=== PATIENT | male | born 1930 | race American Indian/Alaskan Native ===

== ENCOUNTER 2017-11-08 14:15 | Emergency (ER) | payer MEDICARE, OTHER ==
[2017-11-08 14:15] VITALS: PULSE 102
[2017-11-08 15:24] VITALS: RESP 18; TEMP 97.9; O2SAT 100
--- NOTE | 2017-11-08 15:30 | ED PDOC ---
Arrival/HPI - General Time Seen by Provider: 11/08/17 15:27 Historian: Patient - History of Present Illness Narrative History of Present Illness (Text): 11/08/17 15:31 87-year-old male presents to the emergency room after he fell while walking up his outside steps of his home injuring his right knee, sustaining a skin tear to the anterior right knee. Patient states that he injured the same knee 2 weeks ago when he was getting out of his vehicle and sustained a hematoma to the anterior aspect of the right knee. Otherwise the patient denies any head injury, LOC, neck pain, back pain or any other extremity injury. Denies feeling dizzy, chest pain, palpitations prior to the fall today. He has no additional complaints and fells well otherwise. Past Medical History - Provider Review Nursing Documentation Reviewed: Yes - Cardiac Hx Cardiac Disorders: Yes Hx Congestive Heart Failure: Yes Hx Hypertension: Yes - Pulmonary Hx Respiratory Disorders: No - Neurological Hx Paralysis: No - HEENT Hx HEENT Disorder: Yes Hx Cataracts: Yes (L EYE SX) Hx Glaucoma: Yes - Renal Hx Renal Disorder: No - Endocrine/Metabolic Hx Endocrine Disorders: No - Hematological/Oncological Hx Blood Transfusions: No - Integumentary Hx Dermatological Disorder: No - Musculoskeletal/Rheumatological Hx Falls: Yes (past) - Gastrointestinal Hx Gastrointestinal Disorders: No (bm x 4 days) - Genitourinary/Gynecological Hx Reproductive Disorders: No - Psychiatric Hx Emotional Abuse: No Hx Physical Abuse: No Hx Substance Use: No - Surgical History Other/Comment: CATARACTS - Anesthesia Hx Anesthesia Reactions: No Hx Malignant Hyperthermia: No - Suicidal Assessment Feels Threatened In Home Enviroment: No Family/Social History - Physician Review Nursing Documentation Reviewed: Yes Family/Social History: No Known Family HX Smoking Status: Never Smoked Hx Alcohol Use: No Hx Substance Use: No Allergies/Home Meds Allergies/Adverse Reactions: Allergies No Known Allergies Allergy (Verified 10/17/15 13:18) Home Medications: Home Meds Medication Instructions Recorded Confirmed Calcium Carbonate/Vitamin D3 1 tab PO DAILY 07/17/15 10/16/15 [Calcium 600-Vit D3 200 Tablet] Gabapentin [Neurontin] 600 mg PO HS 07/17/15 10/16/15 Multivitamin [Multivitamins] 1 each PO DAILY 07/17/15 10/16/15 Review of Systems - Review of Systems Constitutional: absent: Fatigue, Fevers Respiratory: absent: SOB, Cough Cardiovascular: absent: Chest Pain, Palpitations Musculoskeletal: Arthralgias. absent: Back Pain, Neck Pain, Joint Swelling Skin: Other (skin tear). absent: Rash, Pruritis Neurological: absent: Headache, Dizziness Physical Exam Vital Signs Temp Pulse Resp BP Pulse Ox 11/08/17 16:31 47 L 18 138/68 100 11/08/17 15:24 97.9 F 43 L 18 143/72 100 Temperature: Afebrile Blood Pressure: Normal Pulse: Tachycardic Respiratory Rate: Normal Appearance: Positive for: Well-Appearing, Non-Toxic, Comfortable Pain Distress: None Mental Status: Positive for: Alert and Oriented X 3 - Systems Exam Head: Present: Atraumatic Pupils: Present: PERRL Extroacular Muscles: Present: EOMI Conjunctiva: Present: Normal Mouth: Present: Moist Mucous Membranes Neck: Present: Normal Range of Motion. No: MIDLINE TENDERNESS Back: Present: Normal Inspection. No: Midline Tenderness Upper Extremity: Present: Normal Inspection, Normal ROM, NORMAL PULSES. No: Edema Lower Extremity: Present: NORMAL PULSES, Normal ROM, Swelling (+1 cm skin tear to the anterior lower R knee proximal to a hematoma 2x3 cm in size), Neurovascularly Intact, Capillary Refill < 2 s. No: Tenderness, Deformity, Temperature Abnormalties Neurological: Present: GCS=15, CN II-XII Intact, Speech Normal, Motor Func Grossly Intact, Normal Sensory Function Skin: Present: Warm, Dry, Normal Color. No: Rashes Psychiatric: Present: Alert, Oriented x 3, Normal Insight, Normal Concentration Medical Decision Making ED Course and Treatment: 11/08/17 15:28 Plan : - Tdap IM - XR R knee - Clean & dress wound XR R knee : +knee replacement, +DJD, no fracture, no dislocation, as read by CHANELLE Wound cleaned and dressed. XR results d/w the patient. Instructed on proper wound care and to apply warm compresses to hematoma. Advised to follow up with primary care physician in 1-2 days without fail. Advised to take [id number] Tylenol as needed for pain. Return to the emergency room at any time for any new or worsening symptoms. Patient states he fully agrees with and understands discharge instructions. States that he agrees with the plan and disposition. Verbalized and repeated discharge instructions and plan. I have given the patient opportunity to ask any additional questions. - RAD Interpretation Radiology Orders: 11/08/17 15:35 KNEE RIGHT 2 VIEWS (AP & LAT) [RAD] Stat - Medication Orders Current Medication Orders: Discontinued Medications Tetanus/Reduced Diphtheria/Acell Pertussis (Boostrix Vaccine Inj) 0.5 ml IM .ONCE ONE Stop: 11/08/17 15:36 Last Admin: 11/08/17 16:45 Dose: 0.5 ml Immunization Registry Document 11/08/17 16:45 JESÚS (Rec: 11/08/17 16:45 JESÚS [id number]) Immunization Registry Consent Date 11/08/17 - PA / G[employer] FORMER / Resident Statement MD/DO has reviewed & agrees with the documentation as recorded. - Scribe Statement The provider has reviewed the documentation as recorded by the Scribe (Christa Tam) All medical record entries made by the Scribe were at my direction and pers onally dictated by me. I have reviewed the chart and agree that the record accurately reflects my personal performance of the history, physical exam, medical decision making, and the department course for this patient. I have also personally directed, reviewed, and agree with the discharge instructions and disposition. Disposition/Present on Arrival - Present on Arrival Any Indicators Present on Arrival: No History of DVT/PE: No History of Uncontrolled Diabetes: No Urinary Catheter: No History of Decub. Ulcer: No History Surgical Site Infection Following: None - Disposition Have Diagnosis and Disposition been Completed?: Yes Diagnosis: Contusion of knee, right, Skin tear Disposition: HOME/ ROUTINE Disposition Time: 16:45 Patient Plan: Discharge Condition: STABLE Discharge Instructions (ExitCare): Wound Care (DC), Contusion (DC) Additional Instructions: Thank you for letting us take care of you today. You were treated for R knee contusion with skin tear. The emergency medical care you received today was directed at your acute symptoms. Elevate your knee, apply warm compresses to hematoma, clean skin tear regularly with soap and water. It may take several days for your symptoms to resolve. Return to the Emergency Department if your symptoms worsen, do not improve, or if you have any other problems. Please contact your doctor and orthopedist in 2 days for re-evaluation and follow up. Bring any paperwork you were given at discharge with you along with any medications you are taking to your follow up visit. Our treatment cannot replace ongoing medical care by a primary care provider (PCP) outside of the emergency department. Thank you for allowing the [facility] team to be part of your care today. If you had an X-Ray : A Radiologist will review the ED reading if any change in treatment is needed we will contact you. Forms: [employer] (Sinhala)
[2017-11-08 15:31] VITALS: BMI 27.4
[2017-11-08] MEDS ORDERED: TDAP Vaccine 0.5 mL Syr IM ONE (15:35)
[2017-11-08 16:32] VITALS: BP 138/68; PULSE 47
--- NOTE | 2017-11-08 17:40 | RAD ---
Date of service: 11/08/2017 PROCEDURE: Right Knee Radiographs. HISTORY: pain COMPARISON: None. FINDINGS: BONES: There is diffuse bone demineralization. No acute displaced fracture or bone destruction. Bone alignment is normal. No hardware complications. JOINTS: Status post total cemented knee arthroplasty. JOINT EFFUSION: Small suprapatellar joint effusion. OTHER FINDINGS: None. IMPRESSION: No acute displaced fracture or dislocation. Stat status post total cemented knee arthroplasty, no evidence for hardware complications. Small suprapatellar joint effusion.
== END 2017-11-08 17:20 | disposition home or self-care (01) ==
LOC: ED 14:15
DX: S80.01XA Contusion of right knee, initial encounter (principal); S81.011A Laceration without foreign body, right knee, initial encounter; W19.XXXA Unspecified fall, initial encounter; Y93.01 Activity, walking, marching and hiking; Y92.009 Unspecified place in unspecified non-institutional (private) residence as the place of occurrence of the external cause; I50.9 Heart failure, unspecified; I10 Essential (primary) hypertension; Z96.651 Presence of right artificial knee joint; Z23 Encounter for immunization

== ENCOUNTER 2017-11-18 13:58 | Inpatient (IN) | payer MEDICARE, OTHER ==
[2017-11-18 13:59] VITALS: PULSE 102
--- NOTE | 2017-11-18 15:09 | ED PDOC ---
Arrival/HPI <Daniel Ibarra - Last Filed: 11/18/17 15:39> - General Historian: Patient, Family - History of Present Illness Narrative History of Present Illness (Text): 11/18/17 14:59 87 yo M with PMHx of HTN, gout, dilated cardiomyopathy, chronic afib s/p failed cardioversion, s/p cardiac cath with non-occlusive coronaries presents to ED s/p fall in the setting of generalized LE weakness for the past "couple months". Of note, patient was recently seen on 11/08 for fall in the setting of weakness. Patient states he fell again this morning in his home, witnessed by his present at bedside. Denies any LOC or head trauma, states that his legs "gave out on him". Patient endorses numbness and tingling in his feet b/l for the past few months. No other acute complaints at this time. Denies fevers/chills, headaches, dizziness, chest pain, palpitations, sob, cough, abdominal pain, n/v/d/c. PMHx: HTN, dilated cardiomyopathy, chronic afib s/p failed cardioversion, gout PSHx: cardiac catheterization with nonocclusive arteries Allergies: NKDA Home Medications: as per chart FHx: non-contributory Social Hx: denies alcohol, tobacco, illicit drug use. Patient is a [place] PMD: Dr. Martin Pediatric Cardiologist: Dr. Rich Time/Duration: > month Symptom Onset: Gradual Symptom Course: Unchanged Quality: Dullness Activities at Onset: Light <Yaron Rizvi - Last Filed: 11/18/17 17:55> - General Chief Complaint: Weakness/Neurological Deficit Time Seen by Provider: 11/18/17 14:19 Past Medical History - Provider Review Nursing Documentation Reviewed: Yes - Cardiac Hx Cardiac Disorders: Yes Hx Congestive Heart Failure: Yes Hx Hypertension: Yes - Pulmonary Hx Respiratory Disorders: No - Neurological Hx Paralysis: No - HEENT Hx HEENT Disorder: Yes Hx Cataracts: Yes (L EYE SX) Hx Glaucoma: Yes - Renal Hx Renal Disorder: No - Endocrine/Metabolic Hx Endocrine Disorders: No - Hematological/Oncological Hx Blood Transfusions: No - Integumentary Hx Dermatological Disorder: No - Musculoskeletal/Rheumatological Hx Falls: Yes (past) - Gastrointestinal Hx Gastrointestinal Disorders: Yes Hx Constipation: Yes Other/Comment: RECENT GI INFECTION - Genitourinary/Gynecological Hx Reproductive Disorders: No - Psychiatric Hx Psychophysiologic Disorder: No Hx Substance Use: No - Surgical History Other/Comment: CATARACTS - Anesthesia Hx Anesthesia Reactions: No Hx Malignant Hyperthermia: No - Suicidal Assessment Feels Threatened In Home Enviroment: No <Yaron Rizvi - Last Filed: 11/18/17 17:55> Family/Social History - Physician Review Nursing Documentation Reviewed: Yes Family/Social History: Unknown Family HX Smoking Status: Never Smoked Hx Alcohol Use: No Hx Substance Use: No <Yaron Rizvi - Last Filed: 11/18/17 17:55> Allergies/Home Meds <Daniel Ibarra - Last Filed: 11/18/17 15:39> <Yaron Rizvi - Last Filed: 11/18/17 17:55> Allergies/Adverse Reactions: Allergies No Known Allergies Allergy (Verified 11/18/17 14:21) Home Medications: Home Meds Medication Instructions Recorded Confirmed Calcium Carbonate/Vitamin D3 1 tab PO DAILY 07/17/15 11/18/17 [Calcium 600-Vit D3 200 Tablet] Gabapentin [Neurontin] 600 mg PO HS 07/17/15 11/18/17 Multivitamin [Multivitamins] 1 each PO DAILY 07/17/15 11/18/17 Amoxicillin 1,000 mg PO BID 11/18/17 11/18/17 Clarithromycin [Clarithromycin ER] 1 tab PO DAILY 11/18/17 11/18/17 Omeprazole 40 mg PO DAILY 11/18/17 11/18/17 Review of Systems - Review of Systems Constitutional: Normal Eyes: Normal ENT: Normal Respiratory: Normal Cardiovascular: Normal Gastrointestinal: Normal Genitourinary Male: Normal Skin: Ulcer (chronic, dry diffusely b/l LE) Neurological: Normal Endocrine: Normal Hemo/Lymphatic: Normal Psychiatric: Normal <Yaron Rizvi - Last Filed: 11/18/17 17:55> Physical Exam Vital Signs Temp Pulse Resp BP Pulse Ox 11/18/17 14:11 98.1 F 51 L 19 97/60 L 97 <Daniel Ibarra - Last Filed: 11/18/17 15:39> Vital Signs Reviewed: Yes Vital Signs Temp Pulse Resp BP Pulse Ox 11/18/17 14:11 98.1 F 51 L 19 97/60 L 97 Temperature: Afebrile Blood Pressure: Hypotensive Pulse: Bradycardic Respiratory Rate: Normal Appearance: Positive for: Well-Appearing, Non-Toxic, Comfortable Pain Distress: None Mental Status: Positive for: Alert and Oriented X 3 - Systems Exam Head: Present: Atraumatic, Normocephalic Pupils: Present: PERRL Extroacular Muscles: Present: EOMI Conjunctiva: Present: Normal Ears: Present: Normal Mouth: Present: Moist Mucous Membranes Pharnyx: Present: Normal Neck: Present: Normal Range of Motion Respiratory/Chest: Present: Clear to Auscultation, Good Air Exchange. No: Respiratory Distress, Accessory Muscle Use, Wheezes, Rales, Rhonchi Cardiovascular: Present: Normal S1, S2, Bradycardic Abdomen: Present: Normal Bowel Sounds. No: Tenderness, Distention, Peritoneal Signs, Rebound, Guarding Back: Present: Normal Inspection Upper Extremity: Present: Normal Inspection, Normal ROM, NORMAL PULSES, Capillary Refill < 2s. No: Cyanosis, Edema, Tenderness, Swelling Lower Extremity: Present: Edema, NORMAL PULSES, Swelling, Capillary Refill < 2 s. No: CALF TENDERNESS, Cyanosis Neurological: Present: CN II-XII Intact, Speech Normal Skin: Present: Warm, Dry, Normal Color Psychiatric: Present: Alert, Oriented x 3, Normal Insight, Normal Concentration <Yaron Rizvi - Last Filed: 11/18/17 17:55> Medical Decision Making ED Course and Treatment: 11/18/17 15:39 87 year old male presents to the Emergency department for medical evaluation s/p fall secondary to lower extremity weakness. In agreement with resident note, which includes further HPI details. Patient was seen and evaluated with resident, came up with plan and treatment together. - Lab Interpretations Lab Results: 11/18/17 15:10 11/18/17 15:10 Lab Results 11/18/17 15:10: Sodium 143, Potassium 3.9, Chloride 107, Carbon Dioxide 27, Anion Gap 13, BUN 41 H, Creatinine 2.9 H, Est GFR ( Amer) 25, Est GFR (N on-Af Amer) 21, Random Glucose 126 H, Calcium 9.2, Magnesium 2.1, Total Bilirubin 1.7 H, AST 637 H, ALT 428 H, Alkaline Phosphatase 152 H, Lactate Dehydrogenase 1445 H, Total Creatine Kinase 633 H, CK-MB (CK-2) Pending, CK-MB (CK-2) % Pending, Troponin I Pending, Total Protein 6.5, Albumin 3.7, Globulin 2.9, Albumin/Globulin Ratio 1.3 11/18/17 15:10: PT 11.9, INR 1.04, APTT 30.8 11/18/17 15:10: WBC 4.9 D, RBC 3.86, Hgb 11.5 L, Hct 33.2 L, MCV 86.0, MCH 29.8, MCHC 34.6, RDW 15.0 H, Plt Count 73 L, Gran % 78.4 H, Lymph % (Auto) 11.5 L, [place] % (Auto) 9.9 H, Eos % (Auto) 0.0 L, Baso % (Auto) 0.2, Gran # 3.87, Lymph # (Auto) 0.6 L, [place] # (Auto) 0.5, Eos # (Auto) 0.0, Baso # (Auto) 0.01 - RAD Interpretation Radiology Orders: 11/18/17 14:45 CHEST PORTABLE [RAD] Stat - Medication Orders Current Medication Orders: Discontinued Medications Atropine Sulfate (Atropine) 0.5 mg IVP STAT STA Stop: 11/18/17 15:14 Last Admin: 11/18/17 15:19 Dose: 0.5 mg IVP Administration Document 11/18/17 15:19 OCS (Rec: 11/18/17 15:19 OCS [id number]) Charges for Administration # of IVP Administrations 1 <Daniel Ibarra - Last Filed: 11/18/17 15:39> ED Course and Treatment: 11/18/17 15:17 Impression: 87 yo M with PMHx HTN, gout, dilated cardiomyopathy, chronic Afib s/p failed cardioversion presenting to ED s/p fall in the setting of generalized LE weakness b/l Plan: --CBC, CMP --PT/PTT --trops --EKG --CXR --Atropine 0.5 mg IVP x1 --UA --monitor and disposition 11/18/17 17:[address] Rich at bedside, accepted to ICU. - RAD Interpretation Radiology Orders: 11/18/17 14:45 CHEST PORTABLE [RAD] Stat - EKG Interpretation EKG Interpretation (Text): 11/18/17 15:20 EKG 1 (14:16): Wide QRS rhythm, HR 49 bpm; L axis deviation, LVH with QRS widening and repolarization abnormality. Suspected 3rd degree block EKG 2 (14:57): Wide QRS rhythm, HR 43 bpm; LBBB EKG 3 (15:08): Wide QRS rhythm, HR 42 bpm; LBBB; suspected 3rd degree block Interpreted by ED Physician: Yes Type: 12 lead EKG <Yaron Rizvi - Last Filed: 11/18/17 17:55> - PA / [employer] / Resident Statement MD/DO has reviewed & agrees with the documentation as recorded. MD/DO has examined the patient and agrees with the treatment plan. - Scribe Statement The provider has reviewed the documentation as recorded by the Scribe Yanni Whitaker. Provider Scribe Attestation: All medical record entries made by the Scribe were at my direction and personally dictated by me. I have reviewed the chart and agree that the record accurately reflects my personal performance of the history, physical exam, medical decision making, and the department course for this patient. I have also personally directed, reviewed, and agree with the discharge instructions and disposition. <Daniel Ibarra - Last Filed: 11/18/17 15:39> Disposition/Present on Arrival <Daniel Ibarra - Last Filed: 11/18/17 15:39> - Present on Arrival Any Indicators Present on Arrival: No History of DVT/PE: No History of Uncontrolled Diabetes: No Urinary Catheter: No History of Decub. Ulcer: No History Surgical Site Infection Following: None - Disposition Have Diagnosis and Disposition been Completed?: Yes Disposition Time: 17:55 <Yaron Rizvi - Last Filed: 11/18/17 17:55> - Disposition Diagnosis: Heart block, Acute kidney injury, Transaminitis, Atrial fibrillation Disposition: HOSPITALIZED Condition: UNKNOWN
[2017-11-18 15:19] LABS: BASO # 0.01 K/mm3 (0.0-2.0); BASO % 0.2 % (0.0-3.0); GRAN # 3.87 (1.4-6.5); GRAN % 78.4 % (50.0-68.0); HEMOGLOBIN 11.5 g/dL (14.0-18.0); LYMPH # 0.6 (1.2-3.4); LYMPH % 11.5 % (22.0-35.0); MEAN CORPUSCULAR HEMOGLOBIN 29.8 pg (25.0-35.0); MEAN CORPUSCULAR HGB CONC 34.6 g/dl (31.0-37.0); MONO # 0.5 (0.1-0.6); MONO % 9.9 % (1.0-6.0); PLATELET COUNT 73 10^3/uL (120.0-450.0); RBC 3.86 10^6/uL (3.5-6.1); WHITE BLOOD COUNT 4.9 10^3/ul (4.5-11.0)
[2017-11-18 15:32] LABS: ALB/GLOB RATIO 1.3 (1.1-1.8); ALBUMIN 3.7 g/dL (3.0-4.8); CALCIUM 9.2 mg/dL (8.4-10.5); INR 1.04; PARTIAL THROMBOPLASTIN TIME 30.8 Seconds (25.1-36.5); PROTHROMBIN TIME 11.9 SECONDS (9.4-12.5)
[2017-11-18 15:44] LABS: TROPONIN I 0.08 ng/mL
--- NOTE | 2017-11-18 15:45 | RAD ---
Date of service: 11/18/2017 HISTORY: fall COMPARISON: 10/11/2015 FINDINGS: LUNGS: No active pulmonary disease. PLEURA: No significant pleural effusion identified, no pneumothorax apparent. CARDIOVASCULAR: Mild cardiomegaly OSSEOUS STRUCTURES: No significant abnormalities. VISUALIZED UPPER ABDOMEN: Normal. OTHER FINDINGS: None. IMPRESSION: No active disease.
[2017-11-18] MEDS ORDERED: DOPamine 400mg/250ml D5W 400 MG/250 ML BAG IV PRN (15:46)
[2017-11-18] MEDS ORDERED: Glucagon Recombinant 1 mg Inj IV STA (15:46)
[2017-11-18 16:02] LABS: CK MB% 0.9 % (2.5-3.0); CK-MB 5.5 ng/mL (0.0-3.6)
[2017-11-18 16:15] VITALS: BMI 24.2
[2017-11-18] MEDS ORDERED: Sodium Chloride 0.9% 1,000 ML IV STA (17:01)
[2017-11-18] MEDS ORDERED: Sodium Chloride 0.9% 1,000 ML IV SCH (17:15)
--- NOTE | 2017-11-18 17:53 | CON ---
DATE: 11/18/2017 HISTORY OF PRESENT ILLNESS: The patient is seen and examined at bedside. 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 Martin, however, fell before her office. The patient denies loss of consciousness, vertigo, lightheadedness, chest pain or shortness of breath. The patient had a little bit of nausea and vomiting couple days ago, which however was attributed to the medication that he used to treat H. pylori. PAST MEDICAL HISTORY: As above. SOCIAL HISTORY: The patient is a lifelong nonsmoker. No alcohol or illicit drug abuse. FAMILY HISTORY: Noncontributory. ALLERGIES: NKDA. HOME MEDICATIONS: Omeprazole, clarithromycin, amoxicillin, verapamil, Aldactone, ramipril, multivitamins, Neurontin, Lasix, digoxin, vitamin D, atenolol and Eliquis. REVIEW OF SYSTEMS: Review of 12-organ system other than mentioned in history of present illness is negative. PHYSICAL EXAMINATION: VITAL SIGNS: Temperature 98.1, heart rate 47, blood pressure 109/58, respiratory rate 18, oxygen saturation 95% on room air. ENT: Head and neck atraumatic. LUNGS: Clear to auscultation bilaterally. HEART: Regular rate and rhythm. S1 and S2 normal. ABDOMEN: Soft, nontender, nondistended. MUSCULOSKELETAL: Trace bilateral pedal and ankle edema. NEURO: The patient moves all extremities spontaneously. SKIN: Moist. PSYCH: The patient is alert, awake and oriented, not in respiratory distress. LABORATORY DATA AND IMAGING: WBC 4.9, hemoglobin 11.5, platelet count 73. Eosinophils 0. Sodium 143, potassium 3.9, chloride 107, carbon dioxide 27, BUN 41, creatinine 2.9, glucose 126, AST 637, ALT 428, total bilirubin 1.7, alkaline phosphatase 152. Troponin 0.08, lipase 71. INR 1.04, EKG showed what appears to be atrioventricular rhythm with retrograde conductance versus third degree AV block. Chest x-ray showed no acute pulmonary disease, questionable emphysema. ASSESSMENT AND PLAN: This is 87-year-old gentleman who presented with history of fall in the setting of significant bradycardia with episode of hypotension complicated by acute kidney injury and severe transaminitis. The patient is known to have some nausea and vomiting 2 days prior and possibility of hypovolemic shock with global hyperperfusion and end-organ dysfunction cannot be discarded as well. The patient received 1 liter of normal saline wide open as a bolus and normal saline at 100 mL/hour was started. The patient was also started on dopamine for pressor and ionotropic support in the setting of severe bradycardia. Cardiology service is on board. First troponin is negative and second troponin will be obtained soon. The patient does not have fever and does not have leukocytosis. Thus, my suspicion for severe sepsis or septic shock is fairly low, however, I cannot rule out acute cholecystitis or ascending cholangitis as the patient's bilirubin as well as LFTs are elevated. I will obtain CT of the abdomen and pelvis, venous blood gas with lactic acid and start the patient on empiric antibiotics after obtaining blood, urine culture, procalcitonin. I will also get U-tox screen, Tylenol level and we will get GI consult on board. Of note, the patient's abdomen is completely benign and nontender. We will continue to target euvolemia, euglycemia, normothermia and oxygen saturation more than 90%. We will continue with deep vein thrombosis, gastrointestinal prophylaxis. Of note, digoxin level is less than 0.4. ccm time 40 min Tim Nur MD MTDD
[2017-11-18 17:54] LABS: ACETAMINOPHEN < 10.0 ug/ml (10.0-20.0); SALICYLATE < 1 mg/dL (2.0-20.0)
[2017-11-18 18:50] LABS: PH,URINE 6.5 (4.7-8.0); URINE BILIRUBIN NEGATIVE (NEGATIVE); URINE BLOOD LARGE (NEGATIVE); URINE GLUCOSE (UA) NEGATIVE (NEGATIVE); URINE LEUKOCYTE ESTERASE NEGATIVE Leu/uL (NEGATIVE); URINE PROTEIN TRACE mg/dL (<30 mg/dL)
[2017-11-18 18:54] LABS: URINE APPEARANCE CLEAR (CLEAR); URINE COLOR YELLOW (YELLOW)
[2017-11-18 19:16] LABS: URINE BACTERIA FEW (NEG)
[2017-11-18 19:55] LABS: VENOUS BLOOD GAS BASE EXCESS 1.7 mmol/L (0.0-2.0); VENOUS BLOOD GAS PO2 49 mm/Hg (30-55); VENOUS BLOOD PH 7.35 (7.32-7.43)
[2017-11-18] MEDS: cefTRIAXone 1 gm 1 GM/100 ML BAG IVPB SCH (20:00)
[2017-11-18 21:34] LABS: BARBITURATES, UR NEGATIVE (NEGATIVE); BENZODIAZEPINES, UR NEGATIVE (NEGATIVE); OPIATES, UR NEGATIVE (NEGATIVE); PHENCYCLIDINE, UR NEGATIVE (NEGATIVE)
--- NOTE | 2017-11-19 05:41 | HP ---
HISTORY OF PRESENT ILLNESS: Patient is an 87-year-old, known to me from office practice. He was seen almost a month ago in his usual health. According to daughter, lately he has been feeling increasingly week, tired, lightheaded, and he had a fall on 11/08/2017. He was brought here, was checked and sent home, and he has same incidence of fall this morning and it was witnessed by his . There was no history of chest pain. No shortness of breath. Just generalized weakness. He did not lose consciousness. Did not hit his head. Did not lose his vision. Patient said when he got out, his legs gave out and he ended up falling. Complained of bilateral foot pain, bilateral ankle pain, and ankle swelling for last couple of weeks. Denies any recent nausea, vomiting, or diarrhea. Appetite is fair. PAST MEDICAL HISTORY: Significant for: 1. Hypertension. 2. Gouty arthritis. 3. Dilated cardiomyopathy. 4. Chronic AFib. 5. History of cardiac catheterization and was nonocclusive. 6. Status post aortic valve replacement, TAVR. ALLERGIES: HE IS NOT ALLERGIC TO ANY MEDICATIONS. SOCIAL HISTORY: He denies smoking, drinking, or alcohol use. MEDICATIONS AT HOME: He is on omeprazole 40 mg daily, Aldactone 25 twice a day, ramipril 1.25 daily, gabapentin 600 at bedtime, Lasix 40 mg twice a day, digoxin 0.125 daily, atenolol 25 twice a day, and Eliquis 5 mg twice a day. REVIEW OF SYSTEMS: Generalized weakness, difficulty walking, bilateral knee pain, bilateral leg pain, and bilateral ankle swelling. PHYSICAL EXAMINATION: GENERAL: He is lethargic. VITAL SIGNS: He is afebrile, pulse 47, respiration 18, blood pressure 109/58. LUNGS: Bilateral fair airflow. Decreased at bases. HEART: S1, S2 audible. ABDOMEN: Soft, nontender. No rebound, no guarding. NEUROLOGIC: He is awake and alert, sleepy, but arousable. EXTREMITIES: Bilateral ankle +1 edema. LABORATORY DATA: WBC 4.9, hemoglobin 11.5, hematocrit 33.2, platelets of 73, PT 11.9, INR 1.04. Chemistry: Sodium 143, potassium 3.9, chloride 107, CO2 of 27, BUN 41, creatinine 2.9, blood sugar 126, total bilirubin 1.7, AST 637, ALT 428, alkaline phosphatase 152. LDH 1448, CPK 633. Digoxin level is 0.4. His x-ray of chest is unremarkable. EKG, reportedly as per ED physician, is complete heart block. ASSESSMENT: 1. Status post multiple falls. 2. Heart block. 3. Cardiomyopathy. 4. Congestive heart failure. 5. Hypertension. 6. Hyperlipidemia. 7. History of gout. PLAN: Patient is going to be transferred to ICU. We will follow up CT scan of the abdomen and pelvis. Dr. Rich consulted. We will resume his medications. Follow up his electrolytes. He will have external pacemaker placed. Evaluated by office bookkeeper, will be admitted in ICU. Kendall Martin MD
--- NOTE | 2017-11-19 05:54 | CON ---
DATE: 11/18/2017 REASON FOR CONSULTATION AND FOLLOWUP: Complete heart block, CHF. BRIEF CLINICAL HISTORY: This is an 87-year-old male, brought to the emergency room by the family because the patient is feeling very weak and fell down. Denies any chest pain. Denies any shortness of breath. Denies any palpitation. EKG on admission shows AFib, junctional escape, then later on found to become heart block with possible ventricular escape rhythm. PAST MEDICAL HISTORY: Significant for [place] war , initially went to [facility], found to be in AFib with rapid rate, history of AFib - chronic, status post failed BRANDT cardioversion. Past history also significant for aortic stenosis, cardiomyopathy, hypertension. PREVIOUS CARDIAC WORKUP: As follows: The patient underwent cardiac catheterization on 08/12/2015 that shows normal coronary, severely decreased LV function, ejection fraction 15% to 20%, EDP in the range of 20, peak to peak gradient across the aortic valve was 40 mm - severe, status post TAVR in the past, history of chronic AFib in the past, failed BRANDT cardioversion, history of decreased LV function, offered AICD, but patient refused, does not want defibrillator. CURRENT MEDICATIONS: Omeprazole, clarithromycin, amoxicillin, verapamil, spironolactone, ramipril, digoxin, Eliquis and atenolol. REVIEW OF SYSTEMS: As per HPI. PHYSICAL EXAMINATION: VITAL SIGNS: As follows; temperature afebrile, heart rate of 57, blood pressure 168/71. HEENT: PERRLA. Extraocular muscles intact. NECK: Supple. No carotid bruit or thyromegaly. CHEST: Clear to auscultation. HEART: S1 and S2, regular. ABDOMEN: Soft. EXTREMITIES: Clubbing and cyanosis negative. LABORATORY DATA: Blood workup as follows; WBC 4.9, hemoglobin 11.5, hematocrit 33.2, platelet count 73. Chemistry shows sodium 140, potassium 3.9, chloride 107, carbon dioxide 27, anion gap of 13, BUN 41, creatinine 2.9. IMPRESSION: Acute kidney injury, history of cardiomyopathy, decreased left ventricular function, status post transcatheter aortic valve replacement, refused automatic implantable cardioverter-defibrillator, history of chronic atrial fibrillation on anticoagulation, probable history of bradycardia secondary to atrial fibrillation with slow response, doubt it is heart block, as patient has history of chronic atrial fibrillation. RECOMMENDATION: Start low dose of dopamine, hold beta-vivienne, and hold verapamil. Further recommendations depending on the hospital course. We will follow with you. Agree to give IV fluid, give IV hydralazine p.r.n. for blood pressure. We will get echo to assess LV function. Thank you, Dr. Martin, for providing us the opportunity in taking care of the patient, Isreal. Jet Rich MD
[2017-11-19 07:16] LABS: GRAN # 4.99 (1.4-6.5); GRAN % 73.6 % (50.0-68.0); HEMOGLOBIN 12.8 g/dL (14.0-18.0); LYMPH # 1.1 (1.2-3.4); LYMPH % 16.5 % (22.0-35.0); MEAN CELL VOLUME 85.9 fl (80.0-105.0); MEAN CORPUSCULAR HEMOGLOBIN 29.2 pg (25.0-35.0); MONO # 0.7 (0.1-0.6); MONO % 9.9 % (1.0-6.0); PLATELET COUNT 80 10^3/uL (120.0-450.0); RBC 4.39 10^6/uL (3.5-6.1); WHITE BLOOD COUNT 6.8 10^3/ul (4.5-11.0)
[2017-11-19 07:27] LABS: ALB/GLOB RATIO 1.2 (1.1-1.8); ALBUMIN 4.1 g/dL (3.0-4.8); CALCIUM 9.3 mg/dL (8.4-10.5)
[2017-11-19] MEDS: cefTRIAXone 1 gm 1 GM/100 ML BAG IVPB SCH (09:39)
--- NOTE | 2017-11-19 09:54 | CT ---
PROCEDURE: CT Abdomen and Pelvis without Oral or IV contrast. HISTORY: cholecystitis and ARTEMIO COMPARISON: None available. TECHNIQUE: Contiguous axial images of the abdomen and pelvis. No oral or IV contrast administered. Coronal and Sagittal reformats generated and reviewed. Radiation dose: Total exam DLP = 1032.30 mGy-cm. This CT exam was performed using one or more of the following dose reduction techniques: Automated exposure control, adjustment of the mA and/or kV according to patient size, and/or use of iterative reconstruction technique. FINDINGS: There is limited evaluation of the solid organs without the administration of IV contrast. Streak artifact further limits the study. LOWER THORAX: Bibasilar atelectasis/infiltrates. Mild venous congestion. There is no visible pleural effusion or pneumothorax. Moderate cardiomegaly. Cardiac valve replacement. LIVER: Mildly heterogeneous hepatic parenchyma. Contour lobulations. GALLBLADDER AND BILE DUCTS: Gallbladder distension. No calcified gallstones identified. PANCREAS: Pancreatic atrophy. SPLEEN: Thin linear calcification. ADRENALS: Bilateral adrenal gland hypertrophy. KIDNEYS AND URETERS: No hydronephrosis or obstructing renal calculus. Bilateral renal cysts. Complex large right upper pole cysts versus large multiloculated complex cyst containing thin peripheral calcifications. BLADDER: The urinary bladder appears unremarkable. REPRODUCTIVE: Moderate enlargement of the prostate gland. APPENDIX: No secondary signs of acute appendicitis. BOWEL: The stomach is nondistended. Lack of oral contrast limits evaluation for bowel pathology. The bowel loops appear within normal limits of caliber without evidence of intestinal obstruction. PERITONEUM: No significant free fluid. No definite free air. LYMPH NODES: No bulky lymphadenopathy identified. VASCULATURE: Atherosclerotic calcifications of the aorta. No aortic aneurysm. BONES: Right hip arthroplasty hardware with extensive resultant streak artifact limiting evaluation of the surrounding structures. Osseous demineralization. Extensive degenerative changes. OTHER FINDINGS: None. IMPRESSION: Gallbladder distension. Suggest right upper quadrant ultrasound for further evaluation. Multiple bilateral renal cysts.Complex large right upper pole cysts versus large multiloculated complex cyst containing thin peripheral calcifications. Enlarged prostate gland. Recommend correlation with PSA. Moderate cardiomegaly and valve replacement. Mild pulmonary venous congestion. Bibasilar atelectasis. Additional findings as above. Preliminary impression was provided by [employer].
[2017-11-19] MEDS ORDERED: CLARITHROMYCIN PO SCH ×2 (10:00)
[2017-11-19] MEDS ORDERED: AMOXICILLIN 1000 MG PO SCH (10:00)
--- NOTE | 2017-11-19 10:17 | US ---
Date of service: 11/19/2017 HISTORY: RUQ US, transaminitis COMPARISON: CT abdomen and pelvis without contrast performed 11/18/17 TECHNIQUE: Sonographic evaluation of the right upper quadrant of the abdomen. FINDINGS: LIVER: Measures 17.1 cm in length and appears unremarkable. No focal hepatic mass identified. The main portal vein appears patent with normal directional flow. No intrahepatic bile duct dilatation. GALLBLADDER: No gallstones. No gallbladder wall thickening or pericholecystic edema. Negative sonographic Yan's sign as assessed by the limousine and hearse upholsterer. COMMON BILE DUCT: Measures 6 mm. PANCREAS: Not well-visualized. RIGHT KIDNEY: Measures 10.7 x 5.4 x 5.9 cm. No obstructing calculus or hydronephrosis identified. Right renal cysts identified measuring approximately 6.1 x 5.0 x 5.1 cm, 4.1 x 4.8 x 3.7 cm, and 5.2 x 3.6 x 4.0 cm. These cysts appears complex and at least 1 contains evidence of internal debris. AORTA: Limited visualization appears grossly unremarkable. IVC: Limited visualization appears grossly unremarkable. OTHER FINDINGS: None . IMPRESSION: Right renal cysts measuring up to 6.1 cm. These cysts appear complex and at least 1 contains evidence of internal debris.
--- NOTE | 2017-11-19 10:34 | CP.PCM.CON ---
<Parish Bruce - Last Filed: 11/19/17 10:36> History of Present Illness - History of Present Illness History of Present Illness: CONSULT NOTE FOR GI SERVICE - DR. FUNEZ Consulted reason: Transaminitis HPI: 87 year old male with past medical history of CHF last known EF of 15-20%, dilated cardiomyopathy, chronic atrial fibrillation s/p failed cardioversion BRANDT @ [facility], s/p cardiac cath with non occlusive CAD, s/p TAVR presented to [facility] [place] [facility] ED s/p fall in the setting of a history of generalized weaknes and nausea/vomiting. Patient was evaluated in the ED and found to have AV retrograde conductance vs. 3rd degree block and end organ damage and was transferred to ICU for further monitoring. Patient indicates that he has been experiencing weakness for a few weeks to months. He indicates that he has had limited oral intake recently. He indicates recent treatment for h. pylori for which he was started on triple therapy. Patient was unable to finish his treatment course secondary to nausea, vomiting. Patient denies any GI medical problems in the past. He denies dysphagia, weight loss, abdominal discomfort, irregular bowel movements, blood per mouth or rectum, heavy history of drinking, recent travel, sick contacts. PMH:CHF last known EF of 15-20%, dilated cardiomyopathy, chronic atrial fibrillation s/p failed cardioversion BRANDT @ [facility], s/p cardiac cath with non occlusive CAD, s/p TAVR PSH: Heart cath, TAVR, FMH: Noncontributory SocHx: Tobacco: denies, ETOH: Denies, ID: Denies ALL: NKDA MEDS: Omeprazole, clarithromycin, amoxicillin, verapamil, aldactone, ramipril, MV, neurontin, Lasix, digoxin, Vitamin D, atenolol, eliquis Review of Systems - Review of Systems All systems: reviewed and no additional remarkable complaints except (as mentioned in HPI) Past Patient History - Past Medical History & Family History Past Medical History?: Yes - Past Social History Smoking Status: Never Smoked - CARDIAC Hx Cardiac Disorders: Yes Hx Cardia Arrhythmia: Yes Hx Congestive Heart Failure: Yes Hx Hypertension: Yes - PULMONARY Hx Respiratory Disorders: No - NEUROLOGICAL Hx Neurological Disorder: Yes (NEUROPATHY, pins and needles feet) - HEENT Hx HEENT Problems: Yes Hx Cataracts: Yes (L EYE SX) Hx Glaucoma: Yes - RENAL Hx Chronic Kidney Disease: No - ENDOCRINE/METABOLIC Hx Endocrine Disorders: No - HEMATOLOGICAL/ONCOLOGICAL Hx Blood Disorders: No - INTEGUMENTARY Hx Dermatological Problems: No - MUSCULOSKELETAL/RHEUMATOLOGICAL Hx Musculoskeletal Disorders: Yes Hx Falls: Yes - GASTROINTESTINAL Hx Gastrointestinal Disorders: Yes Other/Comment: RECENT GI INFECTION - GENITOURINARY/GYNECOLOGICAL Hx Genitourinary Disorders: No - PSYCHIATRIC Hx Psychophysiologic Disorder: No - SURGICAL HISTORY Hx Surgeries: Yes Hx Joint Replacement: Yes Other/Comment: CATARACTS - ANESTHESIA Hx Anesthesia Reactions: No Hx Malignant Hyperthermia: No Meds Allergies/Adverse Reactions: Allergies Allergy/AdvReac Type Severity Reaction Status Date / Time No Known Allergies Allergy Verified 11/18/17 14:21 - Medications Medications: Current Medications Amoxicillin (Amoxil 500 Mg Cap) 1,000 mg PO BID [facility] Last Admin: 11/19/17 09:38 Dose: 1,000 mg Dopamine HCl/Dextrose (Dopamine 400mg/250ml D5w) 400 mg in 250 mls @ 16.066 mls/hr IV .[id number] PRN; Protocol PRN Reason: TITRATE PER MD ORDER Last Admin: 11/19/17 06:45 Dose: 5 mcg/kg/min, 16.066 mls/hr Ceftriaxone Sodium (Rocephin 1 Gram Ivpb) 1 gm in 100 mls @ 100 mls/hr IVPB DAILY [facility]; Protocol Last Admin: 11/19/17 09:39 Dose: 100 mls/hr Sodium Chloride (Sodium Chloride 0.9%) 1,000 mls @ 75 mls/hr IV .[id number] [facility] Non-Formulary Medication (Clarithromycin [Clarithromycin Er]) 1 tab PO DAILY [facility] Pantoprazole Sodium (Protonix Inj) 40 mg IVP DAILY [facility] Last Admin: 11/19/17 09:40 Dose: 40 mg Physical Exam - Constitutional Appears: Non-toxic - Head Exam Head Exam: ATRAUMATIC, NORMAL INSPECTION, NORMOCEPHALIC - Eye Exam Eye Exam: EOMI, PERRL - ENT Exam ENT Exam: Mucous Membranes Dry - Neck Exam Neck exam: Positive for: Full Rom - Respiratory Exam Respiratory Exam: Clear to Auscultation Bilateral, NORMAL BREATHING PATTERN - Cardiovascular Exam Cardiovascular Exam: Bradycardia, Irregular Rhythm - GI/Abdominal Exam GI & Abdominal Exam: Normal Bowel Sounds, Soft, Tenderness (left sided to palpation ) - Extremities Exam Extremities exam: Negative for: calf tenderness, tenderness - Neurological Exam Neurological exam: Alert, Oriented x3 Additional comments: motor and sensory grossly normal - Psychiatric Exam Psychiatric exam: Normal Affect, Normal Mood - Skin Skin Exam: Dry, Intact Results - Vital Signs Recent Vital Signs: Last Vital Signs Temp 98.7 F 11/19/17 08:15 Pulse 58 L 11/19/17 07:50 Resp 20 11/19/17 07:50 BP 133/74 11/19/17 07:00 Pulse Ox 97 11/19/17 07:50 - Labs Result Diagrams: 11/19/17 06:50 11/19/17 06:50 Labs: Laboratory Results - last 24 hr 11/18/17 11/18/17 11/18/17 15:10 15:10 15:10 WBC 4.9 D RBC 3.86 Hgb 11.5 L Hct 33.2 L MCV 86.0 MCH 29.8 MCHC 34.6 RDW 15.0 H Plt Count 73 L Gran % 78.4 H Lymph % (Auto) 11.5 L [place] % (Auto) 9.9 H Eos % (Auto) 0.0 L Baso % (Auto) 0.2 Gran # 3.87 Lymph # (Auto) 0.6 L [place] # (Auto) 0.5 Eos # (Auto) 0.0 Baso # (Auto) 0.01 PT 11.9 INR 1.04 APTT 30.8 pO2 VBG pH VBG pCO2 VBG HCO3 VBG Total CO2 VBG O2 Sat (Calc) VBG Base Excess VBG Potassium Glucose Lactate FiO2 Sodium 143 Potassium 3.9 Chloride 107 Carbon Dioxide 27 Anion Gap 13 BUN 41 H Creatinine 2.9 H Est GFR ( Amer) 25 Est GFR (Non-Af Amer) 21 Random Glucose 126 H Calcium 9.2 Phosphorus Magnesium 2.1 Total Bilirubin 1.7 H AST 637 H ALT 428 H Alkaline Phosphatase 152 H Lactate Dehydrogenase 1445 H Total Creatine Kinase 633 H CK-MB (CK-2) 5.5 H CK-MB (CK-2) % 0.9 L Troponin I 0.08 D Total Protein 6.5 Albumin 3.7 Globulin 2.9 Albumin/Globulin Ratio 1.3 Triglycerides Cholesterol LDL Cholesterol Direct HDL Cholesterol Lipase TSH 3rd Generation Venous Blood Potassium Urine Color Urine Appearance Urine pH Ur Specific Hannah Urine Protein Urine Glucose (UA) Urine Ketones Urine Blood Urine Nitrate Urine Bilirubin Urine Urobilinogen Ur Leukocyte Esterase Urine RBC Urine WBC Ur Epithelial Cells Urine Bacteria Digoxin Salicylates Urine Opiates Screen Urine Methadone Screen Acetaminophen Ur Barbiturates Screen Ur Phencyclidine Scrn Ur Amphetamines Screen U Benzodiazepines Scrn U Oth Cocaine Metabols U Cannabinoids Screen 11/18/17 11/18/17 11/18/17 15:10 15:10 15:30 WBC RBC Hgb Hct MCV MCH MCHC RDW Plt Count Gran % Lymph % (Auto) [place] % (Auto) Eos % (Auto) Baso % (Auto) Gran # Lymph # (Auto) [place] # (Auto) Eos # (Auto) Baso # (Auto) PT INR APTT pO2 VBG pH VBG pCO2 VBG HCO3 VBG Total CO2 VBG O2 Sat (Calc) VBG Base Excess VBG Potassium Glucose Lactate FiO2 Sodium Potassium Chloride Carbon Dioxide Anion Gap BUN Creatinine Est GFR ( Amer) Est GFR (Non-Af Amer) Random Glucose Calcium Phosphorus Magnesium Total Bilirubin AST ALT Alkaline Phosphatase Lactate Dehydrogenase Total Creatine Kinase CK-MB (CK-2) CK-MB (CK-2) % Troponin I Total Protein Albumin Globulin Albumin/Globulin Ratio Triglycerides Cholesterol LDL Cholesterol Direct HDL Cholesterol Lipase 71 TSH 3rd Generation Venous Blood Potassium Urine Color Urine Appearance Urine pH Ur Specific Hannah Urine Protein Urine Glucose (UA) Urine Ketones Urine Blood Urine Nitrate Urine Bilirubin Urine Urobilinogen Ur Leukocyte Esterase Urine RBC Urine WBC Ur Epithelial Cells Urine Bacteria Digoxin < 0.4 L Salicylates < 1 L Urine Opiates Screen Urine Methadone Screen Acetaminophen < 10.0 L Ur Barbiturates Screen Ur Phencyclidine Scrn Ur Amphetamines Screen U Benzodiazepines Scrn U Oth Cocaine Metabols U Cannabinoids Screen 11/18/17 11/18/17 11/18/17 17:30 17:30 18:30 WBC RBC Hgb Hct MCV MCH MCHC RDW Plt Count Gran % Lymph % (Auto) [place] % (Auto) Eos % (Auto) Baso % (Auto) Gran # Lymph # (Auto) [place] # (Auto) Eos # (Auto) Baso # (Auto) PT INR APTT pO2 49 VBG pH 7.35 VBG pCO2 51.0 VBG HCO3 28.2 H VBG Total CO2 29.8 H VBG O2 Sat (Calc) 86.5 H VBG Base Excess 1.7 VBG Potassium 3.9 Glucose 122 H Lactate 1.4 FiO2 21.0 Sodium 143.0 Potassium Chloride 109.0 H Carbon Dioxide Anion Gap BUN Creatinine Est GFR ( Amer) Est GFR (Non-Af Amer) Random Glucose Calcium Phosphorus Magnesium Total Bilirubin AST ALT Alkaline Phosphatase Lactate Dehydrogenase Total Creatine Kinase CK-MB (CK-2) CK-MB (CK-2) % Troponin I Total Protein Albumin Globulin Albumin/Globulin Ratio Triglycerides Cholesterol LDL Cholesterol Direct HDL Cholesterol Lipase TSH 3rd Generation Venous Blood Potassium 3.9 Urine Color Yellow Urine Appearance Clear Urine pH 6.5 Ur Specific Hannah 1.015 Urine Protein Trace H Urine Glucose (UA) Negative Urine Ketones Negative Urine Blood Large H Urine Nitrate Negative Urine Bilirubin Negative Urine Urobilinogen 1.0 H Ur Leukocyte Esterase Negative Urine RBC 2 - 5 Urine WBC 2 - 5 Ur Epithelial Cells 1 - 3 Urine Bacteria Few Digoxin Salicylates Urine Opiates Screen Negative Urine Methadone Screen Negative Acetaminophen Ur Barbiturates Screen Negative Ur Phencyclidine Scrn Negative Ur Amphetamines Screen Negative U Benzodiazepines Scrn Negative U Oth Cocaine Metabols Negative U Cannabinoids Screen Negative 11/19/17 11/19/17 11/19/17 06:50 06:50 06:50 WBC 6.8 D RBC 4.39 Hgb 12.8 L Hct 37.7 L MCV 85.9 MCH 29.2 MCHC 34.0 RDW 15.0 H Plt Count 80 L Gran % 73.6 H Lymph % (Auto) 16.5 L [place] % (Auto) 9.9 H Eos % (Auto) 0.0 L Baso % (Auto) 0.0 Gran # 4.99 Lymph # (Auto) 1.1 L [place] # (Auto) 0.7 H Eos # (Auto) 0.0 Baso # (Auto) 0.00 PT INR APTT pO2 VBG pH VBG pCO2 VBG HCO3 VBG Total CO2 VBG O2 Sat (Calc) VBG Base Excess VBG Potassium Glucose Lactate FiO2 Sodium 144 Potassium 4.1 Chloride 108 H Carbon Dioxide 25 Anion Gap 15 BUN 32 H Creatinine 2.5 H Est GFR ( Amer) 30 Est GFR (Non-Af Amer) 24 Random Glucose 112 H Calcium 9.3 Phosphorus 3.5 Magnesium 2.0 Total Bilirubin 2.2 H AST 729 H ALT 513 H Alkaline Phosphatase 197 H D Lactate Dehydrogenase Total Creatine Kinase CK-MB (CK-2) CK-MB (CK-2) % Troponin I Total Protein 7.5 Albumin 4.1 Globulin 3.4 Albumin/Globulin Ratio 1.2 Triglycerides 86 Cholesterol 122 L LDL Cholesterol Direct 51 HDL Cholesterol 39 Lipase TSH 3rd Generation 0.02 L Venous Blood Potassium Urine Color Urine Appearance Urine pH Ur Specific Hannah Urine Protein Urine Glucose (UA) Urine Ketones Urine Blood Urine Nitrate Urine Bilirubin Urine Urobilinogen Ur Leukocyte Esterase Urine RBC Urine WBC Ur Epithelial Cells Urine Bacteria Digoxin Salicylates Urine Opiates Screen Urine Methadone Screen Acetaminophen Ur Barbiturates Screen Ur Phencyclidine Scrn Ur Amphetamines Screen U Benzodiazepines Scrn U Oth Cocaine Metabols U Cannabinoids Screen Assessment & Plan - Assessment and Plan (Free Text) Assessment: 87 year old male with past medical history of systolic CHF with last known EF of 10-15%, history of TAVR, dilated cardiomyopathy, chronic atrial fibrillation, s/p cardiac cath with evidence of non occlusive CAD admitted for cardiac arrthymia found to be in AV retrograde conductance vs. 3rd degree heart block. Plan: Transaminitis Hx H. Pylori Cholelithiasis Distended GB - Elevated liver enzymes likely secondary to hypovolemic state in setting of systolic CHF - Abd/Pelvis CT: cholelithiasis, distended gallbladder, multiple renal cysts b/l, prostate slightly enlarged with calcifications, moderately enlarged heart with evidence of TAVR - Abdominal US results pending - Continue H. Pylori treatment - Further recommendations per Dr. Funez - Date & Time Date: 11/19/17 Time: 10:34 <Gavin Funez V - Last Filed: 11/19/17 20:03> Meds - Medications Medications: Current Medications Apixaban (Eliquis) 2.5 mg PO BID [facility]; Protocol Last Admin: 11/19/17 17:17 Dose: 2.5 mg Dopamine HCl/Dextrose (Dopamine 400mg/250ml D5w) 400 mg in 250 mls @ 16.066 mls/hr IV .[id number] PRN; Protocol PRN Reason: TITRATE PER MD ORDER Last Admin: 11/19/17 17:18 Dose: 5 mcg/kg/min, 16.066 mls/hr Ceftriaxone Sodium (Rocephin 1 Gram Ivpb) 1 gm in 100 mls @ 100 mls/hr IVPB DAILY [facility]; Protocol Last Admin: 11/19/17 09:39 Dose: 100 mls/hr Sodium Chloride (Sodium Chloride 0.9%) 1,000 mls @ 75 mls/hr IV .[id number] [facility] Non-Formulary Medication (Clarithromycin [Clarithromycin Er]) 1 tab PO DAILY [facility] Pantoprazole Sodium (Protonix Inj) 40 mg IVP DAILY [facility] Last Admin: 11/19/17 09:40 Dose: 40 mg Results - Vital Signs Recent Vital Signs: Last Vital Signs Temp 98.7 F 11/19/17 08:15 Pulse 39 L 11/19/17 18:30 Resp 15 11/19/17 18:30 BP 167/87 H 11/19/17 18:00 Pulse Ox 97 11/19/17 18:30 - Labs Result Diagrams: 11/19/17 06:50 11/19/17 06:50 Labs: Laboratory Results - last 24 hr 11/18/17 11/18/17 11/19/17 17:30 17:30 06:50 WBC 6.8 D RBC 4.39 Hgb 12.8 L Hct 37.7 L MCV 85.9 MCH 29.2 MCHC 34.0 RDW 15.0 H Plt Count 80 L Gran % 73.6 H Lymph % (Auto) 16.5 L [place] % (Auto) 9.9 H Eos % (Auto) 0.0 L Baso % (Auto) 0.0 Gran # 4.99 Lymph # (Auto) 1.1 L [place] # (Auto) 0.7 H Eos # (Auto) 0.0 Baso # (Auto) 0.00 pO2 49 VBG pH 7.35 VBG pCO2 51.0 VBG HCO3 28.2 H VBG Total CO2 29.8 H VBG O2 Sat (Calc) 86.5 H VBG Base Excess 1.7 VBG Potassium 3.9 Sodium 143.0 Chloride 109.0 H Glucose 122 H Lactate 1.4 FiO2 21.0 Potassium Carbon Dioxide Anion Gap BUN Creatinine Est GFR ( Amer) Est GFR (Non-Af Amer) Random Glucose Hemoglobin A1c Calcium Phosphorus Magnesium Total Bilirubin AST ALT Alkaline Phosphatase Total Protein Albumin Globulin Albumin/Globulin Ratio Triglycerides Cholesterol LDL Cholesterol Direct HDL Cholesterol TSH 3rd Generation Venous Blood Potassium 3.9 Urine Opiates Screen Negative Urine Methadone Screen Negative Ur Barbiturates Screen Negative Ur Phencyclidine Scrn Negative Ur Amphetamines Screen Negative U Benzodiazepines Scrn Negative U Oth Cocaine Metabols Negative U Cannabinoids Screen Negative 11/19/17 11/19/17 11/19/17 06:50 06:50 06:50 WBC RBC Hgb Hct MCV MCH MCHC RDW Plt Count Gran % Lymph % (Auto) [place] % (Auto) Eos % (Auto) Baso % (Auto) Gran # Lymph # (Auto) [place] # (Auto) Eos # (Auto) Baso # (Auto) pO2 VBG pH VBG pCO2 VBG HCO3 VBG Total CO2 VBG O2 Sat (Calc) VBG Base Excess VBG Potassium Sodium 144 Chloride 108 H Glucose Lactate FiO2 Potassium 4.1 Carbon Dioxide 25 Anion Gap 15 BUN 32 H Creatinine 2.5 H Est GFR ( Amer) 30 Est GFR (Non-Af Amer) 24 Random Glucose 112 H Hemoglobin A1c 5.8 Calcium 9.3 Phosphorus 3.5 Magnesium 2.0 Total Bilirubin 2.2 H AST 729 H ALT 513 H Alkaline Phosphatase 197 H D Total Protein 7.5 Albumin 4.1 Globulin 3.4 Albumin/Globulin Ratio 1.2 Triglycerides 86 Cholesterol 122 L LDL Cholesterol Direct 51 HDL Cholesterol 39 TSH 3rd Generation 0.02 L Venous Blood Potassium Urine Opiates Screen Urine Methadone Screen Ur Barbiturates Screen Ur Phencyclidine Scrn Ur Amphetamines Screen U Benzodiazepines Scrn U Oth Cocaine Metabols U Cannabinoids Screen Attending/Attestation - Attestation I have personally seen and examined this patient.: Yes I have fully participated in the care of the patient.: Yes I have reviewed all pertinent clinical information: Yes Notes (Text): This is an addendum to GI consult report dictated by the Presentation Designer.The patient was seen and evaluated earlier. Medical records, lab studies, imagings were reviewed. Last 24 hours events reviewed. Agreed with the above treatment plan as outlined in Presentation Designer 's notes with the addition of the following This 87yr old patient with past medical history of dilated cardiomyopathy A.fib status TAVAR Admitted with weakness nausea vomiting Patient was found to have bradyarrhythmia AV retrograde conduction vs third degree heart block Patient daughter was at bedside at time of exam Patient has a history of weight loss Poor PO intake was found to have stool for h.pylori positive Was started on biaxin, amoxicillin regimen for HP treatment Patient was also at home on amiodarone,colchicine, allopurinol Patient was found to have elevated LFT GI consult was requested to evaluate this On examination abdomen soft mild tenderness in upper right quadrant area The most likely cause for elevated LFT is secondary to drug induced Other contributory factors include hepatic congestion Would recommend 1. Baseline hepatitis profile 2. Ultrasound scan reviewed showed no gallstones 3. Followup of LFT and INR 4. Avoid hepatotoxic medication Thank you very much for allowing us to participate in the care of the patient 11/19/17 19:48
--- NOTE | 2017-11-19 10:57 | CP.CCUPN ---
<Sheldon Pérez - Last Filed: 11/19/17 11:27> CCU Subjective - Physician Review Subjective (Free Text): Sheldon Pérez DO, PGY-1 ICU Progress Note for Dr. Choudhary Patient was seen and examined at bedside this AM. He reports feeling well and denies CP, SOB, LAZCANO, or blurred vision. HR was in the low 30s after dopamine infusion was slowed to 2.5, now in the mid 50s after increasing infusion to 5. CCU Objective - Vital Signs / Intake & Output Vital Signs (Last 4 hours): Vital Signs Temp Pulse Resp BP Pulse Ox 11/19/17 08:15 98.7 F 11/19/17 07:50 58 L 20 97 11/19/17 07:40 49 L 39 H 95 11/19/17 07:30 48 L 96 11/19/17 07:20 49 L 14 97 11/19/17 07:10 52 L 17 93 L 11/19/17 07:00 47 L 30 H 133/74 95 Intake and Output (Last 8hrs): Intake & Output 11/18/17 11/19/17 11/19/17 22:59 06:59 14:59 Intake Total 1194 Output Total 220 Balance 974 Weight 188 lb 14.4 oz 187 lb Intake: IV 1044 0.9ns 900 dopamine 144 Oral 150 Output: Urine 220 Urine, Voided 220 Other: Voiding Method Urinal - Physical Exam Head: Positive for: Atraumatic, Normocephalic Pupils: Positive for: PERRL Extroacular Muscles: Positive for: EOMI Conjunctiva: Positive for: Normal Ears: Positive for: Normal Mouth: Positive for: Moist Mucous Membranes Pharnyx: Positive for: Normal. Negative for: ERYTHEMA, EXUDATE Neck: Positive for: Normal Range of Motion. Negative for: JVD Respiratory/Chest: Positive for: Clear to Auscultation, Good Air Exchange. Negative for: Respiratory Distress, Accessory Muscle Use, Wheezes, Rales, Rhonchi Cardiovascular: Positive for: Normal S1, S2, Bradycardic. Negative for: Murmurs, Rub, Gallop Abdomen: Negative for: Tenderness, Distention, Rebound, Guarding Upper Extremity: Positive for: Normal Inspection, Normal ROM, NORMAL PULSES. Negative for: Cyanosis, Edema Lower Extremity: Positive for: Edema (trace pitting edema b/l), NORMAL PULSES, Capillary Refill < 2 s. Negative for: CALF TENDERNESS, Cyanosis Neurological: Positive for: GCS=15, CN II-XII Intact, Speech Normal, Motor Func Grossly Intact Skin: Positive for: Warm, Dry, Normal Color Psychiatric: Positive for: Alert, Oriented x 3 - Medications Active Medications: Active Medications Generic Name Dose Route Start Last Admin Trade Name Freq PRN Reason Stop Dose Admin Amoxicillin 1,000 mg 11/19/17 10:00 11/19/17 09:38 Amoxil 500 Mg Cap PO 1,000 mg BID HEATHER Administration Dopamine HCl/Dextrose 400 mg in 250 mls @ 16.066 mls/hr 11/18/17 16:16 11/19/17 06:45 Dopamine 400mg/250ml D5w IV 5 mcg/kg/min .[id number] PRN 16.066 mls/hr TITRATE PER MD ORDER Administration Protocol 5 MCG/KG/MIN Ceftriaxone Sodium 1 gm in 100 mls @ 100 mls/hr 11/18/17 17:15 11/19/17 09:39 Rocephin 1 Gram Ivpb IVPB 100 mls/hr DAILY HEATHER Administration Protocol Sodium Chloride 1,000 mls @ 75 mls/hr 11/19/17 09:15 Sodium Chloride 0.9% IV .[id number] HEATHER Non-Formulary Medication 1 tab 11/19/17 10:00 Clarithromycin [Clarithromycin Er] PO DAILY HEATHER Pantoprazole Sodium 40 mg 11/18/17 18:00 11/19/17 09:40 Protonix Inj IVP 40 mg DAILY HEATHER Administration - Patient Studies Lab Studies: Lab Studies 11/19/17 11/19/17 11/19/17 Range/Units 06:50 06:50 06:50 WBC 6.8 D (4.5-11.0) 10^3/ul RBC 4.39 (3.5-6.1) 10^6/uL Hgb 12.8 L (14.0-18.0) g/dL Hct 37.7 L (42.0-52.0) % MCV 85.9 (80.0-105.0) fl MCH 29.2 (25.0-35.0) pg MCHC 34.0 (31.0-37.0) g/dl RDW 15.0 H (11.5-14.5) % Plt Count 80 L (120.0-450.0) 10^3/uL Gran % 73.6 H (50.0-68.0) % Lymph % (Auto) 16.5 L (22.0-35.0) % [place] % (Auto) 9.9 H (1.0-6.0) % Eos % (Auto) 0.0 L (1.5-5.0) % Baso % (Auto) 0.0 (0.0-3.0) % Gran # 4.99 (1.4-6.5) Lymph # (Auto) 1.1 L (1.2-3.4) [place] # (Auto) 0.7 H (0.1-0.6) Eos # (Auto) 0.0 (0.0-0.7) Baso # (Auto) 0.00 (0.0-2.0) K/mm3 PT (9.4-12.5) SECONDS INR APTT (25.1-36.5) Seconds pO2 (30-55) mm/Hg VBG pH (7.32-7.43) VBG pCO2 (40-60) VBG HCO3 (21-28) mmol/l VBG Total CO2 (22-28) mmol.L VBG O2 Sat (Calc) (40-65) % VBG Base Excess (0.0-2.0) mmol/L VBG Potassium (3.6-5.2) mmol/L Glucose (75-110) mg/dl Lactate (0.7-2.1) mmol/L FiO2 % Sodium 144 (132-148) mmol/L Potassium 4.1 (3.6-5.0) mmol/L Chloride 108 H (98-107) mmol/L Carbon Dioxide 25 (21-33) mmol/L Anion Gap 15 (10-20) BUN 32 H (7-21) mg/dL Creatinine 2.5 H (0.8-1.5) mg/dl Est GFR ( Amer) 30 Est GFR (Non-Af Amer) 24 Random Glucose 112 H (70-110) mg/dL Calcium 9.3 (8.4-10.5) mg/dL Phosphorus 3.5 (2.5-4.5) mg/dL Magnesium 2.0 (1.7-2.2) mg/dL Total Bilirubin 2.2 H (0.2-1.3) mg/dL AST 729 H (17-59) U/L ALT 513 H (7-56) U/L Alkaline Phosphatase 197 H D (38-126) U/L Lactate Dehydrogenase (333-699) U/L Total Creatine Kinase (35-230) U/L CK-MB (CK-2) (0.0-3.6) ng/mL CK-MB (CK-2) % (2.5-3.0) % Troponin I ng/mL Total Protein 7.5 (5.8-8.3) g/dL Albumin 4.1 (3.0-4.8) g/dL Globulin 3.4 gm/dL Albumin/Globulin Ratio 1.2 (1.1-1.8) Triglycerides 86 (35-160) mg/dL Cholesterol 122 L (130-200) mg/dL LDL Cholesterol Direct 51 (0-129) mg/dL HDL Cholesterol 39 (29-60) mg/dL Lipase (23-300) U/L TSH 3rd Generation 0.02 L (0.46-4.68) mIU/mL Venous Blood Potassium (3.6-5.2) mmol/L Urine Color (YELLOW) Urine Appearance (CLEAR) Urine pH (4.7-8.0) Ur Specific [place] (1.005-1.035) Urine Protein (<30 mg/dL) mg/dL Urine Glucose (UA) (NEGATIVE) mg/dL Urine Ketones (NEGATIVE) mg/dL Urine Blood (NEGATIVE) Urine Nitrate (NEGATIVE) Urine Bilirubin (NEGATIVE) Urine Urobilinogen (<1 E.U./dL) E.U./dL Ur Leukocyte Esterase (NEGATIVE) Cici/uL Urine RBC (0-2) /hpf Urine WBC (0-6) /hpf Ur Epithelial Cells (0-5) /hpf Urine Bacteria (NEG) Digoxin (0.8-2.0) ng/mL Salicylates (2.0-20.0) mg/dL Urine Opiates Screen (NEGATIVE) Urine Methadone Screen (NEGATIVE) Acetaminophen (10.0-20.0) ug/ml Ur Barbiturates Screen (NEGATIVE) Ur Phencyclidine Scrn (NEGATIVE) Ur Amphetamines Screen (NEGATIVE) U Benzodiazepines Scrn (NEGATIVE) U Oth Cocaine Metabols (NEGATIVE) U Cannabinoids Screen (NEGATIVE) 11/18/17 11/18/17 11/18/17 Range/Units 18:30 17:30 17:30 WBC (4.5-11.0) 10^3/ul RBC (3.5-6.1) 10^6/uL Hgb (14.0-18.0) g/dL Hct (42.0-52.0) % MCV (80.0-105.0) fl MCH (25.0-35.0) pg MCHC (31.0-37.0) g/dl RDW (11.5-14.5) % Plt Count (120.0-450.0) 10^3/uL Gran % (50.0-68.0) % Lymph % (Auto) (22.0-35.0) % [place] % (Auto) (1.0-6.0) % Eos % (Auto) (1.5-5.0) % Baso % (Auto) (0.0-3.0) % Gran # (1.4-6.5) Lymph # (Auto) (1.2-3.4) [place] # (Auto) (0.1-0.6) Eos # (Auto) (0.0-0.7) Baso # (Auto) (0.0-2.0) K/mm3 PT (9.4-12.5) SECONDS INR APTT (25.1-36.5) Seconds pO2 49 (30-55) mm/Hg VBG pH 7.35 (7.32-7.43) VBG pCO2 51.0 (40-60) VBG HCO3 28.2 H (21-28) mmol/l VBG Total CO2 29.8 H (22-28) mmol.L VBG O2 Sat (Calc) 86.5 H (40-65) % VBG Base Excess 1.7 (0.0-2.0) mmol/L VBG Potassium 3.9 (3.6-5.2) mmol/L Glucose 122 H (75-110) mg/dl Lactate 1.4 (0.7-2.1) mmol/L FiO2 21.0 % Sodium 143.0 (132-148) mmol/L Potassium (3.6-5.0) mmol/L Chloride 109.0 H (98-107) mmol/L Carbon Dioxide (21-33) mmol/L Anion Gap (10-20) BUN (7-21) mg/dL Creatinine (0.8-1.5) mg/dl Est GFR ( Amer) Est GFR (Non-Af Amer) Random Glucose (70-110) mg/dL Calcium (8.4-10.5) mg/dL Phosphorus (2.5-4.5) mg/dL Magnesium (1.7-2.2) mg/dL Total Bilirubin (0.2-1.3) mg/dL AST (17-59) U/L ALT (7-56) U/L Alkaline Phosphatase (38-126) U/L Lactate Dehydrogenase (333-699) U/L Total Creatine Kinase (35-230) U/L CK-MB (CK-2) (0.0-3.6) ng/mL CK-MB (CK-2) % (2.5-3.0) % Troponin I ng/mL Total Protein (5.8-8.3) g/dL Albumin (3.0-4.8) g/dL Globulin gm/dL Albumin/Globulin Ratio (1.1-1.8) Triglycerides (35-160) mg/dL Cholesterol (130-200) mg/dL LDL Cholesterol Direct (0-129) mg/dL HDL Cholesterol (29-60) mg/dL Lipase (23-300) U/L TSH 3rd Generation (0.46-4.68) mIU/mL Venous Blood Potassium 3.9 (3.6-5.2) mmol/L Urine Color Yellow (YELLOW) Urine Appearance Clear (CLEAR) Urine pH 6.5 (4.7-8.0) Ur Specific [place] 1.015 (1.005-1.035) Urine Protein Trace H (<30 mg/dL) mg/dL Urine Glucose (UA) Negative (NEGATIVE) mg/dL Urine Ketones Negative (NEGATIVE) mg/dL Urine Blood Large H (NEGATIVE) Urine Nitrate Negative (NEGATIVE) Urine Bilirubin Negative (NEGATIVE) Urine Urobilinogen 1.0 H (<1 E.U./dL) E.U./dL Ur Leukocyte Esterase Negative (NEGATIVE) Cici/uL Urine RBC 2 - 5 (0-2) /hpf Urine WBC 2 - 5 (0-6) /hpf Ur Epithelial Cells 1 - 3 (0-5) /hpf Urine Bacteria Few (NEG) Digoxin (0.8-2.0) ng/mL Salicylates (2.0-20.0) mg/dL Urine Opiates Screen Negative (NEGATIVE) Urine Methadone Screen Negative (NEGATIVE) Acetaminophen (10.0-20.0) ug/ml Ur Barbiturates Screen Negative (NEGATIVE) Ur Phencyclidine Scrn Negative (NEGATIVE) Ur Amphetamines Screen Negative (NEGATIVE) U Benzodiazepines Scrn Negative (NEGATIVE) U Oth Cocaine Metabols Negative (NEGATIVE) U Cannabinoids Screen Negative (NEGATIVE) 11/18/17 11/18/17 11/18/17 Range/Units 15:30 15:10 15:10 WBC (4.5-11.0) 10^3/ul RBC (3.5-6.1) 10^6/uL Hgb (14.0-18.0) g/dL Hct (42.0-52.0) % MCV (80.0-105.0) fl MCH (25.0-35.0) pg MCHC (31.0-37.0) g/dl RDW (11.5-14.5) % Plt Count (120.0-450.0) 10^3/uL Gran % (50.0-68.0) % Lymph % (Auto) (22.0-35.0) % [place] % (Auto) (1.0-6.0) % Eos % (Auto) (1.5-5.0) % Baso % (Auto) (0.0-3.0) % Gran # (1.4-6.5) Lymph # (Auto) (1.2-3.4) [place] # (Auto) (0.1-0.6) Eos # (Auto) (0.0-0.7) Baso # (Auto) (0.0-2.0) K/mm3 PT (9.4-12.5) SECONDS INR APTT (25.1-36.5) Seconds pO2 (30-55) mm/Hg VBG pH (7.32-7.43) VBG pCO2 (40-60) VBG HCO3 (21-28) mmol/l VBG Total CO2 (22-28) mmol.L VBG O2 Sat (Calc) (40-65) % VBG Base Excess (0.0-2.0) mmol/L VBG Potassium (3.6-5.2) mmol/L Glucose (75-110) mg/dl Lactate (0.7-2.1) mmol/L FiO2 % Sodium (132-148) mmol/L Potassium (3.6-5.0) mmol/L Chloride (98-107) mmol/L Carbon Dioxide (21-33) mmol/L Anion Gap (10-20) BUN (7-21) mg/dL Creatinine (0.8-1.5) mg/dl Est GFR ( Amer) Est GFR (Non-Af Amer) Random Glucose (70-110) mg/dL Calcium (8.4-10.5) mg/dL Phosphorus (2.5-4.5) mg/dL Magnesium (1.7-2.2) mg/dL Total Bilirubin (0.2-1.3) mg/dL AST (17-59) U/L ALT (7-56) U/L Alkaline Phosphatase (38-126) U/L Lactate Dehydrogenase (333-699) U/L Total Creatine Kinase (35-230) U/L CK-MB (CK-2) (0.0-3.6) ng/mL CK-MB (CK-2) % (2.5-3.0) % Troponin I ng/mL Total Protein (5.8-8.3) g/dL Albumin (3.0-4.8) g/dL Globulin gm/dL Albumin/Globulin Ratio (1.1-1.8) Triglycerides (35-160) mg/dL Cholesterol (130-200) mg/dL LDL Cholesterol Direct (0-129) mg/dL HDL Cholesterol (29-60) mg/dL Lipase 71 (23-300) U/L TSH 3rd Generation (0.46-4.68) mIU/mL Venous Blood Potassium (3.6-5.2) mmol/L Urine Color (YELLOW) Urine Appearance (CLEAR) Urine pH (4.7-8.0) Ur Specific [place] (1.005-1.035) Urine Protein (<30 mg/dL) mg/dL Urine Glucose (UA) (NEGATIVE) mg/dL Urine Ketones (NEGATIVE) mg/dL Urine Blood (NEGATIVE) Urine Nitrate (NEGATIVE) Urine Bilirubin (NEGATIVE) Urine Urobilinogen (<1 E.U./dL) E.U./dL Ur Leukocyte Esterase (NEGATIVE) Cici/uL Urine RBC (0-2) /hpf Urine WBC (0-6) /hpf Ur Epithelial Cells (0-5) /hpf Urine Bacteria (NEG) Digoxin < 0.4 L (0.8-2.0) ng/mL Salicylates < 1 L (2.0-20.0) mg/dL Urine Opiates Screen (NEGATIVE) Urine Methadone Screen (NEGATIVE) Acetaminophen < 10.0 L (10.0-20.0) ug/ml Ur Barbiturates Screen (NEGATIVE) Ur Phencyclidine Scrn (NEGATIVE) Ur Amphetamines Screen (NEGATIVE) U Benzodiazepines Scrn (NEGATIVE) U Oth Cocaine Metabols (NEGATIVE) U Cannabinoids Screen (NEGATIVE) 11/18/17 11/18/17 11/18/17 Range/Units 15:10 15:10 15:10 WBC 4.9 D (4.5-11.0) 10^3/ul RBC 3.86 (3.5-6.1) 10^6/uL Hgb 11.5 L (14.0-18.0) g/dL Hct 33.2 L (42.0-52.0) % MCV 86.0 (80.0-105.0) fl MCH 29.8 (25.0-35.0) pg MCHC 34.6 (31.0-37.0) g/dl RDW 15.0 H (11.5-14.5) % Plt Count 73 L (120.0-450.0) 10^3/uL Gran % 78.4 H (50.0-68.0) % Lymph % (Auto) 11.5 L (22.0-35.0) % [place] % (Auto) 9.9 H (1.0-6.0) % Eos % (Auto) 0.0 L (1.5-5.0) % Baso % (Auto) 0.2 (0.0-3.0) % Gran # 3.87 (1.4-6.5) Lymph # (Auto) 0.6 L (1.2-3.4) [place] # (Auto) 0.5 (0.1-0.6) Eos # (Auto) 0.0 (0.0-0.7) Baso # (Auto) 0.01 (0.0-2.0) K/mm3 PT 11.9 (9.4-12.5) SECONDS INR 1.04 APTT 30.8 (25.1-36.5) Seconds pO2 (30-55) mm/Hg VBG pH (7.32-7.43) VBG pCO2 (40-60) VBG HCO3 (21-28) mmol/l VBG Total CO2 (22-28) mmol.L VBG O2 Sat (Calc) (40-65) % VBG Base Excess (0.0-2.0) mmol/L VBG Potassium (3.6-5.2) mmol/L Glucose (75-110) mg/dl Lactate (0.7-2.1) mmol/L FiO2 % Sodium 143 (132-148) mmol/L Potassium 3.9 (3.6-5.0) mmol/L Chloride 107 (98-107) mmol/L Carbon Dioxide 27 (21-33) mmol/L Anion Gap 13 (10-20) BUN 41 H (7-21) mg/dL Creatinine 2.9 H (0.8-1.5) mg/dl Est GFR ( Amer) 25 Est GFR (Non-Af Amer) 21 Random Glucose 126 H (70-110) mg/dL Calcium 9.2 (8.4-10.5) mg/dL Phosphorus (2.5-4.5) mg/dL Magnesium 2.1 (1.7-2.2) mg/dL Total Bilirubin 1.7 H (0.2-1.3) mg/dL AST 637 H (17-59) U/L ALT 428 H (7-56) U/L Alkaline Phosphatase 152 H (38-126) U/L Lactate Dehydrogenase 1445 H (333-699) U/L Total Creatine Kinase 633 H (35-230) U/L CK-MB (CK-2) 5.5 H (0.0-3.6) ng/mL CK-MB (CK-2) % 0.9 L (2.5-3.0) % Troponin I 0.08 D ng/mL Total Protein 6.5 (5.8-8.3) g/dL Albumin 3.7 (3.0-4.8) g/dL Globulin 2.9 gm/dL Albumin/Globulin Ratio 1.3 (1.1-1.8) Triglycerides (35-160) mg/dL Cholesterol (130-200) mg/dL LDL Cholesterol Direct (0-129) mg/dL HDL Cholesterol (29-60) mg/dL Lipase (23-300) U/L TSH 3rd Generation (0.46-4.68) mIU/mL Venous Blood Potassium (3.6-5.2) mmol/L Urine Color (YELLOW) Urine Appearance (CLEAR) Urine pH (4.7-8.0) Ur Specific [place] (1.005-1.035) Urine Protein (<30 mg/dL) mg/dL Urine Glucose (UA) (NEGATIVE) mg/dL Urine Ketones (NEGATIVE) mg/dL Urine Blood (NEGATIVE) Urine Nitrate (NEGATIVE) Urine Bilirubin (NEGATIVE) Urine Urobilinogen (<1 E.U./dL) E.U./dL Ur Leukocyte Esterase (NEGATIVE) Cici/uL Urine RBC (0-2) /hpf Urine WBC (0-6) /hpf Ur Epithelial Cells (0-5) /hpf Urine Bacteria (NEG) Digoxin (0.8-2.0) ng/mL Salicylates (2.0-20.0) mg/dL Urine Opiates Screen (NEGATIVE) Urine Methadone Screen (NEGATIVE) Acetaminophen (10.0-20.0) ug/ml Ur Barbiturates Screen (NEGATIVE) Ur Phencyclidine Scrn (NEGATIVE) Ur Amphetamines Screen (NEGATIVE) U Benzodiazepines Scrn (NEGATIVE) U Oth Cocaine Metabols (NEGATIVE) U Cannabinoids Screen (NEGATIVE) Laboratory Results - last 24 hr 11/18/17 11/18/17 11/18/17 15:10 15:10 15:10 WBC 4.9 D RBC 3.86 Hgb 11.5 L Hct 33.2 L MCV 86.0 MCH 29.8 MCHC 34.6 RDW 15.0 H Plt Count 73 L Gran % 78.4 H Lymph % (Auto) 11.5 L [place] % (Auto) 9.9 H Eos % (Auto) 0.0 L Baso % (Auto) 0.2 Gran # 3.87 Lymph # (Auto) 0.6 L [place] # (Auto) 0.5 Eos # (Auto) 0.0 Baso # (Auto) 0.01 PT 11.9 INR 1.04 APTT 30.8 pO2 VBG pH VBG pCO2 VBG HCO3 VBG Total CO2 VBG O2 Sat (Calc) VBG Base Excess VBG Potassium Glucose Lactate FiO2 Sodium 143 Potassium 3.9 Chloride 107 Carbon Dioxide 27 Anion Gap 13 BUN 41 H Creatinine 2.9 H Est GFR ( Amer) 25 Est GFR (Non-Af Amer) 21 Random Glucose 126 H Calcium 9.2 Phosphorus Magnesium 2.1 Total Bilirubin 1.7 H AST 637 H ALT 428 H Alkaline Phosphatase 152 H Lactate Dehydrogenase 1445 H Total Creatine Kinase 633 H CK-MB (CK-2) 5.5 H CK-MB (CK-2) % 0.9 L Troponin I 0.08 D Total Protein 6.5 Albumin 3.7 Globulin 2.9 Albumin/Globulin Ratio 1.3 Triglycerides Cholesterol LDL Cholesterol Direct HDL Cholesterol Lipase TSH 3rd Generation Venous Blood Potassium Urine Color Urine Appearance Urine pH Ur Specific [place] Urine Protein Urine Glucose (UA) Urine Ketones Urine Blood Urine Nitrate Urine Bilirubin Urine Urobilinogen Ur Leukocyte Esterase Urine RBC Urine WBC Ur Epithelial Cells Urine Bacteria Digoxin Salicylates Urine Opiates Screen Urine Methadone Screen Acetaminophen Ur Barbiturates Screen Ur Phencyclidine Scrn Ur Amphetamines Screen U Benzodiazepines Scrn U Oth Cocaine Metabols U Cannabinoids Screen 11/18/17 11/18/17 11/18/17 15:10 15:10 15:30 WBC RBC Hgb Hct MCV MCH MCHC RDW Plt Count Gran % Lymph % (Auto) [place] % (Auto) Eos % (Auto) Baso % (Auto) Gran # Lymph # (Auto) [place] # (Auto) Eos # (Auto) Baso # (Auto) PT INR APTT pO2 VBG pH VBG pCO2 VBG HCO3 VBG Total CO2 VBG O2 Sat (Calc) VBG Base Excess VBG Potassium Glucose Lactate FiO2 Sodium Potassium Chloride Carbon Dioxide Anion Gap BUN Creatinine Est GFR ( Amer) Est GFR (Non-Af Amer) Random Glucose Calcium Phosphorus Magnesium Total Bilirubin AST ALT Alkaline Phosphatase Lactate Dehydrogenase Total Creatine Kinase CK-MB (CK-2) CK-MB (CK-2) % Troponin I Total Protein Albumin Globulin Albumin/Globulin Ratio Triglycerides Cholesterol LDL Cholesterol Direct HDL Cholesterol Lipase 71 TSH 3rd Generation Venous Blood Potassium Urine Color Urine Appearance Urine pH Ur Specific [place] Urine Protein Urine Glucose (UA) Urine Ketones Urine Blood Urine Nitrate Urine Bilirubin Urine Urobilinogen Ur Leukocyte Esterase Urine RBC Urine WBC Ur Epithelial Cells Urine Bacteria Digoxin < 0.4 L Salicylates < 1 L Urine Opiates Screen Urine Methadone Screen Acetaminophen < 10.0 L Ur Barbiturates Screen Ur Phencyclidine Scrn Ur Amphetamines Screen U Benzodiazepines Scrn U Oth Cocaine Metabols U Cannabinoids Screen 11/18/17 11/18/17 11/18/17 17:30 17:30 18:30 WBC RBC Hgb Hct MCV MCH MCHC RDW Plt Count Gran % Lymph % (Auto) [place] % (Auto) Eos % (Auto) Baso % (Auto) Gran # Lymph # (Auto) [place] # (Auto) Eos # (Auto) Baso # (Auto) PT INR APTT pO2 49 VBG pH 7.35 VBG pCO2 51.0 VBG HCO3 28.2 H VBG Total CO2 29.8 H VBG O2 Sat (Calc) 86.5 H VBG Base Excess 1.7 VBG Potassium 3.9 Glucose 122 H Lactate 1.4 FiO2 21.0 Sodium 143.0 Potassium Chloride 109.0 H Carbon Dioxide Anion Gap BUN Creatinine Est GFR ( Amer) Est GFR (Non-Af Amer) Random Glucose Calcium Phosphorus Magnesium Total Bilirubin AST ALT Alkaline Phosphatase Lactate Dehydrogenase Total Creatine Kinase CK-MB (CK-2) CK-MB (CK-2) % Troponin I Total Protein Albumin Globulin Albumin/Globulin Ratio Triglycerides Cholesterol LDL Cholesterol Direct HDL Cholesterol Lipase TSH 3rd Generation Venous Blood Potassium 3.9 Urine Color Yellow Urine Appearance Clear Urine pH 6.5 Ur Specific [place] 1.015 Urine Protein Trace H Urine Glucose (UA) Negative Urine Ketones Negative Urine Blood Large H Urine Nitrate Negative Urine Bilirubin Negative Urine Urobilinogen 1.0 H Ur Leukocyte Esterase Negative Urine RBC 2 - 5 Urine WBC 2 - 5 Ur Epithelial Cells 1 - 3 Urine Bacteria Few Digoxin Salicylates Urine Opiates Screen Negative Urine Methadone Screen Negative Acetaminophen Ur Barbiturates Screen Negative Ur Phencyclidine Scrn Negative Ur Amphetamines Screen Negative U Benzodiazepines Scrn Negative U Oth Cocaine Metabols Negative U Cannabinoids Screen Negative 11/19/17 11/19/17 11/19/17 06:50 06:50 06:50 WBC 6.8 D RBC 4.39 Hgb 12.8 L Hct 37.7 L MCV 85.9 MCH 29.2 MCHC 34.0 RDW 15.0 H Plt Count 80 L Gran % 73.6 H Lymph % (Auto) 16.5 L [place] % (Auto) 9.9 H Eos % (Auto) 0.0 L Baso % (Auto) 0.0 Gran # 4.99 Lymph # (Auto) 1.1 L [place] # (Auto) 0.7 H Eos # (Auto) 0.0 Baso # (Auto) 0.00 PT INR APTT pO2 VBG pH VBG pCO2 VBG HCO3 VBG Total CO2 VBG O2 Sat (Calc) VBG Base Excess VBG Potassium Glucose Lactate FiO2 Sodium 144 Potassium 4.1 Chloride 108 H Carbon Dioxide 25 Anion Gap 15 BUN 32 H Creatinine 2.5 H Est GFR ( Amer) 30 Est GFR (Non-Af Amer) 24 Random Glucose 112 H Calcium 9.3 Phosphorus 3.5 Magnesium 2.0 Total Bilirubin 2.2 H AST 729 H ALT 513 H Alkaline Phosphatase 197 H D Lactate Dehydrogenase Total Creatine Kinase CK-MB (CK-2) CK-MB (CK-2) % Troponin I Total Protein 7.5 Albumin 4.1 Globulin 3.4 Albumin/Globulin Ratio 1.2 Triglycerides 86 Cholesterol 122 L LDL Cholesterol Direct 51 HDL Cholesterol 39 Lipase TSH 3rd Generation 0.02 L Venous Blood Potassium Urine Color Urine Appearance Urine pH Ur Specific [place] Urine Protein Urine Glucose (UA) Urine Ketones Urine Blood Urine Nitrate Urine Bilirubin Urine Urobilinogen Ur Leukocyte Esterase Urine RBC Urine WBC Ur Epithelial Cells Urine Bacteria Digoxin Salicylates Urine Opiates Screen Urine Methadone Screen Acetaminophen Ur Barbiturates Screen Ur Phencyclidine Scrn Ur Amphetamines Screen U Benzodiazepines Scrn U Oth Cocaine Metabols U Cannabinoids Screen EKG/Cardiology Studies: Cardiology / EKG Studies 11/18/17 14:45 ELECTROCARDIOGRAM Stat Comment: Reason For Exam: fall 11/18/17 14:46 EKG [ELECTROCARDIOGRAM] Stat Comment: Reason For Exam: repeat 11/18/17 14:57 EKG [ELECTROCARDIOGRAM] Stat Comment: Reason For Exam: WEAKNESS/FALL Review of Systems - Constitutional Constitutional: absent: Fever, Chills - EENT Eyes: absent: Blurred Vision - Cardiovascular Cardiovascular: absent: Chest Pain, Diaphoresis, Dyspnea, Lightheadedness - Respiratory Respiratory: absent: Cough - Gastrointestinal Gastrointestinal: absent: Abdominal Pain, Nausea, Vomiting - Genitourinary Genitourinary: absent: Change in Urinary Stream Critical Care Progress Note - Nutrition Nutrition: Nutrition Category Date Time Status Heart Healthy Diet [DIET] Diets 11/19/17 Breakfast Active Assessment/Plan - Assessment and Plan (Free Text) Assessment: 87 yo M with PMH of chronic AFib s/p failed cardioversion (on home eliquis), originally presented s/p fall was subsequently found to 3rd degree block with HR in low 40s and evidence of end organ damage. He was subsequently admitted to the ICU for further management. Plan: Neuro: -AAOx3, no FND, moving extremities past midline -Monitor neuro status -Reorient patient as necessary Cardio: -3rd degree block identified on admission -Per cardiology, management would include ICD and/or pacemaker -Patient currently refusing ICD or pacemaker placement -HR in low 30s on 2.5 of dopamine, in mid 50s after dopamine was increased to 5 -Continue to maintain HR > 50 bpm -BP stable, continue to maintain MAP > 65 Pulm: -CTA bilaterally -CXR in ED without acute findings -Maintain O2 saturation>95% -O2 NC PRN GI: -Restart HHD -Patient tolerating HHD well without n/v -GI consulted for transaminitis, recs appreciated /Nephro: -ARTEMIO noted -Likely 2/2 dehydration vs poor renal perfusion from bradycardic episode -BUN/Cr downtrending s/p 1 L NS bolus and maintenance IVF -Consider nephrology consultation if not improving ID: -On treatment for H. pylori at home -Continue clarithromycin, amoxicillin, rocephin, protonix -Consider ID consultation as needed Heme/Onc: -H/H stable at 12.8/37.7 -No signs of HD compromise -Continue monitoring H/H GI/DVT PPX: Protonix and restart home eliquis Full Code Continue to monitor in MICU Case and plan reviewed and discussed with my attending Dr. Funmi Pérez, DO IM Resident PGY-1 <Dimitri Choudhary - Last Filed: 11/19/17 12:31> CCU Objective - Vital Signs / Intake & Output Intake and Output (Last 8hrs): Intake & Output 11/18/17 11/19/17 11/19/17 22:59 06:59 14:59 Intake Total 1194 Output Total 220 Balance 974 Weight 188 lb 14.4 oz 187 lb Intake: IV 1044 0.9ns 900 dopamine 144 Oral 150 Output: Urine 220 Urine, Voided 220 Other: Voiding Method Urinal - Medications Active Medications: Active Medications Generic Name Dose Route Start Last Admin Trade Name Freq PRN Reason Stop Dose Admin Apixaban 2.5 mg 11/19/17 18:00 Eliquis PO BID HEATHER Protocol Dopamine HCl/Dextrose 400 mg in 250 mls @ 16.066 mls/hr 11/18/17 16:16 11/19/17 06:45 Dopamine 400mg/250ml D5w IV 5 mcg/kg/min .[id number] PRN 16.066 mls/hr TITRATE PER MD ORDER Administration Protocol 5 MCG/KG/MIN Ceftriaxone Sodium 1 gm in 100 mls @ 100 mls/hr 11/18/17 17:15 11/19/17 09:39 Rocephin 1 Gram Ivpb IVPB 100 mls/hr DAILY HEATHER Administration Protocol Sodium Chloride 1,000 mls @ 75 mls/hr 11/19/17 09:15 Sodium Chloride 0.9% IV .[id number] [facility] Non-Formulary Medication 1 tab 11/19/17 10:00 Clarithromycin [Clarithromycin Er] PO DAILY [facility] Pantoprazole Sodium 40 mg 11/18/17 18:00 11/19/17 09:40 Protonix Inj IVP 40 mg DAILY [facility] Administration - Patient Studies Lab Studies: Lab Studies 11/19/17 11/19/17 11/19/17 Range/Units 06:50 06:50 06:50 WBC (4.5-11.0) 10^3/ul RBC (3.5-6.1) 10^6/uL Hgb (14.0-18.0) g/dL Hct (42.0-52.0) % MCV (80.0-105.0) fl MCH (25.0-35.0) pg MCHC (31.0-37.0) g/dl RDW (11.5-14.5) % Plt Count (120.0-450.0) 10^3/uL Gran % (50.0-68.0) % Lymph % (Auto) (22.0-35.0) % [place] % (Auto) (1.0-6.0) % Eos % (Auto) (1.5-5.0) % Baso % (Auto) (0.0-3.0) % Gran # (1.4-6.5) Lymph # (Auto) (1.2-3.4) [place] # (Auto) (0.1-0.6) Eos # (Auto) (0.0-0.7) Baso # (Auto) (0.0-2.0) K/mm3 PT (9.4-12.5) SECONDS INR APTT (25.1-36.5) Seconds pO2 (30-55) mm/Hg VBG pH (7.32-7.43) VBG pCO2 (40-60) VBG HCO3 (21-28) mmol/l VBG Total CO2 (22-28) mmol.L VBG O2 Sat (Calc) (40-65) % VBG Base Excess (0.0-2.0) mmol/L VBG Potassium (3.6-5.2) mmol/L Glucose (75-110) mg/dl Lactate (0.7-2.1) mmol/L FiO2 % Sodium 144 (132-148) mmol/L Potassium 4.1 (3.6-5.0) mmol/L Chloride 108 H (98-107) mmol/L Carbon Dioxide 25 (21-33) mmol/L Anion Gap 15 (10-20) BUN 32 H (7-21) mg/dL Creatinine 2.5 H (0.8-1.5) mg/dl Est GFR ( Amer) 30 Est GFR (Non-Af Amer) 24 Random Glucose 112 H (70-110) mg/dL Hemoglobin A1c 5.8 (4.2-6.5) % Calcium 9.3 (8.4-10.5) mg/dL Phosphorus 3.5 (2.5-4.5) mg/dL Magnesium 2.0 (1.7-2.2) mg/dL Total Bilirubin 2.2 H (0.2-1.3) mg/dL AST 729 H (17-59) U/L ALT 513 H (7-56) U/L Alkaline Phosphatase 197 H D (38-126) U/L Lactate Dehydrogenase (333-699) U/L Total Creatine Kinase (35-230) U/L CK-MB (CK-2) (0.0-3.6) ng/mL CK-MB (CK-2) % (2.5-3.0) % Troponin I ng/mL Total Protein 7.5 (5.8-8.3) g/dL Albumin 4.1 (3.0-4.8) g/dL Globulin 3.4 gm/dL Albumin/Globulin Ratio 1.2 (1.1-1.8) Triglycerides 86 (35-160) mg/dL Cholesterol 122 L (130-200) mg/dL LDL Cholesterol Direct 51 (0-129) mg/dL HDL Cholesterol 39 (29-60) mg/dL Lipase (23-300) U/L TSH 3rd Generation 0.02 L (0.46-4.68) mIU/mL Venous Blood Potassium (3.6-5.2) mmol/L Urine Color (YELLOW) Urine Appearance (CLEAR) Urine pH (4.7-8.0) Ur Specific [place] (1.005-1.035) Urine Protein (<30 mg/dL) mg/dL Urine Glucose (UA) (NEGATIVE) mg/dL Urine Ketones (NEGATIVE) mg/dL Urine Blood (NEGATIVE) Urine Nitrate (NEGATIVE) Urine Bilirubin (NEGATIVE) Urine Urobilinogen (<1 E.U./dL) E.U./dL Ur Leukocyte Esterase (NEGATIVE) Cici/uL Urine RBC (0-2) /hpf Urine WBC (0-6) /hpf Ur Epithelial Cells (0-5) /hpf Urine Bacteria (NEG) Digoxin (0.8-2.0) ng/mL Salicylates (2.0-20.0) mg/dL Urine Opiates Screen (NEGATIVE) Urine Methadone Screen (NEGATIVE) Acetaminophen (10.0-20.0) ug/ml Ur Barbiturates Screen (NEGATIVE) Ur Phencyclidine Scrn (NEGATIVE) Ur Amphetamines Screen (NEGATIVE) U Benzodiazepines Scrn (NEGATIVE) U Oth Cocaine Metabols (NEGATIVE) U Cannabinoids Screen (NEGATIVE) 11/19/17 11/18/17 11/18/17 Range/Units 06:50 18:30 17:30 WBC 6.8 D (4.5-11.0) 10^3/ul RBC 4.39 (3.5-6.1) 10^6/uL Hgb 12.8 L (14.0-18.0) g/dL Hct 37.7 L (42.0-52.0) % MCV 85.9 (80.0-105.0) fl MCH 29.2 (25.0-35.0) pg MCHC 34.0 (31.0-37.0) g/dl RDW 15.0 H (11.5-14.5) % Plt Count 80 L (120.0-450.0) 10^3/uL Gran % 73.6 H (50.0-68.0) % Lymph % (Auto) 16.5 L (22.0-35.0) % [place] % (Auto) 9.9 H (1.0-6.0) % Eos % (Auto) 0.0 L (1.5-5.0) % Baso % (Auto) 0.0 (0.0-3.0) % Gran # 4.99 (1.4-6.5) Lymph # (Auto) 1.1 L (1.2-3.4) [place] # (Auto) 0.7 H (0.1-0.6) Eos # (Auto) 0.0 (0.0-0.7) Baso # (Auto) 0.00 (0.0-2.0) K/mm3 PT (9.4-12.5) SECONDS INR APTT (25.1-36.5) Seconds pO2 (30-55) mm/Hg VBG pH (7.32-7.43) VBG pCO2 (40-60) VBG HCO3 (21-28) mmol/l VBG Total CO2 (22-28) mmol.L VBG O2 Sat (Calc) (40-65) % VBG Base Excess (0.0-2.0) mmol/L VBG Potassium (3.6-5.2) mmol/L Glucose (75-110) mg/dl Lactate (0.7-2.1) mmol/L FiO2 % Sodium (132-148) mmol/L Potassium (3.6-5.0) mmol/L Chloride (98-107) mmol/L Carbon Dioxide (21-33) mmol/L Anion Gap (10-20) BUN (7-21) mg/dL Creatinine (0.8-1.5) mg/dl Est GFR ( Amer) Est GFR (Non-Af Amer) Random Glucose (70-110) mg/dL Hemoglobin A1c (4.2-6.5) % Calcium (8.4-10.5) mg/dL Phosphorus (2.5-4.5) mg/dL Magnesium (1.7-2.2) mg/dL Total Bilirubin (0.2-1.3) mg/dL AST (17-59) U/L ALT (7-56) U/L Alkaline Phosphatase (38-126) U/L Lactate Dehydrogenase (333-699) U/L Total Creatine Kinase (35-230) U/L CK-MB (CK-2) (0.0-3.6) ng/mL CK-MB (CK-2) % (2.5-3.0) % Troponin I ng/mL Total Protein (5.8-8.3) g/dL Albumin (3.0-4.8) g/dL Globulin gm/dL Albumin/Globulin Ratio (1.1-1.8) Triglycerides (35-160) mg/dL Cholesterol (130-200) mg/dL LDL Cholesterol Direct (0-129) mg/dL HDL Cholesterol (29-60) mg/dL Lipase (23-300) U/L TSH 3rd Generation (0.46-4.68) mIU/mL Venous Blood Potassium (3.6-5.2) mmol/L Urine Color Yellow (YELLOW) Urine Appearance Clear (CLEAR) Urine pH 6.5 (4.7-8.0) Ur Specific [place] 1.015 (1.005-1.035) Urine Protein Trace H (<30 mg/dL) mg/dL Urine Glucose (UA) Negative (NEGATIVE) mg/dL Urine Ketones Negative (NEGATIVE) mg/dL Urine Blood Large H (NEGATIVE) Urine Nitrate Negative (NEGATIVE) Urine Bilirubin Negative (NEGATIVE) Urine Urobilinogen 1.0 H (<1 E.U./dL) E.U./dL Ur Leukocyte Esterase Negative (NEGATIVE) Cici/uL Urine RBC 2 - 5 (0-2) /hpf Urine WBC 2 - 5 (0-6) /hpf Ur Epithelial Cells 1 - 3 (0-5) /hpf Urine Bacteria Few (NEG) Digoxin (0.8-2.0) ng/mL Salicylates (2.0-20.0) mg/dL Urine Opiates Screen Negative (NEGATIVE) Urine Methadone Screen Negative (NEGATIVE) Acetaminophen (10.0-20.0) ug/ml Ur Barbiturates Screen Negative (NEGATIVE) Ur Phencyclidine Scrn Negative (NEGATIVE) Ur Amphetamines Screen Negative (NEGATIVE) U Benzodiazepines Scrn Negative (NEGATIVE) U Oth Cocaine Metabols Negative (NEGATIVE) U Cannabinoids Screen Negative (NEGATIVE) 11/18/17 11/18/17 11/18/17 Range/Units 17:30 15:30 15:10 WBC (4.5-11.0) 10^3/ul RBC (3.5-6.1) 10^6/uL Hgb (14.0-18.0) g/dL Hct (42.0-52.0) % MCV (80.0-105.0) fl MCH (25.0-35.0) pg MCHC (31.0-37.0) g/dl RDW (11.5-14.5) % Plt Count (120.0-450.0) 10^3/uL Gran % (50.0-68.0) % Lymph % (Auto) (22.0-35.0) % [place] % (Auto) (1.0-6.0) % Eos % (Auto) (1.5-5.0) % Baso % (Auto) (0.0-3.0) % Gran # (1.4-6.5) Lymph # (Auto) (1.2-3.4) [place] # (Auto) (0.1-0.6) Eos # (Auto) (0.0-0.7) Baso # (Auto) (0.0-2.0) K/mm3 PT (9.4-12.5) SECONDS INR APTT (25.1-36.5) Seconds pO2 49 (30-55) mm/Hg VBG pH 7.35 (7.32-7.43) VBG pCO2 51.0 (40-60) VBG HCO3 28.2 H (21-28) mmol/l VBG Total CO2 29.8 H (22-28) mmol.L VBG O2 Sat (Calc) 86.5 H (40-65) % VBG Base Excess 1.7 (0.0-2.0) mmol/L VBG Potassium 3.9 (3.6-5.2) mmol/L Glucose 122 H (75-110) mg/dl Lactate 1.4 (0.7-2.1) mmol/L FiO2 21.0 % Sodium 143.0 (132-148) mmol/L Potassium (3.6-5.0) mmol/L Chloride 109.0 H (98-107) mmol/L Carbon Dioxide (21-33) mmol/L Anion Gap (10-20) BUN (7-21) mg/dL Creatinine (0.8-1.5) mg/dl Est GFR ( Amer) Est GFR (Non-Af Amer) Random Glucose (70-110) mg/dL Hemoglobin A1c (4.2-6.5) % Calcium (8.4-10.5) mg/dL Phosphorus (2.5-4.5) mg/dL Magnesium (1.7-2.2) mg/dL Total Bilirubin (0.2-1.3) mg/dL AST (17-59) U/L ALT (7-56) U/L Alkaline Phosphatase (38-126) U/L Lactate Dehydrogenase (333-699) U/L Total Creatine Kinase (35-230) U/L CK-MB (CK-2) (0.0-3.6) ng/mL CK-MB (CK-2) % (2.5-3.0) % Troponin I ng/mL Total Protein (5.8-8.3) g/dL Albumin (3.0-4.8) g/dL Globulin gm/dL Albumin/Globulin Ratio (1.1-1.8) Triglycerides (35-160) mg/dL Cholesterol (130-200) mg/dL LDL Cholesterol Direct (0-129) mg/dL HDL Cholesterol (29-60) mg/dL Lipase 71 (23-300) U/L TSH 3rd Generation (0.46-4.68) mIU/mL Venous Blood Potassium 3.9 (3.6-5.2) mmol/L Urine Color (YELLOW) Urine Appearance (CLEAR) Urine pH (4.7-8.0) Ur Specific [place] (1.005-1.035) Urine Protein (<30 mg/dL) mg/dL Urine Glucose (UA) (NEGATIVE) mg/dL Urine Ketones (NEGATIVE) mg/dL Urine Blood (NEGATIVE) Urine Nitrate (NEGATIVE) Urine Bilirubin (NEGATIVE) Urine Urobilinogen (<1 E.U./dL) E.U./dL Ur Leukocyte Esterase (NEGATIVE) Cici/uL Urine RBC (0-2) /hpf Urine WBC (0-6) /hpf Ur Epithelial Cells (0-5) /hpf Urine Bacteria (NEG) Digoxin (0.8-2.0) ng/mL Salicylates < 1 L (2.0-20.0) mg/dL Urine Opiates Screen (NEGATIVE) Urine Methadone Screen (NEGATIVE) Acetaminophen < 10.0 L (10.0-20.0) ug/ml Ur Barbiturates Screen (NEGATIVE) Ur Phencyclidine Scrn (NEGATIVE) Ur Amphetamines Screen (NEGATIVE) U Benzodiazepines Scrn (NEGATIVE) U Oth Cocaine Metabols (NEGATIVE) U Cannabinoids Screen (NEGATIVE) 11/18/17 11/18/17 11/18/17 Range/Units 15:10 15:10 15:10 WBC (4.5-11.0) 10^3/ul RBC (3.5-6.1) 10^6/uL Hgb (14.0-18.0) g/dL Hct (42.0-52.0) % MCV (80.0-105.0) fl MCH (25.0-35.0) pg MCHC (31.0-37.0) g/dl RDW (11.5-14.5) % Plt Count (120.0-450.0) 10^3/uL Gran % (50.0-68.0) % Lymph % (Auto) (22.0-35.0) % [place] % (Auto) (1.0-6.0) % Eos % (Auto) (1.5-5.0) % Baso % (Auto) (0.0-3.0) % Gran # (1.4-6.5) Lymph # (Auto) (1.2-3.4) [place] # (Auto) (0.1-0.6) Eos # (Auto) (0.0-0.7) Baso # (Auto) (0.0-2.0) K/mm3 PT 11.9 (9.4-12.5) SECONDS INR 1.04 APTT 30.8 (25.1-36.5) Seconds pO2 (30-55) mm/Hg VBG pH (7.32-7.43) VBG pCO2 (40-60) VBG HCO3 (21-28) mmol/l VBG Total CO2 (22-28) mmol.L VBG O2 Sat (Calc) (40-65) % VBG Base Excess (0.0-2.0) mmol/L VBG Potassium (3.6-5.2) mmol/L Glucose (75-110) mg/dl Lactate (0.7-2.1) mmol/L FiO2 % Sodium 143 (132-148) mmol/L Potassium 3.9 (3.6-5.0) mmol/L Chloride 107 (98-107) mmol/L Carbon Dioxide 27 (21-33) mmol/L Anion Gap 13 (10-20) BUN 41 H (7-21) mg/dL Creatinine 2.9 H (0.8-1.5) mg/dl Est GFR ( Amer) 25 Est GFR (Non-Af Amer) 21 Random Glucose 126 H (70-110) mg/dL Hemoglobin A1c (4.2-6.5) % Calcium 9.2 (8.4-10.5) mg/dL Phosphorus (2.5-4.5) mg/dL Magnesium 2.1 (1.7-2.2) mg/dL Total Bilirubin 1.7 H (0.2-1.3) mg/dL AST 637 H (17-59) U/L ALT 428 H (7-56) U/L Alkaline Phosphatase 152 H (38-126) U/L Lactate Dehydrogenase 1445 H (333-699) U/L Total Creatine Kinase 633 H (35-230) U/L CK-MB (CK-2) 5.5 H (0.0-3.6) ng/mL CK-MB (CK-2) % 0.9 L (2.5-3.0) % Troponin I 0.08 D ng/mL Total Protein 6.5 (5.8-8.3) g/dL Albumin 3.7 (3.0-4.8) g/dL Globulin 2.9 gm/dL Albumin/Globulin Ratio 1.3 (1.1-1.8) Triglycerides (35-160) mg/dL Cholesterol (130-200) mg/dL LDL Cholesterol Direct (0-129) mg/dL HDL Cholesterol (29-60) mg/dL Lipase (23-300) U/L TSH 3rd Generation (0.46-4.68) mIU/mL Venous Blood Potassium (3.6-5.2) mmol/L Urine Color (YELLOW) Urine Appearance (CLEAR) Urine pH (4.7-8.0) Ur Specific [place] (1.005-1.035) Urine Protein (<30 mg/dL) mg/dL Urine Glucose (UA) (NEGATIVE) mg/dL Urine Ketones (NEGATIVE) mg/dL Urine Blood (NEGATIVE) Urine Nitrate (NEGATIVE) Urine Bilirubin (NEGATIVE) Urine Urobilinogen (<1 E.U./dL) E.U./dL Ur Leukocyte Esterase (NEGATIVE) Cici/uL Urine RBC (0-2) /hpf Urine WBC (0-6) /hpf Ur Epithelial Cells (0-5) /hpf Urine Bacteria (NEG) Digoxin < 0.4 L (0.8-2.0) ng/mL Salicylates (2.0-20.0) mg/dL Urine Opiates Screen (NEGATIVE) Urine Methadone Screen (NEGATIVE) Acetaminophen (10.0-20.0) ug/ml Ur Barbiturates Screen (NEGATIVE) Ur Phencyclidine Scrn (NEGATIVE) Ur Amphetamines Screen (NEGATIVE) U Benzodiazepines Scrn (NEGATIVE) U Oth Cocaine Metabols (NEGATIVE) U Cannabinoids Screen (NEGATIVE) 11/18/17 Range/Units 15:10 WBC 4.9 D (4.5-11.0) 10^3/ul RBC 3.86 (3.5-6.1) 10^6/uL Hgb 11.5 L (14.0-18.0) g/dL Hct 33.2 L (42.0-52.0) % MCV 86.0 (80.0-105.0) fl MCH 29.8 (25.0-35.0) pg MCHC 34.6 (31.0-37.0) g/dl RDW 15.0 H (11.5-14.5) % Plt Count 73 L (120.0-450.0) 10^3/uL Gran % 78.4 H (50.0-68.0) % Lymph % (Auto) 11.5 L (22.0-35.0) % [place] % (Auto) 9.9 H (1.0-6.0) % Eos % (Auto) 0.0 L (1.5-5.0) % Baso % (Auto) 0.2 (0.0-3.0) % Gran # 3.87 (1.4-6.5) Lymph # (Auto) 0.6 L (1.2-3.4) [place] # (Auto) 0.5 (0.1-0.6) Eos # (Auto) 0.0 (0.0-0.7) Baso # (Auto) 0.01 (0.0-2.0) K/mm3 PT (9.4-12.5) SECONDS INR APTT (25.1-36.5) Seconds pO2 (30-55) mm/Hg VBG pH (7.32-7.43) VBG pCO2 (40-60) VBG HCO3 (21-28) mmol/l VBG Total CO2 (22-28) mmol.L VBG O2 Sat (Calc) (40-65) % VBG Base Excess (0.0-2.0) mmol/L VBG Potassium (3.6-5.2) mmol/L Glucose (75-110) mg/dl Lactate (0.7-2.1) mmol/L FiO2 % Sodium (132-148) mmol/L Potassium (3.6-5.0) mmol/L Chloride (98-107) mmol/L Carbon Dioxide (21-33) mmol/L Anion Gap (10-20) BUN (7-21) mg/dL Creatinine (0.8-1.5) mg/dl Est GFR ( Amer) Est GFR (Non-Af Amer) Random Glucose (70-110) mg/dL Hemoglobin A1c (4.2-6.5) % Calcium (8.4-10.5) mg/dL Phosphorus (2.5-4.5) mg/dL Magnesium (1.7-2.2) mg/dL Total Bilirubin (0.2-1.3) mg/dL AST (17-59) U/L ALT (7-56) U/L Alkaline Phosphatase (38-126) U/L Lactate Dehydrogenase (333-699) U/L Total Creatine Kinase (35-230) U/L CK-MB (CK-2) (0.0-3.6) ng/mL CK-MB (CK-2) % (2.5-3.0) % Troponin I ng/mL Total Protein (5.8-8.3) g/dL Albumin (3.0-4.8) g/dL Globulin gm/dL Albumin/Globulin Ratio (1.1-1.8) Triglycerides (35-160) mg/dL Cholesterol (130-200) mg/dL LDL Cholesterol Direct (0-129) mg/dL HDL Cholesterol (29-60) mg/dL Lipase (23-300) U/L TSH 3rd Generation (0.46-4.68) mIU/mL Venous Blood Potassium (3.6-5.2) mmol/L Urine Color (YELLOW) Urine Appearance (CLEAR) Urine pH (4.7-8.0) Ur Specific [place] (1.005-1.035) Urine Protein (<30 mg/dL) mg/dL Urine Glucose (UA) (NEGATIVE) mg/dL Urine Ketones (NEGATIVE) mg/dL Urine Blood (NEGATIVE) Urine Nitrate (NEGATIVE) Urine Bilirubin (NEGATIVE) Urine Urobilinogen (<1 E.U./dL) E.U./dL Ur Leukocyte Esterase (NEGATIVE) Cici/uL Urine RBC (0-2) /hpf Urine WBC (0-6) /hpf Ur Epithelial Cells (0-5) /hpf Urine Bacteria (NEG) Digoxin (0.8-2.0) ng/mL Salicylates (2.0-20.0) mg/dL Urine Opiates Screen (NEGATIVE) Urine Methadone Screen (NEGATIVE) Acetaminophen (10.0-20.0) ug/ml Ur Barbiturates Screen (NEGATIVE) Ur Phencyclidine Scrn (NEGATIVE) Ur Amphetamines Screen (NEGATIVE) U Benzodiazepines Scrn (NEGATIVE) U Oth Cocaine Metabols (NEGATIVE) U Cannabinoids Screen (NEGATIVE) Laboratory Results - last 24 hr 11/18/17 11/18/17 11/18/17 15:10 15:10 15:10 WBC 4.9 D RBC 3.86 Hgb 11.5 L Hct 33.2 L MCV 86.0 MCH 29.8 MCHC 34.6 RDW 15.0 H Plt Count 73 L Gran % 78.4 H Lymph % (Auto) 11.5 L [place] % (Auto) 9.9 H Eos % (Auto) 0.0 L Baso % (Auto) 0.2 Gran # 3.87 Lymph # (Auto) 0.6 L [place] # (Auto) 0.5 Eos # (Auto) 0.0 Baso # (Auto) 0.01 PT 11.9 INR 1.04 APTT 30.8 pO2 VBG pH VBG pCO2 VBG HCO3 VBG Total CO2 VBG O2 Sat (Calc) VBG Base Excess VBG Potassium Glucose Lactate FiO2 Sodium 143 Potassium 3.9 Chloride 107 Carbon Dioxide 27 Anion Gap 13 BUN 41 H Creatinine 2.9 H Est GFR ( Amer) 25 Est GFR (Non-Af Amer) 21 Random Glucose 126 H Hemoglobin A1c Calcium 9.2 Phosphorus Magnesium 2.1 Total Bilirubin 1.7 H AST 637 H ALT 428 H Alkaline Phosphatase 152 H Lactate Dehydrogenase 1445 H Total Creatine Kinase 633 H CK-MB (CK-2) 5.5 H CK-MB (CK-2) % 0.9 L Troponin I 0.08 D Total Protein 6.5 Albumin 3.7 Globulin 2.9 Albumin/Globulin Ratio 1.3 Triglycerides Cholesterol LDL Cholesterol Direct HDL Cholesterol Lipase TSH 3rd Generation Venous Blood Potassium Urine Color Urine Appearance Urine pH Ur Specific [place] Urine Protein Urine Glucose (UA) Urine Ketones Urine Blood Urine Nitrate Urine Bilirubin Urine Urobilinogen Ur Leukocyte Esterase Urine RBC Urine WBC Ur Epithelial Cells Urine Bacteria Digoxin Salicylates Urine Opiates Screen Urine Methadone Screen Acetaminophen Ur Barbiturates Screen Ur Phencyclidine Scrn Ur Amphetamines Screen U Benzodiazepines Scrn U Oth Cocaine Metabols U Cannabinoids Screen 11/18/17 11/18/17 11/18/17 15:10 15:10 15:30 WBC RBC Hgb Hct MCV MCH MCHC RDW Plt Count Gran % Lymph % (Auto) [place] % (Auto) Eos % (Auto) Baso % (Auto) Gran # Lymph # (Auto) [place] # (Auto) Eos # (Auto) Baso # (Auto) PT INR APTT pO2 VBG pH VBG pCO2 VBG HCO3 VBG Total CO2 VBG O2 Sat (Calc) VBG Base Excess VBG Potassium Glucose Lactate FiO2 Sodium Potassium Chloride Carbon Dioxide Anion Gap BUN Creatinine Est GFR ( Amer) Est GFR (Non-Af Amer) Random Glucose Hemoglobin A1c Calcium Phosphorus Magnesium Total Bilirubin AST ALT Alkaline Phosphatase Lactate Dehydrogenase Total Creatine Kinase CK-MB (CK-2) CK-MB (CK-2) % Troponin I Total Protein Albumin Globulin Albumin/Globulin Ratio Triglycerides Cholesterol LDL Cholesterol Direct HDL Cholesterol Lipase 71 TSH 3rd Generation Venous Blood Potassium Urine Color Urine Appearance Urine pH Ur Specific [place] Urine Protein Urine Glucose (UA) Urine Ketones Urine Blood Urine Nitrate Urine Bilirubin Urine Urobilinogen Ur Leukocyte Esterase Urine RBC Urine WBC Ur Epithelial Cells Urine Bacteria Digoxin < 0.4 L Salicylates < 1 L Urine Opiates Screen Urine Methadone Screen Acetaminophen < 10.0 L Ur Barbiturates Screen Ur Phencyclidine Scrn Ur Amphetamines Screen U Benzodiazepines Scrn U Oth Cocaine Metabols U Cannabinoids Screen 11/18/17 11/18/17 11/18/17 17:30 17:30 18:30 WBC RBC Hgb Hct MCV MCH MCHC RDW Plt Count Gran % Lymph % (Auto) [place] % (Auto) Eos % (Auto) Baso % (Auto) Gran # Lymph # (Auto) [place] # (Auto) Eos # (Auto) Baso # (Auto) PT INR APTT pO2 49 VBG pH 7.35 VBG pCO2 51.0 VBG HCO3 28.2 H VBG Total CO2 29.8 H VBG O2 Sat (Calc) 86.5 H VBG Base Excess 1.7 VBG Potassium 3.9 Glucose 122 H Lactate 1.4 FiO2 21.0 Sodium 143.0 Potassium Chloride 109.0 H Carbon Dioxide Anion Gap BUN Creatinine Est GFR ( Amer) Est GFR (Non-Af Amer) Random Glucose Hemoglobin A1c Calcium Phosphorus Magnesium Total Bilirubin AST ALT Alkaline Phosphatase Lactate Dehydrogenase Total Creatine Kinase CK-MB (CK-2) CK-MB (CK-2) % Troponin I Total Protein Albumin Globulin Albumin/Globulin Ratio Triglycerides Cholesterol LDL Cholesterol Direct HDL Cholesterol Lipase TSH 3rd Generation Venous Blood Potassium 3.9 Urine Color Yellow Urine Appearance Clear Urine pH 6.5 Ur Specific [place] 1.015 Urine Protein Trace H Urine Glucose (UA) Negative Urine Ketones Negative Urine Blood Large H Urine Nitrate Negative Urine Bilirubin Negative Urine Urobilinogen 1.0 H Ur Leukocyte Esterase Negative Urine RBC 2 - 5 Urine WBC 2 - 5 Ur Epithelial Cells 1 - 3 Urine Bacteria Few Digoxin Salicylates Urine Opiates Screen Negative Urine Methadone Screen Negative Acetaminophen Ur Barbiturates Screen Negative Ur Phencyclidine Scrn Negative Ur Amphetamines Screen Negative U Benzodiazepines Scrn Negative U Oth Cocaine Metabols Negative U Cannabinoids Screen Negative 11/19/17 11/19/17 11/19/17 06:50 06:50 06:50 WBC 6.8 D RBC 4.39 Hgb 12.8 L Hct 37.7 L MCV 85.9 MCH 29.2 MCHC 34.0 RDW 15.0 H Plt Count 80 L Gran % 73.6 H Lymph % (Auto) 16.5 L [place] % (Auto) 9.9 H Eos % (Auto) 0.0 L Baso % (Auto) 0.0 Gran # 4.99 Lymph # (Auto) 1.1 L [place] # (Auto) 0.7 H Eos # (Auto) 0.0 Baso # (Auto) 0.00 PT INR APTT pO2 VBG pH VBG pCO2 VBG HCO3 VBG Total CO2 VBG O2 Sat (Calc) VBG Base Excess VBG Potassium Glucose Lactate FiO2 Sodium 144 Potassium 4.1 Chloride 108 H Carbon Dioxide 25 Anion Gap 15 BUN 32 H Creatinine 2.5 H Est GFR ( Amer) 30 Est GFR (Non-Af Amer) 24 Random Glucose 112 H Hemoglobin A1c 5.8 Calcium 9.3 Phosphorus 3.5 Magnesium 2.0 Total Bilirubin 2.2 H AST 729 H ALT 513 H Alkaline Phosphatase 197 H D Lactate Dehydrogenase Total Creatine Kinase CK-MB (CK-2) CK-MB (CK-2) % Troponin I Total Protein 7.5 Albumin 4.1 Globulin 3.4 Albumin/Globulin Ratio 1.2 Triglycerides 86 Cholesterol 122 L LDL Cholesterol Direct 51 HDL Cholesterol 39 Lipase TSH 3rd Generation Venous Blood Potassium Urine Color Urine Appearance Urine pH Ur Specific [place] Urine Protein Urine Glucose (UA) Urine Ketones Urine Blood Urine Nitrate Urine Bilirubin Urine Urobilinogen Ur Leukocyte Esterase Urine RBC Urine WBC Ur Epithelial Cells Urine Bacteria Digoxin Salicylates Urine Opiates Screen Urine Methadone Screen Acetaminophen Ur Barbiturates Screen Ur Phencyclidine Scrn Ur Amphetamines Screen U Benzodiazepines Scrn U Oth Cocaine Metabols U Cannabinoids Screen 11/19/17 06:50 WBC RBC Hgb Hct MCV MCH MCHC RDW Plt Count Gran % Lymph % (Auto) [place] % (Auto) Eos % (Auto) Baso % (Auto) Gran # Lymph # (Auto) [place] # (Auto) Eos # (Auto) Baso # (Auto) PT INR APTT pO2 VBG pH VBG pCO2 VBG HCO3 VBG Total CO2 VBG O2 Sat (Calc) VBG Base Excess VBG Potassium Glucose Lactate FiO2 Sodium Potassium Chloride Carbon Dioxide Anion Gap BUN Creatinine Est GFR ( Amer) Est GFR (Non-Af Amer) Random Glucose Hemoglobin A1c Calcium Phosphorus Magnesium Total Bilirubin AST ALT Alkaline Phosphatase Lactate Dehydrogenase Total Creatine Kinase CK-MB (CK-2) CK-MB (CK-2) % Troponin I Total Protein Albumin Globulin Albumin/Globulin Ratio Triglycerides Cholesterol LDL Cholesterol Direct HDL Cholesterol Lipase TSH 3rd Generation 0.02 L Venous Blood Potassium Urine Color Urine Appearance Urine pH Ur Specific [place] Urine Protein Urine Glucose (UA) Urine Ketones Urine Blood Urine Nitrate Urine Bilirubin Urine Urobilinogen Ur Leukocyte Esterase Urine RBC Urine WBC Ur Epithelial Cells Urine Bacteria Digoxin Salicylates Urine Opiates Screen Urine Methadone Screen Acetaminophen Ur Barbiturates Screen Ur Phencyclidine Scrn Ur Amphetamines Screen U Benzodiazepines Scrn U Oth Cocaine Metabols U Cannabinoids Screen EKG/Cardiology Studies: Cardiology / EKG Studies 11/18/17 14:45 ELECTROCARDIOGRAM Stat Comment: Reason For Exam: fall 11/18/17 14:46 EKG [ELECTROCARDIOGRAM] Stat Comment: Reason For Exam: repeat 11/18/17 14:57 EKG [ELECTROCARDIOGRAM] Stat Comment: Reason For Exam: WEAKNESS/FALL Critical Care Progress Note - Nutrition Nutrition: Nutrition Category Date Time Status Heart Healthy Diet [DIET] Diets 11/19/17 Breakfast Active Assessment/Plan - Assessment and Plan (Free Text) Plan: Patient seen and examined on rounds with resident, agree with note with following additions/exceptions: Patient is 87yo male with PMHx of Afib on Eliquis, s/p cardioversion, HTN, CHF, presented with 3 deg HB, worsening renal failure, dehydration. Currently the patient is afebrile, BP stable, HR 40-60s, on Dopamine 2.5mcg/kg/min, refusing AICD/PPM placement, cardiology following NO major complaints, denies dizziness, CP, SOB Renal failure CHF CHB Afib Recommend: - supp o2 as needed, duonebs PRN, IS - follow up cultures - Dopamine drip as per cardiology - external pacer pads as needed - hold BB - resume Eliquis if no plan for AICD/PPM - check UA, Ulytes - gentle IVF hydration NS 75cc/hr - monitor Cr, K - GI ppx - DVT ppx - Monitor in MICU Critical care time 35 minutes
--- NOTE | 2017-11-19 13:27 | PN ---
DATE: 11/19/2017 REASON FOR THE CONSULTATION: Complete heart block (the patient is in atrial fibrillation, it is not a heart block, it is atrial fibrillation/flutter), history of nonischemic cardiomyopathy, history of status post TAVR, came in after having a fall and feeling generalized weakness, history of weight loss. SUBJECTIVE: The patient denies any chest pain, shortness of breath, or any palpitation. PHYSICAL EXAMINATION: GENERAL: Not in any apparent distress. VITAL SIGNS: Temperature afebrile, heart rate 58, blood pressure 137/80. HEENT: PERRLA. Extraocular muscles are intact. NECK: Supple. No carotid bruits or thyromegaly. CHEST: Clear to auscultation. HEART: S1 and S2 regular. ABDOMEN: Soft. EXTREMITIES: Clubbing and cyanosis negative. LABORATORY DATA: Blood workup as follows; WBC 6.8, hemoglobin 12.8, hematocrit 37.7, and platelet count 80. Chemistry shows sodium 144, potassium 4, chloride 108, carbon dioxide 25, anion gap of 15, BUN 32, and creatinine 2.5. IMPRESSION: An 87-year-old male with past medical history significant for severe aortic stenosis, chronic atrial fibrillation, status post transcatheter aortic valve replacement, nonischemic cardiomyopathy, refused automatic implantable cardioverter-defibrillator in the past said that he is , admitted yesterday after a fall and feeling weak. Admitting EKG showed atrial fibrillation; admitted with acute kidney injury. Family was at bedside. ER physician read the heart block, but essentially it is atrial fibrillation which is slow ventricular rate. Plan is to start dopamine. If the patient needs pacemaker placement with AICD, we will ask Dr. Matias for consult for AICD, though the patient is not willing for AICD. RECOMMENDATIONS: The patient was at home verapamil as well as atenolol, so we will wait until the effect of washout from atenolol and verapamil to control the fast heart rate. In between, the patient is complaining of losing the weight. Continue GI workup for interim, leave him on dopamine, try to wean off dopamine and Dr. Matias for the consult for possible AICD if the patient agrees. We will get echo to assess LV function. We will follow with you. The patient has a history of as mentioned chronic atrial fibrillation, not in heart block. We will repeat EKG this morning. Acute kidney injury, the patient is getting IV fluid, cautious hydration because the patient has decreased LV function, ejection fraction is low. We will repeat echo. Thank you, Dr. Martin for providing us the opportunity in taking care of the patient, Nikolas Bach. Jet Rich MD
--- NOTE | 2017-11-19 14:26 | CARD ---
APPROVED REPORT Date of service: 11/18/2017 EKG Measurement Heart [id number] <Conclusion> Junctional bradycardia Left bundle branch block Abnormal ECG
--- NOTE | 2017-11-19 14:28 | CARD ---
APPROVED REPORT Date of service: 11/18/2017 EKG Measurement Heart [id number] <Conclusion> Junctional bradycardia Left bundle branch block Abnormal ECG
--- NOTE | 2017-11-19 14:30 | CARD ---
APPROVED REPORT Date of service: 11/18/2017 EKG Measurement Heart [id number] <Conclusion> Juntional bradycardia Left axis deviation Left ventricular hypertrophy with QRS widening and repolarization abnormality Abnormal ECG
--- NOTE | 2017-11-19 16:05 | PN ---
DATE: 11/19/2017 SUBJECTIVE: The patient is 87 years old black male, seen and examined, lying in bed, seems to be comfortable. Denies any chest pain. No shortness of breath. Having his breakfast. According to nurse, when she tried to taper down dopamine, his heart rate went down to 40s. So currently, he is on dopamine drip. He was evaluated by anatomic pathologist and production line welder. Initially, patient refused to have pacemaker placed, when he was offered, he states he will discuss with family member and let us know. PHYSICAL EXAMINATION: GENERAL: He is awake, alert, oriented, and communicative. VITAL SIGNS: He is afebrile, pulse 68, respirations 20, blood pressure 133/74. LUNGS: Bilateral fair airflow. No rhonchi or crackle. HEART: S1 and S2 audible. ABDOMEN: Soft and nontender. No rebound. No guarding. NEUROLOGIC: He is awake, alert, oriented, and able to communicate. EXTREMITIES: Bilateral legs, +1 edema. LABORATORY EXAM: WBC 6.8, hemoglobin 12.8, hematocrit 37.7, and platelets 80. PT 11.9 and INR 1.04. His chemistry; sodium 144, potassium 4.1, chloride 108, CO2 of 25. BUN 32, creatinine 2.5. Blood sugar 112. LFT shows AST 729, ALT 513, alk phos 197. Urine shows large blood and urobilinogen. His urine drug screen is negative. Abdominal sonogram shows a right renal cyst 6.1 cm, seems to be complex with internal debris. CT of the abdomen and pelvis shows gallbladder distention suggest right upper quadrant for further evaluation. Multiple bilateral renal cyst complex, large right upper pole cyst versus loculated complex with large prostate, moderate cardiomegaly. ASSESSMENT: 1. Third degree heart block. 2. Abnormal liver function test probably secondary to passive congestion. 3. Cardiomyopathy. 4. Chronic kidney disease. 5. Chronic atrial fibrillation. PLAN: Currently, the patient is on dopamine. He has been started on anticoagulant. We will reach out to the family for further discussion, maintain the pacemaker, although patient is refusing, but after I had discussed with him, he states he might consider after talking to the family. Kendall Martin MD [facility] # [phone]
--- NOTE | 2017-11-19 16:37 | CARD ---
APPROVED REPORT Date of service: 11/19/2017 EXAM: Two-dimensional and M-mode echocardiogram with Doppler and color Doppler. INDICATION Cardiomyopathy 2D DIMENSIONS Left Atrium (2D)4.1 (1.6-4.0cm)IVSd1.4 (0.7-1.1cm) LVDd3.7 (3.9-5.9cm)LVOT Diameter1.9 (1.8-2.4cm) PWd1.4 (0.7-1.1cm)LVDs2.7 (2.5-4.0cm) FS (%) 27.6 %LVEF (%)54.4 (>50%) M-Mode DIMENSIONS Aortic Root2.20 (2.2-3.7cm)Aortic Cusp Exc.1.10 (1.5-2.0cm) Aortic Valve AoV Peak Dueubphp623.0cm/sAoV VTI54.4cmAO Peak GR.44mmHg LVOT Peak Lidblqcl141.0cm/sLVOT VTI24.90cmAO Mean GR.26mmHg AYDIN (VMAX)1.17bz5MGT (VTI)1.30cm2 Mitral Valve E/A ratio0.0 TDI E/Lateral E'0.0E/Medial E'0.0 Tricuspid Valve TR Peak Xdsvspas808fw/sRAP NQVZNTBB07abKzRB Peak Gr.55mmHg MZMR76thAg LEFT VENTRICLE The left ventricle is normal size. There is mild concentric left ventricular hypertrophy. The left ventricular function is normal. The left ventricular ejection fraction is within the normal range.Ej.Fr:55% RIGHT VENTRICLE The right ventricle is normal size. The right ventricular systolic function is normal. ATRIA The left atrium size is normal. The right atrium size is normal. AORTIC VALVE Aortic Valve not well seen. Aortic Valve is Calcified and shows Mild Aortic Stenosis. Aortic Valve Max Pr.Gradient 44mm Hg. MITRAL VALVE Moitral Valve Thickened. Opening Adequate. Mitral Annulus Calcified. Mild Mitral Regurge. TRICUSPID VALVE The tricuspid valve is normal in structure. PERICARDIAL EFFUSION There is no pericardial effusion. <Conclusion> The left ventricle is normal size. There is mild concentric left ventricular hypertrophy. The left ventricular ejection fraction is within the normal range.Ej.Fr:55% The right ventricle is normal size. The right ventricular systolic function is normal. The left atrium size is normal. The right atrium size is normal. Aortic Valve not well seen. Aortic Valve is Calcified status Post TAVR Moitral Valve Thickened. Opening Adequate. Mitral Annulus Calcified. Mild Mitral Regurge. The tricuspid valve is normal in structure. There is no pericardial effusion.
[2017-11-19] MEDS: Sodium Chloride 0.9% 1,000 ML IV SCH (22:35)
--- NOTE | 2017-11-20 05:49 | CON ---
DATE: 11/19/2017 INPATIENT ELECTROPHYSIOLOGY CONSULTATION PHYSICIAN REQUESTING CONSULT: Jet Rich MD REASON FOR EVALUATION: 1. Bradycardia, heart block. 2. Dilated cardiomyopathy. 3. Status post TAVR. Thank you very much for this consult. The patient was seen and evaluated in the Emergency Department. HISTORY OF PRESENT ILLNESS: Mr. Nikolas Bach is an 87-year-old male with past medical history significant for atrial fibrillation, history of failed cardioversion, aortic stenosis, status post TAVR, cardiomyopathy, hypertension, who presents to [facility] with complaints of feeling very weak and dizzy. The patient was found to have a junctional escape rhythm with what is believe to be underlying atrial fibrillation. The patient does have a reasonable perfusion rhythm at rest and does not appear to be hemodynamically compromised at this point. The patient was admitted to the CCU for further evaluation and management. I was asked personally to see this patient by . PAST MEDICAL HISTORY: As mentioned previously, dilated cardiomyopathy, status post severe aortic stenosis, status post TAVR, cardiomyopathy, hypertension. He had been offered a defibrillator in the past and had refused. PRIOR CARDIAC WORKUP: As per the electronic medical record, shows cardiac catheterization on 08/11/2015, which showed normal coronary disease with severely decreased left ventricular ejection fraction of 15% to 20% range. The patient had severe with a gradient of greater than 40 mmHg, thought to be severe. The patient is status post TAVR. The patient has chronic atrial fibrillation with failed BRANDT cardioversion in the past. MEDICATIONS: Currently include omeprazole, clarithromycin, amoxicillin, verapamil, spironolactone, ramipril, digoxin, atenolol and Eliquis. PHYSICAL EXAMINATION: VITAL SIGNS: The patient was seen with an unclear atrial rhythm with a regular complexes of 58 beats per minute, blood pressure is 133/74. The patient had initial documented rhythm in the 30s, has been given dopamine, increased the heart rates to 58 beats per minute. The patient has a weight of 188 pounds. HEENT: Examination of his head is normocephalic and atraumatic. There is no jean-claude facial asymmetry. Pupils are equally, round and reactive to light and accommodation. Extraocular movements are intact. Mucous membranes appeared moist. NECK: Supple. No jugular venous distension. No carotid bruits. CHEST: Clear to auscultation bilaterally. CARDIOVASCULAR: Noted for bradycardia. There is a faint 2/6 systolic ejection murmur heard best in the left sternal border. ABDOMEN: Soft, nontender, nondistended. Positive bowel sounds. EXTREMITIES: No cyanosis, clubbing or edema. CURRENT MEDICATIONS: Include amoxicillin 1000 mg p.o. b.i.d., dopamine is 400 mg to titrate up from 5 mcg/kg/min, ceftriaxone is 1 g daily. LABORATORY DATA: The patient's blood work has been reviewed. The patient's white count of 6.8, H and H of 12.8 and 37.7 respectively, platelets are 80. INR is 1. BUN and creatinine appears to be elevated at 32 and 2.5. ALT, AST appeared to be elevated at 729 and 513 respectively. Troponin is 0.08. LDL cholesterol is 51 and total cholesterol is 122. TSH interestingly is elevated at 0.2, digoxin level is not elevated at 0.40. Echocardiogram shows mild left ventricular hypertrophy, left ventricular ejection fraction is normal with an EF of 55%, right ventricular size is normal, atrium is within normal limits, aortic valve is calcified, shows mild aortic stenosis with peak gradient of 44. Mitral valve appears to be adequate in terms of opening. Pericardium also appears to be within normal limit. The patient has an electrocardiogram, which was done at 2:45 p.m., which appeared to be atrial fibrillation with junctional bradycardia with a left bundle-branch block morphology with a QRS duration of 146 milliseconds. ASSESSMENT AND PLAN: 1. Bradycardia with what appeared to be complete heart block with a junctional escape rhythm. The patient had been on rate slowing agents, which had subsequently been held. We will continue watching his heart rates over the ensuing days. I have discussed with him possibility of a permanent pacemaker and initial conversations were held in the setting of dilated cardiomyopathy. At this point, ejection fraction appeared to be normal. We will continue to watch him. He again was resistant for possible permanent pacemaker placement, but will certainly reconsider over the course of the ensuing days. His heart rates do improve and there is no recurrence of atrial fibrillation with rapid ventricular response, we may be able to treat him conservatively. If there is no improvement in heart rates, the patient may be a candidate for a permanent pacemaker. The patient does have a left bundle-branch block. If there is no resolution of left bundle-branch block in the setting of dilated cardiomyopathy, the patient may be a candidate for biventricular device placement. Again, we will continue watching it. I have discussed the case with the patient's managing maintenance shop clerk, Dr. Jet Rich as well as primary maintenance shop clerk. 2. Dilated cardiomyopathy, which at this point appears to have improved following transcatheter aortic valve replacement placement. Again, we will confirm these findings with the managing maintenance shop clerk. 3. Status post transcatheter aortic valve replacement in the setting of severe aortic stenosis. Again, this appears to have improved. 4. Thrombocytopenia of unclear duration. We will continue to watch him carefully. 5. Renal insufficiency, which appears to be his baseline finding. 6. Elevated liver function test of unclear etiology, may be secondary to passive issues or some other secondary cause. We will probably need to look into this in the setting of thrombocytopenia. 7. Hyperthyroidism of unclear etiology. We will need further evaluation. Thank you for allowing me to participate in the care of your patient. Please do not hesitate to call if you have any questions in regards to his care. Yours sincerely, Jose Cruz Matias MD cc: Jet Rich MD
[2017-11-20] MEDS: Sodium Chloride 0.9% 1,000 ML IV SCH (08:00)
[2017-11-20 09:06] LABS: EOS % 0.2 % (1.5-5.0); GRAN # 4.27 (1.4-6.5); GRAN % 70.7 % (50.0-68.0); HEMOGLOBIN 12.6 g/dL (14.0-18.0); LYMPH # 1.2 (1.2-3.4); MEAN CELL VOLUME 85.4 fl (80.0-105.0); MEAN CORPUSCULAR HEMOGLOBIN 29.6 pg (25.0-35.0); MEAN CORPUSCULAR HGB CONC 34.6 g/dl (31.0-37.0); MONO # 0.6 (0.1-0.6); MONO % 10.1 % (1.0-6.0); PLATELET COUNT 59 10^3/uL (120.0-450.0); RBC 4.26 10^6/uL (3.5-6.1); RED CELL DISTRIBUTION WIDTH 15.2 % (11.5-14.5)
[2017-11-20] MEDS: cefTRIAXone 1 gm 1 GM/100 ML BAG IVPB SCH (10:06)
--- NOTE | 2017-11-20 10:38 | CP.CCUPN ---
<Sheldon Pérez - Last Filed: 11/20/17 10:46> CCU Subjective - Physician Review Subjective (Free Text): Sheldon Pérez DO, PGY-1 ICU Progress Note for Dr. Choudhary Patient was seen and examined at bedside this AM. He spoke with his family following his talk with Dr. Zuluaga yesterday and made the decision to have pacemaker placed after all. He agreed to have the pacemaker placed Wednesday morning. He has no complaints this AM and denies CP, SOB, nausea/vomiting. CCU Objective - Vital Signs / Intake & Output Vital Signs (Last 4 hours): Vital Signs Pulse Resp BP Pulse Ox 11/20/17 08:50 50 L 22 98 11/20/17 08:40 57 L 34 H 98 11/20/17 08:30 48 L 15 99 11/20/17 08:20 49 L 9 L 99 11/20/17 08:10 48 L 22 98 11/20/17 08:00 48 L 17 175/83 H 99 11/20/17 07:50 49 L 24 99 11/20/17 07:40 48 L 97 11/20/17 07:30 49 L 16 97 11/20/17 07:20 49 L 14 98 11/20/17 07:10 50 L 13 98 11/20/17 07:00 49 L 12 167/82 H 98 11/20/17 06:50 49 L 12 97 11/20/17 06:40 48 L 16 98 Intake and Output (Last 8hrs): Intake & Output 11/19/17 11/20/17 11/20/17 22:59 06:59 14:59 Intake Total 942 352 250 Output Total 1900 1000 Balance -958 -648 250 Intake: IV 942 152 250 0.9ns 500 dopamine 192 152 Oral 200 Output: Urine 1900 1000 Urethral (Diaz) 1900 1000 Stool 0 Urine/Stool Mix 0 Other: # Bowel Movements 0 - Physical Exam Head: Positive for: Atraumatic, Normocephalic Pupils: Positive for: PERRL Extroacular Muscles: Positive for: EOMI Conjunctiva: Positive for: Normal Ears: Positive for: Normal Mouth: Positive for: Moist Mucous Membranes Pharnyx: Positive for: Normal. Negative for: ERYTHEMA, EXUDATE Neck: Positive for: Normal Range of Motion. Negative for: JVD Respiratory/Chest: Positive for: Clear to Auscultation, Good Air Exchange. Negative for: Respiratory Distress, Accessory Muscle Use, Wheezes, Rales, Rhonchi Cardiovascular: Positive for: Normal S1, S2, Bradycardic (HR consistently in 50s, stable on 2.5 of dopamine). Negative for: Murmurs, Rub, Gallop Abdomen: Negative for: Tenderness, Distention, Rebound, Guarding Back: Positive for: Normal Inspection Upper Extremity: Positive for: Normal Inspection, Normal ROM. Negative for: Cyanosis, Edema Lower Extremity: Positive for: Normal Inspection, NORMAL PULSES, Capillary Refill < 2 s. Negative for: Edema, Cyanosis Neurological: Positive for: GCS=15, Speech Normal, Motor Func Grossly Intact Skin: Positive for: Warm, Dry, Normal Color Psychiatric: Positive for: Alert, Oriented x 3 - Medications Active Medications: Active Medications Generic Name Dose Route Start Last Admin Trade Name Freq PRN Reason Stop Dose Admin Apixaban 2.5 mg 11/19/17 18:00 11/19/17 17:17 Eliquis PO 2.5 mg BID HEATHER Administration Protocol Dopamine HCl/Dextrose 400 mg in 250 mls @ 16.066 mls/hr 11/18/17 16:16 11/20/17 10:07 Dopamine 400mg/250ml D5w IV Infused .[id number] PRN Titration TITRATE PER MD ORDER Protocol 5 MCG/KG/MIN Ceftriaxone Sodium 1 gm in 100 mls @ 100 mls/hr 11/18/17 17:15 11/20/17 10:06 Rocephin 1 Gram Ivpb IVPB 100 mls/hr DAILY HEATHER Administration Protocol Sodium Chloride 1,000 mls @ 75 mls/hr 11/19/17 09:15 Sodium Chloride 0.9% IV .[id number] HEATHER Heparin Sodium/Sodium Chloride 25,000 units in 250 mls @ 10 mls/hr 11/20/17 10:30 Heparin 48083 Units/250ml 1/2 Normal Saline IV .Q24H HEATHER Protocol 1,000 UNITS/HR Non-Formulary Medication 1 tab 11/19/17 10:00 Clarithromycin [Clarithromycin Er] PO DAILY HEATHER Pantoprazole Sodium 40 mg 11/18/17 18:00 11/20/17 10:06 Protonix Inj IVP 40 mg DAILY HEATHER Administration - Patient Studies Lab Studies: Microbiology Studies 11/18/17 19:30 Blood Culture - Preliminary Blood-Venous NO GROWTH AFTER 24 HOURS 11/18/17 19:15 Blood Culture - Preliminary Blood-Venous NO GROWTH AFTER 24 HOURS Lab Studies 11/20/17 11/19/17 Range/Units 05:00 06:50 WBC 6.0 (4.5-11.0) 10^3/ul RBC 4.26 (3.5-6.1) 10^6/uL Hgb 12.6 L (14.0-18.0) g/dL Hct 36.4 L (42.0-52.0) % MCV 85.4 (80.0-105.0) fl MCH 29.6 (25.0-35.0) pg MCHC 34.6 (31.0-37.0) g/dl RDW 15.2 H (11.5-14.5) % Plt Count 59 L (120.0-450.0) 10^3/uL Gran % 70.7 H (50.0-68.0) % Lymph % (Auto) 19.0 L (22.0-35.0) % Emmet % (Auto) 10.1 H (1.0-6.0) % Eos % (Auto) 0.2 L (1.5-5.0) % Baso % (Auto) 0.0 (0.0-3.0) % Gran # 4.27 (1.4-6.5) Lymph # (Auto) 1.2 (1.2-3.4) Emmet # (Auto) 0.6 (0.1-0.6) Eos # (Auto) 0.0 (0.0-0.7) Baso # (Auto) 0.00 (0.0-2.0) K/mm3 Hemoglobin A1c 5.8 (4.2-6.5) % Laboratory Results - last 24 hr 11/19/17 11/20/17 06:50 05:00 WBC 6.0 RBC 4.26 Hgb 12.6 L Hct 36.4 L MCV 85.4 MCH 29.6 MCHC 34.6 RDW 15.2 H Plt Count 59 L Gran % 70.7 H Lymph % (Auto) 19.0 L Emmet % (Auto) 10.1 H Eos % (Auto) 0.2 L Baso % (Auto) 0.0 Gran # 4.27 Lymph # (Auto) 1.2 Emmet # (Auto) 0.6 Eos # (Auto) 0.0 Baso # (Auto) 0.00 Hemoglobin A1c 5.8 Review of Systems - Cardiovascular Cardiovascular: absent: Chest Pain, Dyspnea - Respiratory Respiratory: absent: Cough - Gastrointestinal Gastrointestinal: absent: Diarrhea, Nausea, Vomiting Critical Care Progress Note - Nutrition Nutrition: Nutrition Category Date Time Status Heart Healthy Diet [DIET] Diets 11/19/17 Breakfast Active Assessment/Plan - Assessment and Plan (Free Text) Assessment: 87 yo M with PMH of chronic AFib s/p failed cardioversion (on home eliquis), originally presented s/p fall was subsequently found to 3rd degree block with HR in low 40s and evidence of end organ damage. He was subsequently admitted to the ICU for further management. At first he was refusing ICD and/or pacemaker placement but is now agreeable to procedure after discuss with EP and family. The procedure is planned for Wednesday. Plan: Neuro: -AAOx3, no FND, moving extremities past midline -Monitor neuro status Cardio: -3rd degree block identified on admission -Pacemaker placement planned for Wednesday -HR in low 50s on 2.5 mg of dopamine -Continue to maintain HR > 50 bpm -BP stable, continue to maintain MAP > 65 Pulm: -CTA bilaterally -CXR in ED without acute findings -Maintain O2 saturation>95% -O2 NC PRN GI: -Restart HHD -Patient tolerating HHD well without n/v -Additional management of transaminitis per GI /Nephro: -ARTEMIO noted -Likely 2/2 dehydration vs poor renal perfusion from bradycardic episode -BUN/Cr downtrending s/p 1 L NS bolus and maintenance IVF -Consider nephrology consultation if not improving ID: -On treatment for H. pylori at home -Continue clarithromycin, amoxicillin, rocephin, protonix -Consider ID consultation as needed Heme/Onc: -H/H stable at 12.8/37.7 -No signs of HD compromise -Continue monitoring H/H GI/DVT PPX: Protonix and hold home eliquis prior to procedure. Heparin drip 12 u/kg/hr started. Full Code Continue to monitor in MICU Case and plan reviewed and discussed with my attending Dr. Funmi Pérez, DO IM Resident PGY-1 <Dimitri Choudhary - Last Filed: 11/20/17 10:59> CCU Objective - Vital Signs / Intake & Output Vital Signs (Last 4 hours): Vital Signs Pulse Resp BP Pulse Ox 11/20/17 08:50 50 L 22 98 11/20/17 08:40 57 L 34 H 98 11/20/17 08:30 48 L 15 99 11/20/17 08:20 49 L 9 L 99 11/20/17 08:10 48 L 22 98 11/20/17 08:00 48 L 17 175/83 H 99 11/20/17 07:50 49 L 24 99 11/20/17 07:40 48 L 97 11/20/17 07:30 49 L 16 97 11/20/17 07:20 49 L 14 98 11/20/17 07:10 50 L 13 98 11/20/17 07:00 49 L 12 167/82 H 98 Intake and Output (Last 8hrs): Intake & Output 11/19/17 11/20/17 11/20/17 22:59 06:59 14:59 Intake Total 942 352 250 Output Total 1900 1000 Balance -958 -648 250 Intake: IV 942 152 250 0.9ns 500 dopamine 192 152 Oral 200 Output: Urine 1900 1000 Urethral (Diaz) 1900 1000 Stool 0 Urine/Stool Mix 0 Other: # Bowel Movements 0 - Medications Active Medications: Active Medications Generic Name Dose Route Start Last Admin Trade Name Freq PRN Reason Stop Dose Admin Amlodipine Besylate 10 mg 11/20/17 10:45 Norvasc PO DAILY HEATHER Apixaban 2.5 mg 11/19/17 18:00 11/19/17 17:17 Eliquis PO 2.5 mg BID HEATHER Administration Protocol Hydralazine HCl 10 mg 11/20/17 10:37 Apresoline PO QID PRN for sbp>160 Dopamine HCl/Dextrose 400 mg in 250 mls @ 16.066 mls/hr 11/18/17 16:16 11/20/17 10:07 Dopamine 400mg/250ml D5w IV Infused .[id number] PRN Titration TITRATE PER MD ORDER Protocol 5 MCG/KG/MIN Sodium Chloride 1,000 mls @ 75 mls/hr 11/19/17 09:15 Sodium Chloride 0.9% IV .[id number] [facility] Heparin Sodium/Sodium Chloride 25,000 units in 250 mls @ 10 mls/hr 11/20/17 10:30 Heparin 07419 Units/250ml 1/2 Normal Saline IV .Q24H [facility] Protocol 1,000 UNITS/HR Non-Formulary Medication 1 tab 11/19/17 10:00 Clarithromycin [Clarithromycin Er] PO DAILY [facility] Pantoprazole Sodium 40 mg 11/18/17 18:00 11/20/17 10:06 Protonix Inj IVP 40 mg DAILY [facility] Administration - Patient Studies Lab Studies: Microbiology Studies 11/18/17 19:30 Blood Culture - Preliminary Blood-Venous NO GROWTH AFTER 24 HOURS 11/18/17 19:15 Blood Culture - Preliminary Blood-Venous NO GROWTH AFTER 24 HOURS Lab Studies 11/20/17 11/19/17 Range/Units 05:00 06:50 WBC 6.0 (4.5-11.0) 10^3/ul RBC 4.26 (3.5-6.1) 10^6/uL Hgb 12.6 L (14.0-18.0) g/dL Hct 36.4 L (42.0-52.0) % MCV 85.4 (80.0-105.0) fl MCH 29.6 (25.0-35.0) pg MCHC 34.6 (31.0-37.0) g/dl RDW 15.2 H (11.5-14.5) % Plt Count 59 L (120.0-450.0) 10^3/uL Gran % 70.7 H (50.0-68.0) % Lymph % (Auto) 19.0 L (22.0-35.0) % Emmet % (Auto) 10.1 H (1.0-6.0) % Eos % (Auto) 0.2 L (1.5-5.0) % Baso % (Auto) 0.0 (0.0-3.0) % Gran # 4.27 (1.4-6.5) Lymph # (Auto) 1.2 (1.2-3.4) Emmet # (Auto) 0.6 (0.1-0.6) Eos # (Auto) 0.0 (0.0-0.7) Baso # (Auto) 0.00 (0.0-2.0) K/mm3 Hemoglobin A1c 5.8 (4.2-6.5) % Laboratory Results - last 24 hr 11/19/17 11/20/17 06:50 05:00 WBC 6.0 RBC 4.26 Hgb 12.6 L Hct 36.4 L MCV 85.4 MCH 29.6 MCHC 34.6 RDW 15.2 H Plt Count 59 L Gran % 70.7 H Lymph % (Auto) 19.0 L Emmet % (Auto) 10.1 H Eos % (Auto) 0.2 L Baso % (Auto) 0.0 Gran # 4.27 Lymph # (Auto) 1.2 Emmet # (Auto) 0.6 Eos # (Auto) 0.0 Baso # (Auto) 0.00 Hemoglobin A1c 5.8 Critical Care Progress Note - Nutrition Nutrition: Nutrition Category Date Time Status Heart Healthy Diet [DIET] Diets 11/19/17 Breakfast Active Assessment/Plan - Assessment and Plan (Free Text) Plan: Patient seen and examined on rounds with resident, agree with note with following additions/exceptions: Patient is 87yo male with PMHx of Afib on Eliquis, s/p cardioversion, HTN, CHF, presented with complete HB, worsening renal failure, dehydration. Currently the patient is afebrile, BP stable, HR 50-60s, on Dopamine 2.5mcg/kg/min, now amenable to AICD/PPM placement, cardiology following NO major complaints, denies dizziness, CP, SOB Renal failure CHF CHB Afib Abnormal LFTs Recommend: - supp o2 as needed, duonebs PRN, IS - follow up cultures - Dopamine drip as per cardiology - external pacer pads as needed - hold BB - AICD/PPM Wednesday, NPO Wednesday MN - check UA, Ulytes - gentle IVF hydration NS 75cc/hr - DC NOAC, start Heparin drip - monitor Cr, K, LFTs - avoid hepatotoxic drugs - GI ppx - DVT ppx - Monitor in MICU s
--- NOTE | 2017-11-20 10:50 | CP.PCM.PN ---
<Brendan Ko - Last Filed: 11/20/17 14:51> Subjective - Date & Time of Evaluation Date of Evaluation: 11/20/17 Time of Evaluation: 10:43 - Subjective Subjective: No acute overnight events. No complaints. Patient states he will have pacemaker placed wednesday. Tolerating diet. Denies abdominal pain. Objective - Vital Signs/Intake and Output Vital Signs (last 24 hours): Temp Pulse Resp BP Pulse Ox 98.7 F 50 L 22 175/83 H 98 11/19/17 08:15 11/20/17 08:50 11/20/17 08:50 11/20/17 08:00 11/20/17 08:50 Intake and Output: 11/20/17 11/20/17 06:59 18:59 Intake Total 352 250 Output Total 1000 Balance -648 250 - Medications Medications: Current Medications Amlodipine Besylate (Norvasc) 10 mg PO DAILY HEATHER Apixaban (Eliquis) 2.5 mg PO BID HEATHER; Protocol Last Admin: 11/19/17 17:17 Dose: 2.5 mg Hydralazine HCl (Apresoline) 10 mg PO QID PRN PRN Reason: for sbp>160 Dopamine HCl/Dextrose (Dopamine 400mg/250ml D5w) 400 mg in 250 mls @ 16.066 ml s/hr IV .[id number] PRN; Protocol PRN Reason: TITRATE PER MD ORDER Last Titration: 11/20/17 10:07 Dose: Infused Ceftriaxone Sodium (Rocephin 1 Gram Ivpb) 1 gm in 100 mls @ 100 mls/hr IVPB DAILY HEATHER; Protocol Last Admin: 11/20/17 10:06 Dose: 100 mls/hr Sodium Chloride (Sodium Chloride 0.9%) 1,000 mls @ 75 mls/hr IV .[id number] HEATHER Heparin Sodium/Sodium Chloride (Heparin 77739 Units/250ml 1/2 Normal Saline) 25,000 units in 250 mls @ 10 mls/hr IV .Q24H HEATHER; Protocol Non-Formulary Medication (Clarithromycin [Clarithromycin Er]) 1 tab PO DAILY HEATHER Pantoprazole Sodium (Protonix Inj) 40 mg IVP DAILY HEATHER Last Admin: 11/20/17 10:06 Dose: 40 mg - Labs Labs: 11/20/17 05:00 11/19/17 06:50 PT 11.9 SECONDS (9.4-12.5) 11/18/17 15:10 INR 1.04 11/18/17 15:10 APTT 30.8 Seconds (25.1-36.5) 11/18/17 15:10 - Constitutional Appears: Non-toxic, No Acute Distress - Eye Exam Eye Exam: Normal appearance - ENT Exam ENT Exam: Mucous Membranes Moist - Respiratory Exam Respiratory Exam: Clear to Ausculation Bilateral, NORMAL BREATHING PATTERN - Cardiovascular Exam Cardiovascular Exam: Bradycardia - GI/Abdominal Exam GI & Abdominal Exam: Soft, Normal Bowel Sounds. absent: Tenderness - Extremities Exam Extremities Exam: Normal Inspection - Neurological Exam Neurological Exam: Alert, Awake, Oriented x3 - Psychiatric Exam Psychiatric exam: Normal Affect, Normal Mood - Skin Skin Exam: Dry, Normal Color Assessment and Plan - Assessment and Plan (Free Text) Assessment: 87 year old male with past medical history of systolic CHF with last known EF of 10-15%, history of TAVR, dilated cardiomyopathy, chronic atrial fibrillation, s/p cardiac cath with evidence of non occlusive CAD admitted for cardiac arr thymia found to be in AV retrograde conductance vs. 3rd degree heart block. 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 Pylori Cholelithiasis Distended GB Complete heart block PLAN: -He is on multiple medications at home, very likely to have some interaction -Elevated liver enzymes likely secondary to DILI +/- ischemia +/- congestive hepatopathy -Recommend avoid rocephin if possible. Treating HP is not emergent. Would hold off possible hepatotoxic meds until normalization of ALT. - Abd/Pelvis CT: cholelithiasis, distended gallbladder, multiple renal cysts b/l, prostate slightly enlarged with calcifications, moderately enlarged heart with evidence of TAVR - Abdominal US shows normal liver, patent vessels -OK to continue PPI -Follow ALT, hepatitis panel, INR. - Further recommendations per Dr. Funez <Gavin Funez V - Last Filed: 11/20/17 20:28> Objective - Vital Signs/Intake and Output Vital Signs (last 24 hours): Temp Pulse Resp BP Pulse Ox 98.2 F 48 L 15 130/67 97 11/20/17 12:00 11/20/17 19:30 11/20/17 19:30 11/20/17 19:01 11/20/17 19:30 Intake and Output: 11/20/17 11/21/17 18:59 06:59 Intake Total 2181 Output Total 900 Balance 1281 - Medications Medications: Current Medications Apixaban (Eliquis) 2.5 mg PO BID HEATHER; Protocol Last Admin: 11/19/17 17:17 Dose: 2.5 mg Hydralazine HCl (Apresoline) 10 mg PO QID PRN PRN Reason: for sbp>160 Dopamine HCl/Dextrose (Dopamine 400mg/250ml D5w) 400 mg in 250 mls @ 16.066 mls/hr IV .[id number] PRN; Protocol PRN Reason: TITRATE PER MD ORDER Last Titration: 11/20/17 10:07 Dose: Infused Sodium Chloride (Sodium Chloride 0.9%) 1,000 mls @ 75 mls/hr IV .[id number] HEATHER Last Admin: 11/20/17 08:00 Dose: 75 mls/hr Heparin Sodium/Sodium Chloride (Heparin 48053 Units/250ml 1/2 Normal Saline) 25,000 units in 250 mls @ 10 mls/hr IV .Q24H HEATHER; Protocol Last Admin: 11/20/17 12:18 Dose: 1,000 units/hr, 10 mls/hr Pantoprazole Sodium (Protonix Inj) 40 mg IVP DAILY [facility] Last Admin: 11/20/17 10:06 Dose: 40 mg - Labs Labs: 11/20/17 05:00 11/20/17 05:00 PT 11.9 SECONDS (9.4-12.5) 11/20/17 19:30 INR 1.04 11/20/17 19:30 APTT 51.0 Seconds (25.1-36.5) H 11/20/17 19:30 Attending/Attestation - Attestation I have personally seen and examined this patient.: Yes I have fully participated in the care of the patient.: Yes I have reviewed all pertinent clinical information, including history, physical exam and plan: Yes Notes (Text): This is an addendum to GI progress report dictated by the GI Fellow.The patient was seen and examined earlier. Medical records, lab studies, imagings were revi ewed. Last 24 hours events reviewed. Agreed with the above treatment plan as outlined in GI Fellow 's notes with the addition of the following This patient appears more comfortable No abdominal pain Tolerating diet Patient's daughter was at bedside On examination abdomen soft non tender Review of the imaging studies showed no gallstones CBD normal ceftriaxone is now discontinued The most likely cause of the abnormal LFTs is because of drug induced liver injury with underlying congestive hepatomegaly Followup hepatitis profile and LFT 11/20/17 20:23
[2017-11-20 11:12] LABS: INR 1.1; PROTHROMBIN TIME 12.7 SECONDS (9.4-12.5)
[2017-11-20] MEDS: Heparin25000 units/250ml 1/2NS 25,000 UNITS/250 ML BAG IV SCH (12:18)
[2017-11-20 12:30] LABS: ALB/GLOB RATIO 1.1 (1.1-1.8); ALBUMIN 3.5 g/dL (3.0-4.8); CALCIUM 9.4 mg/dL (8.4-10.5)
--- NOTE | 2017-11-20 13:29 | PN ---
DATE: 11/20/2017 REASON FOR CONSULTATION: Atrial fibrillation with slow response, cannot rule out complete heart block, isorhythmic AV dissociation. History of nonischemic cardiomyopathy, history of TAVR, refusing AICD. SUBJECTIVE: Patient denies any chest pain, shortness of breath, any palpitation. OBJECTIVE: GENERAL: Not in apparent distress on 5 mcg of dopamine. VITAL SIGNS: Temperature afebrile, heart rate 50, blood pressure 130/80. HEENT: PERRLA. Extraocular muscles intact. NECK: Supple. No carotid bruits or thyromegaly. CHEST: Clear to auscultation. HEART: S1 and S2, regular. ABDOMEN: Soft. EXTREMITIES: Clubbing and cyanosis negative. LABORATORY DATA: Blood workup as follows: WBC 6, hemoglobin 12.6, hematocrit 36.4, platelet count 59. Chemistries show sodium 144, potassium , chloride 108, carbon dioxide 25, anion gap of 15, BUN 32, creatinine 2.5. INR 1.04. IMPRESSION: An 87-year-old male with past medical history significant for chronic atrial fibrillation, severe aortic stenosis status post transcatheter aortic valve replacement admitted after a fall, feeling very weak, found to be atrial fibrillation with slow response, first electrocardiogram, second electrocardiogram shows possibly complete heart block with atrioventricular dissociation with isorhythmic atrioventricular dissociation and junctional escape heart rate of 30 on dopamine. Initially, the patient refused pacemaker. He plans to do automatic implantable cardioverter-defibrillator because the patient had decreased left ventricular function and has been refusing outpatient as well, but since the patient is arrhythmic, patient does not want automatic implantable cardioverter-defibrillator. Dr. Zuluaga was contacted. Patient also refused him. Now today, the patient looks like more amenable for pacemaker, repeat echo was done shows ejection fraction significantly improved to 50% on dopamine. RECOMMENDATIONS: We will discuss with Dr. Zuluaga. If the patient agrees, we will probably benefit for AICD. Further recommendation depending upon hospital course. In the interim, we will discontinue Eliquis for preparation of pacemaker defibrillator. Continue antibiotic and we will not start Coreg because of the beta-vivienne. Once the defibrillator is placed then we will start Coreg and now we will start Norvasc and dihydropyridine group. We will avoid any calcium channel vivienne, rate limiting also with hydralazine p.r.n. for blood pressure. We will follow with you. Also, informed and discussed with Dr. Zuluaga. We will start 10 mg of Norvasc from now daily and also put hydralazine p.r.n. We will put hydralazine 10 mg p.o. every 6 p.r.n. for systolic blood pressure more than 160. Thank you, Dr. Martin, for providing us the opportunity in taking care of patient, Nikolas Bach. Jet Rich MD
--- NOTE | 2017-11-20 14:07 | PN ---
DATE: 11/20/2017 SUBJECTIVE: The patient is 87-year-old, seen and examined, lying in bed. He states "I feel pretty good while I'm here." Does not feel weak. After talking to the family, agreed for pacemaker. PHYSICAL EXAMINATION: VITAL SIGNS: He is afebrile, pulse 50, respirations 22, blood pressure 175/83. LUNGS: Bilateral fair airflow. No rhonchi or crackle. HEART: S1 and S2 audible. Bradycardic. ABDOMEN: Soft and nontender. No rebound. No guarding. NEUROLOGIC: The patient is awake, alert, oriented, communicative. LABORATORY DATA: WBC is 6, hemoglobin 12.6, hematocrit 36.4, and platelets of 59. Chemistries: Sodium 144, potassium 4.1, chloride 108, CO2 of 25, BUN 32, creatinine 2.4, blood sugar of 112. His total bili 2.2, AST 729, ALT 513, alk phos 197. TSH is 0.02. ASSESSMENT: 1. Symptomatic bradycardia. 2. Status post multiple falls. 3. Third-degree heart block. Consented for pacemaker for possible to be placed on Wednesday. 4. Status post aortic valve replacement. 5. History of Helicobacter pylori gastritis. PLAN: Although, the patient was being treated with clarithromycin and amoxicillin as outpatient, we will hold off for now. Clarithromycin might be the reason for conduction abnormality. Continue him on anticoagulant. We will discuss with . Kendall Martin MD
[2017-11-20 19:53] LABS: INR 1.04; PROTHROMBIN TIME 11.9 SECONDS (9.4-12.5)
[2017-11-21 01:18] LABS: INR 1.03; PROTHROMBIN TIME 11.8 SECONDS (9.4-12.5)
[2017-11-21] MEDS: Pantoprazole 40 mg EC Tab PO SCH (05:34)
[2017-11-21 06:12] LABS: EOS % 0.2 % (1.5-5.0); GRAN % 69.7 % (50.0-68.0); HEMOGLOBIN 11.9 g/dL (14.0-18.0); LYMPH # 1.1 (1.2-3.4); LYMPH % 21.3 % (22.0-35.0); MEAN CORPUSCULAR HEMOGLOBIN 28.9 pg (25.0-35.0); MONO # 0.4 (0.1-0.6); MONO % 8.8 % (1.0-6.0); PLATELET COUNT 67 10^3/uL (120.0-450.0); RBC 4.12 10^6/uL (3.5-6.1); RED CELL DISTRIBUTION WIDTH 14.9 % (11.5-14.5)
[2017-11-21 06:19] LABS: INR 1.03; PARTIAL THROMBOPLASTIN TIME 64.7 Seconds (25.1-36.5); PROTHROMBIN TIME 11.9 SECONDS (9.4-12.5)
[2017-11-21 06:32] LABS: ALBUMIN 3.4 g/dL (3.0-4.8); ALT/SGPT 436 U/L (7-56); AST/SGOT 525 U/L (17-59); BLOOD UREA NITROGEN 20 mg/dL (7-21); CALCIUM 9.2 mg/dL (8.4-10.5); GFR NON-AFRICAN AMERICAN 57
--- NOTE | 2017-11-21 10:18 | CP.CCUPN ---
<Sheldon Pérez - Last Filed: 11/21/17 10:24> CCU Subjective - Physician Review Subjective (Free Text): Sheldon Pérez DO, PGY-1 ICU Progress Note for Dr. Choudhary Patient was seen and examined at bedside this AM. Spoke with Dr. Zuluaga again today who states pacemaker/ICD placement will be either tomorrow or Wednesday depending on schedule. Patient reports no complaints overnight. No light- headedness, falls, or LAZCANO. CCU Objective - Vital Signs / Intake & Output Intake and Output (Last 8hrs): Intake & Output 11/20/17 11/21/17 11/21/17 22:59 06:59 14:59 Intake Total 1931 1116 Output Total 900 1300 Balance 1031 -184 Weight 194 lb Intake: IV 1056 1116 0.9ns 900 900 Right Hand 60 dopamine 96 96 heparin 120 Oral 875 Output: Urine 900 1300 Urethral (Diaz) 900 1300 Stool 0 Urine/Stool Mix 0 Other: # Bowel Movements 0 - Physical Exam Head: Positive for: Atraumatic, Normocephalic Pupils: Positive for: PERRL Extroacular Muscles: Positive for: EOMI Conjunctiva: Positive for: Normal Ears: Positive for: Normal Mouth: Positive for: Moist Mucous Membranes Pharnyx: Positive for: Normal. Negative for: ERYTHEMA, EXUDATE Neck: Positive for: Normal Range of Motion. Negative for: JVD Respiratory/Chest: Positive for: Clear to Auscultation, Good Air Exchange. Neg ative for: Wheezes, Rales, Rhonchi Cardiovascular: Positive for: Normal S1, S2, Bradycardic (HR consistently in 50s, stable on 2.5 of dopamine). Negative for: Murmurs, Rub, Gallop Abdomen: Negative for: Tenderness, Distention, Rebound, Guarding Upper Extremity: Positive for: Normal Inspection, Normal ROM. Negative for: Cy anosis, Edema Lower Extremity: Positive for: Normal Inspection, NORMAL PULSES. Negative for: Edema, Cyanosis Neurological: Positive for: GCS=15, Speech Normal, Motor Func Grossly Intact Skin: Positive for: Warm, Dry, Normal Color Psychiatric: Positive for: Alert, Oriented x 3, Normal Insight, Normal Concentration - Medications Active Medications: Active Medications Generic Name Dose Route Start Last Admin Trade Name Freq PRN Reason Stop Dose Admin Amlodipine Besylate 10 mg 11/21/17 10:00 Norvasc PO DAILY HEATHER Apixaban 2.5 mg 11/19/17 18:00 11/19/17 17:17 Eliquis PO 2.5 mg BID HEATHER Administration Protocol Hydralazine HCl 10 mg 11/20/17 10:37 11/21/17 04:11 Apresoline PO 10 mg QID PRN Administration for sbp>160 Dopamine HCl/Dextrose 400 mg in 250 mls @ 16.066 mls/hr 11/18/17 16:16 11/20/17 10:07 Dopamine 400mg/250ml D5w IV Infused .[id number] PRN Titration TITRATE PER MD ORDER Protocol 5 MCG/KG/MIN Heparin Sodium/Sodium Chloride 25,000 units in 250 mls @ 10 mls/hr 11/20/17 10:30 11/20/17 12:18 Heparin 51322 Units/250ml 1/2 Normal Saline IV 11/22/17 01:00 1,000 units/hr .Q24H HEATHER 10 mls/hr Administration Protocol 1,000 UNITS/HR Lisinopril 20 mg 11/21/17 10:00 Zestril PO DAILY [facility] Pantoprazole Sodium 40 mg 11/21/17 06:00 11/21/17 05:34 Protonix Ec Tab PO 40 mg 0600 HEATHER Administration - Patient Studies Lab Studies: Microbiology Studies 11/18/17 19:30 Blood Culture - Preliminary Blood-Venous NO GROWTH AFTER 48 HOURS 11/18/17 19:15 Blood Culture - Preliminary Blood-Venous NO GROWTH AFTER 48 HOURS 11/18/17 22:50 MRSA Culture (Admit) - Final Nose MRSA NOT DETECTED 11/18/17 22:30 Urine Culture - Final Urine Gram Positive Cocci Lab Studies 11/21/17 11/21/17 11/21/17 Range/Units 05:00 05:00 05:00 WBC 5.0 (4.5-11.0) 10^3/ul RBC 4.12 (3.5-6.1) 10^6/uL Hgb 11.9 L (14.0-18.0) g/dL Hct 35.0 L (42.0-52.0) % MCV 85.0 (80.0-105.0) fl MCH 28.9 (25.0-35.0) pg MCHC 34.0 (31.0-37.0) g/dl RDW 14.9 H (11.5-14.5) % Plt Count 67 L (120.0-450.0) 10^3/uL Gran % 69.7 H (50.0-68.0) % Lymph % (Auto) 21.3 L (22.0-35.0) % Holmes % (Auto) 8.8 H (1.0-6.0) % Eos % (Auto) 0.2 L (1.5-5.0) % Baso % (Auto) 0.0 (0.0-3.0) % Gran # 3.50 (1.4-6.5) Lymph # (Auto) 1.1 L (1.2-3.4) Holmes # (Auto) 0.4 (0.1-0.6) Eos # (Auto) 0.0 (0.0-0.7) Baso # (Auto) 0.00 (0.0-2.0) K/mm3 PT 11.9 (9.4-12.5) SECONDS INR 1.03 APTT 64.7 H (25.1-36.5) Seconds Sodium 139 (132-148) mmol/L Potassium 4.2 (3.6-5.0) mmol/L Chloride 102 (98-107) mmol/L Carbon Dioxide 31 (21-33) mmol/L Anion Gap 11 (10-20) BUN 20 (7-21) mg/dL Creatinine 1.2 (0.8-1.5) mg/dl Est GFR ( Amer) > 60 Est GFR (Non-Af Amer) 57 Random Glucose 125 H (70-110) mg/dL Calcium 9.2 (8.4-10.5) mg/dL Phosphorus (2.5-4.5) mg/dL Magnesium (1.7-2.2) mg/dL Total Bilirubin 1.3 (0.2-1.3) mg/dL AST 525 H D (17-59) U/L ALT 436 H (7-56) U/L Alkaline Phosphatase 195 H (38-126) U/L Total Protein 6.7 (5.8-8.3) g/dL Albumin 3.4 (3.0-4.8) g/dL Globulin 3.3 gm/dL Albumin/Globulin Ratio 1.0 L (1.1-1.8) 11/21/17 11/20/17 11/20/17 Range/Units 00:30 19:30 18:22 WBC (4.5-11.0) 10^3/ul RBC (3.5-6.1) 10^6/uL Hgb (14.0-18.0) g/dL Hct (42.0-52.0) % MCV (80.0-105.0) fl MCH (25.0-35.0) pg MCHC (31.0-37.0) g/dl RDW (11.5-14.5) % Plt Count (120.0-450.0) 10^3/uL Gran % (50.0-68.0) % Lymph % (Auto) (22.0-35.0) % Holmes % (Auto) (1.0-6.0) % Eos % (Auto) (1.5-5.0) % Baso % (Auto) (0.0-3.0) % Gran # (1.4-6.5) Lymph # (Auto) (1.2-3.4) Holmes # (Auto) (0.1-0.6) Eos # (Auto) (0.0-0.7) Baso # (Auto) (0.0-2.0) K/mm3 PT 11.8 11.9 Cancelled (9.4-12.5) SECONDS INR 1.03 1.04 Cancelled APTT 63.0 H 51.0 H Cancelled (25.1-36.5) Seconds Sodium (132-148) mmol/L Potassium (3.6-5.0) mmol/L Chloride (98-107) mmol/L Carbon Dioxide (21-33) mmol/L Anion Gap (10-20) BUN (7-21) mg/dL Creatinine (0.8-1.5) mg/dl Est GFR ( Amer) Est GFR (Non-Af Amer) Random Glucose (70-110) mg/dL Calcium (8.4-10.5) mg/dL Phosphorus (2.5-4.5) mg/dL Magnesium (1.7-2.2) mg/dL Total Bilirubin (0.2-1.3) mg/dL AST (17-59) U/L ALT (7-56) U/L Alkaline Phosphatase (38-126) U/L Total Protein (5.8-8.3) g/dL Albumin (3.0-4.8) g/dL Globulin gm/dL Albumin/Globulin Ratio (1.1-1.8) 11/20/17 11/20/17 11/20/17 Range/Units 11:30 10:50 05:00 WBC (4.5-11.0) 10^3/ul RBC (3.5-6.1) 10^6/uL Hgb (14.0-18.0) g/dL Hct (42.0-52.0) % MCV (80.0-105.0) fl MCH (25.0-35.0) pg MCHC (31.0-37.0) g/dl RDW (11.5-14.5) % Plt Count (120.0-450.0) 10^3/uL Gran % (50.0-68.0) % Lymph % (Auto) (22.0-35.0) % Holmes % (Auto) (1.0-6.0) % Eos % (Auto) (1.5-5.0) % Baso % (Auto) (0.0-3.0) % Gran # (1.4-6.5) Lymph # (Auto) (1.2-3.4) Holmes # (Auto) (0.1-0.6) Eos # (Auto) (0.0-0.7) Baso # (Auto) (0.0-2.0) K/mm3 PT 12.7 H (9.4-12.5) SECONDS INR 1.10 APTT 30.1 (25.1-36.5) Seconds Sodium 141 (132-148) mmol/L Potassium 5.0 (3.6-5.0) mmol/L Chloride 105 (98-107) mmol/L Carbon Dioxide 31 (21-33) mmol/L Anion Gap 10 (10-20) BUN 25 H (7-21) mg/dL Creatinine 1.8 H (0.8-1.5) mg/dl Est GFR ( Amer) 43 Est GFR (Non-Af Amer) 36 Random Glucose 112 H (70-110) mg/dL Calcium 9.4 (8.4-10.5) mg/dL Phosphorus 3.2 (2.5-4.5) mg/dL Magnesium 1.9 (1.7-2.2) mg/dL Total Bilirubin 1.9 H (0.2-1.3) mg/dL AST 673 H (17-59) U/L ALT 493 H (7-56) U/L Alkaline Phosphatase 179 H (38-126) U/L Total Protein 6.8 (5.8-8.3) g/dL Albumin 3.5 (3.0-4.8) g/dL Globulin 3.3 gm/dL Albumin/Globulin Ratio 1.1 (1.1-1.8) Laboratory Results - last 24 hr 11/20/17 11/20/17 11/20/17 05:00 10:50 11:30 WBC RBC Hgb Hct MCV MCH MCHC RDW Plt Count Gran % Lymph % (Auto) Holmes % (Auto) Eos % (Auto) Baso % (Auto) Gran # Lymph # (Auto) Holmes # (Auto) Eos # (Auto) Baso # (Auto) PT 12.7 H INR 1.10 APTT 30.1 Sodium 141 Potassium 5.0 Chloride 105 Carbon Dioxide 31 Anion Gap 10 BUN 25 H Creatinine 1.8 H Est GFR ( Amer) 43 Est GFR (Non-Af Amer) 36 Random Glucose 112 H Calcium 9.4 Phosphorus 3.2 Magnesium 1.9 Total Bilirubin 1.9 H AST 673 H ALT 493 H Alkaline Phosphatase 179 H Total Protein 6.8 Albumin 3.5 Globulin 3.3 Albumin/Globulin Ratio 1.1 11/20/17 11/20/17 11/21/17 18:22 19:30 00:30 WBC RBC Hgb Hct MCV MCH MCHC RDW Plt Count Gran % Lymph % (Auto) Holmes % (Auto) Eos % (Auto) Baso % (Auto) Gran # Lymph # (Auto) Holmes # (Auto) Eos # (Auto) Baso # (Auto) PT Cancelled 11.9 11.8 INR Cancelled 1.04 1.03 APTT Cancelled 51.0 H 63.0 H Sodium Potassium Chloride Carbon Dioxide Anion Gap BUN Creatinine Est GFR ( Amer) Est GFR (Non-Af Amer) Random Glucose Calcium Phosphorus Magnesium Total Bilirubin AST ALT Alkaline Phosphatase Total Protein Albumin Globulin Albumin/Globulin Ratio 11/21/17 11/21/17 11/21/17 05:00 05:00 05:00 WBC 5.0 RBC 4.12 Hgb 11.9 L Hct 35.0 L MCV 85.0 MCH 28.9 MCHC 34.0 RDW 14.9 H Plt Count 67 L Gran % 69.7 H Lymph % (Auto) 21.3 L Holmes % (Auto) 8.8 H Eos % (Auto) 0.2 L Baso % (Auto) 0.0 Gran # 3.50 Lymph # (Auto) 1.1 L Holmes # (Auto) 0.4 Eos # (Auto) 0.0 Baso # (Auto) 0.00 PT 11.9 INR 1.03 APTT 64.7 H Sodium 139 Potassium 4.2 Chloride 102 Carbon Dioxide 31 Anion Gap 11 BUN 20 Creatinine 1.2 Est GFR ( Amer) > 60 Est GFR (Non-Af Amer) 57 Random Glucose 125 H Calcium 9.2 Phosphorus Magnesium Total Bilirubin 1.3 AST 525 H D ALT 436 H Alkaline Phosphatase 195 H Total Protein 6.7 Albumin 3.4 Globulin 3.3 Albumin/Globulin Ratio 1.0 L EKG/Cardiology Studies: Cardiology / EKG Studies 11/21/17 EKG [ELECTROCARDIOGRAM] Urgent Comment: Reason For Exam: f/u bradycardia Review of Systems - Constitutional Constitutional: absent: Fever, Chills - EENT Eyes: absent: Change in Vision - Cardiovascular Cardiovascular: absent: Chest Pain, Dyspnea - Respiratory Respiratory: absent: Cough - Gastrointestinal Gastrointestinal: absent: Abdominal Pain, Nausea, Vomiting Critical Care Progress Note - Nutrition Nutrition: Nutrition Category Date Time Status Heart Healthy Diet [DIET] Diets 11/19/17 Breakfast Active Assessment/Plan - Assessment and Plan (Free Text) Assessment: 87 yo M with PMH of chronic AFib s/p failed cardioversion (on home eliquis), originally presented s/p fall was subsequently found to 3rd degree block with HR in low 40s and evidence of end organ damage. He was subsequently admitted to the ICU for further management. EKG repeated this AM showed 1st degree block on 2.[address] Zuluaga spoke with him again this morning and states ICD/pacemaker placement will be either Wednesday or Wednesday depending on schedule. Plan: Neuro: -AAOx3, no FND, moving extremities past midline -Monitor neuro status Cardio: -3rd degree block identified on admission, currently in 1st degree on 2.5 dopamine -Pacemaker/ICD placement planned for Wednesday or Wednesday -Continue to maintain HR > 50 bpm -BP stable, continue to maintain MAP > 65 Pulm: -CTA bilaterally -CXR in ED without acute findings -Maintain O2 saturation>95% -O2 NC PRN GI: -Restart HHD -Patient tolerating HHD well without n/v -Additional management of transaminitis per GI -NPO after midnight in case of procedure /Nephro: -ARTEMIO noted -Likely 2/2 dehydration vs poor renal perfusion from bradycardic episode -BUN/Cr down to 20/1.2 today, close to baseline -Stop IVF -Maintain euvolemia -Replete electrolytes as needed ID: -On treatment for H. pylori at home -Continue clarithromycin, amoxicillin, rocephin, protonix -Consider ID consultation as needed Heme/Onc: -H/H stable at 11.9/35 -No signs of HD compromise -Continue monitoring H/H GI/DVT PPX: Protonix and hold home eliquis prior to procedure. Heparin drip 12 u/kg/hr started, d/c after midnight. Full Code Continue to monitor in MICU Case and plan reviewed and discussed with my attending Dr. Funmi Pérez, DO IM Resident PGY-1 <Dimitri Choudhary - Last Filed: 11/21/17 12:25> CCU Objective - Vital Signs / Intake & Output Vital Signs (Last 4 hours): Vital Signs Pulse BP 11/21/17 10:32 50 L 155/81 H 11/21/17 10:31 155/81 H Intake and Output (Last 8hrs): Intake & Output 11/20/17 11/21/17 11/21/17 22:59 06:59 14:59 Intake Total 1931 1116 Output Total 900 1300 Balance 1031 -184 Weight 194 lb Intake: IV 1056 1116 0.9ns 900 900 Right Hand 60 dopamine 96 96 heparin 120 Oral 875 Output: Urine 900 1300 Urethral (Diaz) 900 1300 Stool 0 Urine/Stool Mix 0 Other: # Bowel Movements 0 - Medications Active Medications: Active Medications Generic Name Dose Route Start Last Admin Trade Name Freq PRN Reason Stop Dose Admin Amlodipine Besylate 10 mg 11/21/17 10:00 11/21/17 10:31 Norvasc PO 10 mg DAILY HEATHER Administration Apixaban 2.5 mg 11/19/17 18:00 11/19/17 17:17 Eliquis PO 2.5 mg BID HEATHER Administration Protocol Hydralazine HCl 10 mg 11/20/17 10:37 11/21/17 04:11 Apresoline PO 10 mg QID PRN Administration for sbp>160 Dopamine HCl/Dextrose 400 mg in 250 mls @ 16.066 mls/hr 11/18/17 16:16 11/20/17 10:07 Dopamine 400mg/250ml D5w IV Infused .[id number] PRN Titration TITRATE PER MD ORDER Protocol 5 MCG/KG/MIN Heparin Sodium/Sodium Chloride 25,000 units in 250 mls @ 10 mls/hr 11/20/17 10:30 11/20/17 12:18 Heparin 42260 Units/250ml 1/2 Normal Saline IV 11/22/17 01:00 1,000 units/hr .Q24H HEATHER 10 mls/hr Administration Protocol 1,000 UNITS/HR Lisinopril 20 mg 11/21/17 10:00 11/21/17 10:32 Zestril PO Not Given DAILY [facility] Pantoprazole Sodium 40 mg 11/21/17 06:00 11/21/17 05:34 Protonix Ec Tab PO 40 mg 0600 HEATHER Administration - Patient Studies Lab Studies: Microbiology Studies 11/18/17 19:30 Blood Culture - Preliminary Blood-Venous NO GROWTH AFTER 48 HOURS 11/18/17 19:15 Blood Culture - Preliminary Blood-Venous NO GROWTH AFTER 48 HOURS 11/18/17 22:50 MRSA Culture (Admit) - Final Nose MRSA NOT DETECTED 11/18/17 22:30 Urine Culture - Final Urine Gram Positive Cocci Lab Studies 11/21/17 11/21/17 11/21/17 Range/Units 12:00 05:00 05:00 WBC (4.5-11.0) 10^3/ul RBC (3.5-6.1) 10^6/uL Hgb (14.0-18.0) g/dL Hct (42.0-52.0) % MCV (80.0-105.0) fl MCH (25.0-35.0) pg MCHC (31.0-37.0) g/dl RDW (11.5-14.5) % Plt Count (120.0-450.0) 10^3/uL Gran % (50.0-68.0) % Lymph % (Auto) (22.0-35.0) % Holmes % (Auto) (1.0-6.0) % Eos % (Auto) (1.5-5.0) % Baso % (Auto) (0.0-3.0) % Gran # (1.4-6.5) Lymph # (Auto) (1.2-3.4) Holmes # (Auto) (0.1-0.6) Eos # (Auto) (0.0-0.7) Baso # (Auto) (0.0-2.0) K/mm3 PT 11.9 11.9 INR 1.03 1.03 APTT 71.3 H 64.7 H Sodium 139 (132-148) mmol/L Potassium 4.2 (3.6-5.0) mmol/L Chloride 102 (98-107) mmol/L Carbon Dioxide 31 (21-33) mmol/L Anion Gap 11 (10-20) BUN 20 (7-21) mg/dL Creatinine 1.2 (0.8-1.5) mg/dl Est GFR ( Amer) > 60 Est GFR (Non-Af Amer) 57 Random Glucose 125 H (70-110) mg/dL Calcium 9.2 (8.4-10.5) mg/dL Phosphorus (2.5-4.5) mg/dL Magnesium (1.7-2.2) mg/dL Total Bilirubin 1.3 (0.2-1.3) mg/dL AST 525 H D (17-59) U/L ALT 436 H (7-56) U/L Alkaline Phosphatase 195 H (38-126) U/L Total Protein 6.7 (5.8-8.3) g/dL Albumin 3.4 (3.0-4.8) g/dL Globulin 3.3 gm/dL Albumin/Globulin Ratio 1.0 L (1.1-1.8) 11/21/17 11/21/17 11/20/17 Range/Units 05:00 00:30 19:30 WBC 5.0 (4.5-11.0) 10^3/ul RBC 4.12 (3.5-6.1) 10^6/uL Hgb 11.9 L (14.0-18.0) g/dL Hct 35.0 L (42.0-52.0) % MCV 85.0 (80.0-105.0) fl MCH 28.9 (25.0-35.0) pg MCHC 34.0 (31.0-37.0) g/dl RDW 14.9 H (11.5-14.5) % Plt Count 67 L (120.0-450.0) 10^3/uL Gran % 69.7 H (50.0-68.0) % Lymph % (Auto) 21.3 L (22.0-35.0) % Holmes % (Auto) 8.8 H (1.0-6.0) % Eos % (Auto) 0.2 L (1.5-5.0) % Baso % (Auto) 0.0 (0.0-3.0) % Gran # 3.50 (1.4-6.5) Lymph # (Auto) 1.1 L (1.2-3.4) Holmes # (Auto) 0.4 (0.1-0.6) Eos # (Auto) 0.0 (0.0-0.7) Baso # (Auto) 0.00 (0.0-2.0) K/mm3 PT 11.8 11.9 INR 1.03 1.04 APTT 63.0 H 51.0 H Sodium (132-148) mmol/L Potassium (3.6-5.0) mmol/L Chloride (98-107) mmol/L Carbon Dioxide (21-33) mmol/L Anion Gap (10-20) BUN (7-21) mg/dL Creatinine (0.8-1.5) mg/dl Est GFR ( Amer) Est GFR (Non-Af Amer) Random Glucose (70-110) mg/dL Calcium (8.4-10.5) mg/dL Phosphorus (2.5-4.5) mg/dL Magnesium (1.7-2.2) mg/dL Total Bilirubin (0.2-1.3) mg/dL AST (17-59) U/L ALT (7-56) U/L Alkaline Phosphatase (38-126) U/L Total Protein (5.8-8.3) g/dL Albumin (3.0-4.8) g/dL Globulin gm/dL Albumin/Globulin Ratio (1.1-1.8) 11/20/17 11/20/17 Range/Units 18:22 05:00 WBC (4.5-11.0) 10^3/ul RBC (3.5-6.1) 10^6/uL Hgb (14.0-18.0) g/dL Hct (42.0-52.0) % MCV (80.0-105.0) fl MCH (25.0-35.0) pg MCHC (31.0-37.0) g/dl RDW (11.5-14.5) % Plt Count (120.0-450.0) 10^3/uL Gran % (50.0-68.0) % Lymph % (Auto) (22.0-35.0) % Holmes % (Auto) (1.0-6.0) % Eos % (Auto) (1.5-5.0) % Baso % (Auto) (0.0-3.0) % Gran # (1.4-6.5) Lymph # (Auto) (1.2-3.4) Holmes # (Auto) (0.1-0.6) Eos # (Auto) (0.0-0.7) Baso # (Auto) (0.0-2.0) K/mm3 PT Cancelled INR Cancelled APTT Cancelled Sodium 141 (132-148) mmol/L Potassium 5.0 (3.6-5.0) mmol/L Chloride 105 (98-107) mmol/L Carbon Dioxide 31 (21-33) mmol/L Anion Gap 10 (10-20) BUN 25 H (7-21) mg/dL Creatinine 1.8 H (0.8-1.5) mg/dl Est GFR ( Amer) 43 Est GFR (Non-Af Amer) 36 Random Glucose 112 H (70-110) mg/dL Calcium 9.4 (8.4-10.5) mg/dL Phosphorus 3.2 (2.5-4.5) mg/dL Magnesium 1.9 (1.7-2.2) mg/dL Total Bilirubin 1.9 H (0.2-1.3) mg/dL AST 673 H (17-59) U/L ALT 493 H (7-56) U/L Alkaline Phosphatase 179 H (38-126) U/L Total Protein 6.8 (5.8-8.3) g/dL Albumin 3.5 (3.0-4.8) g/dL Globulin 3.3 gm/dL Albumin/Globulin Ratio 1.1 (1.1-1.8) Laboratory Results - last 24 hr 11/20/17 11/20/17 11/20/17 05:00 18:22 19:30 WBC RBC Hgb Hct MCV MCH MCHC RDW Plt Count Gran % Lymph % (Auto) Holmes % (Auto) Eos % (Auto) Baso % (Auto) Gran # Lymph # (Auto) Holmes # (Auto) Eos # (Auto) Baso # (Auto) PT Cancelled 11.9 INR Cancelled 1.04 APTT Cancelled 51.0 H Sodium 141 Potassium 5.0 Chloride 105 Carbon Dioxide 31 Anion Gap 10 BUN 25 H Creatinine 1.8 H Est GFR ( Amer) 43 Est GFR (Non-Af Amer) 36 Random Glucose 112 H Calcium 9.4 Phosphorus 3.2 Magnesium 1.9 Total Bilirubin 1.9 H AST 673 H ALT 493 H Alkaline Phosphatase 179 H Total Protein 6.8 Albumin 3.5 Globulin 3.3 Albumin/Globulin Ratio 1.1 11/21/17 11/21/17 11/21/17 00:30 05:00 05:00 WBC 5.0 RBC 4.12 Hgb 11.9 L Hct 35.0 L MCV 85.0 MCH 28.9 MCHC 34.0 RDW 14.9 H Plt Count 67 L Gran % 69.7 H Lymph % (Auto) 21.3 L Holmes % (Auto) 8.8 H Eos % (Auto) 0.2 L Baso % (Auto) 0.0 Gran # 3.50 Lymph # (Auto) 1.1 L Holmes # (Auto) 0.4 Eos # (Auto) 0.0 Baso # (Auto) 0.00 PT 11.8 INR 1.03 APTT 63.0 H Sodium 139 Potassium 4.2 Chloride 102 Carbon Dioxide 31 Anion Gap 11 BUN 20 Creatinine 1.2 Est GFR ( Amer) > 60 Est GFR (Non-Af Amer) 57 Random Glucose 125 H Calcium 9.2 Phosphorus Magnesium Total Bilirubin 1.3 AST 525 H D ALT 436 H Alkaline Phosphatase 195 H Total Protein 6.7 Albumin 3.4 Globulin 3.3 Albumin/Globulin Ratio 1.0 L 11/21/17 11/21/17 05:00 12:00 WBC RBC Hgb Hct MCV MCH MCHC RDW Plt Count Gran % Lymph % (Auto) Holmes % (Auto) Eos % (Auto) Baso % (Auto) Gran # Lymph # (Auto) Holmes # (Auto) Eos # (Auto) Baso # (Auto) PT 11.9 11.9 INR 1.03 1.03 APTT 64.7 H 71.3 H Sodium Potassium Chloride Carbon Dioxide Anion Gap BUN Creatinine Est GFR ( Amer) Est GFR (Non-Af Amer) Random Glucose Calcium Phosphorus Magnesium Total Bilirubin AST ALT Alkaline Phosphatase Total Protein Albumin Globulin Albumin/Globulin Ratio EKG/Cardiology Studies: Cardiology / EKG Studies 11/21/17 EKG [ELECTROCARDIOGRAM] Urgent Comment: Reason For Exam: f/u bradycardia Critical Care Progress Note - Nutrition Nutrition: Nutrition Category Date Time Status Heart Healthy Diet [DIET] Diets 11/19/17 Breakfast Active Assessment/Plan - Assessment and Plan (Free Text) Plan: Patient seen and examined on rounds with resident, agree with note with following additions/exceptions: Patient is 87yo male with PMHx of Afib on Eliquis, s/p cardioversion, HTN, CHF, presented with complete HB, worsening renal failure, dehydration. Currently the patient is afebrile, BP stable, HR 50-60s, on Dopamine 2.5mcg/kg/min, tomorrow AICD/PPM placement, cardiology following NO major complaints LFTs downtrending Cr improving Renal failure CHF CHB Afib Abnormal LFTs Recommend: - supp o2 as needed, duonebs PRN, IS - follow up cultures - Dopamine drip as per cardiology - external pacer pads as needed - hold BB - AICD/PPM Wednesday, NPO after MN - DC IVF - cont Heparin drip - monitor Cr, K, LFTs - avoid hepatotoxic drugs - GI ppx - DVT ppx - Monitor in MICU
--- NOTE | 2017-11-21 10:32 | CP.PCM.PN ---
<Brendan Ko - Last Filed: 11/21/17 10:29> Subjective - Date & Time of Evaluation Date of Evaluation: 11/21/17 Time of Evaluation: 10:29 - Subjective Subjective: No acute overnight events. tolerating diet. denies abdominal pain. Objective - Vital Signs/Intake and Output Vital Signs (last 24 hours): Temp Pulse Resp BP Pulse Ox 98.8 F 49 L 11 L 183/82 H 99 11/21/17 04:00 11/21/17 06:10 11/21/17 06:10 11/21/17 06:00 11/21/17 06:10 Intake and Output: 11/21/17 11/21/17 06:59 18:59 Intake Total 1116 Output Total 1300 Balance -184 - Medications Medications: Current Medications Amlodipine Besylate (Norvasc) 10 mg PO DAILY [facility] Apixaban (Eliquis) 2.5 mg PO BID [facility]; Protocol Last Admin: 11/19/17 17:17 Dose: 2.5 mg Hydralazine HCl (Apresoline) 10 mg PO QID PRN PRN Reason: for sbp>160 Last Admin: 11/21/17 04:11 Dose: 10 mg Dopamine HCl/Dextrose (Dopamine 400mg/250ml D5w) 400 mg in 250 mls @ 16.066 mls/hr IV .[id number] PRN; Protocol PRN Reason: TITRATE PER MD ORDER Last Titration: 11/20/17 10:07 Dose: Infused Heparin Sodium/Sodium Chloride (Heparin 12280 Units/250ml 1/2 Normal Saline) 25,000 units in 250 mls @ 10 mls/hr IV .Q24H [facility]; Protocol Stop: 11/22/17 01:00 Last Admin: 11/20/17 12:18 Dose: 1,000 units/hr, 10 mls/hr Lisinopril (Zestril) 20 mg PO DAILY [facility] Pantoprazole Sodium (Protonix Ec Tab) 40 mg PO 0600 [facility] Last Admin: 11/21/17 05:34 Dose: 40 mg - Labs Labs: 11/21/17 05:00 11/21/17 05:00 PT 11.9 SECONDS (9.4-12.5) 11/21/17 05:00 INR 1.03 11/21/17 05:00 APTT 64.7 Seconds (25.1-36.5) H 11/21/17 05:00 - Constitutional Appears: Well, Non-toxic, No Acute Distress - Eye Exam Eye Exam: Normal appearance - ENT Exam ENT Exam: Mucous Membranes Moist - Neck Exam Neck Exam: Normal Inspection - Respiratory Exam Respiratory Exam: Clear to Ausculation Bilateral, NORMAL BREATHING PATTERN - Cardiovascular Exam Cardiovascular Exam: Bradycardia, +S1, +S2 - GI/Abdominal Exam GI & Abdominal Exam: Soft, Normal Bowel Sounds. absent: Tenderness - Extremities Exam Extremities Exam: Normal Inspection - Neurological Exam Neurological Exam: Alert, Awake, Oriented x3 - Psychiatric Exam Psychiatric exam: Normal Affect, Normal Mood - Skin Skin Exam: Dry, Normal Color Assessment and Plan - Assessment and Plan (Free Text) Assessment: 87 year old male with past medical history of systolic CHF with last known EF of 10-15%, history of TAVR, dilated cardiomyopathy, chronic atrial fibrillation, s/p cardiac cath with evidence of non occlusive CAD admitted for cardiac arrthymia found to be in AV retrograde conductance vs. 3rd degree heart block. 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 Pylori Cholelithiasis Distended GB Complete heart block PLAN: -Liver tests improving -He is on multiple medications at home, very likely to have some interaction -Elevated liver enzymes likely secondary to DILI +/- ischemia +/- congestive hepatopathy -Recommend avoid rocephin if possible, please consult ID if concern for infection. -Treating HP is not emergent. Would hold off possible hepatotoxic meds until normalization of ALT. He will need to restart treatment once stable. - Abd/Pelvis CT: cholelithiasis, distended gallbladder, multiple renal cysts b/l, prostate slightly enlarged with calcifications, moderately enlarged heart with evidence of TAVR - Abdominal US shows normal liver, patent vessels -OK to continue PPI -Follow ALT, hepatitis panel, INR. - Further recommendations per Dr. Funez <Gavin Funez V - Last Filed: 11/21/17 21:07> Objective - Vital Signs/Intake and Output Vital Signs (last 24 hours): Temp Pulse Resp BP Pulse Ox 98.7 F 51 L 12 150/78 97 11/21/17 16:00 11/21/17 19:10 11/21/17 19:10 11/21/17 19:01 11/21/17 16:00 Intake and Output: 11/21/17 11/22/17 18:59 06:59 Intake Total 1296 Output Total 1000 Balance 296 - Medications Medications: Current Medications Amlodipine Besylate (Norvasc) 10 mg PO DAILY [facility] Last Admin: 11/21/17 10:31 Dose: 10 mg Apixaban (Eliquis) 2.5 mg PO BID [facility]; Protocol Last Admin: 11/19/17 17:17 Dose: 2.5 mg Hydralazine HCl (Apresoline) 10 mg PO QID PRN PRN Reason: for sbp>160 Last Admin: 11/21/17 04:11 Dose: 10 mg Dopamine HCl/Dextrose (Dopamine 400mg/250ml D5w) 400 mg in 250 mls @ 16.066 mls/hr IV .[id number] PRN; Protocol PRN Reason: TITRATE PER MD ORDER Last Titration: 11/20/17 10:07 Dose: Infused Heparin Sodium/Sodium Chloride (Heparin 76110 Units/250ml 1/2 Normal Saline) 25,000 units in 250 mls @ 10 mls/hr IV .Q24H [facility]; Protocol Stop: 11/22/17 01:00 Last Admin: 11/21/17 12:59 Dose: 1,000 units/hr, 10 mls/hr Lisinopril (Zestril) 20 mg PO DAILY [facility] Last Admin: 11/21/17 10:32 Dose: Not Given Pantoprazole Sodium (Protonix Ec Tab) 40 mg PO 0600 [facility] Last Admin: 11/21/17 05:34 Dose: 40 mg - Labs Labs: 11/21/17 05:00 11/21/17 05:00 PT 11.9 SECONDS (9.4-12.5) 11/21/17 12:00 INR 1.03 11/21/17 12:00 APTT 71.3 Seconds (25.1-36.5) H 11/21/17 12:00 Attending/Attestation - Attestation I have personally seen and examined this patient.: Yes I have fully participated in the care of the patient.: Yes I have reviewed all pertinent clinical information, including history, physical exam and plan: Yes Notes (Text): This is an addendum to GI progress report dictated by the GI Fellow.The patient was seen and examined earlier. Medical records, lab studies, imagings were reviewed. Last 24 hours events reviewed. Agreed with the above treatment plan as outlined in GI Fellow 's notes with the addition of the following LFT showing improving trend Off the antibiotics now Probable DILI with congestive hepatomegaly Planned for PPM/ICD 11/21/17 21:05
[2017-11-21 12:19] LABS: INR 1.03; PARTIAL THROMBOPLASTIN TIME 71.3 Seconds (25.1-36.5); PROTHROMBIN TIME 11.9 SECONDS (9.4-12.5)
[2017-11-21] MEDS: Heparin25000 units/250ml 1/2NS 25,000 UNITS/250 ML BAG IV SCH (12:59)
--- NOTE | 2017-11-21 13:13 | CARD ---
APPROVED REPORT Date of service: 11/21/2017 EKG Measurement Heart [id number] 250P [id number] <Conclusion> Sinus bradycardia with 1st degree AV block Left axis deviation Left anterior fascicular block Nonspecific intraventricular block Abnormal ECG
--- NOTE | 2017-11-21 13:46 | PN ---
DATE: 11/21/2017 SUBJECTIVE: The patient has no complaints of any chest pain. No shortness of breath, no headaches, no dizziness. PHYSICAL EXAMINATION: VITAL SIGNS: Temperature is 98.8, pulse of 49, blood pressure 183/82, respirations 12. GENERAL: The patient is lying in bed, flat, comfortable. HEENT: No oral lesion. Anicteric sclerae. Moist mucosa. NECK: No JVD, adenopathy, or thyromegaly. CARDIOVASCULAR: S1 and S2, regular. No murmurs, rubs, or gallops. LUNGS: Clear to auscultation bilaterally. No wheeze, rales, or rhonchi. ABDOMEN: Bowel sounds are positive. Soft, nontender and nondistended. EXTREMITIES: No cyanosis, clubbing or edema. LABORATORY DATA: White count of 5, hemoglobin 11.9, platelet count is 67, creatinine is 1.2. ASSESSMENT: 1. Bradycardia. 2. Hypertension. 3. Third-degree heart block. 4. Status post aortic valve replacement. PLAN: The patient will most likely need a pacemaker. The patient's blood pressure is elevated. He is on dopamine for his bradycardia. He is on amlodipine for his hypertension. He is also on lisinopril for his hypertension. I will increase his lisinopril to 20 mg to see if this can help with his blood pressure. Cardiology is following the patient. Repeat blood work was going to be done tomorrow. He is on a heart-healthy diet. Currently, he is not symptomatic although he has been according to the notes. Rocco Warner MD
--- NOTE | 2017-11-21 22:31 | PN ---
DATE: 11/21/2017 SUBJECTIVE: The patient is seen and examined this morning. He remains on a dopamine drip. Heart rates remain reasonable in the 50s and appears to be in a sinus rhythm as reviewed on the EKG. Blood pressures have been somewhat elevated with at times systolic pressures in the 180s. He is otherwise doing well. I have been asked to see/reevaluate him by Dr. Rich. Of note, the patient's daughter and were at the bedside and had requested a meeting. In terms of his symptomatology, at this point the patient is asymptomatic while in bed. PHYSICAL EXAMINATION: VITAL SIGNS: As mentioned. GENERAL: He is a well-developed, well-nourished male, in no acute distress. Able to speak in complete sentences. Alert and oriented. HEENT: Pupils are equally round and reactive to light and accommodation. Extraocular movements are intact. His mucous membranes appear moist. NECK: Supple. No jugular venous distention. No carotid bruits. CHEST: Clear to auscultation bilaterally. CARDIOVASCULAR: Regular rhythm, bradycardic in the 50s. II/ systolic ejection murmur is heard best at the left sternal border. PMI is mildly displaced past the midclavicular line. ABDOMEN: Soft, nontender and nondistended. EXTREMITIES: No cyanosis, clubbing or edema is noted. NEUROLOGICAL: He is intact. MEDICATIONS: The patient is on 2.5 mcg of dopamine at this point. Medications currently include apixaban 2.5 mg p.o. b.i.d., hydralazine 10 mg p.o. four times a day, dopamine at his current dosing at 2.5 mcg/kg/minute, lisinopril 20 mg p.o. daily is also being given, Protonix 40 mg p.o. daily. LABORATORY DATA: On review of relevant lab work, the patient has a white count of 5, H and H of 11.9 and 35, platelets of 67. Last potassium is 4.2, BUN and creatinine of 20 and 1.2. ALT, AST are somewhat elevated at 525 and 436 respectively. ASSESSMENT AND PLAN: 1. Bradycardia with some suspicion of heart block. At this point, the patient appears to be maintained on modest doses of dopamine for chronotropic support. The patient's current EKG shows sinus rhythm with reasonable conduction. QRS duration is 134 milliseconds; however, the patient does not have a significant bundle-branch block type pattern. He does have a first-degree atrioventricular block at 250 milliseconds. At this point, I would suggest chronotropic support in the form of permanent pacemaker. Dual chamber pacemaker maybe beneficial in the sense of maintaining atrioventricular synchrony and perhaps decreasing the chance of high percentage of right ventricular pacing for which the patient does have a history of cardiomyopathy. At this point, I would not recommend a defibrillator given recent echo findings of left ventricular normalization. The patient is not on any inotropes. At this point, given options, the patient can undergo permanent pacemaker implantation here. This will be done by Dr. Rich after my discussion with him. Certainly, holding Eliquis for at least a dose off if not 2-3 doses maybe advised. If the patient has worsening left ventricular dysfunction and heart failure symptoms following permanent implantation, device maybe upgraded to a defibrillator, benefit through left ventricular pacing can be considered at that time. 2. Dilated cardiomyopathy, which has appeared to be improved on medical therapy, status post aortic valve replacement as well as significant weight loss. The patient prior to coming in had been going to the gym as per the family and wishes to remain active. Functional status has decreased over the last 3 months and has suffered weakness and minor falls. 3. Status post transcatheter aortic valve replacement, which was done 2 years ago. 4. Thrombocytopenia, which also should be considered at the time of pacemaker implantation. Greater than 45 minutes were spent in the patient education, discussion and coordination of care. Thank you for allowing me to participate in the care of your patient. Please do not hesitate to call for any questions regards to his care. Jose Cruz Matias MD
[2017-11-22] MEDS: Pantoprazole 40 mg EC Tab PO SCH (06:21)
[2017-11-22 07:11] LABS: EOS % 0.4 % (1.5-5.0); GRAN # 2.95 (1.4-6.5); GRAN % 61.2 % (50.0-68.0); HEMOGLOBIN 11.8 g/dL (14.0-18.0); LYMPH # 1.1 (1.2-3.4); LYMPH % 22.2 % (22.0-35.0); MEAN CELL VOLUME 84.8 fl (80.0-105.0); MEAN CORPUSCULAR HEMOGLOBIN 29.4 pg (25.0-35.0); MEAN CORPUSCULAR HGB CONC 34.7 g/dl (31.0-37.0); MONO # 0.8 (0.1-0.6); MONO % 16.2 % (1.0-6.0); PLATELET COUNT 66 10^3/uL (120.0-450.0); RBC 4.01 10^6/uL (3.5-6.1); WHITE BLOOD COUNT 4.8 10^3/ul (4.5-11.0)
[2017-11-22 07:55] LABS: ALBUMIN 3.3 g/dL (3.0-4.8); ALT/SGPT 343 U/L (7-56); AST/SGOT 330 U/L (17-59); BLOOD UREA NITROGEN 18 mg/dL (7-21); GFR NON-AFRICAN AMERICAN > 60
--- NOTE | 2017-11-22 08:31 | PN ---
DATE: 11/21/2017 REASON FOR CONSULTATION: Atrial fibrillation with slow response, complete heart block, isorhythmic AV dissociation, history of nonischemic cardiomyopathy, history of TAVR, refused AICD. SUBJECTIVE: Patient denies any chest pain, shortness of breath, any palpitation. OBJECTIVE: GENERAL: Not in any apparent distress. VITAL SIGNS: As follows, temperature afebrile, heart rate 49, blood pressure 183/82. HEENT: PERRLA. Extraocular muscles intact. NECK: Supple. No carotid bruit. No thyromegaly. CHEST: Clear to auscultation. HEART: S1 and S2 regular. ABDOMEN: Soft. EXTREMITIES: Clubbing and cyanosis negative. LABORATORY DATA: Blood workup, WBC 5, hemoglobin 11.9, hematocrit 35, platelet count 67. Chemistry shows sodium 137, potassium 4.2, chloride 102, carbon dioxide of 31, anion gap of 11, BUN 20, creatinine 1.2. IMPRESSION: Status post fall, , history of chronic atrial fibrillation, found to be in complete heart block, atrioventricular dissociation. Patient is in normal sinus with isorhythmic atrioventricular dissociation, hypertension, renal insufficiency. RECOMMENDATION: We will start back on lisinopril, Norvasc and p.r.n. hydralazine. Avoid Cardizem and avoid Coreg. Discussed with the patient's family. Initially patient was refusing pacemaker defibrillator. We will allow the patient's family, the daughter wanted the pacemaker and get it done, a small one, according to her a smaller one. So we will get pacemaker tomorrow. Discussed with Dr. Zuluaga. Suggested to have dual chamber since the patient is not in normal sinus now. The patient has had history of atrial fibrillation in the past. If the patient remains in sinus we will put dual chamber otherwise put a single chamber VVI. Keep n.p.o. after 12:00 midnight. Hold heparin at 01:00 a.m. and we will start Norvasc 10 mg and hydralazine p.r.n. We will also start lisinopril. We will follow with you. Once the patient get the pacemaker, we will put back on verapamil. We will discontinue IV fluid and discontinue heparin at 01:00 a.m. Thank you, Dr. Martin, for providing us the opportunity in taking care of the patient, Nikolas Bach. Jet Rich MD
[2017-11-22 09:08] LABS: HEPATITIS B SURFACE AG Negative (NEGATIVE)
[2017-11-22 09:14] LABS: HEPATITIS A IGM NEGATIVE (NEGATIVE); HEPATITIS B CORE AB NEGATIVE (NEGATIVE)
[2017-11-22 09:25] LABS: HEPATITIS C ANTIBODY NEGATIVE (NEGATIVE)
--- NOTE | 2017-11-22 10:31 | CP.PCM.PN ---
<Parish Bruce - Last Filed: 11/22/17 10:14> Subjective - Date & Time of Evaluation Date of Evaluation: 11/22/17 Time of Evaluation: 10:14 - Subjective Subjective: GI PROGRESS NOTE - DR. FUNEZ Patient seen and examined this AM. No acute events reported overnight. Patient clinically unchanged. To go for pacemaker placement today. Objective - Vital Signs/Intake and Output Vital Signs (last 24 hours): Temp Pulse Resp BP Pulse Ox 98.7 F 53 L 18 158/73 H 99 11/21/17 16:00 11/22/17 06:00 11/22/17 02:30 11/22/17 01:01 11/22/17 02:30 Intake and Output: 11/22/17 11/22/17 06:59 18:59 Intake Total 126 Output Total 1300 Balance -1174 - Medications Medications: Current Medications Amlodipine Besylate (Norvasc) 10 mg PO DAILY [facility] Last Admin: 11/21/17 10:31 Dose: 10 mg Apixaban (Eliquis) 2.5 mg PO BID [facility]; Protocol Last Admin: 11/19/17 17:17 Dose: 2.5 mg Hydralazine HCl (Apresoline) 10 mg PO QID PRN PRN Reason: for sbp>160 Last Admin: 11/21/17 04:11 Dose: 10 mg Dopamine HCl/Dextrose (Dopamine 400mg/250ml D5w) 400 mg in 250 mls @ 16.066 mls/hr IV .[id number] PRN; Protocol PRN Reason: TITRATE PER MD ORDER Last Titration: 11/20/17 10:07 Dose: Infused Lisinopril (Zestril) 20 mg PO DAILY [facility] Last Admin: 11/21/17 10:32 Dose: Not Given Pantoprazole Sodium (Protonix Ec Tab) 40 mg PO 0600 [facility] Last Admin: 11/22/17 06:21 Dose: 40 mg - Labs Labs: 11/22/17 06:40 11/22/17 06:40 PT 11.9 SECONDS (9.4-12.5) 11/21/17 12:00 INR 1.03 11/21/17 12:00 APTT 71.3 Seconds (25.1-36.5) H 11/21/17 12:00 - Constitutional Appears: No Acute Distress - Head Exam Head Exam: ATRAUMATIC, NORMAL INSPECTION, NORMOCEPHALIC - Eye Exam Eye Exam: EOMI, PERRL - ENT Exam ENT Exam: Mucous Membranes Moist - Respiratory Exam Respiratory Exam: Clear to Ausculation Bilateral, NORMAL BREATHING PATTERN. absent: Rhonchi, Wheezes - Cardiovascular Exam Cardiovascular Exam: Bradycardia, +S1, +S2 - GI/Abdominal Exam GI & Abdominal Exam: Soft, Normal Bowel Sounds. absent: Tenderness - Extremities Exam Extremities Exam: absent: Pedal Edema - Neurological Exam Neurological Exam: Alert, Awake, Oriented x3 Additional comments: motor and sensory grossly intact - Psychiatric Exam Psychiatric exam: Normal Affect, Normal Mood - Skin Skin Exam: Dry, Intact Assessment and Plan - Assessment and Plan (Free Text) Assessment: 87 year old male with past medical history of systolic CHF with last known EF of 10-15%, history of TAVR, dilated cardiomyopathy, chronic atrial fibrillation, s/p cardiac cath with evidence of non occlusive CAD admitted for cardiac arrthymia found to be in AV retrograde conductance vs. 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 ?ischemia vs. congestive hepatopathy -Liver tests showing gradual improvement -Recommend avoid rocephin if possible, please consult ID if concern for infection. -Treating HP is not emergent. Would hold off possible hepatotoxic meds until normalization of ALT. He will need to restart treatment once stable. -Abd/Pelvis CT: cholelithiasis, distended gallbladder, multiple renal cysts b/l, prostate slightly enlarged with calcifications, moderately enlarged heart with evidence of TAVR - Abdominal US shows normal liver, patent vessels -OK to continue PPI -Follow ALT, hepatitis panel, INR -Patient scheduled for Pacemaker placement today -Further recommendations per Dr. Funez <Gavin Funez V - Last Filed: 11/22/17 19:16> Objective - Vital Signs/Intake and Output Vital Signs (last 24 hours): Temp Pulse Resp BP Pulse Ox 98.7 F 52 L 18 181/79 H 99 11/21/17 16:00 11/22/17 10:26 11/22/17 02:30 11/22/17 10:26 11/22/17 02:30 - Medications Medications: Current Medications Amlodipine Besylate (Norvasc) 10 mg PO DAILY [facility] Last Admin: 11/22/17 10:23 Dose: 10 mg Apixaban (Eliquis) 2.5 mg PO BID [facility]; Protocol Last Admin: 11/19/17 17:17 Dose: 2.5 mg Hydralazine HCl (Apresoline) 10 mg PO QID PRN PRN Reason: for sbp>160 Last Admin: 11/22/17 10:26 Dose: 10 mg Dopamine HCl/Dextrose (Dopamine 400mg/250ml D5w) 400 mg in 250 mls @ 8.033 mls/hr IV .Q24H PRN; Protocol PRN Reason: TITRATE PER MD ORDER Lisinopril (Zestril) 20 mg PO DAILY [facility] Last Admin: 11/22/17 10:24 Dose: 20 mg Pantoprazole Sodium (Protonix Ec Tab) 40 mg PO 0600 [facility] Last Admin: 11/22/17 06:21 Dose: 40 mg - Labs Labs: 11/22/17 06:40 11/22/17 06:40 PT 11.9 SECONDS (9.4-12.5) 11/21/17 12:00 INR 1.03 11/21/17 12:00 APTT 71.3 Seconds (25.1-36.5) H 11/21/17 12:00 Attending/Attestation - Attestation I have personally seen and examined this patient.: Yes I have fully participated in the care of the patient.: Yes I have reviewed all pertinent clinical information, including history, physical exam and plan: Yes Notes (Text): This is an addendum to GI followup report dictated by the Online Advertising Manager. The patient was seen and evaluated earlier. Medical records, lab studies, imagings were reviewed. Last 24 hours events reviewed. Agreed with the above treatment plan as outlined in Online Advertising Manager 's notes with the addition of the following No complaints of abdominal pain LFTs overall showing improving trend except total bili which showed mild increase Planned for PPM today 11/22/17 19:14
--- NOTE | 2017-11-22 11:34 | CP.CCUPN ---
<Sheldon Pérez - Last Filed: 11/22/17 15:16> CCU Subjective - Physician Review Subjective (Free Text): Sheldon Pérez DO, PGY-1 ICU Progress Note for Dr. Nur Patient was seen and examined at bedside this AM. No acute events overnight. Plan for ICD/pacemaker placement today. CCU Objective - Vital Signs / Intake & Output Vital Signs (Last 4 hours): Vital Signs Pulse BP 11/22/17 10:26 52 L 181/79 H 11/22/17 10:24 181/79 H 11/22/17 10:23 181/80 H Intake and Output (Last 8hrs): Intake & Output 11/21/17 11/22/17 11/22/17 22:59 06:59 14:59 Intake Total 1046 126 Output Total 1000 1300 Balance 46 -1174 Weight 189 lb 9.6 oz Intake: IV 96 126 dopamine 96 32 heparin 44 Oral 950 Output: Urine 1000 1300 Urethral (Diaz) 1000 1300 Stool 0 Other: # Bowel Movements 0 - Physical Exam Head: Positive for: Atraumatic, Normocephalic Pupils: Positive for: PERRL Extroacular Muscles: Positive for: EOMI Conjunctiva: Positive for: Normal Ears: Positive for: Normal Mouth: Positive for: Moist Mucous Membranes Pharnyx: Positive for: Normal. Negative for: ERYTHEMA, EXUDATE Neck: Positive for: Normal Range of Motion. Negative for: JVD Respiratory/Chest: Positive for: Clear to Auscultation, Good Air Exchange. Negative for: Wheezes, Rales, Rhonchi Cardiovascular: Positive for: Normal S1, S2, Bradycardic (HR consistently in 50s, stable on 2.5 of dopamine). Negative for: Murmurs, Rub, Gallop Abdomen: Negative for: Tenderness, Distention, Rebound, Guarding Back: Positive for: Normal Inspection Upper Extremity: Positive for: Normal Inspection, Normal ROM. Negative for: Cyanosis, Edema Lower Extremity: Positive for: Normal Inspection, NORMAL PULSES. Negative for: Edema, Cyanosis Neurological: Positive for: GCS=15, Speech Normal, Motor Func Grossly Intact Skin: Positive for: Warm, Dry, Normal Color Psychiatric: Positive for: Alert, Oriented x 3, Normal Insight, Normal Concentration - Medications Active Medications: Active Medications Generic Name Dose Route Start Last Admin Trade Name Freq PRN Reason Stop Dose Admin Amlodipine Besylate 10 mg 11/21/17 10:00 11/22/17 10:23 Norvasc PO 10 mg DAILY HEATHER Administration Apixaban 2.5 mg 11/19/17 18:00 11/19/17 17:17 Eliquis PO 2.5 mg BID HEATHER Administration Protocol Hydralazine HCl 10 mg 11/20/17 10:37 11/22/17 10:26 Apresoline PO 10 mg QID PRN Administration for sbp>160 Dopamine HCl/Dextrose 400 mg in 250 mls @ 16.066 mls/hr 11/18/17 16:16 11/20/17 10:07 Dopamine 400mg/250ml D5w IV Infused .[id number] PRN Titration TITRATE PER MD ORDER Protocol 5 MCG/KG/MIN Lisinopril 20 mg 11/21/17 10:00 11/22/17 10:24 Zestril PO 20 mg DAILY HEATHER Administration Pantoprazole Sodium 40 mg 11/21/17 06:00 11/22/17 06:21 Protonix Ec Tab PO 40 mg 0600 HEATHER Administration - Patient Studies Lab Studies: Microbiology Studies 11/18/17 19:30 Blood Culture - Preliminary Blood-Venous NO GROWTH AFTER 3 DAYS 11/18/17 19:15 Blood Culture - Preliminary Blood-Venous NO GROWTH AFTER 3 DAYS Lab Studies 11/22/17 11/22/17 11/21/17 Range/Units 06:40 06:40 12:00 WBC 4.8 (4.5-11.0) 10^3/ul RBC 4.01 (3.5-6.1) 10^6/uL Hgb 11.8 L (14.0-18.0) g/dL Hct 34.0 L (42.0-52.0) % MCV 84.8 (80.0-105.0) fl MCH 29.4 (25.0-35.0) pg MCHC 34.7 (31.0-37.0) g/dl RDW 15.0 H (11.5-14.5) % Plt Count 66 L (120.0-450.0) 10^3/uL Gran % 61.2 (50.0-68.0) % Lymph % (Auto) 22.2 (22.0-35.0) % [place] % (Auto) 16.2 H (1.0-6.0) % Eos % (Auto) 0.4 L (1.5-5.0) % Baso % (Auto) 0.0 (0.0-3.0) % Gran # 2.95 (1.4-6.5) Lymph # (Auto) 1.1 L (1.2-3.4) [place] # (Auto) 0.8 H (0.1-0.6) Eos # (Auto) 0.0 (0.0-0.7) Baso # (Auto) 0.00 (0.0-2.0) K/mm3 PT 11.9 (9.4-12.5) SECONDS INR 1.03 APTT 71.3 H (25.1-36.5) Seconds Sodium 138 (132-148) mmol/L Potassium 4.3 (3.6-5.0) mmol/L Chloride 101 (98-107) mmol/L Carbon Dioxide 31 (21-33) mmol/L Anion Gap 10 (10-20) BUN 18 (7-21) mg/dL Creatinine 1.1 (0.8-1.5) mg/dl Est GFR ( Amer) > 60 Est GFR (Non-Af Amer) > 60 Random Glucose 87 (70-110) mg/dL Calcium 9.0 (8.4-10.5) mg/dL Total Bilirubin 1.7 H (0.2-1.3) mg/dL AST 330 H D (17-59) U/L ALT 343 H (7-56) U/L Alkaline Phosphatase 190 H (38-126) U/L Total Protein 6.4 (5.8-8.3) g/dL Albumin 3.3 (3.0-4.8) g/dL Globulin 3.1 gm/dL Albumin/Globulin Ratio 1.0 L (1.1-1.8) Hepatitis A IgM Ab (NEGATIVE) Hep Bs Antigen (NEGATIVE) Hep B Core IgM Ab (NEGATIVE) Hepatitis C Antibody (NEGATIVE) 11/20/17 Range/Units 05:00 WBC (4.5-11.0) 10^3/ul RBC (3.5-6.1) 10^6/uL Hgb (14.0-18.0) g/dL Hct (42.0-52.0) % MCV (80.0-105.0) fl MCH (25.0-35.0) pg MCHC (31.0-37.0) g/dl RDW (11.5-14.5) % Plt Count (120.0-450.0) 10^3/uL Gran % (50.0-68.0) % Lymph % (Auto) (22.0-35.0) % [place] % (Auto) (1.0-6.0) % Eos % (Auto) (1.5-5.0) % Baso % (Auto) (0.0-3.0) % Gran # (1.4-6.5) Lymph # (Auto) (1.2-3.4) [place] # (Auto) (0.1-0.6) Eos # (Auto) (0.0-0.7) Baso # (Auto) (0.0-2.0) K/mm3 PT (9.4-12.5) SECONDS INR APTT (25.1-36.5) Seconds Sodium (132-148) mmol/L Potassium (3.6-5.0) mmol/L Chloride (98-107) mmol/L Carbon Dioxide (21-33) mmol/L Anion Gap (10-20) BUN (7-21) mg/dL Creatinine (0.8-1.5) mg/dl Est GFR ( Amer) Est GFR (Non-Af Amer) Random Glucose (70-110) mg/dL Calcium (8.4-10.5) mg/dL Total Bilirubin (0.2-1.3) mg/dL AST (17-59) U/L ALT (7-56) U/L Alkaline Phosphatase (38-126) U/L Total Protein (5.8-8.3) g/dL Albumin (3.0-4.8) g/dL Globulin gm/dL Albumin/Globulin Ratio (1.1-1.8) Hepatitis A IgM Ab Negative (NEGATIVE) Hep Bs Antigen Negative (NEGATIVE) Hep B Core IgM Ab Negative (NEGATIVE) Hepatitis C Antibody Negative (NEGATIVE) Laboratory Results - last 24 hr 11/20/17 11/21/17 11/22/17 05:00 12:00 06:40 WBC 4.8 RBC 4.01 Hgb 11.8 L Hct 34.0 L MCV 84.8 MCH 29.4 MCHC 34.7 RDW 15.0 H Plt Count 66 L Gran % 61.2 Lymph % (Auto) 22.2 [place] % (Auto) 16.2 H Eos % (Auto) 0.4 L Baso % (Auto) 0.0 Gran # 2.95 Lymph # (Auto) 1.1 L [place] # (Auto) 0.8 H Eos # (Auto) 0.0 Baso # (Auto) 0.00 PT 11.9 INR 1.03 APTT 71.3 H Sodium Potassium Chloride Carbon Dioxide Anion Gap BUN Creatinine Est GFR ( Amer) Est GFR (Non-Af Amer) Random Glucose Calcium Total Bilirubin AST ALT Alkaline Phosphatase Total Protein Albumin Globulin Albumin/Globulin Ratio Hepatitis A IgM Ab Negative Hep Bs Antigen Negative Hep B Core IgM Ab Negative Hepatitis C Antibody Negative 11/22/17 06:40 WBC RBC Hgb Hct MCV MCH MCHC RDW Plt Count Gran % Lymph % (Auto) [place] % (Auto) Eos % (Auto) Baso % (Auto) Gran # Lymph # (Auto) [place] # (Auto) Eos # (Auto) Baso # (Auto) PT INR APTT Sodium 138 Potassium 4.3 Chloride 101 Carbon Dioxide 31 Anion Gap 10 BUN 18 Creatinine 1.1 Est GFR ( Amer) > 60 Est GFR (Non-Af Amer) > 60 Random Glucose 87 Calcium 9.0 Total Bilirubin 1.7 H AST 330 H D ALT 343 H Alkaline Phosphatase 190 H Total Protein 6.4 Albumin 3.3 Globulin 3.1 Albumin/Globulin Ratio 1.0 L Hepatitis A IgM Ab Hep Bs Antigen Hep B Core IgM Ab Hepatitis C Antibody Critical Care Progress Note - Nutrition Nutrition: Nutrition Category Date Time Status Heart Healthy Diet [DIET] Diets 11/19/17 Breakfast Active Assessment/Plan - Assessment and Plan (Free Text) Assessment: 87 yo M with PMH of chronic AFib s/p failed cardioversion (on home eliquis), originally presented s/p fall was subsequently found to 3rd degree block with HR in low 40s and evidence of end organ damage. He was subsequently admitted to the ICU for further management. Scheduled for ICD/pacemaker placement today. Plan: Neuro: -AAOx3, no FND, moving extremities past midline -Monitor neuro status Cardio: -3rd degree block identified on admission, cutaneous pacing at low 50s -Pacemaker/ICD placement planned for today -Spoke with Dr. Rich who states it will be later in the day with Dr. Zuluaga -Restarted dopamine 2.5 mg per cardiology recs -BP stable, continue to maintain MAP > 65 -Cardiology following, recs appreciated Pulm: -CTA bilaterally -CXR in ED without acute findings -Maintain O2 saturation>95% -O2 NC PRN GI: -Advance diet as tolerated after ICD/pacemaker placement -Additional management of transaminitis per GI /Nephro: -BUN/Cr stable -ARTEMIO resolved -Maintain euvolemia -Replete electrolytes as needed ID: -On treatment for H. pylori at home -Continue clarithromycin, amoxicillin, rocephin, protonix -Consider ID consultation as needed Heme/Onc: -H/H stable at 11.8/34 -No signs of HD compromise -Continue monitoring H/H GI/DVT PPX: Protonix and hold home eliquis prior to procedure. Heparin drip 12 u/kg/hr discontinued after midnight, restart home eliquis according to cardiology recs Full Code Continue to monitor in MICU Case and plan reviewed and discussed with my attending Dr. Liudmila Pérez, DO IM Resident PGY-1 <Tim Nur - Last Filed: 11/22/17 15:24> CCU Objective - Vital Signs / Intake & Output Intake and Output (Last 8hrs): Intake & Output 11/22/17 11/22/17 11/22/17 06:59 14:59 22:59 Intake Total 126 Output Total 1300 Balance -1174 Weight 189 lb 9.6 oz Intake: IV 126 dopamine 32 heparin 44 Output: Urine 1300 Urethral (Diaz) 1300 Stool 0 - Medications Active Medications: Active Medications Generic Name Dose Route Start Last Admin Trade Name Freq PRN Reason Stop Dose Admin Amlodipine Besylate 10 mg 11/21/17 10:00 11/22/17 10:23 Norvasc PO 10 mg DAILY HEATHER Administration Apixaban 2.5 mg 11/19/17 18:00 11/19/17 17:17 Eliquis PO 2.5 mg BID HEATHER Administration Protocol Hydralazine HCl 10 mg 11/20/17 10:37 11/22/17 10:26 Apresoline PO 10 mg QID PRN Administration for sbp>160 Dopamine HCl/Dextrose 400 mg in 250 mls @ 8.033 mls/hr 11/22/17 14:48 Dopamine 400mg/250ml D5w IV .Q24H PRN TITRATE PER MD ORDER Protocol 2.5 MCG/KG/MIN Lisinopril 20 mg 11/21/17 10:00 11/22/17 10:24 Zestril PO 20 mg DAILY HEATHER Administration Pantoprazole Sodium 40 mg 11/21/17 06:00 11/22/17 06:21 Protonix Ec Tab PO 40 mg 0600 HEATHER Administration - Patient Studies Lab Studies: Microbiology Studies 11/18/17 19:30 Blood Culture - Preliminary Blood-Venous NO GROWTH AFTER 3 DAYS 11/18/17 19:15 Blood Culture - Preliminary Blood-Venous NO GROWTH AFTER 3 DAYS Lab Studies 11/22/17 11/22/17 11/20/17 Range/Units 06:40 06:40 05:00 WBC 4.8 (4.5-11.0) 10^3/ul RBC 4.01 (3.5-6.1) 10^6/uL Hgb 11.8 L (14.0-18.0) g/dL Hct 34.0 L (42.0-52.0) % MCV 84.8 (80.0-105.0) fl MCH 29.4 (25.0-35.0) pg MCHC 34.7 (31.0-37.0) g/dl RDW 15.0 H (11.5-14.5) % Plt Count 66 L (120.0-450.0) 10^3/uL Gran % 61.2 (50.0-68.0) % Lymph % (Auto) 22.2 (22.0-35.0) % [place] % (Auto) 16.2 H (1.0-6.0) % Eos % (Auto) 0.4 L (1.5-5.0) % Baso % (Auto) 0.0 (0.0-3.0) % Gran # 2.95 (1.4-6.5) Lymph # (Auto) 1.1 L (1.2-3.4) [place] # (Auto) 0.8 H (0.1-0.6) Eos # (Auto) 0.0 (0.0-0.7) Baso # (Auto) 0.00 (0.0-2.0) K/mm3 Sodium 138 (132-148) mmol/L Potassium 4.3 (3.6-5.0) mmol/L Chloride 101 (98-107) mmol/L Carbon Dioxide 31 (21-33) mmol/L Anion Gap 10 (10-20) BUN 18 (7-21) mg/dL Creatinine 1.1 (0.8-1.5) mg/dl Est GFR ( Amer) > 60 Est GFR (Non-Af Amer) > 60 Random Glucose 87 (70-110) mg/dL Calcium 9.0 (8.4-10.5) mg/dL Total Bilirubin 1.7 H (0.2-1.3) mg/dL AST 330 H D (17-59) U/L ALT 343 H (7-56) U/L Alkaline Phosphatase 190 H (38-126) U/L Total Protein 6.4 (5.8-8.3) g/dL Albumin 3.3 (3.0-4.8) g/dL Globulin 3.1 gm/dL Albumin/Globulin Ratio 1.0 L (1.1-1.8) Hepatitis A IgM Ab Negative (NEGATIVE) Hep Bs Antigen Negative (NEGATIVE) Hep B Core IgM Ab Negative (NEGATIVE) Hepatitis C Antibody Negative (NEGATIVE) Laboratory Results - last 24 hr 11/20/17 11/22/17 11/22/17 05:00 06:40 06:40 WBC 4.8 RBC 4.01 Hgb 11.8 L Hct 34.0 L MCV 84.8 MCH 29.4 MCHC 34.7 RDW 15.0 H Plt Count 66 L Gran % 61.2 Lymph % (Auto) 22.2 [place] % (Auto) 16.2 H Eos % (Auto) 0.4 L Baso % (Auto) 0.0 Gran # 2.95 Lymph # (Auto) 1.1 L [place] # (Auto) 0.8 H Eos # (Auto) 0.0 Baso # (Auto) 0.00 Sodium 138 Potassium 4.3 Chloride 101 Carbon Dioxide 31 Anion Gap 10 BUN 18 Creatinine 1.1 Est GFR ( Amer) > 60 Est GFR (Non-Af Amer) > 60 Random Glucose 87 Calcium 9.0 Total Bilirubin 1.7 H AST 330 H D ALT 343 H Alkaline Phosphatase 190 H Total Protein 6.4 Albumin 3.3 Globulin 3.1 Albumin/Globulin Ratio 1.0 L Hepatitis A IgM Ab Negative Hep Bs Antigen Negative Hep B Core IgM Ab Negative Hepatitis C Antibody Negative Critical Care Progress Note - Nutrition Nutrition: Nutrition Category Date Time Status Heart Healthy Diet [DIET] Diets 11/19/17 Breakfast Active Attending/Attestation - Attestation I have personally seen and examined this patient.: Yes I have fully participated in the care of the patient.: Yes I have reviewed all pertinent clinical information: Yes Notes (Text): 11/22/17 15:[address] nur note
--- NOTE | 2017-11-22 12:34 | PN ---
DATE: 11/22/2017 SUBJECTIVE: The patient is seen and examined at bedside. He is comfortable. He talks full sentences. He is not in respiratory or otherwise distress. The patient's night was uneventful. PHYSICAL EXAMINATION: VITAL SIGNS: Heart rate 62, blood pressure 181/79, respiratory rate 18, oxygen saturation 99% on room air. ENT: Head and neck atraumatic. LUNGS: Clear to auscultation bilaterally. HEART: Regular rate and rhythm. S1, S2 normal. ABDOMEN: Soft, nontender and nondistended. MUSCULOSKELETAL: No C/C/E. NEURO: The patient moves all extremities spontaneously. SKIN: Moist. PSYCH: The patient is alert, awake and oriented x3. LABORATORY DATA: WBC 4.8, hemoglobin 11.8, platelet count 66. Sodium 138; potassium 4.3; chloride 101; carbon dioxide 31; BUN 18; creatinine 1.1, down from 1.2; glucose 87; AST 330; ALT 343; bilirubin 1.7. MEDICATIONS: Norvasc, Eliquis on hold, hydralazine p.r.n., lisinopril, Protonix. ASSESSMENT AND PLAN: This is an 87-year-old gentleman who presented with bradyarrhythmia resembling third-degree atrioventricular block with episodes of hypotension requiring dopamine. At present time, hypotension resolved. The patient has very mild bradycardia. His mental status and renal function substantially improved. His LFTs are trending down. Substantial workup did not reveal definitive signs of acute cholecystitis, choledocholithiasis or ascending cholangitis. Ceftriaxone was stopped. The patient is going for pacemaker today. We will continue to target euvolemia, euglycemia, normothermia and oxygen saturation more than 90%. We will continue with deep venous thrombosis, gastrointestinal prophylaxis. Addendum: attempt at PM failed-->unable to get access; will monitor in ICU overnight ccm time 40 min Tim Nur MD MTDBrittanie
[2017-11-22] MEDS ORDERED: Lidocaine 2% PF (10 ml) Amp ONE (13:24)
--- NOTE | 2017-11-22 13:53 | PN ---
DATE: 11/22/2017 REASON FOR CONSULTATION AND FOLLOWUP: Atrial fibrillation, slow response, now converted to normal sinus, isorhythmic AV dissociation, history of TAVR, refused for AICD. SUBJECTIVE: The patient denies any chest pain, shortness of breath or any palpitations, waiting to go for pacemaker. PHYSICAL EXAMINATION: VITAL SIGNS: Heart rate 53, blood pressure 170/80. HEENT: PERRLA intact. NECK: Supple. No carotid bruit or thyromegaly. CHEST: Clear to auscultation. HEART: S1, S2 regular. ABDOMEN: Soft. EXTREMITIES: Clubbing and cyanosis negative. LABORATORY DATA: WBC 4.8, hemoglobin 11.8, hematocrit 34, platelet count 66. Chemistry shows sodium 130, potassium 4.3, chloride 101, carbon dioxide 30, anion gap of 10, Bun 18, creatinine 1.1, total bilirubin 1.7. IMPRESSION: An 87-year-old male with a past medical history significant for nonischemic cardiomyopathy, history of severe aortic stenosis, status post transcatheter aortic valve replacement, history of atrial fibrillation admitted with severe bradycardia, atrial fibrillation initially been found to be heart block with isorhythmic atrioventricular dissociation. Since the patient has low ejection fraction, automatic implantable cardioverter defibrillatory was recommended, the patient kept on refusing it. A repeat echo was done and found to be ejection fraction 55%. Discussed with Zan, the patient's family does not want defibrillator, wanted to get pacemaker, so we will arrange the pacemaker today. Initial plan was to do a single chamber VVI, but since the patient has in sinus and according to Dr. Zuluaga, probably the patient will get benefit with dual chamber, so we will try to get the dual chamber pacemaker today. Further recommendations depend upon the history of transcatheter aortic valve replacement 2 years ago, history of as mentioned cardiomyopathy, history of nonobstructive coronary artery disease, history of weight loss. Suggested Dr. Martin to do the gastrointestinal workup. Heparin is on hold and we will hold once the pacemaker is done, we will consider putting back on Eliquis if the patient goes into atrial fibrillation. We will follow with you. Thank you, Dr. Martin for providing us the opportunity in taking care of the patient, Nikolas Bach. Discussed with the daughter yesterday, discussed with the . Jet Rich MD [facility] # [id number]
[2017-11-22] MEDS ORDERED: Midazolam 2 MG/2 ML VIAL ONE (13:57)
[2017-11-22] MEDS ORDERED: Iodixanol 320 MG/ML 100 ML BOTTLE IV ONE (14:13)
[2017-11-22] MEDS ORDERED: DOPamine 400mg/250ml D5W 400 MG/250 ML BAG IV PRN (14:48)
--- NOTE | 2017-11-22 15:01 | CPOSTOP ---
DATE: 11/22/2017 CARDIOVASCULAR LAB POST PROCEDURE NOTE DICTATING PHYSICIAN: Jet Rich MD STREET OPENINGS INSPECTOR: [place] radiation control technician. TYPE OF ANESTHESIA: Moderate conscious sedation, total 1 mg of Versed, 50 of fentanyl used. PRE-PROCEDURE DIAGNOSES: Complete heart block, sick sinus syndrome. PROCEDURE PERFORMED: Attempted pacemaker. FINDINGS: Unable to get access. FINAL DIAGNOSIS: Unable to get access. POST PROCEDURE CONDITION: Post procedure, the patient's condition is stable. VASCULAR ACCESS SITE: Left subclavian. CLOSURE DEVICE: None. TOTAL RADIATION DOSE: 693.3 milligray unit. FLUORO TIME: 2.6 minutes. Jet Rich MD MTDD
--- NOTE | 2017-11-22 15:33 | RAD ---
Date of service: 11/22/2017 HISTORY: Post Pacemaker attempted COMPARISON: 11/18/2017 FINDINGS: LUNGS: No active pulmonary disease. PLEURA: No significant pleural effusion identified, no pneumothorax apparent. CARDIOVASCULAR: Moderate cardiomegaly OSSEOUS STRUCTURES: No significant abnormalities. VISUALIZED UPPER ABDOMEN: Normal. OTHER FINDINGS: None. IMPRESSION: No active disease.
--- NOTE | 2017-11-22 23:11 | PN ---
DATE: 11/22/2017 SUBJECTIVE: The patient is 87 years old, seen and examined, lying in bed, seems to be comfortable, offers no complaint except generalized weakness and have stiffness in both legs. PHYSICAL EXAMINATION VITAL SIGNS: The patient is afebrile, pulse 52, respirations 18, blood pressure is 181/79. LUNGS: Bilateral fair airflow, decreased at bases. HEART: S1 and S2 audible. ABDOMEN: Soft, nontender. No rebound. No guarding. NEUROLOGIC: He is awake, alert, oriented, communicative. Moves all extremities. EXTREMITIES: Bilateral legs +1 edema. LABORATORY DATA: WBC is 4.8, hemoglobin 11.8, hematocrit 34, and platelets of 66. Chemistries: Sodium 138, potassium 4.3, chloride 101, CO2 of 31, BUN 18, creatinine 1.1, blood sugar of 87. AST 330, ALT 343, alkaline phosphatase is 190. ASSESSMENT: 1. Status post multiple falls. 2. Complete heart block, going for pacemaker placement today. 3. Abnormal LFTs secondary to passive congestion. 4. Chronic kidney disease. 5. Hypertension. 6. Bilateral renal cyst. 7. Status post aortic valve replacement. PLAN: The patient is going for pacemaker placement. We will continue to monitor LFTs and his electrolyte as needed. Kendall Martin MD
[2017-11-23] MEDS: Pantoprazole 40 mg EC Tab PO SCH (06:28)
[2017-11-23 07:02] LABS: GRAN # 4.12 (1.4-6.5); GRAN % 72.3 % (50.0-68.0); HEMOGLOBIN 12.5 g/dL (14.0-18.0); LYMPH # 0.7 (1.2-3.4); LYMPH % 12.3 % (22.0-35.0); MEAN CORPUSCULAR HEMOGLOBIN 29.5 pg (25.0-35.0); MEAN CORPUSCULAR HGB CONC 35.1 g/dl (31.0-37.0); MONO # 0.9 (0.1-0.6); MONO % 15.4 % (1.0-6.0); PLATELET COUNT 89 10^3/uL (120.0-450.0); RBC 4.24 10^6/uL (3.5-6.1); RED CELL DISTRIBUTION WIDTH 14.9 % (11.5-14.5); WHITE BLOOD COUNT 5.7 10^3/ul (4.5-11.0)
[2017-11-23 07:11] LABS: ALBUMIN 3.4 g/dL (3.0-4.8); ALT/SGPT 323 U/L (7-56); AST/SGOT 315 U/L (17-59); BLOOD UREA NITROGEN 18 mg/dL (7-21); CALCIUM 9.1 mg/dL (8.4-10.5); GFR NON-AFRICAN AMERICAN > 60
--- NOTE | 2017-11-23 08:17 | CARDCATH ---
PROCEDURE DATE: 11/22/2017 TYPE OF DICTATION: CARDIOVASCULAR LAB POSTPROCEDURE NOTE. TYPE OF PROCEDURE PERFORMED: Implantation of permanent pacemaker attempted. PROCEDURE PERFORMED: The patient was attempted access from the left subclavian. The patient had quadruped type of clavicle, could not get the access. Then, 20 mL IV contrast used in the left wrist, the subclavian vein is below the clavicle; so, high risk of pneumothorax. So, after 2 attempts, it was stopped and the plan is to venous cut down pacemaker by Dr. Zuluaga. According to Dr. Zuluaga's availability,we will reschedule the pacemaker. We will discuss with the family. We will transfer the patient to ICU back and continue dopamine. I will get chest x-ray portable stat to rule out pneumo. We will follow with you. Thank you, Dr. Martin, for providing us the opportunity in taking care of the patient, Nikolas Bach. Jet Rich MD ALICJA
--- NOTE | 2017-11-23 08:25 | CP.PCM.PN ---
<Parish Bruce - Last Filed: 11/23/17 08:22> Subjective - Date & Time of Evaluation Date of Evaluation: 11/23/17 Time of Evaluation: 08:22 - Subjective Subjective: Robbie Bruce DO PGY2 - GI Progress note for Dr. Funez Patient seen and exmained this AM. No acute events reported overnight. Patient is tolerating diet. Patient did not receive pacemaker yesterday, potential for placement today. Objective - Vital Signs/Intake and Output Vital Signs (last 24 hours): Temp Pulse Resp BP Pulse Ox 98 F 48 L 15 155/82 H 98 11/22/17 22:00 11/23/17 06:40 11/23/17 06:40 11/23/17 06:00 11/23/17 06:40 Intake and Output: 11/23/17 11/23/17 06:59 18:59 Intake Total 296 Output Total 2750 Balance -2454 - Medications Medications: Current Medications Amlodipine Besylate (Norvasc) 10 mg PO DAILY [facility] Last Admin: 11/22/17 10:23 Dose: 10 mg Apixaban (Eliquis) 2.5 mg PO BID [facility]; Protocol Last Admin: 11/19/17 17:17 Dose: 2.5 mg Hydralazine HCl (Apresoline) 10 mg PO QID PRN PRN Reason: for sbp>160 Last Admin: 11/22/17 10:26 Dose: 10 mg Dopamine HCl/Dextrose (Dopamine 400mg/250ml D5w) 400 mg in 250 mls @ 8.033 mls/hr IV .Q24H PRN; Protocol PRN Reason: TITRATE PER MD ORDER Lisinopril (Zestril) 20 mg PO DAILY [facility] Last Admin: 11/22/17 10:24 Dose: 20 mg Pantoprazole Sodium (Protonix Ec Tab) 40 mg PO 0600 [facility] Last Admin: 11/23/17 06:28 Dose: 40 mg - Labs Labs: 11/23/17 05:40 11/23/17 05:40 PT 11.9 SECONDS (9.4-12.5) 11/21/17 12:00 INR 1.03 11/21/17 12:00 APTT 71.3 Seconds (25.1-36.5) H 11/21/17 12:00 - Constitutional Appears: No Acute Distress - Head Exam Head Exam: ATRAUMATIC, NORMAL INSPECTION, NORMOCEPHALIC - Eye Exam Eye Exam: EOMI, PERRL - ENT Exam ENT Exam: Mucous Membranes Moist - Respiratory Exam Respiratory Exam: Clear to Ausculation Bilateral, NORMAL BREATHING PATTERN - Cardiovascular Exam Cardiovascular Exam: Bradycardia, Irregular Rhythm - GI/Abdominal Exam GI & Abdominal Exam: Soft, Normal Bowel Sounds. absent: Guarding, Rigid, Tenderness - Extremities Exam Extremities Exam: Normal Inspection - Neurological Exam Neurological Exam: Alert, Awake Neuro motor strength exam: Left Upper Extremity: 5, Right Upper Extremity: 5, Left Lower Extremity: 5, Right Lower Extremity: 5 - Psychiatric Exam Psychiatric exam: Normal Affect, Normal Mood - Skin Skin Exam: Dry, Intact <Armin,Kovil V - Last Filed: 11/23/17 20:48> Objective - Vital Signs/Intake and Output Vital Signs (last 24 hours): Temp Pulse Resp BP Pulse Ox 98 F 51 L 15 117/61 98 11/22/17 22:00 11/23/17 11:33 11/23/17 06:40 11/23/17 11:32 11/23/17 06:40 Intake and Output: 11/23/17 11/24/17 18:59 06:59 Intake Total 375 Output Total 750 Balance -375 - Medications Medications: Current Medications Amlodipine Besylate (Norvasc) 10 mg PO DAILY [facility] Last Admin: 11/23/17 11:32 Dose: 10 mg Apixaban (Eliquis) 2.5 mg PO BID [facility]; Protocol Last Admin: 11/23/17 09:41 Dose: Not Given Hydralazine HCl (Apresoline) 10 mg PO QID PRN PRN Reason: for sbp>160 Last Admin: 11/22/17 10:26 Dose: 10 mg Dopamine HCl/Dextrose (Dopamine 400mg/250ml D5w) 400 mg in 250 mls @ 8.033 mls/hr IV .Q24H PRN; Protocol PRN Reason: TITRATE PER MD ORDER Last Admin: 11/22/17 17:10 Dose: 2.5 mcg/kg/min, 8.033 mls/hr Lisinopril (Zestril) 20 mg PO DAILY [facility] Last Admin: 11/23/17 11:33 Dose: 20 mg Pantoprazole Sodium (Protonix Ec Tab) 40 mg PO 0600 [facility] Last Admin: 11/23/17 06:28 Dose: 40 mg - Labs Labs: 11/23/17 05:40 11/23/17 05:40 PT 11.9 SECONDS (9.4-12.5) 11/21/17 12:00 INR 1.03 11/21/17 12:00 APTT 71.3 Seconds (25.1-36.5) H 11/21/17 12:00 Attending/Attestation - Attestation I have personally seen and examined this patient.: Yes I have fully participated in the care of the patient.: Yes I have reviewed all pertinent clinical information, including history, physical exam and plan: Yes Notes (Text): This is an addendum to GI followup report dictated by the Gill Tender. The patient was seen and evaluated earlier. Medical records, lab studies, imagings were reviewed. Last 24 hours events reviewed. Agreed with the above treatment plan as outlined in Gill Tender 's notes with the addition of the following LFT shows a downward trend On PPI Plan for PPM 11/23/17 20:47
--- NOTE | 2017-11-23 13:02 | PN ---
DATE: 11/23/2017 SUBJECTIVE: The patient is seen and examined at bedside. He is comfortable. He talks full sentences. He enjoys his breakfast. He is on dopamine 2.5 mcg/kg/minute. PHYSICAL EXAMINATION: VITAL SIGNS: Heart rate 62, oxygen saturation 96%, respiratory rate 20, blood pressure 155/82. ENT: Head and neck atraumatic. LUNGS: Clear to auscultation bilaterally. HEART: Regular rate and rhythm. S1 and S2 normal. ABDOMEN: Soft, nontender and nondistended. MUSCULOSKELETAL: No C/C/E. NEURO: The patient moves all extremities spontaneously. SKIN: Moist. PSYCH: The patient is alert, awake and oriented x3. LABORATORY DATA: WBC 5.7, hemoglobin 12.5, platelet count 89. Sodium 138; potassium 4; chloride 101; carbon dioxide 31; BUN 18; creatinine 1, down from 1.1; glucose 98; AST 315, down from 330; total bilirubin 1.5, down from 1.7; ALT 323, down from 343. MEDICATIONS: Norvasc, Eliquis, hydralazine p.r.n., lisinopril, Protonix. ASSESSMENT AND PLAN: This is an 87-year-old gentleman, presented with symptomatic bradycardia, requiring dopamine ionotropic/pressor support with subsequent attempted placement of pacemaker, which, however, failed due to being unable to thread the guidewire. Repeated attempt will be made today by Dr. Jose Cruz Matias. At present time, the patient remains in the ICU. We will continue to target euvolemia, euglycemia, normothermia and oxygen saturation more than 90%. ccm time 40 min Tim Nur MD ALICJA
--- NOTE | 2017-11-23 14:54 | PN ---
DATE: 11/23/2017 REASON FOR CONSULTATION: Sick sinus syndrome, complete heart block, bradycardia, AFib, AV dissociation, history of TAVR, refused AICD. SUBJECTIVE: The patient denies any chest pain, shortness of breath, or any palpitation. OBJECTIVE GENERAL: Not in apparent distress. VITAL SIGNS: Temperature afebrile, heart rate 48, on dopamine, blood pressure 134/80. HEENT: PERRLA. Extraocular muscles intact. NECK: Supple. No carotid bruit. No thyromegaly. CHEST: Clear to auscultation. HEART: S1 and S2, regular. ABDOMEN: Soft. EXTREMITIES: Clubbing and cyanosis negative. LABORATORY DATA: Blood workup as follows: WBC 5.3, hemoglobin 12.5, hematocrit 32.5, and platelet count 89. Chemistry shows sodium 138, potassium 4, chloride 101, carbon dioxide of 31, anion gap of 9. BUN 18, creatinine 1. IMPRESSION AND PLAN: An 87-year-old male with past medical history significant for seizure, aortic stenosis, status post transcatheter aortic valve replacement, history of atrial fibrillation, admitted this time with severe bradycardia, junctional escape, later found to be complete heart block with atrioventricular dissociation, now converted to normal sinus with bradycardia, on dopamine, heart rate 45. Initially, the patient had always low ejection fraction, 25% ejection fraction, refused automatic implantable cardioverter-defibrillator at that time. Now, repeat echo done with ejection fraction 55%, although the patient was on dopamine. Discussed with the family to get an automatic implantable cardioverter-defibrillator. Family refused initially both automatic implantable cardioverter-defibrillator and pacemaker as well. Now, is more amenable for pacemaker, yesterday attempted, was taken to the chemical laboratory chief in an attempt for the pacemaker, but because the patient has quadruplet clavicle takeoff, could not get the access and scheduled today for the venous cutdown pacemaker by Dr. Matias at 5 p.m. Once the pacemaker is replaced, we will start beta-vivienne and heart failure therapy as the patient was taking at home atenolol as well as verapamil and Eliquis. Once it is done, we will restart and follow up as outpatient. Discussed with the patient's daughter, Bridgette yesterday in length. Yesterday after an attempt, chest x-ray was done. No evidence of pneumo. We will follow with you. The patient will be stayed in the unit until the pacemaker is done. We will get the magnesium and phosphate level tomorrow. Discussed with the patient. The patient is agreeable for pacemaker. We will keep n.p.o. after the breakfast for pacemaker this afternoon. Thank you, Dr. Martin, for providing us the opportunity in taking care of Nikolas Bach. Jet Rich MD
[2017-11-23] MEDS ORDERED: Liquid Adhesive TOP ONE (16:36)
[2017-11-23] MEDS ORDERED: Lidocaine 2% PF (10 ml) Amp ONE (16:37)
[2017-11-23] MEDS ORDERED: Midazolam 2 MG/2 ML VIAL ONE (16:48)
--- NOTE | 2017-11-23 17:38 | CP.CCUPN ---
<Nazia Wilson - Last Filed: 11/23/17 17:34> CCU Subjective - Physician Review Subjective (Free Text): Nazia Wilson, PGY-1, CCU Progress Note for Dr. Nur Patient was seen and examined at bedside. Patient had no overnight events. Patient denies dizziness, headache, fever, chest pain, shortness of breath, nausea, vomiting, constipation, diarrhea, dysuria, hematuria. 12-point ROS was negative except for what was listed above. CCU Objective - Vital Signs / Intake & Output Intake and Output (Last 8hrs): Intake & Output 11/23/17 11/23/17 11/23/17 06:59 14:59 22:59 Intake Total 296 Output Total 2750 Balance -2454 Intake: IV 96 dopamine 96 Oral 200 Output: Urine 1800 Urethral (Diaz) 1800 Stool 0 Other 950 Other: # Bowel Movements 0 - Physical Exam Head: Positive for: Atraumatic, Normocephalic Pupils: Positive for: PERRL Extroacular Muscles: Positive for: EOMI Conjunctiva: Positive for: Normal Ears: Positive for: Normal Mouth: Positive for: Moist Mucous Membranes Pharnyx: Positive for: Normal. Negative for: ERYTHEMA, EXUDATE Neck: Positive for: Normal Range of Motion. Negative for: JVD Respiratory/Chest: Positive for: Clear to Auscultation, Good Air Exchange. Negative for: Wheezes, Rales, Rhonchi Cardiovascular: Positive for: Normal S1, S2, Bradycardic (HR consistently in 50s, stable on 2.5 of dopamine). Negative for: Murmurs, Rub, Gallop Abdomen: Negative for: Tenderness, Distention, Rebound, Guarding Back: Positive for: Normal Inspection Upper Extremity: Positive for: Normal Inspection, Normal ROM. Negative for: Cyanosis, Edema Lower Extremity: Positive for: Normal Inspection, NORMAL PULSES. Negative for: Edema, Cyanosis Neurological: Positive for: GCS=15, Speech Normal, Motor Func Grossly Intact Skin: Positive for: Warm, Dry, Normal Color Psychiatric: Positive for: Alert, Oriented x 3, Normal Insight, Normal Concentration - Medications Active Medications: Active Medications Generic Name Dose Route Start Last Admin Trade Name Freq PRN Reason Stop Dose Admin Amlodipine Besylate 10 mg 11/21/17 10:00 11/23/17 11:32 Norvasc PO 10 mg DAILY [facility] Administration Apixaban 2.5 mg 11/19/17 18:00 11/23/17 09:41 Eliquis PO Not Given BID [facility] Protocol Hydralazine HCl 10 mg 11/20/17 10:37 11/22/17 10:26 Apresoline PO 10 mg QID PRN Administration for sbp>160 Dopamine HCl/Dextrose 400 mg in 250 mls @ 8.033 mls/hr 11/22/17 14:48 11/22/17 17:10 Dopamine 400mg/250ml D5w IV 2.5 mcg/kg/min .Q24H PRN 8.033 mls/hr TITRATE PER MD ORDER Administration Protocol 2.5 MCG/KG/MIN Lisinopril 20 mg 11/21/17 10:00 11/23/17 11:33 Zestril PO 20 mg DAILY [facility] Administration Pantoprazole Sodium 40 mg 11/21/17 06:00 11/23/17 06:28 Protonix Ec Tab PO 40 mg 0600 [facility] Administration - Patient Studies Lab Studies: Microbiology Studies 11/18/17 19:30 Blood Culture - Preliminary Blood-Venous NO GROWTH AFTER 4 DAYS 11/18/17 19:15 Blood Culture - Preliminary Blood-Venous NO GROWTH AFTER 4 DAYS Lab Studies 11/23/17 11/23/17 Range/Units 05:40 05:40 WBC 5.7 (4.5-11.0) 10^3/ul RBC 4.24 (3.5-6.1) 10^6/uL Hgb 12.5 L (14.0-18.0) g/dL Hct 35.6 L (42.0-52.0) % MCV 84.0 (80.0-105.0) fl MCH 29.5 (25.0-35.0) pg MCHC 35.1 (31.0-37.0) g/dl RDW 14.9 H (11.5-14.5) % Plt Count 89 L (120.0-450.0) 10^3/uL Gran % 72.3 H (50.0-68.0) % Lymph % (Auto) 12.3 L (22.0-35.0) % [place] % (Auto) 15.4 H (1.0-6.0) % Eos % (Auto) 0.0 L (1.5-5.0) % Baso % (Auto) 0.0 (0.0-3.0) % Gran # 4.12 (1.4-6.5) Lymph # (Auto) 0.7 L (1.2-3.4) [place] # (Auto) 0.9 H (0.1-0.6) Eos # (Auto) 0.0 (0.0-0.7) Baso # (Auto) 0.00 (0.0-2.0) K/mm3 Sodium 138 (132-148) mmol/L Potassium 4.0 (3.6-5.0) mmol/L Chloride 101 (98-107) mmol/L Carbon Dioxide 31 (21-33) mmol/L Anion Gap 9 L (10-20) BUN 18 (7-21) mg/dL Creatinine 1.0 (0.8-1.5) mg/dl Est GFR ( Amer) > 60 Est GFR (Non-Af Amer) > 60 Random Glucose 98 (70-110) mg/dL Calcium 9.1 (8.4-10.5) mg/dL Total Bilirubin 1.5 H (0.2-1.3) mg/dL AST 315 H (17-59) U/L ALT 323 H (7-56) U/L Alkaline Phosphatase 219 H (38-126) U/L Total Protein 6.8 (5.8-8.3) g/dL Albumin 3.4 (3.0-4.8) g/dL Globulin 3.4 gm/dL Albumin/Globulin Ratio 1.0 L (1.1-1.8) Laboratory Results - last 24 hr 11/23/17 11/23/17 05:40 05:40 WBC 5.7 RBC 4.24 Hgb 12.5 L Hct 35.6 L MCV 84.0 MCH 29.5 MCHC 35.1 RDW 14.9 H Plt Count 89 L Gran % 72.3 H Lymph % (Auto) 12.3 L Pen[place] % (Auto) 15.4 H Eos % (Auto) 0.0 L Baso % (Auto) 0.0 Gran # 4.12 Lymph # (Auto) 0.7 L [place] # (Auto) 0.9 H Eos # (Auto) 0.0 Baso # (Auto) 0.00 Sodium 138 Potassium 4.0 Chloride 101 Carbon Dioxide 31 Anion Gap 9 L BUN 18 Creatinine 1.0 Est GFR ( Amer) > 60 Est GFR (Non-Af Amer) > 60 Random Glucose 98 Calcium 9.1 Total Bilirubin 1.5 H AST 315 H ALT 323 H Alkaline Phosphatase 219 H Total Protein 6.8 Albumin 3.4 Globulin 3.4 Albumin/Globulin Ratio 1.0 L Review of Systems - Constitutional Constitutional: absent: Fever, Chills, Sweats - EENT Eyes: absent: Blurred Vision Ears: absent: Decreased Hearing Nose/Mouth/Throat: absent: Dysphagia - Cardiovascular Cardiovascular: absent: Chest Pain, Chest Pain at Rest, Chest Pain with Activity, Dyspnea - Respiratory Respiratory: absent: Cough, Dyspnea - Gastrointestinal Gastrointestinal: absent: Abdominal Pain - Genitourinary Genitourinary: absent: Dysuria, Hematuria - Musculoskeletal Musculoskeletal: absent: Arthralgias, Back Pain - Neurological Neurological: absent: Confusion, Dizziness, Numbness, Tingling Critical Care Progress Note - Ventilator Checklist Head of Bed 30 Degrees: Yes PUD Prophalyxis: Yes DVT Prophylaxis: Yes - Nutrition Nutrition: Nutrition Category Date Time Status Heart Healthy Diet [DIET] Diets 11/19/17 Breakfast Active Assessment/Plan - Assessment and Plan (Free Text) Assessment: 87 year old male with past medical history of hypertension, gout, dilated cardiomyopathy, chronic atrial fibrillation, aortic valve replacement presents with weakness, lightheadedness, fall on 11/08/17/ Patient did not hit his head or have change in vision. EKG on admission showed junctional bradycardia and left bundle branch block at heart rate of 43. Plan: Neuro: -AAOx3, no FND, moving extremities past midline. -Monitor neuro status. -Reorient patient as necessary. Cardio: -Sinus bradycardia at HR: 51, normotensive, no signs of HD compromise -Due to symptomatic bradycardia, patient will have pacemaker placement today at 17:00. Patient does not want ICD placement, so pacemaker will be placed. Patient was placed on dopamine drip at 2.5 mcg/kg/min -Patient currently on apresoline, lisinopril, and norvasc for hypertension. -Patient currently on eliquis for history of atrial fibrillation. -Maintain MAP>65. -Monitor for S/S, HD compromise. Pulm: -No signs of respiratory distress. CTA B/L -Patient is stating well on room air. -Maintain O2 saturation>95%. -O2 NC PRN -CXR: no acute disease -Elevate bed to 30 degrees GI: -Tolerating heart healthy diet well. -Liver function tests improving. AST now 315. ALT now 323. ALP now 219. Bilirubin is 1.5. This is likely secondary to amiodarone, ischemia, or congestive hepatopathy. -Abdominal ultrasound shows normal liver contour, patent vessels -Abd/Pelvis CT: cholelithiasis, distended gallbladder, multiple renal cysts, prostate slightly enlarged with calcifications, moderately enlarged heart -Protonix 40 mg daily /Nephro: -BUN/Cr stable at 18/1.0 -Good urine output -Continue monitoring. -Electrolytes within normal limits. Replete electrolytes as needed. -Maintain euvolemia. Endocrinology: -Random glucose: 98 -Maintain euglycemia. Heme/Onc: -H/H stable at 12.5/25.6 -No signs of HD compromise. -Continue monitoring H/H ID: -Afebrile, no leukocytosis -Monitor for signs and symptoms of infection. DVT prophylaxis: eliquis 5 mg BID GI prophylaxis: protonix 40 mg daily Patient seen and examined with Dr. Nur. - Date & Time Date: 11/23/17 Time: 17:37 <Tim Nur - Last Filed: 11/23/17 18:07> CCU Objective - Vital Signs / Intake & Output Intake and Output (Last 8hrs): Intake & Output 11/23/17 11/23/17 11/23/17 06:59 14:59 22:59 Intake Total 296 Output Total 2750 Balance -2454 Intake: IV 96 dopamine 96 Oral 200 Output: Urine 1800 Urethral (Diaz) 1800 Stool 0 Other 950 Other: # Bowel Movements 0 - Medications Active Medications: Active Medications Generic Name Dose Route Start Last Admin Trade Name Freq PRN Reason Stop Dose Admin Amlodipine Besylate 10 mg 11/21/17 10:00 11/23/17 11:32 Norvasc PO 10 mg DAILY [facility] Administration Apixaban 2.5 mg 11/19/17 18:00 11/23/17 09:41 Eliquis PO Not Given BID [facility] Protocol Hydralazine HCl 10 mg 11/20/17 10:37 10/08/18 10:26 Apresoline PO 10 mg QID PRN Administration for sbp>160 Dopamine HCl/Dextrose 400 mg in 250 mls @ 8.033 mls/hr 11/22/17 14:48 11/22/17 17:10 Dopamine 400mg/250ml D5w IV 2.5 mcg/kg/min .Q24H PRN 8.033 mls/hr TITRATE PER MD ORDER Administration Protocol 2.5 MCG/KG/MIN Lisinopril 20 mg 11/21/17 10:00 11/23/17 11:33 Zestril PO 20 mg DAILY [facility] Administration Pantoprazole Sodium 40 mg 11/21/17 06:00 11/23/17 06:28 Protonix Ec Tab PO 40 mg 0600 [facility] Administration - Patient Studies Lab Studies: Microbiology Studies 11/18/17 19:30 Blood Culture - Preliminary Blood-Venous NO GROWTH AFTER 4 DAYS 11/18/17 19:15 Blood Culture - Preliminary Blood-Venous NO GROWTH AFTER 4 DAYS Lab Studies 11/23/17 11/23/17 Range/Units 05:40 05:40 WBC 5.7 (4.5-11.0) 10^3/ul RBC 4.24 (3.5-6.1) 10^6/uL Hgb 12.5 L (14.0-18.0) g/dL Hct 35.6 L (42.0-52.0) % MCV 84.0 (80.0-105.0) fl MCH 29.5 (25.0-35.0) pg MCHC 35.1 (31.0-37.0) g/dl RDW 14.9 H (11.5-14.5) % Plt Count 89 L (120.0-450.0) 10^3/uL Gran % 72.3 H (50.0-68.0) % Lymph % (Auto) 12.3 L (22.0-35.0) % [place] % (Auto) 15.4 H (1.0-6.0) % Eos % (Auto) 0.0 L (1.5-5.0) % Baso % (Auto) 0.0 (0.0-3.0) % Gran # 4.12 (1.4-6.5) Lymph # (Auto) 0.7 L (1.2-3.4) [place] # (Auto) 0.9 H (0.1-0.6) Eos # (Auto) 0.0 (0.0-0.7) Baso # (Auto) 0.00 (0.0-2.0) K/mm3 Sodium 138 (132-148) mmol/L Potassium 4.0 (3.6-5.0) mmol/L Chloride 101 (98-107) mmol/L Carbon Dioxide 31 (21-33) mmol/L Anion Gap 9 L (10-20) BUN 18 (7-21) mg/dL Creatinine 1.0 (0.8-1.5) mg/dl Est GFR ( Amer) > 60 Est GFR (Non-Af Amer) > 60 Random Glucose 98 (70-110) mg/dL Calcium 9.1 (8.4-10.5) mg/dL Total Bilirubin 1.5 H (0.2-1.3) mg/dL AST 315 H (17-59) U/L ALT 323 H (7-56) U/L Alkaline Phosphatase 219 H (38-126) U/L Total Protein 6.8 (5.8-8.3) g/dL Albumin 3.4 (3.0-4.8) g/dL Globulin 3.4 gm/dL Albumin/Globulin Ratio 1.0 L (1.1-1.8) Laboratory Results - last 24 hr 11/23/17 11/23/17 05:40 05:40 WBC 5.7 RBC 4.24 Hgb 12.5 L Hct 35.6 L MCV 84.0 MCH 29.5 MCHC 35.1 RDW 14.9 H Plt Count 89 L Gran % 72.3 H Lymph % (Auto) 12.3 L [place] % (Auto) 15.4 H Eos % (Auto) 0.0 L Baso % (Auto) 0.0 Gran # 4.12 Lymph # (Auto) 0.7 L [place] # (Auto) 0.9 H Eos # (Auto) 0.0 Baso # (Auto) 0.00 Sodium 138 Potassium 4.0 Chloride 101 Carbon Dioxide 31 Anion Gap 9 L BUN 18 Creatinine 1.0 Est GFR ( Amer) > 60 Est GFR (Non-Af Amer) > 60 Random Glucose 98 Calcium 9.1 Total Bilirubin 1.5 H AST 315 H ALT 323 H Alkaline Phosphatase 219 H Total Protein 6.8 Albumin 3.4 Globulin 3.4 Albumin/Globulin Ratio 1.0 L Critical Care Progress Note - Nutrition Nutrition: Nutrition Category Date Time Status Heart Healthy Diet [DIET] Diets 11/19/17 Breakfast Active Attending/Attestation - Attestation I have personally seen and examined this patient.: Yes I have fully participated in the care of the patient.: Yes I have reviewed all pertinent clinical information: Yes Notes (Text): 11/23/17 18:[address] Nur note
--- NOTE | 2017-11-23 22:45 | PN ---
DATE: 11/23/2017 SUBJECTIVE: Patient is [id number], seen and examined, lying in bed, seems to be comfortable and offer no complain. PHYSICAL EXAMINATION: VITAL SIGNS: He is afebrile, pulse 51, respirations 22, blood pressure 117/61. LUNGS: Bilateral fair airflow, no rhonchi or crackle. HEART: S1 and S2 audible, irregular, rate controlled, bradycardic. ABDOMEN: Soft, nontender. No rebound. No guarding. NEUROLOGIC: He is awake, alert, oriented, communicative. EXTREMITIES: Bilateral legs, no edema. LABORATORY EXAM: WBC is 5.7, hemoglobin 12.5, hematocrit 35.6, platelets 89. PTT is 71.3. Chemistries: Sodium 138, potassium 4, chloride 101, CO2 31, BUN 18, creatinine 1, blood sugar of 98. AST 350, ALT 323 and alkaline phosphatase is 219. ASSESSMENT: 1. Complete heart block. 2. Symptomatic bradycardia status post multiple falls. 3. Chronic kidney disease. 4. Hypertension. 5. History of gout. 6. Status post transcatheter aortic valve replacement, aortic valve replacement. 7. Dilated cardiomyopathy. 8. Chronic atrial fibrillation. PLAN: Currently, when I saw the patient he was on dopamine. He is planned to have pacemaker placed by Dr. Matias in the evening. Kendall Martin MD
--- NOTE | 2017-11-24 03:21 | OP ---
PROCEDURE DATE: 11/23/2017 INPATIENT ELECTROPHYSIOLOGY OPERATIVE REPORT PROCEDURE: Implantation of a dual-chamber permanent pacemaker. PREPROCEDURE DIAGNOSES: Sick sinus syndrome, atrial fibrillation. BRIEF HISTORY: Mr. Nikolas Bach is a very pleasant 87-year-old male with past medical history of hypertension, dilated cardiomyopathy, status post aortic valve replacement surgery (TAVR), atrial fibrillation, status post failed cardioversion who presents to [facility] in significant bradycardia with what appears to be atrial standstill with competing junctional rhythm on occasion. The patient was significantly bradycardic and had been maintained on dopamine. I was asked to see him in consultation and I had seen him consequently with the suggestion of insertion of a permanent pacemaker with improvement of his left ventricular ejection fraction as per the latest echocardiogram. The plan was agreeable. The patient did try to undergo permanent pacemaker placement with Dr. Rich, but because of challenging anatomy, that attempt was aborted yesterday on 11/22/2017. He presents today for again an attempted permanent pacemaker implantation. DESCRIPTION OF PROCEDURE: Informed consent was received for the procedure as well as conscious sedation of which he only received 25 mcg of fentanyl for sedation and comfort. The left pectoral area was again draped and prepped in a sterile fashion. 2% lidocaine solution was injected into the surgical site. Using blunt dissection and electrocautery, fascial planes were dissected after the incision was made. Using blunt dissection, the cephalic vein was identified. Prior to this, venograms that were done yesterday were reviewed with evidence of patent cephalic vein. Once access was achieved to maintain, a double wire technique was used to achieve and maintain access. Initially, a 7-Serbian SafeSheath was put over one of these 0.035 guidewire. The right ventricular lead, which is a 50, 76, 58 cm lead, serial #[id number] was inserted by the sheath and manipulated in to the right ventricular apex without difficulty. The parameters on this lead are as follows, threshold is 0.5 volts at 0.5 milliseconds at a current of 0.5 milliamps, and impedance of 926, which is sufficient. R-wave is measured 11.2. There was adequate injury current at that time of active tip extension. Subsequently, the attention was turned towards insertion of the atrial lead using the second of the two wires. A 9-Serbian SafeSheath was inserted without difficulty. The 52 cm lead, which is a 50, 76 Medtronic lead, serial #[id number] was inserted via the sheath and manipulated to the right atrial appendage. Again, without difficulty, the active tip was extended. T-wave is measured at impressive 5.1 millivolts, impedance on the lead was 487, threshold is 0.6 volts at 0.5 milliseconds at current of 1.5 milliamps. Both leads were then inspected under fluoroscopy and tied down without difficulty. Additional ligatures were applied to achieve hemostasis. By the way, the serial number on the right ventricular lead as I mentioned previously is [id number]. The lead system was then connected to the pulse generator, which is a Medtronic Advisa MRI-Safe device, serial #[id number]. Lead system and device were then placed in a subfascial pocket, which was made with blunt dissection and electrocautery and irrigated with bacitracin solution. A retention suture was applied to prevent device migration within the pocket. Additional ligatures were applied again to secure the device into place. The superficial fascia and the skin layers were brought together using two layers of 2-0 Vicryl in a running fashion. Final area was closed with Mastisol and Steri-Strips. A small pressure dressing was then applied without difficulty. Presenting rhythm at the time of implant was 48 beats per minute, which appeared to be sinus. The patient has been maintained on dopamine. Dopamine was discontinued at the end of the case. The patient is assessed MVP or AAI DDD 60 to 100. The patient tolerated the procedure well. I did discuss the case with Dr. Jet Rich who is the referring and following physician. PLAN: At this point, the patient will return to the ICU where postop check, which include chest x-ray, 12-lead EKG and device check will take place. If everything is within normal limit, the patient may be downgraded to telemetry. The patient also may be initiated on beta-vivienne therapy in an effort to achieve and maintain rate control and sinus rhythm. Anticoagulation can be restarted tomorrow 24 hours following permanent pacemaker implantation. Thank you for allowing me to participate in the care of your patient. Please do not hesitate to call if you have questions in regards to his care. Your's sincerely, Jose Cruz Matias MD [facility] # [phone]
[2017-11-24] MEDS: Pantoprazole 40 mg EC Tab PO SCH (06:03)
[2017-11-24 06:51] LABS: BASO # 0.01 K/mm3 (0.0-2.0); BASO % 0.2 % (0.0-3.0); EOS % 0.2 % (1.5-5.0); GRAN % 60.1 % (50.0-68.0); HEMOGLOBIN 11.7 g/dL (14.0-18.0); LYMPH # 1.2 (1.2-3.4); LYMPH % 18.7 % (22.0-35.0); MEAN CELL VOLUME 84.4 fl (80.0-105.0); MEAN CORPUSCULAR HEMOGLOBIN 29.4 pg (25.0-35.0); MEAN CORPUSCULAR HGB CONC 34.8 g/dl (31.0-37.0); MONO # 1.3 (0.1-0.6); MONO % 20.8 % (1.0-6.0); PLATELET COUNT 76 10^3/uL (120.0-450.0); RBC 3.98 10^6/uL (3.5-6.1); WHITE BLOOD COUNT 6.3 10^3/ul (4.5-11.0)
[2017-11-24 07:27] LABS: ALBUMIN 3.2 g/dL (3.0-4.8); ALT/SGPT 248 U/L (7-56); AST/SGOT 222 U/L (17-59); BLOOD UREA NITROGEN 26 mg/dL (7-21); CALCIUM 8.9 mg/dL (8.4-10.5); GFR NON-AFRICAN AMERICAN > 60
[2017-11-24 08:12] LABS: ANISOCYTOSIS SLIGHT; LYMPHOCYTE 23 % (22.0-35.0); MONOCYTE 7 % (1.0-6.0); NEUTROPHIL 70 % (50.0-70.0); PLATELET ESTIMATE LOW (NORMAL); POIKILOCYTOSIS SLIGHT; TARGET CELLS SLIGHT
--- NOTE | 2017-11-24 08:40 | RAD ---
Date of service: 11/23/2017 HISTORY: post ppm implant COMPARISON: 11/22/2017 FINDINGS: LUNGS: No active pulmonary disease. PLEURA: No significant pleural effusion identified, no pneumothorax apparent. CARDIOVASCULAR: No radiographic findings to suggest acute or significant cardiovascular disease.Position/ configuration of pacemaker device: Satisfactory. OSSEOUS STRUCTURES: No significant abnormalities. VISUALIZED UPPER ABDOMEN: Normal. OTHER FINDINGS: None. IMPRESSION: No active disease. No significant interval change compared to the prior examination(s). No adverse findings following pacemaker placement.
--- NOTE | 2017-11-24 09:08 | CP.CCUPN ---
CCU Subjective - Physician Review Subjective (Free Text): Sheldon Pérez DO, PGY-1 ICU Progress Note for Dr. Nur Patient was seen and examined at bedside this AM. No acute events overnight. Per cardiology, patient decided on pacemaker alone, not pacemaker/ICD but had procedure yesterday around 1700. Patient states he feels well and pain is well controlled. No acute events overnight. Denies fever/chills, CP, SOB, nausea/vomiting. CCU Objective - Vital Signs / Intake & Output Vital Signs (Last 4 hours): Vital Signs Pulse 11/24/17 06:00 70 Intake and Output (Last 8hrs): Intake & Output 11/23/17 11/24/17 11/24/17 22:59 06:59 14:59 Intake Total 375 240 Output Total 750 500 Balance -375 -260 Weight 186 lb 11.2 oz Intake: IV 240 dopamine 240 Oral 375 Output: Urine 750 500 Urethral (Diaz) 750 500 Other: # Bowel Movements 1 - Physical Exam Head: Positive for: Atraumatic, Normocephalic Pupils: Positive for: PERRL Extroacular Muscles: Positive for: EOMI Conjunctiva: Positive for: Normal Ears: Positive for: Normal Mouth: Positive for: Moist Mucous Membranes Neck: Positive for: Normal Range of Motion. Negative for: JVD Respiratory/Chest: Positive for: Clear to Auscultation, Good Air Exchange. Negative for: Wheezes, Rales, Rhonchi Cardiovascular: Positive for: Regular Rate and Rhythm, Normal S1, S2. Negative for: Murmurs, Rub, Gallop Abdomen: Negative for: Tenderness, Distention, Rebound, Guarding Upper Extremity: Positive for: Normal Inspection, Normal ROM. Negative for: Cyanosis, Edema Lower Extremity: Positive for: Normal Inspection. Negative for: Edema Neurological: Positive for: GCS=15, Speech Normal, Motor Func Grossly Intact Skin: Positive for: Warm, Dry, Normal Color Psychiatric: Positive for: Alert, Oriented x 3, Normal Insight, Normal Concentration - Medications Active Medications: Active Medications Generic Name Dose Route Start Last Admin Trade Name Freq PRN Reason Stop Dose Admin Amlodipine Besylate 10 mg 11/21/17 10:00 11/23/17 11:32 Norvasc PO 10 mg DAILY [facility]ATHER Administration Apixaban 2.5 mg 11/19/17 18:00 11/23/17 09:41 Eliquis PO Not Given BID [facility] Protocol Hydralazine HCl 10 mg 11/20/17 10:37 11/22/17 10:26 Apresoline PO 10 mg QID PRN Administration for sbp>160 Lisinopril 20 mg 11/21/17 10:00 11/23/17 11:33 Zestril PO 20 mg DAILY HEATHER Administration Pantoprazole Sodium 40 mg 11/21/17 06:00 11/24/17 06:03 Protonix Ec Tab PO 40 mg 0600 HEATHER Administration - Patient Studies Lab Studies: Microbiology Studies 11/18/17 19:15 Blood Culture - Final Blood-Venous NO GROWTH AFTER 5 DAYS Gram Stain - Final TEST NOT PERFORMED 11/18/17 19:30 Blood Culture - Final Blood-Venous NO GROWTH AFTER 5 DAYS Gram Stain - Final TEST NOT PERFORMED Lab Studies 11/24/17 11/24/17 Range/Units 05:40 05:40 WBC 6.3 (4.5-11.0) 10^3/ul RBC 3.98 (3.5-6.1) 10^6/uL Hgb 11.7 L (14.0-18.0) g/dL Hct 33.6 L (42.0-52.0) % MCV 84.4 (80.0-105.0) fl MCH 29.4 (25.0-35.0) pg MCHC 34.8 (31.0-37.0) g/dl RDW 15.0 H (11.5-14.5) % Plt Count 76 L (120.0-450.0) 10^3/uL Gran % 60.1 (50.0-68.0) % Lymph % (Auto) 18.7 L (22.0-35.0) % [place] % (Auto) 20.8 H (1.0-6.0) % Eos % (Auto) 0.2 L (1.5-5.0) % Baso % (Auto) 0.2 (0.0-3.0) % Gran # 3.80 (1.4-6.5) Lymph # (Auto) 1.2 (1.2-3.4) [place] # (Auto) 1.3 H (0.1-0.6) Eos # (Auto) 0.0 (0.0-0.7) Baso # (Auto) 0.01 (0.0-2.0) K/mm3 Neutrophils % (Manual) 70 (50.0-70.0) % Lymphocytes % (Manual) 23 (22.0-35.0) % Monocytes % (Manual) 7 H (1.0-6.0) % Platelet Evaluation Low (NORMAL) Poikilocytosis (manual Slight Anisocytosis (manual) Slight Target Cells Slight Sodium 136 (132-148) mmol/L Potassium 4.0 (3.6-5.0) mmol/L Chloride 99 (98-107) mmol/L Carbon Dioxide 31 (21-33) mmol/L Anion Gap 10 (10-20) BUN 26 H (7-21) mg/dL Creatinine 1.1 (0.8-1.5) mg/dl Est GFR ( Amer) > 60 Est GFR (Non-Af Amer) > 60 Random Glucose 91 (70-110) mg/dL Calcium 8.9 (8.4-10.5) mg/dL Phosphorus 2.6 (2.5-4.5) mg/dL Magnesium 2.0 (1.7-2.2) mg/dL Total Bilirubin 0.9 (0.2-1.3) mg/dL AST 222 H D (17-59) U/L ALT 248 H (7-56) U/L Alkaline Phosphatase 188 H (38-126) U/L Total Protein 6.3 (5.8-8.3) g/dL Albumin 3.2 (3.0-4.8) g/dL Globulin 3.2 gm/dL Albumin/Globulin Ratio 1.0 L (1.1-1.8) Laboratory Results - last 24 hr 11/24/17 11/24/17 05:40 05:40 WBC 6.3 RBC 3.98 Hgb 11.7 L Hct 33.6 L MCV 84.4 MCH 29.4 MCHC 34.8 RDW 15.0 H Plt Count 76 L Gran % 60.1 Lymph % (Auto) 18.7 L [place] % (Auto) 20.8 H Eos % (Auto) 0.2 L Baso % (Auto) 0.2 Gran # 3.80 Lymph # (Auto) 1.2 [place] # (Auto) 1.3 H Eos # (Auto) 0.0 Baso # (Auto) 0.01 Neutrophils % (Manual) 70 Lymphocytes % (Manual) 23 Monocytes % (Manual) 7 H Platelet Evaluation Low Poikilocytosis (manual Slight Anisocytosis (manual) Slight Target Cells Slight Sodium 136 Potassium 4.0 Chloride 99 Carbon Dioxide 31 Anion Gap 10 BUN 26 H Creatinine 1.1 Est GFR ( Amer) > 60 Est GFR (Non-Af Amer) > 60 Random Glucose 91 Calcium 8.9 Phosphorus 2.6 Magnesium 2.0 Total Bilirubin 0.9 AST 222 H D ALT 248 H Alkaline Phosphatase 188 H Total Protein 6.3 Albumin 3.2 Globulin 3.2 Albumin/Globulin Ratio 1.0 L EKG/Cardiology Studies: Cardiology / EKG Studies 11/23/17 18:40 EKG [ELECTROCARDIOGRAM] Routine Comment: Reason For Exam: post implant Review of Systems - Cardiovascular Cardiovascular: As Per HPI - Respiratory Respiratory: As Per HPI - Gastrointestinal Gastrointestinal: As Per HPI Critical Care Progress Note - Nutrition Nutrition: Nutrition Category Date Time Status Heart Healthy Diet [DIET] Diets 11/19/17 Breakfast Active Assessment/Plan - Assessment and Plan (Free Text) Assessment: 87 yo M with PMH of chronic AFib s/p failed cardioversion (on home eliquis), originally presented s/p fall was subsequently found to 3rd degree block with HR in low 40s and evidence of end organ damage. He was subsequently admitted to ICU. He is now s/p pacemaker placement POD 1. Plan: Neuro: -AAOx3, no FND, moving extremities past midline -Monitor neuro status Cardio: -Pacemaker placed yesterday, patient tolerated procedure well -HR stable paced at 70, HR maintained at 70 overnight -BP stable, continue to maintain MAP > 65 -Cardiology following, agree patient may be transferred to telemetry Pulm: -CTA bilaterally -CXR in ED without acute findings -Maintain O2 saturation>95% -O2 NC PRN GI: -Advance diet as tolerated s/p pacemaker placement -Patient currently tolerating diet well without nausea/vomiting /Nephro: -BUN/Cr stable -ARTEMIO noted on admission, now resolved -Maintain euvolemia -Replete electrolytes as needed ID: -On treatment for H. pylori at home -Continue clarithromycin, amoxicillin, rocephin, protonix -Consider ID consultation as needed Heme/Onc: -H/H stable at 11.7/33.6 -No signs of HD compromise -Continue monitoring H/H GI/DVT PPX: Protonix and restart home eliquis per cardiology recs Full Code Transfer to telemetry Case and plan reviewed and discussed with my attending Dr. Liudmila Pérez, DO IM Resident PGY-1
--- NOTE | 2017-11-24 10:38 | CP.PCM.PN ---
<Brendan Ko - Last Filed: 11/24/17 11:07> Subjective - Date & Time of Evaluation Date of Evaluation: 11/24/17 Time of Evaluation: 10:36 - Subjective Subjective: Patient is doing well. He is s/p PPM. No jaundice. Objective - Vital Signs/Intake and Output Vital Signs (last 24 hours): Temp Pulse Resp BP Pulse Ox 98 F 70 21 105/58 L 98 11/22/17 22:00 11/24/17 10:00 11/23/17 20:40 11/24/17 10:00 11/23/17 20:40 Intake and Output: 11/24/17 11/24/17 06:59 18:59 Intake Total 240 Output Total 500 Balance -260 - Medications Medications: Current Medications Amiodarone HCl (Cordarone) 200 mg PO DAILY [facility] Last Admin: 11/24/17 10:00 Dose: 200 mg Apixaban (Eliquis) 2.5 mg PO BID [facility]; Protocol Last Admin: 11/24/17 10:00 Dose: 2.5 mg Carvedilol (Coreg) 3.125 mg PO BID [facility] Last Admin: 11/24/17 10:00 Dose: 3.125 mg Hydralazine HCl (Apresoline) 10 mg PO QID PRN PRN Reason: for sbp>160 Last Admin: 11/22/17 10:26 Dose: 10 mg Lisinopril (Zestril) 10 mg PO DAILY [facility] Last Admin: 11/24/17 10:00 Dose: 10 mg Pantoprazole Sodium (Protonix Ec Tab) 40 mg PO 0600 [facility] Last Admin: 11/24/17 06:03 Dose: 40 mg - Labs Labs: 11/24/17 05:40 11/24/17 05:40 PT 11.9 SECONDS (9.4-12.5) 11/21/17 12:00 INR 1.03 11/21/17 12:00 APTT 71.3 Seconds (25.1-36.5) H 11/21/17 12:00 - Constitutional Appears: Non-toxic, No Acute Distress - Head Exam Head Exam: NORMAL INSPECTION - Eye Exam Eye Exam: Normal appearance - ENT Exam ENT Exam: Mucous Membranes Moist - Respiratory Exam Respiratory Exam: Clear to Ausculation Bilateral, NORMAL BREATHING PATTERN - Cardiovascular Exam Cardiovascular Exam: REGULAR RHYTHM, +S1, +S2 - GI/Abdominal Exam GI & Abdominal Exam: Soft, Normal Bowel Sounds. absent: Tenderness - Extremities Exam Extremities Exam: Normal Inspection - Neurological Exam Neurological Exam: Alert, Awake, Oriented x3 - Psychiatric Exam Psychiatric exam: Normal Affect, Normal Mood - Skin Skin Exam: Dry, Normal Color Assessment and Plan - Assessment and Plan (Free Text) Assessment: 87 year old male with past medical history of systolic CHF with last known EF of 10-15%, history of TAVR, dilated cardiomyopathy, chronic atrial fibrillation, s/p cardiac cath with evidence of non occlusive CAD admitted for cardiac arrthymia found to be in AV retrograde conductance vs. 3rd degree heart block NOW s/p PPM 11/23/17 Plan: Etiology: Drug induced liver injury secondary to clarithromycin and amiodarone in the setting of possible hypovolemia vs. ?ischemia vs. congestive hepatopathy -Liver tests showing gradual improvement -Treating HP is not emergent. Would hold off possible hepatotoxic meds until normalization of ALT. He will need to restart treatment once stable. -Abd/Pelvis CT: cholelithiasis, distended gallbladder, multiple renal cysts b/l, prostate slightly enlarged with calcifications, moderately enlarged heart with evidence of TAVR - Abdominal US shows normal liver, patent vessels -Continue PPI -Follow ALT to resolution. -Further recommendations per Dr. Funez <Gavin Funez V - Last Filed: 11/24/17 22:55> Objective - Vital Signs/Intake and Output Vital Signs (last 24 hours): Temp Pulse Resp BP Pulse Ox 98 F 70 29 H 137/85 98 11/22/17 22:00 11/24/17 22:10 11/24/17 22:10 11/24/17 22:00 11/24/17 22:10 Intake and Output: 11/24/17 11/25/17 18:59 06:59 Intake Total 420 Output Total 550 Balance -130 - Medications Medications: Current Medications Amiodarone HCl (Cordarone) 200 mg PO DAILY [facility] Last Admin: 11/24/17 10:00 Dose: 200 mg Apixaban (Eliquis) 2.5 mg PO BID [facility]; Protocol Last Admin: 11/24/17 17:31 Dose: 2.5 mg Carvedilol (Coreg) 3.125 mg PO BID [facility] Last Admin: 11/24/17 17:31 Dose: 3.125 mg Hydralazine HCl (Apresoline) 10 mg PO QID PRN PRN Reason: for sbp>160 Last Admin: 11/22/17 10:26 Dose: 10 mg Lisinopril (Zestril) 10 mg PO DAILY [facility] Last Admin: 11/24/17 10:00 Dose: 10 mg Pantoprazole Sodium (Protonix Ec Tab) 40 mg PO 0600 [facility] Last Admin: 11/24/17 06:03 Dose: 40 mg - Labs Labs: 11/24/17 05:40 11/24/17 05:40 PT 11.9 SECONDS (9.4-12.5) 11/21/17 12:00 INR 1.03 11/21/17 12:00 APTT 71.3 Seconds (25.1-36.5) H 11/21/17 12:00 Attending/Attestation - Attestation I have personally seen and examined this patient.: Yes I have fully participated in the care of the patient.: Yes I have reviewed all pertinent clinical information, including history, physical exam and plan: Yes Notes (Text): This is an addendum to GI progress report dictated by the GI Fellow.The patient was seen and examined earlier. Medical records, lab studies, imagings were reviewed. Last 24 hours events reviewed. Agreed with the above treatment plan as outlined in GI Fellow 's notes with the addition of the following LFT shows improving trend Status post permanent pacemaker Continue PPI Soft diet Advised to chew well outpatient GI followup 11/24/17 22:54
--- NOTE | 2017-11-24 10:41 | CARD ---
APPROVED REPORT Date of service: 11/23/2017 EKG Measurement Heart [id number] <Conclusion> Electronic atrial pacemaker Left Anterior Simone-Block. Left ventricular hypertrophy with QRS widening Inferior infarct, age Old? Abnormal ECG
--- NOTE | 2017-11-24 11:38 | PN ---
DATE: 11/24/2017 REASON FOR CONSULTATION: Sick sinus syndrome, complete heart block, history of AFib in the past. This time admitted with AV dissociation and heart block status post TAVR, refused AICD status post pacemaker done yesterday by Dr. Zuluaga. PHYSICAL EXAMINATION: VITAL SIGNS: Temperature afebrile, heart rate 70, blood pressure 130/80. HEENT: PERRLA. Extraocular muscles intact. NECK: Supple. No carotid bruits or thyromegaly. CHEST: Clear to auscultation. HEART: S1, S2 regular. ABDOMEN: Soft. EXTREMITIES: Clubbing and cyanosis negative. LABORATORY DATA: Blood workup as follows: WBC 6.3, hemoglobin 11.7, hematocrit 33.6, platelet count 76. Chemistry shows sodium 130, potassium 4, chloride 99, carbon dioxide 31, anion gap of 10, BUN 26, creatinine 1.1. IMPRESSION: An 87-year-old male with past medical history significant for critical aortic stenosis, TAVR, nonobstructive coronary artery disease status post TAVR 2 years ago, admitted with bradycardia, history of atrial fibrillation. At this time admitted with sinus with AV disassociation. Now the patient has normal sinus status post pacemaker, refused AICD. Repeat echo done, ejection fraction significantly improved though patient was on at that time dopamine. RECOMMENDATIONS: We will resume back Coreg, lisinopril, transfer to Telemetry. We will put low dose amiodarone to keep in sinus and Coreg. Currently, the patient is on sinus, so we will keep him off from anticoagulation. We will follow with you. If patient goes back into AFib, we will consider restarting Eliquis or anticoagulation. We will discontinue amlodipine for now and also decrease dose of lisinopril to 10 mg daily to prevent going into hypotension. We will repeat the EKG in the morning. Thank you, Dr. Martin, for providing us the opportunity in taking care of patient, Nikolas Bach. Jte Rich MD
--- NOTE | 2017-11-24 16:29 | PN ---
DATE: 11/24/2017 SUBJECTIVE: The patient is 87 years old. The patient is lying in bed, seems to be comfortable. Underwent procedure and had pacemaker placed yesterday by Dr. Matias. Doing well, eating and tolerating. PHYSICAL EXAMINATION: VITAL SIGNS: He is afebrile, pulse 70, respirations 18, blood pressure 105/58. LUNGS: Bilateral fair airflow. No rhonchi or crackle. HEART: S1 and S2 audible. ABDOMEN: Soft. Nontender. No rebound. No guarding. NEUROLOGICAL: The patient is awake, alert, oriented, communicative. LABORATORY EXAM: WBC 6.3, hemoglobin 11.7, hematocrit 33.6, platelet of 76. Chemistry: Sodium 136, potassium 4, chloride 99, CO2 of 26, BUN 91, AST 222, ALT 248 and alk phos is 188. His blood cultures are negative. Urine shows gram-positive cocci. ASSESSMENT: 1. Status post complete heart block. 2. Chronic atrial fibrillation. 3. Chronic kidney disease. 4. Congestive heart failure with cardiomyopathy and ejection fraction of 10-15%. 5. History of aortic valve replacement. PLAN: The patient is clinically stable, will be transferred to telemetry. We will get TCU evaluation and if accepted, can be transferred to TCU in a day or two. Kendall Martin MD
[2017-11-25] MEDS: Pantoprazole 40 mg EC Tab PO SCH (06:10)
[2017-11-25 06:21] LABS: BASO # 0.01 K/mm3 (0.0-2.0); BASO % 0.1 % (0.0-3.0); EOS % 0.3 % (1.5-5.0); GRAN # 4.27 (1.4-6.5); GRAN % 62.8 % (50.0-68.0); HEMOGLOBIN 12.7 g/dL (14.0-18.0); LYMPH # 1.2 (1.2-3.4); LYMPH % 18.2 % (22.0-35.0); MEAN CELL VOLUME 84.6 fl (80.0-105.0); MEAN CORPUSCULAR HEMOGLOBIN 29.3 pg (25.0-35.0); MEAN CORPUSCULAR HGB CONC 34.6 g/dl (31.0-37.0); MONO # 1.3 (0.1-0.6); MONO % 18.6 % (1.0-6.0); PLATELET COUNT 92 10^3/uL (120.0-450.0); RBC 4.34 10^6/uL (3.5-6.1); RED CELL DISTRIBUTION WIDTH 15.3 % (11.5-14.5); WHITE BLOOD COUNT 6.8 10^3/ul (4.5-11.0)
[2017-11-25 07:11] LABS: ALBUMIN 3.2 g/dL (3.0-4.8); ALT/SGPT 202 U/L (7-56); AST/SGOT 154 U/L (17-59); BLOOD UREA NITROGEN 28 mg/dL (7-21); CALCIUM 8.7 mg/dL (8.4-10.5); GFR NON-AFRICAN AMERICAN > 60
--- NOTE | 2017-11-25 08:26 | CP.PCM.PN ---
<Parish Bruce - Last Filed: 11/25/17 08:23> Subjective - Date & Time of Evaluation Date of Evaluation: 11/25/17 Time of Evaluation: 08:23 - Subjective Subjective: Robbie Teo PGY2 - GI Progress Note Patient seen and examined this AM. No acute events reported overnight. Patient able to tolerate diet. Denies abdominal pain, nausea, vomiting, fever, chills. Objective - Vital Signs/Intake and Output Vital Signs (last 24 hours): Temp Pulse Resp BP Pulse Ox 98 F 70 29 H 137/85 98 11/22/17 22:00 11/25/17 05:38 11/24/17 22:10 11/24/17 22:00 11/24/17 22:10 Intake and Output: 11/25/17 11/25/17 06:59 18:59 Intake Total 50 Output Total 1400 Balance -1350 - Medications Medications: Current Medications Amiodarone HCl (Cordarone) 200 mg PO DAILY [facility] Last Admin: 11/24/17 10:00 Dose: 200 mg Apixaban (Eliquis) 2.5 mg PO BID [facility]; Protocol Last Admin: 11/24/17 17:31 Dose: 2.5 mg Carvedilol (Coreg) 3.125 mg PO BID [facility] Last Admin: 11/24/17 17:31 Dose: 3.125 mg Hydralazine HCl (Apresoline) 10 mg PO QID PRN PRN Reason: for sbp>160 Last Admin: 11/22/17 10:26 Dose: 10 mg Lisinopril (Zestril) 10 mg PO DAILY [facility] Last Admin: 11/24/17 10:00 Dose: 10 mg Pantoprazole Sodium (Protonix Ec Tab) 40 mg PO 0600 [facility] Last Admin: 11/24/17 06:03 Dose: 40 mg - Labs Labs: 11/25/17 05:30 11/25/17 05:30 PT 11.9 SECONDS (9.4-12.5) 11/21/17 12:00 INR 1.03 11/21/17 12:00 APTT 71.3 Seconds (25.1-36.5) H 11/21/17 12:00 - Constitutional Appears: Non-toxic, No Acute Distress - Head Exam Head Exam: ATRAUMATIC, NORMAL INSPECTION, NORMOCEPHALIC - Eye Exam Eye Exam: EOMI, PERRL - ENT Exam ENT Exam: Mucous Membranes Moist - Respiratory Exam Respiratory Exam: Clear to Ausculation Bilateral, NORMAL BREATHING PATTERN. absent: Wheezes - Cardiovascular Exam Cardiovascular Exam: REGULAR RHYTHM, +S1, +S2 - GI/Abdominal Exam GI & Abdominal Exam: Soft, Normal Bowel Sounds. absent: Guarding, Rigid, Tenderness - Extremities Exam Extremities Exam: absent: Calf Tenderness - Neurological Exam Neurological Exam: Alert, Awake, Oriented x3 Neuro motor strength exam: Left Upper Extremity: 5, Right Upper Extremity: 5, Left Lower Extremity: 5, Right Lower Extremity: 5 - Psychiatric Exam Psychiatric exam: Normal Affect, Normal Mood - Skin Skin Exam: Dry, Intact Additional comments: Pacemaker incision with bandage, clean, dry intact Assessment and Plan - Assessment and Plan (Free Text) Assessment: 87 year old male with past medical history of systolic CHF with last known EF of 10-15%, history of TAVR, dilated cardiomyopathy, chronic atrial fibrillation, s/ p cardiac cath with evidence of non occlusive CAD admitted for cardiac arrthymia found to be in AV retrograde conductance vs. 3rd degree heart block NOW s/p PPM 11/23/17 Plan: Drug induced liver injury Transaminitis hx h. pylori CHF CAD Etiology: Drug induced liver injury secondary to clarithromycin and amiodarone in the setting of possible hypovolemia vs. ?ischemia vs. congestive hepatopathy -Liver tests showing gradual improvement -Treating HP is not emergent. Would hold off possible hepatotoxic meds until normalization of ALT. He will need to restart treatment once stable. -Abd/Pelvis CT: cholelithiasis, distended gallbladder, multiple renal cysts b/l, prostate slightly enlarged with calcifications, moderately enlarged heart with evidence of TAVR - Abdominal US shows normal liver, patent vessels -Continue PPI -Follow ALT to resolution. -Further recommendations per Dr. Funez <Gavin Funez V - Last Filed: 11/25/17 22:43> Objective - Vital Signs/Intake and Output Vital Signs (last 24 hours): Temp Pulse Resp BP Pulse Ox 98 F 70 15 111/61 98 11/22/17 22:00 11/25/17 17:11 11/25/17 10:52 11/25/17 18:00 11/24/17 22:10 Intake and Output: 11/25/17 11/26/17 18:59 06:59 Intake Total 760 Output Total 575 Balance 185 - Medications Medications: Current Medications Amiodarone HCl (Cordarone) 200 mg PO DAILY [facility] Last Admin: 11/25/17 09:33 Dose: 200 mg Apixaban (Eliquis) 2.5 mg PO BID [facility]; Protocol Last Admin: 11/24/17 17:31 Dose: 2.5 mg Carvedilol (Coreg) 3.125 mg PO BID [facility] Last Admin: 11/25/17 17:11 Dose: 3.125 mg Enoxaparin Sodium (Lovenox) 40 mg SC DAILY [facility]; Protocol Last Admin: 11/25/17 09:43 Dose: 40 mg Hydralazine HCl (Apresoline) 10 mg PO QID PRN PRN Reason: for sbp>160 Last Admin: 11/22/17 10:26 Dose: 10 mg Lisinopril (Zestril) 10 mg PO DAILY [facility] Last Admin: 11/25/17 09:37 Dose: 10 mg Pantoprazole Sodium (Protonix Ec Tab) 40 mg PO 0600 [facility] Last Admin: 11/24/17 06:03 Dose: 40 mg - Labs Labs: 11/25/17 05:30 11/25/17 05:30 PT 11.9 SECONDS (9.4-12.5) 11/21/17 12:00 INR 1.03 11/21/17 12:00 APTT 71.3 Seconds (25.1-36.5) H 11/21/17 12:00 Attending/Attestation - Attestation I have personally seen and examined this patient.: Yes I have fully participated in the care of the patient.: Yes I have reviewed all pertinent clinical information, including history, physical exam and plan: Yes Notes (Text): This is an addendum to GI followup report dictated by the Electro Mechanical Designer. The patient was seen and evaluated earlier. Medical records, lab studies, imagings were reviewed. Last 24 hours events reviewed. Agreed with the above treatment plan as outlined in Electro Mechanical Designer 's notes with the addition of the following LFT shows a downward trend Tolerating diet Status post PPM Follow-up LFT and hemoglobin 11/25/17 22:42
[2017-11-25] MEDS: Enoxaparin 40 mg Syringe SC SCH (09:43)
--- NOTE | 2017-11-25 09:54 | CARD ---
APPROVED REPORT Date of service: 11/25/2017 EKG Measurement Heart [id number] [id number] <Conclusion> Electronic atrial pacemaker Left axis deviation Nonspecific intraventricular block Inferior infarct, age Old? Abnormal ECG
--- NOTE | 2017-11-25 11:50 | PQF ---
PROVIDER RESPONSE TEXT: Chronic kidney disease stag 4 REVIEWER QUERY TEXT: Kidney Disease, Chronic CKD Stage Chronic Kidney Disease (CKD) is documented in the Medical Record. Please specify the disease stage ( includes probable or suspected) Such as: -- Chronic kidney disease Stage 1 -- Chronic kidney disease Stage 2 -- Chronic kidney disease Stage 3 -- Chronic kidney disease Stage 4 -- Chronic kidney disease Stage 5 -- Chronic kidney disease Stage 5, requiring dialysis -- End Stage Renal Disease -- Other, please specify Stages are defined by the [employer] as follows: CKD Stage I GFR >= 90 ml / min per 1.73 m2 and persistent albuminuria CKD Stage 2 GFR between 60 and 89 with persistent albuminuria CKD Stage 3 GFR between 30 and 59 CKD Stage 4 GFR between 15 and 29 CKD Stage 5 GFR between <15 or End Stage Renal Disease The patient's Clinical Indicators include: Documentation in the record notes patient has hx CKD. BUN/creatinine elevated on admission with diagn osis of ARTEMIO. Please specify stage of CKD. Query created by: Loree Aradna on 11/22/2017 10:33 AM Electronically signed by: Kendall Martin MD 11/25/2017 11:47 AM
--- NOTE | 2017-11-25 15:04 | PN ---
DATE: 11/25/2017 REASON FOR CONSULTATION AND FOLLOWUP: Sick sinus syndrome, complete heart block, paroxysmal AFib in the past, converted to normal sinus with isorhythmic AV dissociation, refused AICD, post TAVR, status post permanent pacemaker implanted by Dr. Zuluaga the day before yesterday. SUBJECTIVE: The patient denies any chest pain, shortness of breath, or any palpitation. OBJECTIVE: GENERAL: Not in any apparent distress. VITAL SIGNS: Temperature afebrile, heart rate 70, blood pressure 137/85. HEENT: PERRLA. Extraocular muscles are intact. NECK: Supple. No carotid bruits or thyromegaly. CHEST: Clear to auscultation. HEART: S1 and S2, regular. ABDOMEN: Soft. EXTREMITIES: Clubbing and cyanosis negative. LABORATORY DATA: WBC 6.8, hemoglobin 12.7, hematocrit 36.7, and platelet count 92. Chemistry shows sodium 137, potassium 4.4, chloride 101, carbon dioxide 30, anion gap of 9. BUN 20 and creatinine 1.1. AST 154, ALT 202. IMPRESSION: History of atrial fibrillation since transcatheter aortic valve replacement, admitted with bradycardia, converted to normal sinus with atrioventricular dissociation, complete heart block, shock liver probably recovering from hypotension secondary to underlying condition, history of cardiomyopathy. Repeat echo shows ejection fraction of 55%, on dopamine. History of cardiomyopathy, history of normal coronaries, history of weight loss. RECOMMENDATIONS: Transfer to med-surg floor. No telemetry bed is available. Continue amiodarone. Keep in normal sinus. Increase Coreg to 3.125 mg daily. Put low doses of lisinopril, BOB inhibitors as blood pressure is tolerated. Then, we will get a MUGA scan to assess the LV function. We will transfer critical care to med-surg floor. We will get MUGA scan today. We will get repeat blood workup in the morning. Probably this shock liver is secondary to probability of elevated AST, ALT, bilirubin secondary to shock liver, improving. We will put DVT prophylaxis to prevent DVT and we will put physical therapy for ambulation. Jet Rich MD [facility] # [id number]
--- NOTE | 2017-11-25 17:29 | PN ---
DATE: 11/25/2017 SUBJECTIVE: The patient is 87 years old, seen and examined, resting comfortably in ICU, found in bed 1 of ICU. Denies any chest pain. No shortness of breath. Today, he feels well. PHYSICAL EXAMINATION: VITAL SIGNS: He is afebrile, pulse 70, respirations 18, and blood pressure 152/92. LUNGS: Bilateral good airflow. No rhonchi or crackle. HEART: S1 and S2 audible. ABDOMEN: Soft, nontender. No rebound, no guarding. NEUROLOGICAL: The patient is awake, alert, and communicative. EXTREMITIES: Bilateral legs, no edema. LABORATORY EXAM: WBC is 6.8, hemoglobin 12.7, hematocrit 36.7, and platelets of 92. Chemistry: Sodium 136, potassium 4.4, chloride 101, CO2 of 30. BUN 28, creatinine 1.1. Blood sugar of 97. AST 154, ALT 202, alk phos is 186. ASSESSMENT: 1. Status post complete heart block, status post multiple falls. 2. Status post pacemaker placement. 3. Chronic atrial fibrillation. 4. Aortic valve replacement. 5. Dilated cardiomyopathy. 6. Deconditioning, difficulty walking. PLAN: The patient will be transferred to remote tele. Continue on amiodarone, carvedilol. He will be started on Eliquis. Currently, he is on Lovenox, Protonix, and lisinopril. We will follow up this patient in a.m. Kendall Martin MD
--- NOTE | 2017-11-25 22:15 | CARD ---
APPROVED REPORT Date of service: 11/25/2017 PROCEDURE The above named patient recieved 25.6 millicuries of Tc99m tagged red blood cells intravenously. After achieving equilibrium, gated imaging of 16/frame/cycle was performed utillizing Gamma camera interfaced with a digital computer and gated device. Gated imaging was then performed in the left anterior oblique, anterior, and the left lateral projections. Findings Left Ventricle: The quality of the study is good. The left ventricle is within normal limits in size. The right ventricle is normal in size. Wall motion study shows good contractility of the left ventricle. RV wall motion is normal. The right atrium is dynamic.. The remainder of the study is unremarkable. Impressions Normal gated wall motion of left ventricle wall. LVEF = 59%. Normal RV wall motion.
[2017-11-26] MEDS: Pantoprazole 40 mg EC Tab PO SCH (05:42)
[2017-11-26 06:10] LABS: EOS # 0.1 (0.0-0.7); EOS % 0.7 % (1.5-5.0); GRAN # 4.37 (1.4-6.5); GRAN % 61.2 % (50.0-68.0); HEMOGLOBIN 12.2 g/dL (14.0-18.0); LYMPH # 1.5 (1.2-3.4); MEAN CELL VOLUME 84.3 fl (80.0-105.0); MEAN CORPUSCULAR HEMOGLOBIN 29.4 pg (25.0-35.0); MEAN CORPUSCULAR HGB CONC 34.9 g/dl (31.0-37.0); MONO # 1.2 (0.1-0.6); MONO % 17.1 % (1.0-6.0); PLATELET COUNT 76 10^3/uL (120.0-450.0); RBC 4.15 10^6/uL (3.5-6.1); RED CELL DISTRIBUTION WIDTH 15.5 % (11.5-14.5); WHITE BLOOD COUNT 7.1 10^3/ul (4.5-11.0)
[2017-11-26 06:48] LABS: ALB/GLOB RATIO 0.9 (1.1-1.8); ALBUMIN 3.1 g/dL (3.0-4.8); ALT/SGPT 164 U/L (7-56); AST/SGOT 120 U/L (17-59); BLOOD UREA NITROGEN 31 mg/dL (7-21); CALCIUM 8.7 mg/dL (8.4-10.5); GFR NON-AFRICAN AMERICAN > 60
--- NOTE | 2017-11-26 07:52 | CP.PCM.PN ---
<Parish Bruce - Last Filed: 11/26/17 07:47> Subjective - Date & Time of Evaluation Date of Evaluation: 11/26/17 Time of Evaluation: 07:47 - Subjective Subjective: Robbie Bruce - GI Progress Note Patient seen and examined this AM. No acute events reported overnight. Patient clinically unchanged, tolerating diet, LFT trending downward. Objective - Vital Signs/Intake and Output Vital Signs (last 24 hours): Temp Pulse Resp BP Pulse Ox 98 F 70 47 H 114/67 98 11/22/17 22:00 11/25/17 23:30 11/25/17 23:30 11/25/17 20:00 11/24/17 22:10 Intake and Output: 11/26/17 11/26/17 06:59 18:59 Intake Total 60 Output Total 2 Balance 58 - Medications Medications: Current Medications Amiodarone HCl (Cordarone) 200 mg PO DAILY [facility] Last Admin: 11/25/17 09:33 Dose: 200 mg Apixaban (Eliquis) 2.5 mg PO BID [facility]; Protocol Last Admin: 11/24/17 17:31 Dose: 2.5 mg Carvedilol (Coreg) 3.125 mg PO BID [facility] Last Admin: 11/25/17 17:11 Dose: 3.125 mg Enoxaparin Sodium (Lovenox) 40 mg SC DAILY [facility]; Protocol Last Admin: 11/25/17 09:43 Dose: 40 mg Hydralazine HCl (Apresoline) 10 mg PO QID PRN PRN Reason: for sbp>160 Last Admin: 11/22/17 10:26 Dose: 10 mg Lisinopril (Zestril) 10 mg PO DAILY [facility] Last Admin: 11/25/17 09:37 Dose: 10 mg Pantoprazole Sodium (Protonix Ec Tab) 40 mg PO 0600 [facility] Last Admin: 11/26/17 05:42 Dose: 40 mg - Labs Labs: 11/26/17 05:26 11/26/17 05:26 PT 11.9 SECONDS (9.4-12.5) 11/21/17 12:00 INR 1.03 11/21/17 12:00 APTT 71.3 Seconds (25.1-36.5) H 11/21/17 12:00 - Constitutional Appears: Non-toxic - Head Exam Head Exam: ATRAUMATIC, NORMOCEPHALIC - Eye Exam Eye Exam: EOMI, PERRL - ENT Exam ENT Exam: Mucous Membranes Moist - Respiratory Exam Respiratory Exam: Clear to Ausculation Bilateral, NORMAL BREATHING PATTERN - Cardiovascular Exam Cardiovascular Exam: REGULAR RHYTHM, +S1, +S2 - GI/Abdominal Exam GI & Abdominal Exam: Soft, Normal Bowel Sounds - Neurological Exam Neurological Exam: Alert, Awake, Oriented x3 Neuro motor strength exam: Left Upper Extremity: 5, Right Upper Extremity: 5, Left Lower Extremity: 5, Right Lower Extremity: 5 - Psychiatric Exam Psychiatric exam: Normal Affect, Normal Mood - Skin Skin Exam: Dry, Warm Assessment and Plan - Assessment and Plan (Free Text) Assessment: 87 year old male with past medical history of systolic CHF with last known EF of 10-15%, history of TAVR, dilated cardiomyopathy, chronic atrial fibrillation, s/p cardiac cath with evidence of non occlusive CAD admitted for cardiac arrhythmia who is s/p pacemaker placement by EP Dr. Phillips. Plan: Drug induced liver injury Transaminitis hx h. pylori CHF CAD Etiology: Drug induced liver injury secondary to clarithromycin and amiodarone in the setting of possible hypovolemia vs. ?ischemia vs. congestive hepatopathy -Liver tests showing gradual improvement -Treating HP is not emergent. Would hold off possible hepatotoxic meds until normalization of ALT. He will need to restart treatment once stable. -Abd/Pelvis CT: cholelithiasis, distended gallbladder, multiple renal cysts b/l, prostate slightly enlarged with calcifications, moderately enlarged heart with evidence of TAVR - Abdominal US shows normal liver, patent vessels -Continue PPI -Follow ALT to resolution. Trend past three days 249 > 202 > 164 -Further recommendations per Dr. Funez <Gavin Funez V - Last Filed: 11/27/17 00:07> Objective - Vital Signs/Intake and Output Vital Signs (last 24 hours): Temp Pulse Resp BP Pulse Ox 98.4 F 70 18 98/64 L 98 11/26/17 17:33 11/26/17 17:33 11/26/17 17:33 11/26/17 17:33 11/26/17 17:33 Intake and Output: 11/26/17 11/27/17 18:59 06:59 Intake Total 680 Output Total 270 Balance 410 - Medications Medications: Current Medications Amiodarone HCl (Cordarone) 200 mg PO DAILY [facility] Last Admin: 11/26/17 09:04 Dose: 200 mg Apixaban (Eliquis) 2.5 mg PO BID [facility]; Protocol Last Admin: 11/24/17 17:31 Dose: 2.5 mg Carvedilol (Coreg) 6.25 mg PO BID [facility] Last Admin: 11/26/17 17:21 Dose: Not Given Enoxaparin Sodium (Lovenox) 40 mg SC DAILY [facility]; Protocol Last Admin: 11/26/17 09:05 Dose: 40 mg Furosemide (Lasix) 40 mg PO DAILY [facility] Last Admin: 11/26/17 09:04 Dose: 40 mg Hydralazine HCl (Apresoline) 10 mg PO QID PRN PRN Reason: for sbp>160 Last Admin: 11/22/17 10:26 Dose: 10 mg Lisinopril (Zestril) 10 mg PO DAILY [facility] Last Admin: 11/26/17 09:05 Dose: 10 mg Pantoprazole Sodium (Protonix Ec Tab) 40 mg PO 0600 [facility] Last Admin: 11/26/17 05:42 Dose: 40 mg - Labs Labs: 11/26/17 05:26 11/26/17 05:26 PT 11.9 SECONDS (9.4-12.5) 11/21/17 12:00 INR 1.03 11/21/17 12:00 APTT 71.3 Seconds (25.1-36.5) H 11/21/17 12:00 Attending/Attestation - Attestation I have personally seen and examined this patient.: Yes I have fully participated in the care of the patient.: Yes I have reviewed all pertinent clinical information, including history, physical exam and plan: Yes Notes (Text): This is an addendum to GI followup report dictated by the Velvet Weaver. The patient was seen and evaluated earlier. Medical records, lab studies, imagings were reviewed. Last 24 hours events reviewed. Agreed with the above treatment plan as outlined in Velvet Weaver 's notes with the addition of the following LFT shows downward trend No complaints of abdominal pain Followup LFT 11/27/17 00:06
[2017-11-26] MEDS: Enoxaparin 40 mg Syringe SC SCH (09:05)
--- NOTE | 2017-11-26 09:10 | PN ---
DATE: 11/26/2017 REASON FOR THE CONSULTATION: Follow up sick sinus syndrome, complete heart block, paroxysmal atrial fibrillation in the past, converted to normal sinus. Admitted with AV dissociation, status post pacemaker placed. SUBJECTIVE: The patient denies any chest pain, shortness of breath or any palpitation. OBJECTIVE: GENERAL: Not in any apparent distress. VITAL SIGNS: Temperature afebrile, heart rate 70, blood pressure 130/80. HEENT: PERRLA, intact. NECK: Supple. No carotid bruit. No thyromegaly. CHEST: Clear to auscultation. HEART: S1 and S2 regular. ABDOMEN: Soft. EXTREMITIES: Clubbing and cyanosis negative. LABORATORY DATA: Blood workup as follows; WBC 7.1, hemoglobin 12.2, hematocrit 35, platelet count 76. Chemistry shows sodium 135, potassium 4.8, chloride 101, carbon dioxide 29, anion gap of 10, BUN 31, creatinine 1.1. IMPRESSION: AN 87-year-old male with past medical history significant for severe aortic stenosis, status post transcatheter aortic valve replacement, status post cardiac catheterization, nonobstructive coronary artery disease, nonischemic cardiomyopathy, history of atrial fibrillation, admitted with atrioventricular dissociation heart block, status post permanent dual-chamber pacemaker placed. Echocardiogram shows preserved left ventricular function, 55 yesterday while the patient was on dopamine yesterday. MUGA scan was done off dopamine, ejection fraction 59%. Normal right ventricle. RECOMMENDATION: The patient is off Eliquis. Continue lisinopril 10 mg. We will increase Coreg to 6.25 b.i.d. Okay to discharge from ICU or telemetry. The patient is a good candidate for Transitional Care Unit. We have started DVT prophylaxis. Continue amiodarone 200 mg to keep in normal sinus. Aggressive rehab. Out of bed to chair as tolerated. Resume diet. Transfer to TCU when the bed is available. The patient is okay to transfer to Transitional Care Unit from the cardiology point of view. We will increase Coreg to 6.25 and discontinue 3.125. Ambulate, physical therapy for ambulation. We will put gentle diuretics. Thank you, Dr. Martin for providing us the opportunity in taking care of the patient, Nikolas Bach. Jet Rich MD [facility] # [id number]
--- NOTE | 2017-11-26 17:24 | PN ---
DATE: 11/26/2017 SUBJECTIVE: The patient is 87 years old, seen and examined, sitting in chair, seems to be comfortable except having pain in the both heels. He is unable to stand up or walk. Because of that reason, he is not ambulatory. No chest pain, no shortness of breath. Eating and tolerating. PHYSICAL EXAMINATION: VITAL SIGNS: The patient is afebrile, pulse 70, respirations 20, blood pressure 134/99. LUNGS: Bilateral good airflow. No rhonchi or crackle. HEART: S1, S2 audible. ABDOMEN: Soft, nontender. No rebound, no guarding. NEUROLOGIC: He is awake, alert, oriented, and communicative. Moves all extremities. EXTREMITIES: Bilateral legs, no edema. LABORATORY EXAM: WBC is 7.1, hemoglobin 12, hematocrit 35, and platelets of 76. Chemistry: Sodium 135, potassium 4.8, chloride 101, CO2 of 29. BUN 31, creatinine 1.1. Blood sugar of 103. LFTs: AST shows 120, ALT 164, alk phos is 164, they are nicely coming down. ASSESSMENT: 1. Status post heart block. 2. Status post pacemaker placement. 3. History of hypertension. 4. Dilated cardiomyopathy. 5. Chronic kidney disease stage IV. 6. Hypertension. 7. Hyperlipidemia. 8. Gout. 9. Deconditioning and difficulty walking. PLAN: The patient will be transferred to med-surg floor. We will get evaluation by director of plant operations and we will continue current medications. If accepted, he can be transferred to [facility]. Kendall Martin MD
[2017-11-27] MEDS: Pantoprazole 40 mg EC Tab PO SCH (06:15)
[2017-11-27 08:33] LABS: BASO # 0.02 K/mm3 (0.0-2.0); BASO % 0.2 % (0.0-3.0); EOS # 0.1 (0.0-0.7); EOS % 0.9 % (1.5-5.0); GRAN # 5.18 (1.4-6.5); GRAN % 61.3 % (50.0-68.0); HEMOGLOBIN 12.6 g/dL (14.0-18.0); LYMPH # 2.1 (1.2-3.4); LYMPH % 25.2 % (22.0-35.0); MEAN CELL VOLUME 85.3 fl (80.0-105.0); MEAN CORPUSCULAR HEMOGLOBIN 29.3 pg (25.0-35.0); MEAN CORPUSCULAR HGB CONC 34.3 g/dl (31.0-37.0); MONO # 1.1 (0.1-0.6); MONO % 12.4 % (1.0-6.0); PLATELET COUNT 95 10^3/uL (120.0-450.0); RED CELL DISTRIBUTION WIDTH 15.7 % (11.5-14.5); WHITE BLOOD COUNT 8.5 10^3/ul (4.5-11.0)
[2017-11-27 08:37] LABS: ALBUMIN 3.5 g/dL (3.0-4.8); ALT/SGPT 155 U/L (7-56); AST/SGOT 107 U/L (17-59); BLOOD UREA NITROGEN 29 mg/dL (7-21); CALCIUM 9.1 mg/dL (8.4-10.5); GFR NON-AFRICAN AMERICAN 57
[2017-11-27] MEDS: Enoxaparin 40 mg Syringe SC SCH (09:06)
--- NOTE | 2017-11-27 09:56 | CP.PCM.CON ---
<Clary Knight - Last Filed: 11/28/17 00:04> History of Present Illness - History of Present Illness History of Present Illness: Podiatry consult note for Dr. Cedeño 87 yo M with PMHx of HTN, gout, dilated cardiomyopathy, chronic afib s/p failed cardioversion, s/p cardiac cath with non-occlusive coronaries presents to ED s/p fall in the setting of generalized LE weakness for the past "couple months"Patient is aaox3, nad. Patient states hes had pain in both of his heels for over a year has been seeing a decorative engraver apprentice for it however cannot recall the name. States his pain mainly come son after standing. Patient is currently nonambulatory. No other acute complaints at this time. Denies fevers/chills, headaches, dizziness, chest pain, palpitations, sob, cough, abdominal pain, n/v/d/c. PMHx: HTN, dilated cardiomyopathy, chronic afib s/p failed cardioversion, gout PSHx: cardiac catheterization with nonocclusive arteries Allergies: NKDA FHx: non-contributory Social Hx: denies alcohol, tobacco, illicit drug use. Patient is a [place] Past Patient History - Past Medical History & Family History Past Medical History?: Yes - Past Social History Smoking Status: Never Smoked - CARDIAC Hx Cardiac Disorders: Yes Hx Congestive Heart Failure: Yes Hx Hypertension: Yes - PULMONARY Hx Respiratory Disorders: No - NEUROLOGICAL Hx Neurological Disorder: Yes (NEUROPATHY, pins and needles feet) - HEENT Hx HEENT Problems: Yes Hx Cataracts: Yes (L EYE SX) Hx Glaucoma: Yes - RENAL Hx Chronic Kidney Disease: No - ENDOCRINE/METABOLIC Hx Endocrine Disorders: No - HEMATOLOGICAL/ONCOLOGICAL Hx Blood Disorders: No - INTEGUMENTARY Hx Dermatological Problems: No - MUSCULOSKELETAL/RHEUMATOLOGICAL Hx Musculoskeletal Disorders: Yes Hx Falls: Yes - GASTROINTESTINAL Hx Gastrointestinal Disorders: Yes Other/Comment: RECENT GI INFECTION - GENITOURINARY/GYNECOLOGICAL Hx Genitourinary Disorders: No - PSYCHIATRIC Hx Psychophysiologic Disorder: No - SURGICAL HISTORY Hx Surgeries: Yes Hx Joint Replacement: Yes Other/Comment: CATARACTS - ANESTHESIA Hx Anesthesia Reactions: No Hx Malignant Hyperthermia: No Meds Allergies/Adverse Reactions: Allergies Allergy/AdvReac Type Severity Reaction Status Date / Time No Known Allergies Allergy Verified 11/18/17 14:21 - Medications Medications: Current Medications Amiodarone HCl (Cordarone) 200 mg PO DAILY [facility] Last Admin: 11/27/17 09:05 Dose: 200 mg Apixaban (Eliquis) 2.5 mg PO BID [facility]; Protocol Last Admin: 11/24/17 17:31 Dose: 2.5 mg Carvedilol (Coreg) 6.25 mg PO BID [facility] Last Admin: 11/27/17 09:05 Dose: 6.25 mg Enoxaparin Sodium (Lovenox) 40 mg SC DAILY [facility]; Protocol Last Admin: 11/27/17 09:06 Dose: 40 mg Furosemide (Lasix) 40 mg PO DAILY [facility] Last Admin: 11/27/17 09:06 Dose: 40 mg Hydralazine HCl (Apresoline) 10 mg PO QID PRN PRN Reason: for sbp>160 Last Admin: 11/22/17 10:26 Dose: 10 mg Lisinopril (Zestril) 10 mg PO DAILY [facility] Last Admin: 11/27/17 09:07 Dose: 10 mg Pantoprazole Sodium (Protonix Ec Tab) 40 mg PO 0600 [facility] Last Admin: 11/27/17 06:15 Dose: 40 mg Physical Exam - Constitutional Appears: Well, Non-toxic, No Acute Distress - Head Exam Head Exam: ATRAUMATIC, NORMOCEPHALIC - Extremities Exam Additional comments: Bilaterla lower extremity exam: Vascular: DP/PT palpable 2/4, CFT <3 seconds to all digits, TG warm to warm, + 1 pitting edema to bilateral lower extremities. Ortho: Tenderness to palpation of bilateral medial calcaneal tubercle. Neuro: unable to assess Derm: no open lesions, multiple hyperkeratotic lesions noted at the tip of toes b/l, no clinical signs of infection, no erythema noted. - Neurological Exam Neurological exam: Alert, Oriented x3 - Psychiatric Exam Psychiatric exam: Normal Affect, Normal Mood - Skin Skin Exam: Normal Color Results - Vital Signs Recent Vital Signs: Last Vital Signs Temp 98.1 F 11/27/17 06:00 Pulse 71 11/27/17 09:07 Resp 20 11/27/17 06:00 BP 127/86 11/27/17 09:07 Pulse Ox 98 11/27/17 06:00 - Labs Result Diagrams: 11/27/17 08:00 11/27/17 08:00 Labs: Laboratory Results - last 24 hr 11/26/17 11/27/17 11/27/17 16:47 08:00 08:00 WBC 8.5 RBC 4.30 Hgb 12.6 L Hct 36.7 L MCV 85.3 MCH 29.3 MCHC 34.3 RDW 15.7 H Plt Count 95 L Gran % 61.3 Lymph % (Auto) 25.2 [place] % (Auto) 12.4 H Eos % (Auto) 0.9 L Baso % (Auto) 0.2 Gran # 5.18 Lymph # (Auto) 2.1 [place] # (Auto) 1.1 H Eos # (Auto) 0.1 Baso # (Auto) 0.02 Sodium 135 Potassium 4.8 Chloride 100 Carbon Dioxide 29 Anion Gap 11 BUN 29 H Creatinine 1.2 Est GFR ( Amer) > 60 Est GFR (Non-Af Amer) 57 POC Glucose (mg/dL) 129 H Random Glucose 91 Calcium 9.1 Total Bilirubin 1.1 AST 107 H ALT 155 H Alkaline Phosphatase 180 H Total Protein 6.9 Albumin 3.5 Globulin 3.4 Albumin/Globulin Ratio 1.0 L Assessment & Plan - Assessment and Plan (Free Text) Assessment: 87 yo male seen at bedside for pain to both heels and pain at sub met heads b/l Plan: Patient seen and evaluated; discussed patient plan in detail with Dr. Cedeño Afebrile, absent leukocytosis bilateral foot x-rays ordered; small calcaneal spur noted. No acute abnormalities Hyperkeratotic lesions debrided using a sterile #15 blade. Patient tolerated without any complications Podiatry will sign off at this time Patient to follow up with Dr. cedeño as outpatient once discharged Thank you for the consult. <Kevin Cedeño - Last Filed: 11/29/17 09:08> Meds - Medications Medications: Current Medications Amiodarone HCl (Cordarone) 200 mg PO DAILY [facility] Last Admin: 11/28/17 09:17 Dose: 200 mg Apixaban (Eliquis) 2.5 mg PO BID [facility]; Protocol Last Admin: 11/24/17 17:31 Dose: 2.5 mg Carvedilol (Coreg) 6.25 mg PO BID [facility] Last Admin: 11/28/17 18:24 Dose: 6.25 mg Colchicine (Colocrys) 0.6 mg PO BID [facility] Last Admin: 11/28/17 18:24 Dose: 0.6 mg Enoxaparin Sodium (Lovenox) 40 mg SC DAILY [facility]; Protocol Last Admin: 11/28/17 09:21 Dose: 40 mg Furosemide (Lasix) 40 mg PO DAILY [facility] Last Admin: 11/28/17 09:15 Dose: 40 mg Hydralazine HCl (Apresoline) 10 mg PO QID PRN PRN Reason: for sbp>160 Last Admin: 11/22/17 10:26 Dose: 10 mg Lisinopril (Zestril) 10 mg PO DAILY [facility] Last Admin: 11/28/17 09:17 Dose: 10 mg Methylprednisolone (Solu-Medrol) 40 mg IV Q12 [facility] Last Admin: 11/28/17 22:04 Dose: 40 mg Pantoprazole Sodium (Protonix Ec Tab) 40 mg PO 0600 [facility] Last Admin: 11/29/17 06:06 Dose: 40 mg Results - Vital Signs Recent Vital Signs: Last Vital Signs Temp 98.2 F 11/29/17 08:52 Pulse 69 11/29/17 08:52 Resp 18 11/29/17 08:52 BP 125/79 11/29/17 08:52 Pulse Ox 98 11/29/17 08:52 - Labs Result Diagrams: 11/27/17 08:00 11/27/17 08:00 Labs: Laboratory Results - last 24 hr 11/29/17 07:26 POC Glucose (mg/dL) 175 H Attending/Attestation - Attestation I have personally seen and examined this patient.: Yes I have fully participated in the care of the patient.: Yes I have reviewed all pertinent clinical information: Yes
--- NOTE | 2017-11-27 17:45 | RAD ---
Date of service: 11/27/2017 PROCEDURE: Right Foot Radiographs. HISTORY: pain ful heel COMPARISON: None. FINDINGS: BONES: No fracture. Small plantar calcaneal spur. JOINTS: No evidence of arthritis. Flexion deformity of all 5 digits. Hallux valgus noted. SOFT TISSUES: Normal. OTHER FINDINGS: None. IMPRESSION: No acute fracture. Small plantar calcaneal spur noted. Hallux valgus.
--- NOTE | 2017-11-27 17:45 | RAD ---
Date of service: 11/27/2017 PROCEDURE: Left Foot Radiographs. HISTORY: painful heel. COMPARISON: None. FINDINGS: BONES: No fracture. Small plantar calcaneal spur noted. JOINTS: No evidence of arthritis. Flexion deformity of all 5 digits noted. SOFT TISSUES: Normal. OTHER FINDINGS: None. IMPRESSION: Small plantar calcaneal spur. Hallux valgus.
[2017-11-27] MEDS: MethylPREDNISolone 40 mg Vial IV SCH (21:58)
--- NOTE | 2017-11-28 01:41 | PN ---
DATE: 11/27/2017 SUBJECTIVE: The patient is an 87 years old, complained of bilateral foot pain, difficulty walking because of foot pain. Otherwise no chest pain. No shortness of breath. Eating and tolerating. PHYSICAL EXAMINATION: VITAL SIGNS: He is afebrile, pulse 79, respirations 18, blood pressure 127/86. LUNGS: Bilateral fair airflow. No rhonchi or crackle. HEART: S1, S2 audible. ABDOMEN: Soft, nontender. No rebound. No guarding. NEUROLOGICAL: Patient is awake and alert. Able to communicate. LABORATORY EXAM: WBC 8.5, hemoglobin 12.6, hematocrit 36.7, platelets 95. Chemistry: Sodium 135, potassium 4.8, chloride 100, CO2 of 29, BUN 29, creatinine 1.2. Blood sugar of 91. AST of 107, ALT 155 and alk phos is 180. ASSESSMENT: 1. Status post complete heart block. 2. Dilated cardiomyopathy. 3. History of gout. PLAN: I will start him on colchicine, give him a dose of steroid. We will request for physical therapy evaluation and possible TCU depending on his evaluation. Kendall Martin MD
[2017-11-28] MEDS: Pantoprazole 40 mg EC Tab PO SCH (06:14)
[2017-11-28] MEDS: Enoxaparin 40 mg Syringe SC SCH (09:21)
[2017-11-28] MEDS: MethylPREDNISolone 40 mg Vial IV SCH ×2 (10:23→22:04)
[2017-11-28 10:25] VITALS: O2SAT 98
[2017-11-29] MEDS: Pantoprazole 40 mg EC Tab PO SCH (06:06)
--- NOTE | 2017-11-29 07:04 | CP.PCM.PN ---
Subjective - Date & Time of Evaluation Date of Evaluation: 11/29/17 Time of Evaluation: 06:10 - Subjective Subjective: Awake, alert, denies chest pain,no distress Reason for consultation and follow up:Cardiac evaluation of AV dissociation, status post PPM, History of status post TAVR (severe aortic stenosis) Seen and examined by me and Dr. Rich Objective - Vital Signs/Intake and Output Vital Signs (last 24 hours): Temp Pulse Resp BP Pulse Ox 98.1 F 70 20 114/68 98 11/28/17 17:27 11/28/17 18:24 11/28/17 17:27 11/28/17 18:24 11/28/17 17:27 - Medications Medications: Current Medications Amiodarone HCl (Cordarone) 200 mg PO DAILY [facility] Last Admin: 11/28/17 09:17 Dose: 200 mg Apixaban (Eliquis) 2.5 mg PO BID [facility]; Protocol Last Admin: 11/24/17 17:31 Dose: 2.5 mg Carvedilol (Coreg) 6.25 mg PO BID [facility] Last Admin: 11/28/17 18:24 Dose: 6.25 mg Colchicine (Colocrys) 0.6 mg PO BID [facility] Last Admin: 11/28/17 18:24 Dose: 0.6 mg Enoxaparin Sodium (Lovenox) 40 mg SC DAILY [facility]; Protocol Last Admin: 11/28/17 09:21 Dose: 40 mg Furosemide (Lasix) 40 mg PO DAILY [facility] Last Admin: 11/28/17 09:15 Dose: 40 mg Hydralazine HCl (Apresoline) 10 mg PO QID PRN PRN Reason: for sbp>160 Last Admin: 11/22/17 10:26 Dose: 10 mg Lisinopril (Zestril) 10 mg PO DAILY [facility] Last Admin: 11/28/17 09:17 Dose: 10 mg Methylprednisolone (Solu-Medrol) 40 mg IV Q12 [facility] Last Admin: 11/28/17 22:04 Dose: 40 mg Pantoprazole Sodium (Protonix Ec Tab) 40 mg PO 0600 [facility] Last Admin: 11/29/17 06:06 Dose: 40 mg - Labs Labs: 11/27/17 08:00 11/27/17 08:00 PT 11.9 SECONDS (9.4-12.5) 11/21/17 12:00 INR 1.03 11/21/17 12:00 APTT 71.3 Seconds (25.1-36.5) H 11/21/17 12:00 - Constitutional Appears: Non-toxic, No Acute Distress - Head Exam Head Exam: NORMAL INSPECTION, NORMOCEPHALIC - Eye Exam Eye Exam: Normal appearance Pupil Exam: NORMAL ACCOMODATION - ENT Exam ENT Exam: Mucous Membranes Moist, Normal Exam - Respiratory Exam Respiratory Exam: Decreased Breath Sounds, Clear to Ausculation Bilateral, NORMAL BREATHING PATTERN - Cardiovascular Exam Cardiovascular Exam: +S1, +S2 Additional comments: PPM, site no hematoma, steri-strip intact No JVD - GI/Abdominal Exam GI & Abdominal Exam: Soft, Normal Bowel Sounds - Exam Additional comments: continent/urinal - Neurological Exam Neurological Exam: Alert, Awake, Oriented x3 - Psychiatric Exam Psychiatric exam: Normal Affect, Normal Mood - Skin Skin Exam: Dry, Normal Color, Warm Assessment and Plan - Assessment and Plan (Free Text) Assessment: An 87 year old male who initally came in to the ER due to fall. As per patient, legs gave out. History of hypertension,non ischemic cardiomyopathy, severe aortic stenosis requiring TAVR, non obstructive coronary artery disease, atrial fibrillation. Upon admission, EKG showed atrioventricular dissociation requiring permanent pacemaker. stabilized in ICU and now transferred to . Plan: No distress, no shortness of breath, denies chest pain Heart rate and blood pressure stable Left chest PPM, no hematoma, steri-strip intact Continue current treatment Continue current medications For rehab placement Chart reviewed Will follow up Seen and examined by me and Dr. Rich
[2017-11-29 08:52] VITALS: BP 125/79; PULSE 69; RESP 18; TEMP 98.2
[2017-11-29] MEDS: Enoxaparin 40 mg Syringe SC SCH (09:23)
[2017-11-29] MEDS: MethylPREDNISolone 40 mg Vial IV SCH (09:24)
--- NOTE | 2017-11-29 11:29 | PN ---
DATE: 11/28/2017 SUBJECTIVE: The patient is 87-year-old. Seen and examined. Seems to be doing a little better. He states his foot pain is better since he started on Colcrys. No nausea or vomiting. No diarrhea. PHYSICAL EXAMINATION: VITAL SIGNS: He is afebrile, pulse 69, respirations 20, blood pressure 108/68. LUNGS: Bilateral fair airflow. No rhonchi or crackle. HEART: S1 and S2 audible. ABDOMEN: Soft. Nontender. No rebound. No guarding. NEUROLOGIC: He is awake, alert, oriented, communicative. ASSESSMENT: 1. Status post complete heart block. 2. Status post pacemaker placement. 3. Chronic atrial fibrillation. 4. Gouty arthritis. 5. Dilated cardiomyopathy. PLAN: We will continue the patient on current medications. Since the patient's foot pain is better, we will encourage physical therapy. We will talk to therapist in a.m. If he is a candidate of TCU, will be transferred to TCU if it is accepted. Kendall Martin MD
--- NOTE | 2017-11-30 06:45 | DS ---
HISTORY OF PRESENT ILLNESS: The patient is an 87-year-old who came in after he had multiple falls at home. He was found to have complete heart block. The patient was admitted in the ICU, initially had pacemaker placed. Post procedure doing well, complained of bilateral foot pain because of gout, he has been started on colchicine seems to be doing little better. PHYSICAL EXAMINATION: VITAL SIGNS: He is afebrile. Pulse 69, respiration 18, blood pressure 125/79. LUNGS: Bilateral fair airflow. No rhonchi or crackle. HEART: S1, S2 audible. ABDOMEN: Soft, nontender. No rebound, no guarding. NEUROLOGIC: The patient is awake, alert, oriented, and communicative. EXTREMITIES: Bilateral legs, no edema. LABORATORY DATA: Blood sugar is 175. ASSESSMENT: 1. Status post pacemaker placement. 2. Chronic atrial fibrillation. 3. Bilateral foot gouty arthritis. 4. Hypertension. 5. Dilated cardiomyopathy. 6. Deconditioning and difficulty walking. 7. Calcaneal spur. 8. Chronic kidney disease. PLAN: The patient is being transferred to care center where he will receive physical therapy. He will be maintained on current medication and he will follow when he is discharged from the rehab. We will continue him on Eliquis 2.5 twice a day, Lasix 40 daily and I will discontinue his Lovenox. Discontinue Solu-Medrol and start him on prednisone and we will follow up the patient. Kendall Martin MD
--- NOTE | 2017-11-30 08:43 | PN ---
DATE: 11/29/2017 This note is an addition to note dictated by nurse practitioner, Mckenzie Matos APN, dictated this morning. The patient admitted with complete AV dissociation, is status post permanent pacemaker, history of TAVR in the past, severe aortic stenosis. Awaiting for placement to the rehab care facility. Pacemaker site looks okay. No hematoma noted. PLAN: Continue Coreg, started Eliquis, started amiodarone. Eliquis is held because the patient is back to the normal sinus. Continue amiodarone 200 mg daily. Continue Coreg 6.25 mg daily. Continue lisinopril 10 mg daily. Continue Lasix 40 mg daily. Continue DVT prophylaxis. Possible discharge today to [facility]. We will discuss with patient's daughter Bridgette. Thank you, Dr. Martin for providing us the opportunity in taking care of the patient, Nikolas Bach. Jet Rich MD cc: Kendall Martin MD
== END 2017-11-29 15:13 | DRG 242 ==
LOC: ED 13:58 → ERH 16:41 → CCU 22:30 → ICU 11-19 19:35 → 3RSO 11-26 15:37
PROVIDERS: ADMIT Internal Medicine; ATTEND Internal Medicine
PROC: 3E033XZ Introduction of Vasopressor into Peripheral Vein, Percutaneous Approach (ICD-10-PCS; 2017-11-22)
PROC: 0JH606Z Insertion of Pacemaker, Dual Chamber into Chest Subcutaneous Tissue and Fascia, Open Approach (ICD-10-PCS; principal; 2017-11-23)
PROC: 02H63JZ Insertion of Pacemaker Lead into Right Atrium, Percutaneous Approach (ICD-10-PCS; 2017-11-23)
PROC: 02HK3JZ Insertion of Pacemaker Lead into Right Ventricle, Percutaneous Approach (ICD-10-PCS; 2017-11-23)
PROC: 3E0102A Introduction of Anti-Infective Envelope into Subcutaneous Tissue, Open Approach (ICD-10-PCS; 2017-11-23)
PROC: 4B02XSZ Measurement of Cardiac Pacemaker, External Approach (ICD-10-PCS; 2017-11-24)
PROC: 0HBNXZZ Excision of Left Foot Skin, External Approach (ICD-10-PCS; 2017-11-27)
PROC: 0HBMXZZ Excision of Right Foot Skin, External Approach (ICD-10-PCS; 2017-11-27)
DX: I44.2 Atrioventricular block, complete (principal); K72.00 Acute and subacute hepatic failure without coma; I13.0 Hypertensive heart and chronic kidney disease with heart failure and stage 1 through stage 4 chronic kidney disease, or unspecified chronic kidney disease; N17.9 Acute kidney failure, unspecified; I50.22 Chronic systolic (congestive) heart failure; I42.0 Dilated cardiomyopathy; N18.4 Chronic kidney disease, stage 4 (severe); I48.2 Chronic atrial fibrillation; I45.89 Other specified conduction disorders; G62.9 Polyneuropathy, unspecified; K76.1 Chronic passive congestion of liver; I25.10 Atherosclerotic heart disease of native coronary artery without angina pectoris; E86.0 Dehydration; D69.6 Thrombocytopenia, unspecified; E05.90 Thyrotoxicosis, unspecified without thyrotoxic crisis or storm; K71.9 Toxic liver disease, unspecified; T36.3X5A Adverse effect of macrolides, initial encounter; T46.2X5A Adverse effect of other antidysrhythmic drugs, initial encounter; I49.5 Sick sinus syndrome; I48.0 Paroxysmal atrial fibrillation; E78.5 Hyperlipidemia, unspecified; M10.072 Idiopathic gout, left ankle and foot; M10.071 Idiopathic gout, right ankle and foot; H40.9 Unspecified glaucoma; I35.0 Nonrheumatic aortic (valve) stenosis; N28.1 Cyst of kidney, acquired; R29.6 Repeated falls; M77.31 Calcaneal spur, right foot; M77.32 Calcaneal spur, left foot; Z95.2 Presence of prosthetic heart valve; Z79.01 Long term (current) use of anticoagulants

== ENCOUNTER 2018-01-05 11:30 | Inpatient (IN) | payer MEDICARE, OTHER ==
[2018-01-05 11:30] VITALS: PULSE 102
[2018-01-05] MEDS ORDERED: Sodium Chloride 0.9% 1,000 ML IV STA ×2 (11:58→12:09)
--- NOTE | 2018-01-05 12:26 | ED PDOC ---
Arrival/HPI - General Chief Complaint: GI Problem Time Seen by Provider: 01/05/18 11:46 Historian: Patient, Family (Daughter) - History of Present Illness Narrative History of Present Illness (Text): 01/05/18 12:23 An 87 year old male, whose past medical history includes pacemaker, HTN, gout, dilated cardiomyopathy, chronic A- Fib, is brought into the emergency department via EMS with daughter for a complaint of several week duration diarrhea. The patient's daughter notes that the patient was at a rehabilitation center s/p pacemaker placement, and since then he has been experiencing diarrhea. She states that his eating habits have also changed because he does not want to defecate himself. The patent's daughter notes that he is dehydrated and his legs have also been weak. The patient denies fevers, chills, headache, dizziness, cough, sore throat, chest pain, shortness of breath, dyspena on exertion, abdominal pain, nausea, vomiting, neck/ back pain, urinary/ bowel symptoms, trauma/ injury, or any other complaints. PMD: Dr. Horan Japanese Interpreter: Dr. Rich Cardiac- Surgeon: Dr. Phillips Time/Duration: Other (Several Weeks) Symptom Onset: Gradual Symptom Course: Unchanged Activities at Onset: Rest, Light Context: Home Past Medical History - Provider Review Nursing Documentation Reviewed: Yes - Cardiac Hx Cardiac Disorders: Yes Hx Congestive Heart Failure: Yes Hx Hypertension: Yes Hx Pacemaker: Yes - Pulmonary Hx Respiratory Disorders: No - Neurological Hx Neurological Disorder: Yes (NEUROPATHY, pins and needles feet) - HEENT Hx HEENT Disorder: Yes Hx Cataracts: Yes (L EYE SX) Hx Glaucoma: Yes - Renal Hx Renal Disorder: No - Endocrine/Metabolic Hx Endocrine Disorders: No - Hematological/Oncological Hx Blood Disorders: No - Integumentary Hx Dermatological Disorder: No - Musculoskeletal/Rheumatological Hx Musculoskeletal Disorders: Yes Hx Falls: Yes - Gastrointestinal Hx Gastrointestinal Disorders: No (bm x 4 days) - Genitourinary/Gynecological Hx Genitourinary Disorders: No - Psychiatric Hx Psychophysiologic Disorder: No Hx Substance Use: No - Surgical History Hx Joint Replacement: Yes Other/Comment: CATARACTS, Pacemaker - Anesthesia Hx Anesthesia Reactions: No Hx Malignant Hyperthermia: No - Suicidal Assessment Feels Threatened In Home Enviroment: No Family/Social History - Physician Review Nursing Documentation Reviewed: Yes Family/Social History: No Known Family HX Smoking Status: Never Smoked Hx Alcohol Use: No Hx Substance Use: No Allergies/Home Meds Allergies/Adverse Reactions: Allergies No Known Allergies Allergy (Verified 01/05/18 11:39) Home Medications: Home Meds Medication Instructions Recorded Confirmed Calcium Carbonate/Vitamin D3 1 tab PO DAILY 07/17/15 11/18/17 [Calcium 600-Vit D3 200 Tablet] Gabapentin [Neurontin] 600 mg PO HS 07/17/15 11/18/17 Multivitamin [Multivitamins] 1 each PO DAILY 07/17/15 11/18/17 Amoxicillin 1,000 mg PO BID 11/18/17 11/18/17 Clarithromycin [Clarithromycin ER] 500 mg PO DAILY 11/18/17 11/19/17 Omeprazole 40 mg PO DAILY 11/18/17 11/18/17 Allopurinol [Zyloprim] 100 mg PO DAILY 11/19/17 11/19/17 Amiodarone Hydrochloride 200 mg PO DAILY 11/19/17 01/05/18 Aspirin [Adult Low Dose Aspirin EC] 81 mg PO DAILY 11/19/17 11/19/17 Celecoxib 200 mg PO FRI 11/19/17 11/19/17 Colchicine [Colcrys] 0.6 mg PO BID 11/19/17 01/05/18 Paricalcitol 1 mcg PO QOTHERDAY 11/19/17 11/19/17 Apixaban [Eliquis] 2.5 mg PO BID 01/05/18 01/05/18 Carvedilol [Coreg] 1 tab PO BID 01/05/18 01/05/18 Lactose-Reduced Food [Ensure Plus] 237 ml PO DAILY 01/05/18 01/05/18 Lisinopril [Zestril] 1 tab PO DAILY 01/05/18 01/05/18 Pantoprazole [Protonix EC Tab] 1 tab PO DAILY 01/05/18 01/05/18 hydrALAZINE [Apresoline] 1 tab PO QID 01/05/18 01/05/18 Review of Systems - Physician Review All systems were reviewed & negative as marked: Yes - Review of Systems Constitutional: absent: Fevers Cardiovascular: absent: Chest Pain Physical Exam - Physical Exam Narrative Physical Exam (Text): 01/05/18 12:27 Constitutional: No acute distress. Head: Normocephalic. Atraumatic. Eyes: PERRL. ENT: Dry mucous membranes. Neck: Supple. Cardiovascular: Regular rate. Heart murmur. Chest: No tenderness. Pacemaker- left chest. Respiratory: Clear to auscultation bilaterally. GI: Soft. Nontender. Nondistended. Back: No CVA tenderness. Musculoskeletal: No tenderness or swelling of extremities. Skin: No rash. Neurologic: Alert, no focal deficit Vital Signs Reviewed: Yes Vital Signs Temp Pulse Resp BP Pulse Ox 01/05/18 11:40 98.2 F 81 18 105/66 100 Temperature: Afebrile Blood Pressure: Normal Pulse: Regular Respiratory Rate: Normal Appearance: Positive for: Well-Appearing, Non-Toxic, Comfortable Pain Distress: None Mental Status: Positive for: Alert and Oriented X 3 Medical Decision Making ED Course and Treatment: 01/05/18 12:28 Impression: An 87 year old male is brought into the emergency department for further evaluation of several week duration diarrhea. Plan: -- EKG -- Chest X- Ray -- Labs -- Urinalysis -- Stool/ Urine Culture -- Eliquis and IV Fluids -- Reassess and disposition Prior Visits: Notes and results from previous visits were reviewed. Patient was seen on 11/18/17. Patient was diagnosed with a complete heart block. Progress Notes: EKG: Ordered, reviewed, and independently interpreted the EKG. Rate: 80 BPM Rhythm: Paced Rhythm Interpretation: LBBB. Chest X- Ray Dictator : Mathew Johnson MD Report Date : 01/05/2018 12:40:49 IMPRESSION: No active disease. No significant interval change compared to the prior examination(s). Dr. Martin accepts patient to her service, patient with dehydration, acute renal insufficiency with prolonged diarrhea. - Lab Interpretations I have reviewed the lab results: Yes - RAD Interpretation Radiology Orders: 01/05/18 11:58 CHEST PORTABLE [RAD] Stat - EKG Interpretation Interpreted by ED Physician: Yes Type: 12 lead EKG - Medication Orders Current Medication Orders: Sodium Chloride (Sodium Chloride 0.9%) 1,000 mls @ 75 mls/hr IV .[id number] STA Stop: 01/06/18 01:17 Discontinued Medications Apixaban (Eliquis) 2.5 mg PO STAT STA; Protocol Stop: 11/21/18 11:59 Sodium Chloride (Sodium Chloride 0.9%) 1,000 mls @ 999 mls/hr IV .[id number] STA Stop: 01/05/18 12:58 - Scribe Statement The provider has reviewed the documentation as recorded by the Scribe Sally Romero Provider Scribe Attestation: All medical record entries made by the Scribe were at my direction and personally dictated by me. I have reviewed the chart and agree that the record accurately reflects my personal performance of the history, physical exam, medical decision making, and the department course for this patient. I have also personally directed, reviewed, and agree with the discharge instructions and disposition. Disposition/Present on Arrival - Present on Arrival Any Indicators Present on Arrival: No History of DVT/PE: No History of Uncontrolled Diabetes: No Urinary Catheter: No History of Decub. Ulcer: No History Surgical Site Infection Following: None - Disposition Have Diagnosis and Disposition been Completed?: Yes Diagnosis: Acute renal insufficiency, Diarrhea, Dehydration Disposition: HOSPITALIZED Disposition Time: 13:37 Patient Plan: Admission Condition: FAIR Forms: [employer] (Greenlandic)
[2018-01-05 12:35] LABS: BASO # 0.01 K/mm3 (0.0-2.0); BASO % 0.2 % (0.0-3.0); GRAN % 67.8 % (50.0-68.0); HEMOGLOBIN 11.6 g/dL (14.0-18.0); LYMPH # 1.1 (1.2-3.4); LYMPH % 18.8 % (22.0-35.0); MEAN CELL VOLUME 86.4 fl (80.0-105.0); MEAN CORPUSCULAR HEMOGLOBIN 29.7 pg (25.0-35.0); MEAN CORPUSCULAR HGB CONC 34.3 g/dl (31.0-37.0); MONO # 0.8 (0.1-0.6); MONO % 13.2 % (1.0-6.0); PLATELET COUNT 57 10^3/uL (120.0-450.0); RBC 3.91 10^6/uL (3.5-6.1); RED CELL DISTRIBUTION WIDTH 15.7 % (11.5-14.5); WHITE BLOOD COUNT 5.8 10^3/uL (4.5-11.0)
--- NOTE | 2018-01-05 12:44 | RAD ---
Date of service: 01/05/2018 HISTORY: weakness COMPARISON: 11/23/2017 FINDINGS: LUNGS: No active pulmonary disease. PLEURA: No significant pleural effusion identified, no pneumothorax apparent. CARDIOVASCULAR: No atherosclerotic calcification present No radiographic findings to suggest acute or significant cardiovascular disease. Position/ configuration of pacemaker device: Satisfactory. OSSEOUS STRUCTURES: No significant abnormalities. VISUALIZED UPPER ABDOMEN: Normal. OTHER FINDINGS: None. IMPRESSION: No active disease. No significant interval change compared to the prior examination(s).
[2018-01-05 13:12] LABS: INR 1.25; PROTHROMBIN TIME 14.4 SECONDS (9.4-12.5)
[2018-01-05 13:21] LABS: ALB/GLOB RATIO 1.1 (1.1-1.8); ALBUMIN 3.4 g/dL (3.0-4.8); CALCIUM 9.2 mg/dL (8.4-10.5)
[2018-01-05 13:33] LABS: TROPONIN I 0.05 ng/mL
[2018-01-05 13:41] LABS: CK-MB 2.2 ng/mL (0.0-3.6)
--- NOTE | 2018-01-05 14:04 | CARD ---
APPROVED REPORT Date of service: 01/05/2018 EKG Measurement Heart [id number] <Conclusion> Electronic atrial pacemaker with long AV interval
[2018-01-05] MEDS ORDERED: Verapamil 240 mg ER Tab PO SCH (15:30)
[2018-01-05 16:49] VITALS: BMI 24.3
[2018-01-05] MEDS ORDERED: Pneumococcal 23-Valent Vaccine IM ONE (16:50)
[2018-01-05] MEDS ORDERED: Influenza Vaccine 60 mcg/0.5 mL SYR (4YR UP) IM ONE (16:50)
--- NOTE | 2018-01-05 22:56 | HP ---
DATE OF EXAM: 01/05/2018 HISTORY OF PRESENT ILLNESS: Patient is 87 years old who was recently discharged from [facility]. According to daughter, he has been having diarrhea over there, and he was not treated for that, when he came home, for the last 1 week, he is having 4 to 5 bowel movements, semi-solid. No blood in the stool. Complained of decreased appetite. No history of fever or chills. Off and on, will have abdominal pain. PAST MEDICAL HISTORY: Significant for, 1. Hypertension. 2. Status post pacemaker placement. 3. Gout. 4. Dilated cardiomyopathy. 5. Chronic AFib. 6. History of aortic valve replacement. 7. History of gouty arthritis. ALLERGIES: HE IS NOT ALLERGIC TO ANY MEDICATION. MEDICATIONS AT HOME: He is on, 1. Hydralazine 10 mg 4 times a day. 2. Aldactone 25 mg twice a day. 3. Protonix 40 mg daily. 4. Multivitamin. 5. Zestril 5 mg daily. 6. Neurontin 600 mg at bedtime. 7. Lasix 40 mg twice a day. 8. Digoxin 0.125 mg daily. 9. Colchicine 0.6 mg twice a day. 10. Celebrex. 11. Carvedilol 6.125 mg twice a day. 12. Aspirin 81 mg daily. 13. Eliquis 2.5 mg twice a day. 14. Amiodarone 200 mg daily. 15. Allopurinol 100 mg daily. SOCIAL HISTORY: He is , lives with his and daughter. He used to smoke in the past, but has not smoked for many, many years. PHYSICAL EXAMINATION GENERAL: He is awake and alert, able to communicate, not in any distress. VITAL SIGNS: Afebrile, pulse 69, respirations 18, blood pressure 107/72. HEAD AND NECK: Symmetrical face. Nonicteric sclerae. No thyromegaly. HEART: S1 and S2 audible, irregular, rate controlled. ABDOMEN: Soft, nontender. No rebound. No guarding. NEUROLOGICAL: Patient is awake and alert, able to communicate. LABORATORY EXAMINATION: WBC 5.8, hemoglobin 11.6, hematocrit 33.8, platelet of 57,000. PT 14.4, INR 1.25. Chemistry, sodium 140, potassium 4.3, chloride 107, CO2 of 27, BUN 38, creatinine 1.8, blood sugar 117. AST 133, ALT 111, alk phos 135. Total CPK is 257. Stool culture that was done today, negative for C. diff. EKG shows atrial pacemaker with long AV interval. ASSESSMENT: 1. Abdominal pain with diarrhea. 2. Abnormal liver function tests, could be because of congestion. 3. Ischemic cardiomyopathy. 4. Status post transcatheter aortic valve replacement. 5. Renal insufficiency. 6. History of gout. PLAN: Currently, patient is on ramipril, verapamil, amiodarone, aspirin, Eliquis. I will hold off Lasix, give him small dose of IV fluid, hold off colchicine, and GI evaluation by Dr. Funez and cardiology consult by Dr. Rich has been requested. Kendall Martin MD
--- NOTE | 2018-01-06 08:17 | CP.PCM.CON ---
<LindathomaslukeBrendan - Last Filed: 01/06/18 12:15> History of Present Illness - History of Present Illness History of Present Illness: GI Fellow PGY4, Consult note. Nikolas Bach, 87M, presenting with diarrhea x 2weeks. He was recently hospitalized for extended course. PPM was placed at that time, he was also treated for DILI. He had been on Abx for H. pylori, but held in setting of karen vated liver tests. Now, he has been having water diarrhea which has caused weakness. PMH:CHF last known EF of 15-20%, dilated cardiomyopathy, chronic atrial fibrillation s/p failed cardioversion BRANDT @ [facility], s/p cardiac cath with non occlusive CAD, s/p TAVR PSH: Heart cath, TAVR, PPM FMH: Noncontributory SocHx: Tobacco: denies, ETOH: Denies, ID: Denies ALL: NKDA 12pt ROS completed and negative except for above. Past Patient History - Past Medical History & Family History Past Medical History?: Yes - Past Social History Smoking Status: Never Smoked - CARDIAC Hx Cardiac Disorders: Yes Hx Cardia Arrhythmia: Yes Hx Congestive Heart Failure: Yes Hx Hypercholesterolemia: Yes Hx Hypertension: Yes Hx Pacemaker: Yes Hx Peripheral Edema: Yes (+1 ble) Other/Comment: bradycardia, aortic stenosis, a fib, cardiomyopathy, mitral valve regurgitation - PULMONARY Hx Respiratory Disorders: No - NEUROLOGICAL Hx Neurological Disorder: Yes (NEUROPATHY, pins and needles feet) Other/Comment: feet cold to touch - HEENT Hx HEENT Problems: Yes Hx Cataracts: Yes (b/l sx) Hx Glaucoma: Yes - RENAL Hx Chronic Kidney Disease: No - ENDOCRINE/METABOLIC Hx Endocrine Disorders: No - HEMATOLOGICAL/ONCOLOGICAL Hx Blood Disorders: No - INTEGUMENTARY Hx Dermatological Problems: Yes Other/Comment: tatoo lfa, healed old sx scar right knee, dry discolored cracked leathery skin ble with +1 edema, feet cold, dry skin, left chest pacemaker insertion site healed - MUSCULOSKELETAL/RHEUMATOLOGICAL Hx Musculoskeletal Disorders: Yes Hx Falls: Yes Hx Unsteady Gait: Yes (cane walker) Other/Comment: hammertoes all toes except left great toe - GASTROINTESTINAL Hx Gastrointestinal Disorders: Yes (diarrhea x 1 wk) Other/Comment: no appetite, weight loss - GENITOURINARY/GYNECOLOGICAL Hx Genitourinary Disorders: No - PSYCHIATRIC Hx Psychophysiologic Disorder: No - SURGICAL HISTORY Hx Surgeries: Yes Hx Appendectomy: Yes (about 50 yrs ago) Hx Joint Replacement: Yes Other/Comment: CATARACTS, Pacemaker, right knee replacement, r hip replacement around 30 yrs ago and needed revision about 8 yrs ago, left great toe sx to straighten overlap - ANESTHESIA Hx Anesthesia Reactions: No Hx Malignant Hyperthermia: No Meds Allergies/Adverse Reactions: Allergies Allergy/AdvReac Type Severity Reaction Status Date / Time No Known Allergies Allergy Verified 01/05/18 11:39 - Medications Medications: Current Medications Amiodarone HCl (Cordarone) 200 mg PO DAILY [facility] Last Admin: 01/05/18 17:20 Dose: Not Given Apixaban (Eliquis) 2.5 mg PO BID [facility]; Protocol Carvedilol (Coreg) 6.25 mg PO BID [facility] Hydralazine HCl (Apresoline) 10 mg PO QID PRN PRN Reason: Systolic Blood Pressure Lisinopril (Zestril) 5 mg PO DAILY [facility] Physical Exam - Constitutional Appears: Non-toxic, No Acute Distress, Chronically Ill - Head Exam Head Exam: NORMAL INSPECTION, NORMOCEPHALIC - Eye Exam Eye Exam: EOMI, Normal appearance - ENT Exam ENT Exam: Mucous Membranes Moist, Normal Exam - Respiratory Exam Respiratory Exam: Clear to Auscultation Bilateral, NORMAL BREATHING PATTERN - Cardiovascular Exam Cardiovascular Exam: REGULAR RHYTHM, +S1, +S2 - GI/Abdominal Exam GI & Abdominal Exam: Hyperactive Bowel Sounds, Soft. absent: Tenderness - Extremities Exam Extremities exam: Positive for: full ROM, normal inspection - Neurological Exam Neurological exam: Alert, CN II-XII Intact, Oriented x3 - Psychiatric Exam Psychiatric exam: Normal Affect, Normal Mood - Skin Skin Exam: Dry, Normal Color Results - Vital Signs Recent Vital Signs: Last Vital Signs Temp 97.6 F 01/05/18 22:00 Pulse 69 01/05/18 22:15 Resp 20 01/05/18 22:00 BP 104/67 01/05/18 22:15 Pulse Ox 99 01/05/18 22:00 - Labs Result Diagrams: 01/05/18 12:09 01/05/18 12:09 Labs: Laboratory Results - last 24 hr 01/05/18 01/05/18 01/05/18 12:09 12:09 12:09 WBC 5.8 RBC 3.91 Hgb 11.6 L Hct 33.8 L MCV 86.4 MCH 29.7 MCHC 34.3 RDW 15.7 H Plt Count 57 L Gran % 67.8 Lymph % (Auto) 18.8 L [place] % (Auto) 13.2 H Eos % (Auto) 0.0 L Baso % (Auto) 0.2 Gran # 3.90 Lymph # (Auto) 1.1 L [place] # (Auto) 0.8 H Eos # (Auto) 0.0 Baso # (Auto) 0.01 PT 14.4 H INR 1.25 APTT 32.0 Sodium 140 Potassium 4.3 Chloride 107 Carbon Dioxide 27 Anion Gap 10 BUN 38 H Creatinine 1.8 H Est GFR ( Amer) 43 Est GFR (Non-Af Amer) 36 Random Glucose 117 H Calcium 9.2 Phosphorus 2.5 Magnesium 1.8 Total Bilirubin 1.1 AST 133 H D ALT 111 H Alkaline Phosphatase 135 H D Total Creatine Kinase 257 H CK-MB (CK-2) 2.2 CK-MB (CK-2) % Cancelled Troponin I 0.05 D Total Protein 6.4 Albumin 3.4 Globulin 3.0 Albumin/Globulin Ratio 1.1 Blood Type Blood Type Confirm Antibody Screen BBK History Checked 01/05/18 01/05/18 12:09 16:00 WBC RBC Hgb Hct MCV MCH MCHC RDW Plt Count Gran % Lymph % (Auto) [place] % (Auto) Eos % (Auto) Baso % (Auto) Gran # Lymph # (Auto) [place] # (Auto) Eos # (Auto) Baso # (Auto) PT INR APTT Sodium Potassium Chloride Carbon Dioxide Anion Gap BUN Creatinine Est GFR ( Amer) Est GFR (Non-Af Amer) Random Glucose Calcium Phosphorus Magnesium Total Bilirubin AST ALT Alkaline Phosphatase Total Creatine Kinase CK-MB (CK-2) CK-MB (CK-2) % Troponin I Total Protein Albumin Globulin Albumin/Globulin Ratio Blood Type O POSITIVE Blood Type Confirm O POSITIVE Antibody Screen Negative BBK History Checked No verified bt Assessment & Plan - Assessment and Plan (Free Text) Assessment: #Acute diarrhea - abx/hospital associated #Persistently elevated LTs #ARTEMIO #Hx of DILI #hx h. pylori - He has not completed treatment due to elevated liver test and in/out of hospital #CHF #CAD #PPM PLAN: - C. diff negative. - Supportive and symptomatic care - Start Bismuth - Start Levaquin and Flagyl (reduced doses) - F/u stool culture - Recommend physical therapy - He will need outpt treatment of H. pylori - Date & Time Date: 01/06/18 Time: 11:36 <Gavin Funez V - Last Filed: 01/06/18 23:59> Meds - Medications Medications: Current Medications Amiodarone HCl (Cordarone) 200 mg PO DAILY [facility] Last Admin: 01/06/18 11:30 Dose: 200 mg Apixaban (Eliquis) 2.5 mg PO BID [facility]; Protocol Last Admin: 01/06/18 18:34 Dose: 2.5 mg Bismuth Subsalicylate (Pepto-Bismol) 524 mg PO AC [facility] Stop: 01/10/18 11:44 Last Admin: 01/06/18 18:36 Dose: 524 mg Carvedilol (Coreg) 6.25 mg PO BID [facility] Last Admin: 01/06/18 11:38 Dose: 6.25 mg Hydralazine HCl (Apresoline) 10 mg PO QID PRN PRN Reason: Systolic Blood Pressure Last Admin: 01/06/18 11:31 Dose: 10 mg Levofloxacin (Levaquin) 250 mg PO DAILY [facility]; Protocol Lisinopril (Zestril) 5 mg PO DAILY [facility] Last Admin: 01/06/18 11:29 Dose: 5 mg Metronidazole (Flagyl) 250 mg PO Q8H [facility]; Protocol Last Admin: 01/06/18 20:50 Dose: 250 mg Vitamin A (Vitamin A & D Oint Ud Foilpak) 1 ea TOP BID [facility] Last Admin: 01/06/18 18:37 Dose: 1 ea Results - Vital Signs Recent Vital Signs: Last Vital Signs Temp 98.1 F 01/06/18 06:00 Pulse 70 01/06/18 11:38 Resp 18 01/06/18 06:00 BP 112/73 01/06/18 11:38 Pulse Ox 100 01/06/18 06:00 - Labs Result Diagrams: 01/05/18 12:09 01/05/18 12:09 Attending/Attestation - Attestation I have personally seen and examined this patient.: Yes I have fully participated in the care of the patient.: Yes I have reviewed all pertinent clinical information: Yes Notes (Text): This is an addendum to GI progress report dictated by the GI Fellow.The patient was seen and examined earlier. Medical records, lab studies, imagings were reviewed. Last 24 hours events reviewed. Agreed with the above treatment plan as outlined in GI Fellow 's notes with the addition of the following 01/06/18 23:59
--- NOTE | 2018-01-06 14:22 | PN ---
DATE: 01/06/2018 HISTORY OF PRESENT ILLNESS: Mr. Bach is an 87-year-old male, admitted to the hospital from the [facility] with chronic diarrhea. He was found to be in acute renal failure. Renal functions have improved. No complaints today. Ambulating with support. No abdominal pain. No nausea. No vomiting. PAST MEDICAL HISTORY: Hypertension, pacemaker, gout, chronic atrial fibrillation, aortic valve replacement, history of arthritis. ALLERGY: NO KNOWN DRUG ALLERGIES. MEDICATIONS: Reviewed. FAMILY HISTORY: Noncontributory. SOCIAL HISTORY: Lives with and daughter. PHYSICAL EXAMINATION: GENERAL: Comfortable in bed, awake, alert, oriented. VITAL SIGNS: Vitals stable, afebrile. Temperature 98.7, heart rate 69 per minute, respiratory rate 18 per minute, blood pressure 110/70. HEENT: No pallor. HEART: S1, S2 normal. No murmur. No gallop. ABDOMEN: Soft, nontender. No hepatosplenomegaly. NEURO: Awake, alert, oriented x3. No focal sensorimotor deficits. LABORATORY DATA: White count 5.8, hemoglobin 11.6, hematocrit 33, platelet 57,000. Sodium 140, potassium 4.3, creatinine 1.8. MEDICATIONS: Eliquis 2.5 mg p.o. b.i.d., amiodarone 200 mg daily, Coreg 6.25 mg p.o. b.i.d., Levaquin 250 mg daily, lisinopril 5 mg daily, Flagyl 250 every 8. ASSESSMENT: 1. Diarrhea, dehydration. 2. Acute renal failure. 3. Anemia. 4. Thrombocytopenia. 5. Ischemic cardiomyopathy. PLAN: He was evaluated by GI. Currently, on Levaquin and Flagyl. Blood pressure controlled with hydralazine and Coreg. Currently, also on Eliquis, amiodarone 100 mg p.o. daily. Thrombocytopenia, platelet count 54,000. We will repeat again. Likely due to acute renal failure. Currently, mild anemia, also might be related to the acute renal insufficiency. We will continue to monitor closely. Liver enzymes elevated. Currently stable. Aniyah Croft MD [facility] # [id number] MTDBrittanie
[2018-01-06] MEDS: Bismuth Subsalicylate 262 mg/15 ml Sus (240 ml) PO SCH (18:36)
[2018-01-06] MEDS: Vitamins A & D Oint UD Foilpak TOP SCH (18:37)
--- NOTE | 2018-01-06 21:52 | CON ---
DATE: 01/06/2018 CARDIOLOGY CONSULTATION PATIENT SEX: Male. PATIENT AGE: 87. REASON FOR CONSULTATION: Followup cardiac evaluation, history of nonobstructive coronary artery disease, cardiomyopathy, sick sinus syndrome, status post AFib, support pacemaker, admitted with generalized weakness. BRIEF CLINICAL HISTORY: This is an 87-year-old male with past medical history significant for essentially normal coronaries; severe aortic stenosis, status TAVR; chronic atrial fibrillation; cardiomyopathy which is improved; history of recently complete heart block, status post permanent pacemaker; hypertension; gout; renal insufficiency who was in [facility]. The center discharged, brought by the family with inability to walk and four to five bowel movements. The patient denies any chest pain. Denies any shortness of breath. Denies any palpitation. PAST MEDICAL HISTORY: Significant for history of AFib, status post BRANDT, cardioversion failed. Also significant for aortic stenosis, cardiomyopathy, hypertension. He is status post TAVR. In the past, the patient had cardiomyopathy but refused AICD who recently admitted on 11/18/2017 with complete heart block and slow ventricular rate. Initially, the patient was in AFib. At that time, the patient was admitted with sinus with complete heart block, requiring pacemaker, initially attempted but because of the patient with cut down access by Dr. Matias and pacemaker was placed. Recent cardiac workup: History of atrial fibrillation, since the patient with TAVR. Recently admitted to the [facility] on 11/18/2017 with a normal sinus with complete heart block, requiring pacemaker, so pacemaker was placed by Dr. Matias, dual-chamber pacemaker on 11/24/2017. History of TAVR as mentioned history of most recently echo, ejection fraction 55%. Prior to that, the patient had cardiomyopathy and refused AICD. The patient had MUGA scan on 11/25/2017 off dopamine, ejection fraction 59%, was significantly improved. The patient was at that time with a normal sinus. Prior to that, the patient had significantly decreased LV function and refused AICD, but now the patient's EF is significantly improved and does not require AICD. History of cardiac catheterization on 08/12/2015, that shows normal coronaries, severe decreased LV function at that time, which is 15% to 20%, EDP was in the range of 20, peak gradient across the aortic valve is 40 mmHg, severe aortic stenosis, status post TAVR. CURRENT MEDICATIONS: At home, the patient was taking hydralazine 10 mg p.o. four times a day, spironolactone, lisinopril, digoxin, Coreg, and Eliquis. REVIEW OF SYSTEMS: As per HPI. PHYSICAL EXAMINATION: As follows: VITAL SIGNS: Height of the patient is 6 feet 2 inches, weight of the patient is 190 pounds, body mass index 24.4 kg/m2. Rest of the vitals, temperature afebrile, heart rate 70, blood pressure 112/73. HEENT: PERRLA. Extraocular muscles intact. NECK: Supple. No carotid bruit or thyromegaly. CHEST: Clear to auscultation. HEART: S1 and S2 are regular. ABDOMEN: Soft. EXTREMITIES: Clubbing and cyanosis negative. LABORATORY DATA: Blood work: WBC 5.8, hemoglobin 11.6, hematocrit 33.8, and platelet count 57. Chemistry shows sodium 140, potassium 4.6, chloride 107, carbon dioxide 27, anion gap of 10, BUN 38, and creatinine 1.8. Troponin is 0.05. EKG shows V-paced with underlying atrial fibrillation. IMPRESSION: An 87-year-old male with past medical history significant for cardiac catheterization two years ago, normal coronaries, severe aortic stenosis, is status post transcatheter aortic valve replacement, history of atrial fibrillation, failed cardioversion, recently admitted with normal sinus complete heart block, requiring pacemaker. Dual-chamber pacemaker was placed by Dr. Matias on 11/24/2017. Discharged to rehab facility where the patient developed diarrhea and more generalized weakness, so was brought by the daughter who was recently discharged from the rehab facility because of inability to walk and diarrhea and found to be in acute kidney injury. The patient is now lying flat. Most recent echocardiogram and MUGA scan consistent with ejection fraction 55%. The patient had ejection fraction 15% to 20% and refused automatic implantable cardioverter-defibrillator in the past, now significantly ejection fraction is improved. RECOMMENDATIONS: We will start gentle hydration. Monitor electrolytes closely. Continue Eliquis because the patient went back into AFib. Continue Coreg. Continue amiodarone. Continue hydralazine. Since the patient had elevated LFTs, we will monitor closely. Repeat LFTs tomorrow. If the LFTs trend up, we will hold amiodarone. We will also do the BMP as well as renal function with gentle hydration. If the renal function stabilizes, we will resume or continue lisinopril. If the renal function deteriorates, we will also discontinue lisinopril and will continue Eliquis at 2.5 mg p.o. with the adjusted renal function as well as age. Also, we will start rehab therapy. We will try to get in touch with daughter, Bridgette. As per the patient's request, we will call at [phone]. Repeat EKG in the morning. Since the patient goes back in forth of AFib and has been in AFib for at least two to three years, we will get the lipid profile and get the hemoglobin A1c. Since the patient goes back into AFib and remained in AFib for two years, recent admission and last admission before the pacemaker, the patient went into sinus and now has been back into AFib, we will continue Eliquis indefinitely to prevent a stroke. Again as mentioned most recent MUGA and echo consistent with improved LV function. I will repeat EKG in the morning. Thank you Dr. Martin for providing us the opportunity in taking care of the patient, Nikolas Bach. Jet Rich MD
[2018-01-07 07:16] LABS: EOS % 0.4 % (1.5-5.0); GRAN # 3.78 (1.4-6.5); GRAN % 68.2 % (50.0-68.0); HEMOGLOBIN 10.5 g/dL (14.0-18.0); LYMPH # 1.2 (1.2-3.4); LYMPH % 22.4 % (22.0-35.0); MEAN CELL VOLUME 85.9 fl (80.0-105.0); MEAN CORPUSCULAR HGB CONC 33.8 g/dl (31.0-37.0); MONO # 0.5 (0.1-0.6); PLATELET COUNT 50 10^3/uL (120.0-450.0); RBC 3.62 10^6/uL (3.5-6.1); RED CELL DISTRIBUTION WIDTH 15.6 % (11.5-14.5); WHITE BLOOD COUNT 5.5 10^3/uL (4.5-11.0)
[2018-01-07 07:41] LABS: ALBUMIN 2.9 g/dL (3.0-4.8); ALT/SGPT 99 U/L (7-56); AST/SGOT 101 U/L (17-59); BLOOD UREA NITROGEN 18 mg/dL (7-21); CALCIUM 8.6 mg/dL (8.4-10.5); GFR NON-AFRICAN AMERICAN 57; HDL CHOLESTEROL 29 mg/dL (29-60)
[2018-01-07 07:49] LABS: LDL CHOLESTEROL 61 mg/dL (0-129)
--- NOTE | 2018-01-07 08:55 | CARD ---
APPROVED REPORT Date of service: 01/07/2018 EKG Measurement Heart [id number] <Conclusion> Electronic atrial pacemaker Left bundle branch block
[2018-01-07] MEDS ORDERED: Potassium Chloride 20 mEq ER Tab PO ONE (09:04)
[2018-01-07 09:50] LABS: IRON 103 ug/dL (45-180)
[2018-01-07 09:59] LABS: % IRON SATURATION 44 % (20-55); TOTAL IRON BINDING CAPACITY 235 ug/dL (261-462)
[2018-01-07] MEDS: Bismuth Subsalicylate 262 mg/15 ml Sus (240 ml) PO SCH ×2 (10:38→11:52)
[2018-01-07] MEDS: Vitamins A & D Oint UD Foilpak TOP SCH ×2 (10:44→18:47)
--- NOTE | 2018-01-07 12:23 | CP.PCM.PN ---
<Brendan Ko - Last Filed: 01/07/18 14:36> Subjective - Date & Time of Evaluation Date of Evaluation: 01/07/18 Time of Evaluation: 12:20 - Subjective Subjective: Patient sitting in chair, watching TV, tolerating diet. Patient is still having some watery diarrhea. He is compliant with medications. Objective - Vital Signs/Intake and Output Vital Signs (last 24 hours): Temp Pulse Resp BP Pulse Ox 98.6 F 69 18 90/58 L 100 01/07/18 08:27 01/07/18 10:45 01/07/18 08:27 01/07/18 10:45 01/07/18 08:27 - Medications Medications: Current Medications Amiodarone HCl (Cordarone) 200 mg PO DAILY [facility] Last Admin: 01/07/18 10:42 Dose: 200 mg Apixaban (Eliquis) 2.5 mg PO BID [facility]; Protocol Last Admin: 01/07/18 10:41 Dose: 2.5 mg Bismuth Subsalicylate (Pepto-Bismol) 524 mg PO AC [facility] Stop: 01/10/18 11:44 Last Admin: 01/07/18 11:52 Dose: 524 mg Carvedilol (Coreg) 6.25 mg PO BID [facility] Last Admin: 01/07/18 10:44 Dose: Not Given Furosemide (Lasix) 40 mg PO DAILY [facility] Last Admin: 01/07/18 10:42 Dose: Not Given Hydralazine HCl (Apresoline) 10 mg PO QID PRN PRN Reason: Systolic Blood Pressure Last Admin: 01/06/18 11:31 Dose: 10 mg Levofloxacin (Levaquin) 250 mg PO DAILY [facility]; Protocol Last Admin: 01/07/18 11:52 Dose: 250 mg Lisinopril (Zestril) 5 mg PO DAILY [facility] Last Admin: 01/07/18 10:45 Dose: Not Given Metronidazole (Flagyl) 250 mg PO Q8H [facility]; Protocol Last Admin: 01/07/18 04:35 Dose: 250 mg Spironolactone (Aldactone) 25 mg PO DAILY [facility] Last Admin: 01/07/18 10:43 Dose: 25 mg Vitamin A (Vitamin A & D Oint Ud Foilpak) 1 ea TOP BID [facility] Last Admin: 01/07/18 10:44 Dose: 1 ea - Labs Labs: 01/07/18 06:30 01/07/18 06:30 PT 14.4 SECONDS (9.4-12.5) H 01/05/18 12:09 INR 1.25 01/05/18 12:09 APTT 32.0 Seconds (25.1-36.5) 01/05/18 12:09 - Constitutional Appears: Non-toxic, No Acute Distress, Chronically Ill - Head Exam Head Exam: ATRAUMATIC, NORMAL INSPECTION - Eye Exam Eye Exam: Normal appearance - ENT Exam ENT Exam: Mucous Membranes Moist - Respiratory Exam Respiratory Exam: Clear to Ausculation Bilateral, NORMAL BREATHING PATTERN - Cardiovascular Exam Cardiovascular Exam: REGULAR RHYTHM, +S1, +S2 - GI/Abdominal Exam GI & Abdominal Exam: Soft, Normal Bowel Sounds. absent: Tenderness - Neurological Exam Neurological Exam: Alert, Awake, Oriented x3 - Psychiatric Exam Psychiatric exam: Normal Affect, Normal Mood - Skin Skin Exam: Dry, Normal Color Assessment and Plan - Assessment and Plan (Free Text) Assessment: #Acute diarrhea - abx/hospital associated #Persistently elevated LTs #ARTEMIO #Hx of DILI #hx h. pylori - He has not completed treatment due to elevated liver test and in/out of hospital #CHF #CAD #PPM PLAN: - C. diff negative. - Supportive and symptomatic care - Bismuth - Levaquin and Flagyl (reduced doses). QTc less than 500. - F/u stool culture - Recommend physical therapy - He will need outpt treatment of H. pylori <Armin,Kovil V - Last Filed: 01/07/18 19:45> Objective - Vital Signs/Intake and Output Vital Signs (last 24 hours): Temp Pulse Resp BP Pulse Ox 97.8 F 66 18 98/66 L 91 L 01/07/18 14:55 01/07/18 18:48 01/07/18 14:55 01/07/18 18:48 01/07/18 14:55 Intake and Output: 01/07/18 01/08/18 18:59 06:59 Intake Total 460 Output Total 200 Balance 260 - Medications Medications: Current Medications Amiodarone HCl (Cordarone) 200 mg PO DAILY [facility] Last Admin: 01/07/18 10:42 Dose: 200 mg Apixaban (Eliquis) 2.5 mg PO BID [facility]; Protocol Last Admin: 01/07/18 18:43 Dose: 2.5 mg Bismuth Subsalicylate (Pepto-Bismol) 524 mg PO AC [facility] Stop: 01/10/18 11:44 Last Admin: 01/07/18 11:52 Dose: 524 mg Carvedilol (Coreg) 6.25 mg PO BID [facility] Last Admin: 01/07/18 18:48 Dose: Not Given Furosemide (Lasix) 40 mg PO DAILY [facility] Last Admin: 01/07/18 13:01 Dose: 40 mg Hydralazine HCl (Apresoline) 10 mg PO QID PRN PRN Reason: Systolic Blood Pressure Last Admin: 01/06/18 11:31 Dose: 10 mg Levofloxacin (Levaquin) 250 mg PO DAILY [facility]; Protocol Last Admin: 01/07/18 11:52 Dose: 250 mg Lisinopril (Zestril) 5 mg PO DAILY [facility] Last Admin: 01/07/18 13:02 Dose: 5 mg Metronidazole (Flagyl) 250 mg PO Q8H [facility]; Protocol Last Admin: 01/07/18 18:44 Dose: 250 mg Spironolactone (Aldactone) 25 mg PO DAILY [facility] Last Admin: 01/07/18 10:43 Dose: 25 mg Vitamin A (Vitamin A & D Oint Ud Foilpak) 1 ea TOP BID [facility] Last Admin: 01/07/18 18:47 Dose: 1 ea - Labs Labs: 01/07/18 06:30 01/07/18 06:30 PT 14.4 SECONDS (9.4-12.5) H 01/05/18 12:09 INR 1.25 01/05/18 12:09 APTT 32.0 Seconds (25.1-36.5) 01/05/18 12:09 Attending/Attestation - Attestation I have personally seen and examined this patient.: Yes I have fully participated in the care of the patient.: Yes I have reviewed all pertinent clinical information, including history, physical exam and plan: Yes Notes (Text): This is an addendum to GI progress report dictated by the GI Fellow.The patient was seen and examined earlier. Medical records, lab studies, imagings were reviewed. Last 24 hours events reviewed. Agreed with the above treatment plan as outlined in GI Fellow 's notes with the addition of the following patient states the diarrhea is slightly slow down tolerating diet Patient on low dose Levaquin and Flagyl close follow-up of the LFTs 01/07/18 19:43
[2018-01-07 13:24] LABS: URINE BILIRUBIN NEGATIVE (NEGATIVE); URINE BLOOD TRACE-INTACT (NEGATIVE); URINE GLUCOSE (UA) NEGATIVE (NEGATIVE); URINE LEUKOCYTE ESTERASE NEGATIVE Leu/uL (NEGATIVE); URINE PROTEIN TRACE mg/dL (<30 mg/dL); URINE UROBILINOGEN 0.2 E.U./dL (<1 E.U./dL)
[2018-01-07 13:27] LABS: URINE APPEARANCE SL CLOUDY (CLEAR); URINE COLOR YELLOW (YELLOW)
[2018-01-07 13:31] LABS: URINE RBC 0 - 2 /hpf (0-2); URINE WBC NEGATIVE /hpf (0-6)
--- NOTE | 2018-01-07 13:39 | PN ---
DATE: 01/07/2018 REASON FOR CONSULTATION AND FOLLOWUP: Cardiac evaluation, history of nonobstructive coronary artery disease, history of transaortic valve replacement, history of AFib, sick sinus syndrome, status post pacemaker. Admitted with generalized weakness, inability to walk, acute kidney injury. SUBJECTIVE: The patient denies any chest pain, shortness of breath, any palpitations, and feels a lot better. PHYSICAL EXAMINATION: GENERAL: Not in apparent distress. VITAL SIGNS: Temperature afebrile, heart rate 70, blood pressure 112/68, and pulse 73. HEENT: PERRLA. Extraocular muscles intact. NECK: Supple. No carotid bruit or thyromegaly. CHEST: Clear to auscultation. HEART: S1 and S2 regular. ABDOMEN: Soft. EXTREMITIES: Clubbing and cyanosis negative. LABORATORY DATA: Blood workup; WBC 5.5, hemoglobin 10.5, hematocrit 31.1, platelet count 50. Chemistry shows sodium 137, potassium 3.5, chloride 106, carbon dioxide 28, anion gap of 7, BUN 18, creatinine 1.2. TSH 0.11, total 5.7, albumin 2.9, albumin globulin ratio 2.8, AST 101, ALT 99. IMPRESSION: An 87-year-old male with a past medical history significant for nonischemic cardiomyopathy, status post severe aortic stenosis, status post transcatheter aortic valve replacement, refused automatic implantable cardioverter-defibrillator in the past. Recently admitted with complete heart block and sinus. The patient has always been in the past in atrial fibrillation, status post permanent pacemaker dual-chamber, and the patient after was transferred to the rehab facility. Yesterday daughter brought because of the failure, inability to walk and found to be in acute kidney injury. The patient is hydrated now. The BUN and creatinine did improve and the patient is getting rehab now. The patient was discharged, had a multigated acquisition scan that showed preserved left ventricular function and also echocardiogram shows preserved left ventricular function, though the patient converted to normal sinus. Before all there has been, the patient in atrial fibrillation. At this time, the patient is again admitted with an atrial fibrillation, so it look paroxysmal atrial fibrillation, which was persistent and now converted to sinus and back again into atrial fibrillation. RECOMMENDATIONS: Discontinue IV fluid and resume back amiodarone, Coreg, Eliquis 2.5 mg, rate adjusted and continue to supplement potassium, resume back lisinopril, and we will add on gentle diuretics as well 40 mg from today. We will give supplement potassium 25 p.o. daily with Lasix. We will also add Lasix and spironolactone today. Thank you Dr. Martin for providing us the opportunity in taking care of the patient, Isreal Connor. Jet Rich MD
[2018-01-07 17:05] LABS: FOLATE 6.3 ng/mL
[2018-01-08 07:40] LABS: EOS % 0.2 % (1.5-5.0); GRAN # 3.29 (1.4-6.5); GRAN % 64.7 % (50.0-68.0); HEMOGLOBIN 10.6 g/dL (14.0-18.0); LYMPH # 1.3 (1.2-3.4); LYMPH % 25.3 % (22.0-35.0); MEAN CORPUSCULAR HEMOGLOBIN 29.1 pg (25.0-35.0); MEAN CORPUSCULAR HGB CONC 33.9 g/dl (31.0-37.0); MONO # 0.5 (0.1-0.6); MONO % 9.8 % (1.0-6.0); PLATELET COUNT 52 10^3/uL (120.0-450.0); RBC 3.64 10^6/uL (3.5-6.1); RED CELL DISTRIBUTION WIDTH 15.7 % (11.5-14.5); WHITE BLOOD COUNT 5.1 10^3/uL (4.5-11.0)
[2018-01-08 08:15] LABS: BLOOD UREA NITROGEN 17 mg/dL (7-21); CALCIUM 8.7 mg/dL (8.4-10.5); GFR NON-AFRICAN AMERICAN 57
[2018-01-08] MEDS: Vitamins A & D Oint UD Foilpak TOP SCH ×2 (10:02→17:18)
[2018-01-08] MEDS: Bismuth Subsalicylate 262 mg/15 ml Sus (240 ml) PO SCH ×4 (10:04→19:52)
--- NOTE | 2018-01-08 10:21 | CP.PCM.PN ---
<Brendan Ko - Last Filed: 01/08/18 10:57> Subjective - Date & Time of Evaluation Date of Evaluation: 01/08/18 Time of Evaluation: 10:19 - Subjective Subjective: Patient BMs are decreasing in frequency. last BM was yesterday before dinner. He is otherwise doing okay. Still to weak to walk. Objective - Vital Signs/Intake and Output Vital Signs (last 24 hours): Temp Pulse Resp BP Pulse Ox 98.4 F 69 20 97/55 L 100 01/08/18 06:00 01/08/18 10:08 01/08/18 06:00 01/08/18 10:08 01/08/18 06:00 Intake and Output: 01/08/18 01/08/18 06:59 18:59 Intake Total 580 Output Total 450 Balance 130 - Medications Medications: Current Medications Amiodarone HCl (Cordarone) 200 mg PO DAILY [facility] Last Admin: 01/08/18 10:01 Dose: 200 mg Apixaban (Eliquis) 2.5 mg PO BID [facility]; Protocol Last Admin: 01/08/18 10:00 Dose: 2.5 mg Bismuth Subsalicylate (Pepto-Bismol) 524 mg PO AC [facility] Stop: 01/10/18 11:44 Last Admin: 01/08/18 10:04 Dose: 524 mg Carvedilol (Coreg) 6.25 mg PO BID [facility] Last Admin: 01/08/18 10:07 Dose: Not Given Furosemide (Lasix) 40 mg PO DAILY [facility] Last Admin: 01/08/18 10:08 Dose: Not Given Hydralazine HCl (Apresoline) 10 mg PO QID PRN PRN Reason: Systolic Blood Pressure Last Admin: 01/06/18 11:31 Dose: 10 mg Levofloxacin (Levaquin) 250 mg PO DAILY [facility]; Protocol Last Admin: 01/08/18 10:02 Dose: 250 mg Lisinopril (Zestril) 5 mg PO DAILY [facility] Last Admin: 01/08/18 10:08 Dose: Not Given Metronidazole (Flagyl) 250 mg PO Q8H [facility]; Protocol Last Admin: 01/08/18 09:43 Dose: 250 mg Spironolactone (Aldactone) 25 mg PO DAILY [facility] Last Admin: 01/08/18 10:07 Dose: Not Given Vitamin A (Vitamin A & D Oint Ud Foilpak) 1 ea TOP BID [facility] Last Admin: 01/08/18 10:02 Dose: 1 ea - Labs Labs: 01/08/18 07:00 01/08/18 07:00 PT 14.4 SECONDS (9.4-12.5) H 01/05/18 12:09 INR 1.25 01/05/18 12:09 APTT 32.0 Seconds (25.1-36.5) 01/05/18 12:09 - Constitutional Appears: Non-toxic, No Acute Distress - Head Exam Head Exam: NORMAL INSPECTION - Eye Exam Eye Exam: Normal appearance - ENT Exam ENT Exam: Mucous Membranes Moist - Respiratory Exam Respiratory Exam: Clear to Ausculation Bilateral, NORMAL BREATHING PATTERN - Cardiovascular Exam Cardiovascular Exam: REGULAR RHYTHM, +S1, +S2 - GI/Abdominal Exam GI & Abdominal Exam: Soft, Normal Bowel Sounds. absent: Tenderness - Neurological Exam Neurological Exam: Alert, Awake, Oriented x3 - Psychiatric Exam Psychiatric exam: Normal Affect, Normal Mood - Skin Skin Exam: Dry, Normal Color Assessment and Plan - Assessment and Plan (Free Text) Assessment: #Acute diarrhea - abx/hospital associated #Persistently elevated LTs #ARTEMIO #Hx of DILI #hx h. pylori - He has not completed treatment due to elevated liver test and in/out of hospital #CHF #CAD #PPM PLAN: - C. diff negative. - Supportive and symptomatic care - Bismuth - Levaquin and Flagyl (reduced doses). QTc less than 500. - F/u stool culture - Recommend physical therapy - He will need outpt treatment of H. pylori <Gavin Funez V - Last Filed: 01/09/18 00:00> Objective - Vital Signs/Intake and Output Vital Signs (last 24 hours): Temp Pulse Resp BP Pulse Ox 97.7 F 70 20 119/76 100 01/08/18 21:55 01/08/18 21:55 01/08/18 21:55 01/08/18 21:55 01/08/18 21:55 - Medications Medications: Current Medications Amiodarone HCl (Cordarone) 200 mg PO DAILY [facility] Last Admin: 01/08/18 10:01 Dose: 200 mg Apixaban (Eliquis) 2.5 mg PO BID [facility]; Protocol Last Admin: 01/08/18 18:20 Dose: 2.5 mg Bismuth Subsalicylate (Pepto-Bismol) 524 mg PO AC [facility] Stop: 01/10/18 11:44 Last Admin: 01/08/18 19:52 Dose: 524 mg Carvedilol (Coreg) 6.25 mg PO BID [facility] Last Admin: 01/08/18 19:52 Dose: Not Given Furosemide (Lasix) 40 mg PO DAILY [facility] Last Admin: 01/08/18 10:08 Dose: Not Given Levofloxacin (Levaquin) 250 mg PO DAILY [facility]; Protocol Last Admin: 01/08/18 10:02 Dose: 250 mg Lisinopril (Zestril) 5 mg PO DAILY [facility] Last Admin: 01/08/18 10:08 Dose: Not Given Metronidazole (Flagyl) 250 mg PO Q8H [facility]; Protocol Last Admin: 01/08/18 23:04 Dose: 250 mg Spironolactone (Aldactone) 25 mg PO DAILY [facility] Last Admin: 01/08/18 10:07 Dose: Not Given Vitamin A (Vitamin A & D Oint Ud Foilpak) 1 ea TOP BID [facility] Last Admin: 01/08/18 17:18 Dose: 1 ea - Labs Labs: 01/08/18 07:00 01/08/18 07:00 PT 14.4 SECONDS (9.4-12.5) H 01/05/18 12:09 INR 1.25 01/05/18 12:09 APTT 32.0 Seconds (25.1-36.5) 01/05/18 12:09 Attending/Attestation - Attestation I have personally seen and examined this patient.: Yes I have fully participated in the care of the patient.: Yes I have reviewed all pertinent clinical information, including history, physical exam and plan: Yes Notes (Text): This is an addendum to GI progress report dictated by the GI Fellow.The patient was seen and examined earlier. Medical records, lab studies, imagings were reviewed. Last 24 hours events reviewed. Agreed with the above treatment plan as outlined in GI Fellow 's notes with the addition of the following 01/09/18 00:00
[2018-01-09] MEDS: Bismuth Subsalicylate 262 mg/15 ml Sus (240 ml) PO SCH ×3 (08:45→16:58)
--- NOTE | 2018-01-09 09:57 | CP.PCM.PN ---
<Brendan Ko - Last Filed: 01/09/18 09:54> Subjective - Date & Time of Evaluation Date of Evaluation: 01/09/18 Time of Evaluation: 09:54 - Subjective Subjective: Patient is doing well today, but still feels weak. Unable to walk. BMs have improved. Now solid. Tolerating diet, eating 100% meals. Objective - Vital Signs/Intake and Output Vital Signs (last 24 hours): Temp Pulse Resp BP Pulse Ox 97.9 F 69 18 149/81 100 01/09/18 06:00 01/09/18 06:00 01/09/18 06:00 01/09/18 06:00 01/09/18 06:00 Intake and Output: 01/09/18 01/09/18 06:59 18:59 Output Total 600 Balance -600 - Medications Medications: Current Medications Amiodarone HCl (Cordarone) 200 mg PO DAILY [facility] Last Admin: 01/08/18 10:01 Dose: 200 mg Apixaban (Eliquis) 2.5 mg PO BID [facility]; Protocol Last Admin: 01/08/18 18:20 Dose: 2.5 mg Bismuth Subsalicylate (Pepto-Bismol) 262 mg PO AC [facility] Stop: 01/10/18 11:44 Carvedilol (Coreg) 6.25 mg PO BID [facility] Last Admin: 01/08/18 19:52 Dose: Not Given Furosemide (Lasix) 40 mg PO DAILY [facility] Last Admin: 01/08/18 10:08 Dose: Not Given Levofloxacin (Levaquin) 250 mg PO DAILY [facility]; Protocol Last Admin: 01/08/18 10:02 Dose: 250 mg Lisinopril (Zestril) 5 mg PO DAILY [facility] Last Admin: 01/08/18 10:08 Dose: Not Given Metronidazole (Flagyl) 250 mg PO Q8H [facility]; Protocol Last Admin: 01/09/18 08:33 Dose: 250 mg Spironolactone (Aldactone) 25 mg PO DAILY [facility] Last Admin: 01/08/18 10:07 Dose: Not Given Vitamin A (Vitamin A & D Oint Ud Foilpak) 1 ea TOP BID [facility] Last Admin: 01/08/18 17:18 Dose: 1 ea - Labs Labs: 01/08/18 07:00 01/08/18 07:00 PT 14.4 SECONDS (9.4-12.5) H 01/05/18 12:09 INR 1.25 01/05/18 12:09 APTT 32.0 Seconds (25.1-36.5) 01/05/18 12:09 - Constitutional Appears: Non-toxic, No Acute Distress - Head Exam Head Exam: NORMAL INSPECTION, NORMOCEPHALIC - Eye Exam Eye Exam: EOMI, Normal appearance - ENT Exam ENT Exam: Mucous Membranes Moist, Normal Exam - Respiratory Exam Respiratory Exam: Clear to Ausculation Bilateral, NORMAL BREATHING PATTERN - Cardiovascular Exam Cardiovascular Exam: REGULAR RHYTHM, +S1, +S2 - GI/Abdominal Exam GI & Abdominal Exam: Soft, Normal Bowel Sounds. absent: Tenderness - Extremities Exam Extremities Exam: Pedal Edema - Neurological Exam Neurological Exam: Alert, Awake, Oriented x3 - Psychiatric Exam Psychiatric exam: Normal Affect, Normal Mood - Skin Skin Exam: Dry, Normal Color Assessment and Plan - Assessment and Plan (Free Text) Assessment: #Acute diarrhea - abx/hospital associated #Persistently elevated LTs #ARTEMIO - resolved #Hx of DILI #hx h. pylori - He has not completed treatment due to elevated liver test and in/out of hospital #CHF #CAD #PPM PLAN: - Diarrhea resolved - C. diff negative. - Supportive and symptomatic care - Bismuth - Levaquin and Flagyl (reduced doses). QTc less than 500. - stool culture negative - Recommend physical therapy - He will need outpt treatment of H. pylori - OK for discharge from GI perspective. Patient should finish abx course. <Gavin Funez V - Last Filed: 01/09/18 23:30> Objective - Vital Signs/Intake and Output Vital Signs (last 24 hours): Temp Pulse Resp BP Pulse Ox 98.1 F 70 18 106/71 100 01/09/18 22:00 01/09/18 22:00 01/09/18 22:00 01/09/18 22:00 01/09/18 22:00 - Medications Medications: Current Medications Amiodarone HCl (Cordarone) 200 mg PO DAILY [facility] Last Admin: 01/09/18 09:58 Dose: 200 mg Apixaban (Eliquis) 2.5 mg PO BID [facility]; Protocol Last Admin: 01/09/18 17:42 Dose: 2.5 mg Bismuth Subsalicylate (Pepto-Bismol) 262 mg PO AC [facility] Stop: 01/10/18 11:44 Last Admin: 01/09/18 16:58 Dose: 262 mg Carvedilol (Coreg) 6.25 mg PO BID [facility] Last Admin: 01/09/18 17:42 Dose: 6.25 mg Furosemide (Lasix) 40 mg PO DAILY [facility] Last Admin: 01/09/18 14:01 Dose: 40 mg Levofloxacin (Levaquin) 250 mg PO DAILY [facility]; Protocol Last Admin: 01/09/18 09:59 Dose: 250 mg Lisinopril (Zestril) 5 mg PO DAILY [facility] Last Admin: 01/09/18 10:01 Dose: 5 mg Metronidazole (Flagyl) 250 mg PO Q8H [facility]; Protocol Last Admin: 01/09/18 16:58 Dose: 250 mg Spironolactone (Aldactone) 25 mg PO DAILY [facility] Last Admin: 01/09/18 14:00 Dose: Not Given Vitamin A (Vitamin A & D Oint Ud Foilpak) 1 ea TOP BID [facility] Last Admin: 01/09/18 17:43 Dose: 1 ea - Labs Labs: 01/08/18 07:00 01/08/18 07:00 PT 14.4 SECONDS (9.4-12.5) H 01/05/18 12:09 INR 1.25 01/05/18 12:09 APTT 32.0 Seconds (25.1-36.5) 01/05/18 12:09 Attending/Attestation - Attestation I have personally seen and examined this patient.: Yes I have fully participated in the care of the patient.: Yes I have reviewed all pertinent clinical information, including history, physical exam and plan: Yes Notes (Text): This is an addendum to GI progress report dictated by the GI Fellow.The patient was seen and examined earlier. Medical records, lab studies, imagings were reviewed. Last 24 hours events reviewed. Agreed with the above treatment plan as outlined in GI Fellow 's notes with the addition of the following 01/09/18 23:30
[2018-01-09] MEDS: Vitamins A & D Oint UD Foilpak TOP SCH ×2 (09:59→17:43)
--- NOTE | 2018-01-09 11:21 | PN ---
DATE: 01/09/2018 FOLLOWUP NOTE SUBJECTIVE: He is comfortable in bed, in no acute distress. Bowel movements are formed now, diarrhea resolved. Urine culture negative. C. difficile negative. Evaluated by GI also. REVIEW OF SYSTEMS: As per HPI. Rest of 12-point review of systems reviewed negative. He feels very weak. PHYSICAL EXAMINATION GENERAL: Comfortable in bed, in no acute distress. VITAL SIGNS: Temperature 97.9, heart rate 69 per minute, blood pressure 106/69, oxygen saturation 100% on room air, respiratory rate 18 per minute. HEENT: Pallor positive. NECK: No lymphadenopathy. CHEST: Air entry present and equal bilaterally. No added sound. CARDIOVASCULAR: S1, S2 normal. No murmur, no gallop. ABDOMEN: Soft, nontender. No hepatosplenomegaly. EXTREMITIES: No edema. CENTRAL NERVOUS SYSTEM: Alert and oriented x3. No focal sensory or motor deficit. LABORATORY DATA: White count 5.1, hemoglobin 10.6, hematocrit 31.3, platelets 52,000. Sodium 137, potassium 4.3, creatinine 1.2. LFTs within normal limits. MEDICATIONS: Cordarone 200 mg daily, Eliquis 2.5 mg by mouth two times a day, Pepto-Bismol, Coreg 6.25 mg by mouth two times a day, Lasix 40 mg daily, Levaquin 250 mg by mouth daily, Flagyl 250 every eight hours, Aldactone 25 mg daily, vitamin E. ASSESSMENT AND PLAN: 1. Chronic diarrhea. Currently stable, diarrhea resolved. Clostridium difficile negative. Gastroenterology following. Currently, on Levaquin and Flagyl, low dose; continue that. Aldactone 25 mg by mouth daily, Eliquis 2.5 mg by mouth two times a day. Continue cardiac medications, Coreg 6.25 mg by mouth two times a day and amiodarone 200 mg daily. 2. Anemia. Hemoglobin and hematocrit stable. 3. Thrombocytopenia. Platelet count 52,000. No bleeding. 4. On anticoagulation with Eliquis. Aniyah Croft MD
--- NOTE | 2018-01-10 08:14 | PN ---
DATE: 01/08/2018 SUBJECTIVE: The patient is an 87-year-old, seen and examined, sitting in chair, seems to be comfortable, still has diarrhea. PHYSICAL EXAMINATION: VITAL SIGNS: He is afebrile, pulse 69, respirations 20, blood pressure 97/55. LUNGS: Bilateral fair airflow. No rhonchi or crackle. HEART: S1, S2 audible. ABDOMEN: Soft, nontender. No rebound, no guarding. NEUROLOGIC: The patient is awake, alert, oriented. Communicative. LABORATORY DATA: WBC is 5.1, hemoglobin 10.6, hematocrit 31.3, platelets 52,000. Chemistry; sodium 136, potassium 4.3, chloride 103, CO2 of 29, BUN 17, creatinine 1.2, blood sugar 90. TIBC 235, iron is 103. AST 101, ALT 99. Stool C. difficile is negative. ASSESSMENT: 1. Diarrhea, etiology still unclear. 2. Ischemic cardiomyopathy. 3. History of hypertension, but currently running hypotensive. 4. Thrombocytopenia. 5. Chronic atrial fibrillation. 6. Status post pacemaker defibrillator placement. PLAN: So, plan is I will order another sample of stool for C. difficile and give him just one dose of Imodium 2 mg stat. Kendall Martin MD
[2018-01-10] MEDS: Bismuth Subsalicylate 262 mg/15 ml Sus (240 ml) PO SCH ×2 (08:37→13:04)
--- NOTE | 2018-01-10 10:24 | PN ---
DATE: 01/07/2018 SUBJECTIVE: An 87-year-old, seen and examined, lying in bed. Seems to be little better. He said he did eat. He had two loose bowel movements so far. No blood in the stool. No chest pain, no shortness of breath. Did ambulate few steps. PHYSICAL EXAMINATION: VITAL SIGNS: He is afebrile. Pulse 66, respirations 18, blood pressure 119/78. LUNGS: Bilateral fair airflow. No rhonchi or crackles. HEART: S1, S2 audible. ABDOMEN: Soft, nontender. No rebound. No guarding. NEUROLOGIC: The patient is awake, alert, oriented; able to communicate. EXTREMITIES: Bilateral leg +2 edema. LABORATORY DATA: WBC 5.5, hemoglobin 10.5, hematocrit 31.1, platelets of 50. PT 14.4, INR 1.25. Chemistry: Sodium 137, potassium 3.5, chloride 106, CO2 of 28, BUN 18, creatinine 1.2, blood sugar of 83. TIBC 235. AST 101, ALT 99, alk phos is 99. ____ is 0.11. Urinalysis is unremarkable. ASSESSMENT AND PLAN: Intractable diarrhea, etiology unclear. We will continue Eliquis. He is currently on metronidazole. He is on Levaquin. Encouraged ablation, and we will follow up this patient in a.m. Kendall Martin MD
[2018-01-10] MEDS: Vitamins A & D Oint UD Foilpak TOP SCH ×2 (10:48→17:28)
--- NOTE | 2018-01-10 14:07 | PN ---
DATE: 01/10/2018 REASON FOR CONSULTATION: Cardiac evaluation, history of nonobstructive coronary artery disease, history of transcatheter aortic valve replacement, history of AFib, sick sinus syndrome, status post permanent pacemaker, admitted with deconditioning of body. SUBJECTIVE: The patient denies any chest pain, shortness of breath, or any palpitation. PHYSICAL EXAMINATION GENERAL: Not in apparent distress. VITAL SIGNS: Temperature afebrile, heart rate 69, blood pressure 102/68. HEENT: PERRLA, intact. NECK: Supple. No carotid bruit or thyromegaly. CHEST: Clear to auscultation. HEART: S1, S2, regular. ABDOMEN: Soft. EXTREMITIES: Clubbing and cyanosis negative. LABORATORY DATA: Blood workup; WBC 5.9, hemoglobin 10.6, hematocrit 31.3, platelet count 52,000. Chemistry shows sodium 136, potassium 4.3, chloride 103, carbon dioxide 29, anion gap of 8, BUN is 17, creatinine 1.2. IMPRESSION: An 87-year-old male with past medical history significant for severe aortic stenosis, status post transcatheter aortic valve replacement, history of normal coronaries, history of paroxysmal atrial fibrillation, was in atrial fibrillation, admitted recently with complete heart block, , status post permanent pacemaker, cardiomyopathy significantly improved both by echo and MUGA scan, history of thrombocytopenia, admitted with deconditioning of the body, awaiting for discharge placement. RECOMMENDATIONS: Continue spironolactone. Continue amiodarone. Continue Coreg. Continue Eliquis 2.5 cautiously because the patient has a low platelet count. Continue lisinopril. Discharge pending. We will follow with you. We will repeat the blood workup tomorrow. The patient is stable from a Cardiology point of view discharged to a rehab facility. The patient wanted to go to [facility] because his is also in [facility] . We will let the social services manager for discharge planning. Thank you Dr. Martin for providing us the opportunity in taking care of the patient, Nikolas Bach. Jet Rich MD [facility] # [id number]
--- NOTE | 2018-01-10 20:48 | PN ---
DATE: 01/10/2018 SUBJECTIVE: The patient is an 87-year-old, seen and examined, sitting in chair, finishing his lunch. He states his appetite is better. No more diarrhea. PHYSICAL EXAMINATION: VITAL SIGNS: He is afebrile, pulse 70, respirations 22, blood pressure 83/53. LUNGS: Bilateral fair airflow. No rhonchi or crackle. HEART: S1, S2 audible. ABDOMEN: Soft, nontender. No rebound, no guarding. NEUROLOGIC: The patient is awake, alert, oriented. Able to communicate. EXTREMITIES: His bilateral legs, no edema. LABORATORY DATA: Urine cultures are negative. Stool for C. diff is negative. ASSESSMENT: 1. Ischemic cardiomyopathy with poor ejection fraction. 2. Status post pacemaker placement. 3. Multiple episodes of syncope secondary to heart block. 4. Hypotension. 5. Deconditioning, difficulty walking. 6. Chronic kidney disease. 7. Gout. PLAN: So, plan is, I will cut down the patient's carvedilol to 3.125 and we will continue on Eliquis and also monitor his electrolytes . Kendall Martin MD
[2018-01-11 07:41] LABS: BASO # 0.01 K/mm3 (0.0-2.0); BASO % 0.1 % (0.0-3.0); EOS % 0.3 % (1.5-5.0); GRAN % 64.4 % (50.0-68.0); HEMOGLOBIN 11.2 g/dL (14.0-18.0); LYMPH # 1.4 (1.2-3.4); LYMPH % 21.4 % (22.0-35.0); MEAN CELL VOLUME 85.6 fl (80.0-105.0); MEAN CORPUSCULAR HEMOGLOBIN 28.9 pg (25.0-35.0); MEAN CORPUSCULAR HGB CONC 33.7 g/dl (31.0-37.0); MONO # 0.9 (0.1-0.6); MONO % 13.8 % (1.0-6.0); RBC 3.88 10^6/uL (3.5-6.1); RED CELL DISTRIBUTION WIDTH 16.1 % (11.5-14.5); WHITE BLOOD COUNT 6.7 10^3/uL (4.5-11.0)
[2018-01-11 08:16] LABS: ALBUMIN 3.1 g/dL (3.0-4.8); ALT/SGPT 78 U/L (7-56); AST/SGOT 84 U/L (17-59); BLOOD UREA NITROGEN 23 mg/dL (7-21); CALCIUM 8.8 mg/dL (8.4-10.5); GFR NON-AFRICAN AMERICAN 57
[2018-01-11 08:42] VITALS: RESP 20
[2018-01-11] MEDS: Vitamins A & D Oint UD Foilpak TOP SCH ×2 (10:00→17:44)
[2018-01-11 11:13] LABS: PLATELET COUNT 62 10^3/uL (120.0-450.0)
--- NOTE | 2018-01-11 12:26 | CP.PCM.PN ---
Subjective - Date & Time of Evaluation Date of Evaluation: 01/11/18 Time of Evaluation: 09:45 - Subjective Subjective: Seen and examined pt at bedside. Denies diarrhea, abdominal pain, nausea or vomiting. Objective - Vital Signs/Intake and Output Vital Signs (last 24 hours): Temp Pulse Resp BP Pulse Ox 97.6 F 69 20 100/66 100 01/11/18 08:50 01/11/18 12:05 01/11/18 08:41 01/11/18 12:05 01/11/18 08:50 - Medications Medications: Current Medications Amiodarone HCl (Cordarone) 200 mg PO DAILY [facility] Last Admin: 01/11/18 12:04 Dose: Not Given Apixaban (Eliquis) 2.5 mg PO BID [facility]; Protocol Last Admin: 01/11/18 10:00 Dose: 2.5 mg Carvedilol (Coreg) 3.125 mg PO BID [facility] Last Admin: 01/11/18 12:04 Dose: Not Given Furosemide (Lasix) 40 mg PO DAILY [facility] Last Admin: 01/11/18 12:05 Dose: Not Given Lisinopril (Zestril) 5 mg PO DAILY [facility] Last Admin: 01/11/18 12:05 Dose: Not Given Spironolactone (Aldactone) 25 mg PO DAILY [facility] Last Admin: 01/11/18 12:05 Dose: Not Given Vitamin A (Vitamin A & D Oint Ud Foilpak) 1 ea TOP BID [facility] Last Admin: 01/11/18 10:00 Dose: 1 ea - Labs Labs: 01/11/18 07:15 01/11/18 07:15 PT 14.4 SECONDS (9.4-12.5) H 01/05/18 12:09 INR 1.25 01/05/18 12:09 APTT 32.0 Seconds (25.1-36.5) 01/05/18 12:09 - Constitutional Appears: Well, Non-toxic, No Acute Distress - Head Exam Head Exam: ATRAUMATIC, NORMAL INSPECTION, NORMOCEPHALIC - Eye Exam Eye Exam: Normal appearance, PERRL - ENT Exam ENT Exam: Mucous Membranes Moist, Normal Exam - Neck Exam Neck Exam: Full ROM - Respiratory Exam Respiratory Exam: Clear to Ausculation Bilateral, NORMAL BREATHING PATTERN - Cardiovascular Exam Cardiovascular Exam: REGULAR RHYTHM, +S1, +S2 - GI/Abdominal Exam GI & Abdominal Exam: Soft, Normal Bowel Sounds - Rectal Exam Rectal Exam: Deferred - Extremities Exam Extremities Exam: Full ROM, Normal Inspection - Back Exam Back Exam: NORMAL INSPECTION - Neurological Exam Neurological Exam: Alert, Awake, Oriented x3 Assessment and Plan - Assessment and Plan (Free Text) Assessment: pt is 87 y.o. male with pmhx of PPM, gout, HTN, dilated cardiomyopathy, and chronic afib who presented in ED 2/2 diarrhea. Diarrhea had resolved. Plan: Physical Therapy Meds per MAR Awaiting for rehab facility for continued physical therapy Will continue to follow
[2018-01-11 13:54] VITALS: PULSE 70; TEMP 98.1; O2SAT 98
[2018-01-11 14:28] VITALS: BP 96/62
--- NOTE | 2018-01-11 16:09 | PN ---
DATE: 01/11/2018 REASON FOR CONSULTATION AND FOLLOWUP: Cardiac evaluation, history of nonobstructive coronary artery disease, history of TAVR, transcutaneous aortic valve replacement, AFib, sick sinus syndrome with permanent pacemaker, admitted with deconditioning of the body, awaiting for placement to [facility]. SUBJECTIVE: The patient denies any chest pain, shortness of breath, any palpitations. PHYSICAL EXAMINATION: GENERAL: Not in apparent distress. VITAL SIGNS: Temperature afebrile, heart rate 71, blood pressure 135/88. HEENT: PERRLA. Extraocular muscles intact. NECK: Supple. No carotid bruit or thyromegaly. CHEST: Clear to auscultation. HEART: S1 and S2 regular. ABDOMEN: Soft. EXTREMITIES: Clubbing and cyanosis negative. LABORATORY DATA: Blood workup as follows: WBC 6.7, hemoglobin 11.8, hematocrit 33.2, platelet count 62. Chemistry shows sodium 138, potassium 4.2, chloride 102, carbon dioxide 32, anion gap of 8, BUN 23, creatinine 1.2. IMPRESSION: An 87-year-old male with a past medical history significant for cardiomyopathy, paroxysmal atrial fibrillation, severe aortic stenosis, status post transcutaneous aortic valve replacement, recently admitted with complete heart block, converted to normal sinus with Mobitz type II and high grade atrioventricular block, subsequently underwent pacemaker by Dr. Zuluaga. Repeat echo has done that showed significantly improved left ventricular function. History of thrombocytopenia, admitted with deconditioning of the body. Awaiting for discharged to a fdc. Prior to that the patient refused automatic implantable cardioverter-defibrillator in the past because patient severely decreased left ventricular function and now left ventricular function significantly improved. RECOMMENDATIONS: Continue Eliquis for paroxysmal atrial fibrillation. This time patient back again revert to atrial fibrillation on admission EKG dated 01/07/2018. Continue Eliquis 2.5 b.i.d., continue Coreg, continue amiodarone, continue lisinopril, awaiting for discharge. Apparently, the patient wishes to go for [facility]. I left a message for social worker assistant for discharge planning, because patient's is in [place], he wants to go to the [facility]. Continue rehab. We will follow with you. Thank you Dr. Martin for providing us the opportunity in taking care of the patient, Isreal Connor. History of thrombocytopenia needs to be close monitored, because patient is on Eliquis. Jet Rich MD
--- NOTE | 2018-01-12 02:04 | DS ---
HISTORY OF PRESENT ILLNESS: The patient is 87-year-old, seen and examined, doing well, eating and tolerating. No nausea, vomiting, or diarrhea. PHYSICAL EXAMINATION: VITAL SIGNS: He is afebrile. Pulse 70, respirations 20, and blood pressure 96/62. LUNGS: Bilateral fair airflow. No rhonchi or crackles. HEART: S1 and S2, audible. ABDOMEN: Soft and nontender. No rebound. No guarding. NEUROLOGIC: The patient is awake,alert, oriented, communicative. Has generalized weakness. Has difficulty walking. EXTREMITIES: Bilateral leg +2 edema. LABORATORY DATA: WBC is 6.7, hemoglobin 11.2, hematocrit 33.2 and platelets of 62,000. Chemistry; sodium 138, potassium 4.2, chloride 102, CO2 of 32, BUN 23, creatinine 1.2 and blood sugar of 88. ASSESSMENT: 1. Ischemic cardiomyopathy. 2. History of atrioventricular block, complete heart block, had pacemaker placed. 3. Chronic kidney disease. 4. Chronic atrial fibrillation. 5. Status post diarrhea, that is resolved. Stool for Clostridium difficile negative. PLAN: The patient is clinically stable. We will cut down his carvedilol to 3.125 daily. Continue Eliquis. Continue him on lisinopril. I advised the nurse to hold his blood pressure medications if his blood pressure is below 95 and the patient is being transferred to today. Kendall Martin MD
--- NOTE | 2018-01-20 21:18 | PQF ---
PROVIDER RESPONSE TEXT: STAGE 3 CKD REVIEWER QUERY TEXT: Kidney Disease, Chronic CKD Stage Chronic Kidney Disease (CKD) is documented in the Medical Record. Please specify the disease stage ( includes probable or suspected) Such as: -- Chronic kidney disease Stage 1 -- Chronic kidney disease Stage 2 -- Chronic kidney disease Stage 3 -- Chronic kidney disease Stage 4 -- Chronic kidney disease Stage 5 -- Chronic kidney disease Stage 5, requiring dialysis -- End Stage Renal Disease -- Other, please specify Stages are defined by the [employer] as follows: CKD Stage I GFR >= 90 ml / min per 1.73 m2 and persistent albuminuria CKD Stage 2 GFR between 60 and 89 with persistent albuminuria CKD Stage 3 GFR between 30 and 59 CKD Stage 4 GFR between 15 and 29 CKD Stage 5 GFR between <15 or End Stage Renal Disease The patient's Clinical Indicators include: Please specify the stage of patient's CKD. Query created by: Loree Aranda on 01/11/2018 2:15 PM Electronically signed by: Kendall Martin MD 01/20/2018 9:14 PM
== END 2018-01-11 19:00 | DRG 683 ==
LOC: ED 11:30 → ERH 13:35 → 5RSO 15:15
PROVIDERS: ADMIT Internal Medicine; ATTEND Internal Medicine
DX: N17.9 Acute kidney failure, unspecified (principal); I42.0 Dilated cardiomyopathy; I13.0 Hypertensive heart and chronic kidney disease with heart failure and stage 1 through stage 4 chronic kidney disease, or unspecified chronic kidney disease; I50.9 Heart failure, unspecified; N18.3 Chronic kidney disease, stage 3 (moderate); E86.0 Dehydration; K52.9 Noninfective gastroenteritis and colitis, unspecified; G62.9 Polyneuropathy, unspecified; I48.2 Chronic atrial fibrillation; M10.9 Gout, unspecified; I25.5 Ischemic cardiomyopathy; I48.0 Paroxysmal atrial fibrillation; I25.10 Atherosclerotic heart disease of native coronary artery without angina pectoris; D69.6 Thrombocytopenia, unspecified; D64.9 Anemia, unspecified; H40.9 Unspecified glaucoma; I08.0 Rheumatic disorders of both mitral and aortic valves; R94.5 Abnormal results of liver function studies; R26.2 Difficulty in walking, not elsewhere classified; I49.5 Sick sinus syndrome; Z95.0 Presence of cardiac pacemaker; Z87.891 Personal history of nicotine dependence; Z95.2 Presence of prosthetic heart valve; Z79.82 Long term (current) use of aspirin; Z79.02 Long term (current) use of antithrombotics/antiplatelets